=== PATIENT | female | born 1975 | race Caucasian/White ===

== ENCOUNTER 2020-05-09 02:09 | Outpatient (CLI) | payer BC, SELFPAY ==
--- NOTE | 2020-05-09 04:00 | DI.RAD_ITS ---
EXAM: XR HIP PELVIS ADULT BL CLINICAL HISTORY: RT AND LT HIP JOINT PAIN, M25.552,M25.551. TECHNIQUE: 2D digital imaging was performed. COMPARISON: CR RT HIP COMPLETE AP PELVIS from 11/11/2015 FINDINGS: BONES: No acute fracture is present. No bony destructive lesion is seen. JOINTS: No dislocation present. SOFT TISSUE: Normal. IMPRESSION: Unrmarkable radiographs of bilat hips. Unremarkable radiographs of the pelvis DATA REPOSITORY: RADIATION DOSE DELIVERED:
== END 2020-05-09 02:29 ==
PROVIDERS: PCP Family Medicine; Visit Provider Nurse Practitioner Family
DX: M25.552 Pain in left hip (principal); M25.551 Pain in right hip
CPT/HCPCS: 73521

== ENCOUNTER 2020-07-03 00:50 | Outpatient (CLI) | payer BC, SELFPAY ==
--- NOTE | 2020-07-03 15:45 | DI.MRI_ITS ---
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 TECHNIQUE: Multiplanar multisequence MRI was performed. COMPARISON: CR XR KNEE 4 VIEW LEFT from 05/14/2020 FINDINGS: There is artifact in the proximal tibia due to the patient's prior anterior tibial tuberosity transfe r. Postsurgical artifact is also seen in the medial meniscus and the patella. BONES: There is no fracture or contusion pattern. JOINTS: Moderate degenerative changes are seen in all 3 joint compartments with periarticular spurrin g and thinning of the articular cartilage. Findings appear most marked at the patellofemoral joint. There is a small joint effusion. TENDONS: Extensor mechanism: Unremarkable. Medial retinaculum: There is thickening of the medial retinaculum but no tear is identified. Lateral retinaculum: Unremarkable. Popliteus: Unremarkable. MUSCLES: Unremarkable. MENISCI: The medial meniscus is unremarkable. The lateral meniscus is unremarkable. SOFT TISSUES: Unremarkable. LIGAMENTS: Anterior Cruciate: Unremarkable. Posterior Cruciate: Unremarkable. Medial Collateral:Unremarkable. Lateral Collateral: Unremarkable. OTHER: IMPRESSION: 1. Postsurgical changes seen in the anterior tibial tuberosity medial femoral condyle and the patella . 2. No evidence of a meniscal tear. 3. Moderate degenerative changes in the knee. The findings are most marked at the patellofemoral yue nt. DATA REPOSITORY:
== END 2020-07-03 01:10 ==
PROVIDERS: PCP Family Medicine; Visit Provider Physician Assistant
DX: M22.42 Chondromalacia patellae, left knee (principal); M17.12 Unilateral primary osteoarthritis, left knee
CPT/HCPCS: 73721

== ENCOUNTER 2020-08-15 03:08 | Outpatient (CLI) | payer BC, SELFPAY ==
[2020-08-15 07:36] LABS: HCT 40.5 % (36.0-46.0); HGB 13.5 g/dL (11.2-15.7); MCHC 33.3 % (32.0-36.0); MPV 9.8 fL (8.0-11.0); Platelet Count 297 10^3/uL (130-400); RDW 12.7 % (11.7-14.6); RDW-SD 41.6 fL; WBC 12.42 10^3/uL (4.4-10.8)
[2020-08-15 07:38] LABS: Bilirubin Negative (Negative); Blood Trace-intact (Negative); Clarity Clear (Clear); Glucose Negative (Negative); Ketones Negative (Negative); Leukocyte Esterase Negative (Negative); Nitrite Negative (Negative); Specific Gravity 1.025 (1.005-1.025); Urobilinogen 0.2 EU/dL (Up TO 0.2)
[2020-08-15 07:51] LABS: Bacteria Moderate HPF (Negative); C & S Indicated? No/Sq. Contamination; Casts Negative LPF (Negative); Crystals Negative HPF (Negative); Epithelial Cells Moderate HPF (Negative); Mucus Trace (Negative); RBC 0-2 HPF (0-2); WBC 0-2 HPF (0-5)
[2020-08-15 08:47] LABS: ALT 31 U/L (14-59); AST 12 U/L (15-37); Albumin 4.3 g/dL (3.4-5.0); Alkaline Phosphatase 64 U/L (46-116); Anion Gap 10.6 mmol/L (3-11); BUN 13 mg/dL (7-18); Bilirubin, Total 0.6 mg/dL (0.2-1.0); CO2 24.4 mmol/L (21.0-32.0); CREATININE 0.73 mg/dL (0.55-1.02); Calcium 8.9 mg/dL (8.5-10.1); Calculated LDL 81 mg/dL (<100); Chloride 106 mmol/L (98-107); Cholesterol 191 mg/dL (<200); Glucose 96 mg/dL (74-106); HDL Cholesterol 87 mg/dL (40-60); Potassium 4.1 mmol/L (3.5-5.1); Sodium 141 mmol/L (136-145); Total Protein 7.2 g/dL (6.4-8.2); Triglyceride 115 mg/dL (<150)
== END 2020-08-15 03:28 ==
PROVIDERS: PCP Family Medicine; Visit Provider Nurse Practitioner Family
DX: Z00.00 Encounter for general adult medical examination without abnormal findings (principal); R35.0 Frequency of micturition; R39.0 Extravasation of urine; M25.551 Pain in right hip; M25.552 Pain in left hip; M25.562 Pain in left knee
CPT/HCPCS: 36415; 80053; 80061; 85027; 81003; 81015

== ENCOUNTER 2020-08-18 08:56 | Emergency (ER) | payer BC, SELFPAY ==
[2020-08-18 09:06] VITALS: BP 142/95; PULSE 76; RESP 18; TEMP 36.7; O2SAT 97
--- NOTE | 2020-08-18 09:21 | DI.CT_ITS ---
EXAM: CT BRAIN NECK CTA CLINICAL HISTORY: Dizziness, R face/ear fullness. TECHNIQUE: Imaging Protocol: Axial CT angiography was performed with multi-slice acquisition and mu lti-planar and/or 3D reconstructions. CONTRAST MATERIAL: Intravenous: Omnipaque 350 Contrast volume:structured data in ml COMPARISON: No exams were available for comparison FINDINGS: CT angiography of the cervical cranial region was performed according to the usual protocol with intr avenous infusion of 100 cc of Omnipaque 350.. Initial noncontrast scanning of the head is unremarkable except for slight generalized cerebral atrop hy.. Visualized lung apices are clear. Visualized portions of thoracic aorta and pulmonary arterial circul ation are unremarkable. There is no evidence of a cervical mass or adenopathy. The tracheal laryngeal structures appear intact. The common, internal, and external carotid arteries are within normal limits in the cervical region w ith no evidence of aneurysm, stenosis, or dissection. The vertebral arteries are unremarkable in appearance in the cervical region with no evidence of aneu rysm, stenosis, or dissection. Intracranial portions of the internal carotid arteries appear normal with no evidence of aneurysm, st enosis, or dissection. Intracranial vertebral arteries and basilar artery appear normal with no evidence of aneurysm, stenos is or dissection. No aneurysm identified in the region of the [id number]. The anterior, middle, and posterior cer ebral arteries and major branches appear intact with no evidence of aneurysm, stenosis, or dissection . No enhancing brain lesion identified. IMPRESSION: Negative CT angiography of the cervical cranial region. RADIATION DOSE DELIVERED: 1,356.25mGy.cmTotal DLP 1,356.25mGy.cm Total DLP DATA REPOSITORY: All CT scans at this facility are submitted to the National Radiology Data Registry (NRDR) Dose Index Registry (DIR) with the [employer] ([employer]). RADIATION OPTIMIZATION: All CT scans at this facility use at least one of these dose optimization te chniques: automated exposure control; mA and/or kV adjustment per patient size (includes targeted exa ms where dose is matched to clinical indication); or iterative reconstruction.
--- NOTE | 2020-08-18 09:23 | ED.GENADUL_ITS ---
Discharge Plan Disposition Patient Disposition: HOME Condition: Improving Discharge Details Clinical Impression: Episodic peripheral vertigo, Acute effusion of both middle ears Primary Care Provider: Axel Mcdaniel ED Provider: Toro Meek Home Meds and New Rx's Prescriptions: New meclizine 25 mg tablet 25 mg PO TID PRN (Reason: dizziness) Qty: 14 RF: 0 loratadine [Claritin] 10 mg tablet 10 mg PO DAILY Qty: 14 RF: 0 Continued multivitamin Tablet 1 tab PO DAILY RF: 0 sertraline 25 mg tablet 25 mg PO DAILY RF: 0 fluticasone propionate 50 mcg/actuation spray,suspension 1 spray INTRANASAL DAILY RF: 0 iron 18 mg Tablet 65 mg PO DAILY RF: 0 Discharge Instructions Instructions: Ear Infection (ED), Vertigo (ED) Additional Instructions: Home to rest today. Please take Claritin as prescribed once daily for 2 weeks. Antivert as needed for persistent dizziness. Return if you develop facial droop, difficulty with speech, clumsiness or tingli ng of the arm, or any other acute concerns. Medical Decision Making 45-year-old female presents with 1 month of intermittent episodes of vertiginous symptoms. Now with 1 to 2 days of right facial fullness and ear discomfort. She is afebrile, well-appearing, unremarkable vital signs. Cranial nerves II through XII, Romberg are within normal limits. She has middle ear effusions bilaterally. Differential diagnosis would include mass, sinusitis, vertigo. Patient given meclizine, IV access established, screening labs obtained and she is referred for contrast-enhanced CT images. Labs showed a white count of 6, hematocrit 41, platelets 284. Sodium 140, potassium 3.7, chloride 104, BUN 8, creatinine 0.7. Of mass or infarct. She is improved with Antivert. She underwent CT images without evidence of mass or infarct. Will administer dexamethasone for its anti-inflammatory properties, decongestants for 2 weeks, and Antivert to be used as needed. She understands indications to seek reevaluation. She is stable and improved, will discharge to home. HPI General Mode of arrival: ambulatory . Date/Time Provider Initiated Documentation: 08/18/20 08:58 . Limitations to Documentation: no limitations . Information obtained by: patient . History of Present Illness 45 year old F presents to the emergency department with the chief complaint of Intermittent dizziness for 1 month, right ear and facial fullness, described as moderate, Quality is described as dull, and is localized to the face. Patient reports no radiation. Patient started experiencing this day(s) and it has been intermittent. No relieving factors improve symptom(s), No exacerbating factors reported . Patient notes denies fever/chills, headaches, loss of appetite, malaise, nausea/vomiting and syncope. Patient did receive the following treatments prior to arrival, none Related Data Home Medications Medication Instructions Recorded Confirmed fluticasone propionate 1 spray INTRANASAL DAILY 08/18/20 08/18/20 iron 65 mg PO DAILY 08/18/20 08/18/20 loratadine [Claritin] 10 mg PO DAILY #14 tab 08/18/20 meclizine 25 mg PO TID PRN #14 tab 08/18/20 multivitamin 1 tab PO DAILY 08/18/20 08/18/20 sertraline 25 mg PO DAILY 08/18/20 08/18/20 Previous Rx's Medication Instructions Recorded loratadine [Claritin] 10 mg PO DAILY #14 tab 08/18/20 meclizine 25 mg PO TID PRN #14 tab 08/18/20 Allergies Allergy/AdvReac Type Severity Reaction Status Date / Time oxycodone Allergy Intermediate Hives Unverified 08/18/20 09:10 ENVIRONMENTAL Allergy Intermediate RHINITIS, Uncoded 08/18/20 09:10 ITCHY EYES General Stated Complaint: FacialProb DALE: 3 Review of Systems Narrative: No fever, chills. No fall or headache. 8 systems reviewed and otherwise negative [facility] Social History Smoking/Tobacco Use Status: Former Tobacco Use Smoking risk assessment performed?: Yes Drug use: Never Exam Narrative Exam Narrative: GEN: awake, alert, oriented 3. Pleasant, well groomed, interactive. HEAD: Normocephalic, atraumatic ENT: Mucous membranes moist, oropharynx unremarkable, External ear exam unre markable.right greater than left middle ear effusion without erythema or distention. EYES: PERRL, EOMI NECK: Full ROM, no MEME, no menigismus CHEST/RESP: Nontender, clear to auscultation bilateral, no wheeze/rhonchi/rales CARDIOVASCULAR: RRR, no murmur, rub braydon. 2+ Rad pulse bilateral ABDOMEN: Soft, nontender, no mass. +Bowel sounds EXT: Full ROM, no edema, no rash Neuro: Grossly normal neurologic exam, conversant, interactive. Cranial nerves II through XII intact. Negative Romberg. Heel and toe walking normal. Psych: Speech fluent, thoughts congruent, affect normal Course Vital Signs Vital signs: Vital Signs Temperature 36.7 C 08/18/20 09:06 Pulse 76 08/18/20 09:06 Respiratory Rate 18 08/18/20 09:06 Blood Pressure 142/95 H 08/18/20 09:06 Pulse Oximetry 97 08/18/20 09:06 Temperature 36.7 C 08/18/20 09:06 Temperature Source Temporal Artery Scan 08/18/20 09:06 Pulse 76 08/18/20 09:06 Respiratory Rate 18 08/18/20 09:06 Blood Pressure 142/95 H 08/18/20 09:06 Blood Pressure Position Sitting 08/18/20 09:06 Pulse Oximetry 97 08/18/20 09:06 Oxygen Delivery Method Room Air 08/18/20 09:06 Oxygen Flow Rate 0 08/18/20 09:06 Pain Level 5 08/18/20 09:06
[2020-08-18] MEDS: Meclizine 25 MG TAB PO (09:41)
[2020-08-18 09:52] LABS: HCT 41.1 % (36.0-46.0); HGB 13.8 g/dL (11.2-15.7); MCH 30.2 pg (27.0-33.0); MCHC 33.6 % (32.0-36.0); MCV 89.9 fL (80-95); MPV 9.5 fL (8.0-11.0); Platelet Count 284 10^3/uL (130-400); RBC 4.57 10^6/uL (3.93-5.22); RDW 12.6 % (11.7-14.6); RDW-SD 41.2 fL; WBC 6.52 10^3/uL (4.4-10.8)
[2020-08-18] MEDS: Normal Saline 500 ML IV (09:52)
[2020-08-18] MEDS: Omnipaque 350 MG/ML 100 ML BTL IJ (10:08)
[2020-08-18] MEDS: Normal Saline - Diluent 50 ML VIAL IV (10:08)
[2020-08-18] MEDS: Normal Saline Flush 10 ML SYR IVP (10:09)
[2020-08-18 10:10] LABS: Anion Gap 8.8 mmol/L (3-11); BUN 8 mg/dL (7-18); CO2 27.2 mmol/L (21.0-32.0); CREATININE 0.76 mg/dL (0.55-1.02); Calcium 9.2 mg/dL (8.5-10.1); Chloride 104 mmol/L (98-107); Glucose 100 mg/dL (74-106); Potassium 3.7 mmol/L (3.5-5.1); Sodium 140 mmol/L (136-145)
[2020-08-18 10:35] VITALS: BP 115/71; PULSE 59; RESP 20; O2SAT 99
--- NOTE | 2020-08-18 11:14 | DI.VRAD_ITS ---
PROCEDURE INFORMATION: Exam: CT Angiography Head With Contrast Exam date and time: 08/18/2020 9:46 AM Age: 45 years old Clinical indication: Dizziness and giddiness; Patient HX: Dizzy. RT ear fiullness TECHNIQUE: Imaging protocol: Computed tomography angiography of the head with intravenous contrast. 3D rendering (Not supervised by radiologist): MIP and/or 3D reconstructed images were created by the technologist. Radiation optimization: All CT scans at this facility use at least one of these dose optimization techniques: automated exposure control; mA and/or kV adjustment per patient size (includes targeted exams where dose is matched to clinical indication); or iterative reconstruction. Contrast material: SHARON 350; Contrast volume: 85 ml; Contrast route: INTRAVENOUS (IV); COMPARISON: No relevant prior studies available. FINDINGS: Limited study due to poor opacification of the xoowmk-tq-Nksjpr beyond the 2nd order branches. ANTERIOR CIRCULATION: Right internal carotid artery: Unremarkable. No occlusion or stenosis. No aneurysm. Right middle cerebral artery: Unremarkable. No occlusion or significant stenosis. No aneurysm. Right anterior cerebral artery: Unremarkable. No occlusion or significant stenosis. No aneurysm. Left internal carotid artery: Unremarkable. Intracranial segment is patent with no significant stenosis. No aneurysm. Left middle cerebral artery: Unremarkable. No occlusion or significant stenosis. No aneurysm. Left anterior cerebral artery: Unremarkable. No occlusion or significant stenosis. No aneurysm. POSTERIOR CIRCULATION: Right vertebral artery: Unremarkable. No occlusion or significant stenosis. No aneurysm. Left vertebral artery: Unremarkable. No occlusion or significant stenosis. No aneurysm. Basilar artery: Unremarkable. No occlusion or significant stenosis. No aneurysm. Right posterior cerebral artery: Unremarkable. No occlusion or significant stenosis. No aneurysm. Left posterior cerebral artery: Unremarkable. No occlusion or significant stenosis. No aneurysm. Veins: Venous contamination without venous thrombus. Brain: The noncontrast images demonstrate minimal diffuse involutional changes in the brain without evidence of acute hemorrhage or acute territorial infarct. Cerebral ventricles: No ventriculomegaly. Mastoid air cells: The mastoids are well aerated. Paranasal sinuses: The paranasal sinuses are well aerated. Bones/joints: There is no evidence of acute fracture. No skull base mass is seen. Soft tissues: Unremarkable. IMPRESSION: No acute hemorrhage or acute territorial infarct. 2. No large vessel occlusion though evaluation of the vlphgr-vu-Unrrju is limited by somewhat poor contrast opacification. PROCEDURE INFORMATION: Exam: CT Angiography Neck With Contrast Exam date and time: 08/18/2020 9:46 AM Age: 45 years old Clinical indication: Dizziness and giddiness; Patient HX: Dizzy. RT ear fiullness TECHNIQUE: Imaging protocol: Computed tomography angiography of the neck with intravenous contrast. 3D rendering (Not supervised by radiologist): MIP and/or 3D reconstructed images were created by the technologist. Contrast material: SHARON 350; Contrast volume: 85 ml; Contrast route: INTRAVENOUS (IV); COMPARISON: No relevant prior studies available. FINDINGS: Right common carotid artery: No stenosis. No dissection or occlusion. Right internal carotid artery: No stenosis of the extracranial segment. No dissection or occlusion. Right external carotid artery: No occlusion or stenosis of the origin. Right vertebral artery: No stenosis. No dissection or occlusion. Left common carotid artery: No stenosis. No dissection or occlusion. Left internal carotid artery: No stenosis of the extracranial segment. No dissection or occlusion. Left external carotid artery: No occlusion or stenosis of the origin. Left vertebral artery: No stenosis. No dissection or occlusion. Bones/joints: Degenerative changes along the spine are modest. No acute fracture. Soft tissues: No dominant neck mass. Lymph nodes: Small neck nodes without confluent lymphadenopathy. Lungs: There is mildly heterogeneous aeration of the included lungs. IMPRESSION: No significant stenosis by NASCET criteria. REFERENCES: NASCET CRITERIA. The degree of internal carotid artery stenosis is based on NASCET criteria. Normal is no stenosis. Mild is less than 50% stenosis. Moderate is 50-69% stenosis. Severe is 70% to 99% stenosis. Total occlusion is no detectable patent lumen. Dictated and Authenticated by: Randall Beasley MD. Ordering:SALEEM Engel MD
[2020-08-18 11:48] VITALS: BP 114/95; PULSE 60; TEMP 36.7; O2SAT 98
[2020-08-18] MEDS: Dexamethasone 4 MG TAB 8 MG PO (11:49)
--- NOTE | 2020-08-18 12:29 | NUR.NOTE ---
Referral, visit note, lab test results and radiology notes faxed to [facility]-Dr Mcdaniel.Nursing Note:
== END 2020-08-18 11:57 | disposition home or self-care (01) ==
PROVIDERS: Emergency Provider Emergency Medicine; PCP Family Medicine
DX: H65.193 Other acute nonsuppurative otitis media, bilateral (principal); H81.391 Other peripheral vertigo, right ear
CPT/HCPCS: 36415; 70496; 70498; 80048; 85027; 96360; 99285; 99284; J3490; J8540

== ENCOUNTER 2021-01-01 01:25 | Outpatient (CLI) | payer BC, SELFPAY ==
--- NOTE | 2021-01-01 | DI.MRI_ITS ---
Exam(s) MR IAC BRAIN WO/W EXAM: MR IAC BRAIN WO/W CLINICAL HISTORY: PARESTHESIAS,R20.2,R55 TECHNIQUE: Multiplanar multisequence MRI of the brain was performed. Both noninfused and contrast i nfused sequences were performed. IV Contrast injected was 20 cc Dotarem. COMPARISON: CT SCAN 08/18/2020 WAS REVIEWED FINDINGS: CEREBRAL PARENCHYMA: No evidence of intracranial hemorrhage, mass effect nor shift of midline structu re. No extraaxial fluid collections. Ventricles are not enlarged nor shifted. There is no significant focal signal abnormality in the cerebellar hemispheres nor within the natali, m idbrain, and thalami. There is no abnormal signal abnormality in the periventricular white matter. INTERNAL AUDITORY CANALS: There are no masses in the cerebellopontine angles. Also no evidence of in tra canalicular acoustic neuroma-schwannoma. The high-resolution sub millimeters slice T2 weighted s equence reveals no abnormality of the intra canalicular 7th and 8th cranial nerves. There are no ring enhancing lesions in the brain. There is no abnormal meningeal enhancement. PITUITARY GLAND: No mass nor parasellar abnormality. No obvious abnormality in the cavernous sinuses. FLOW VOIDS: The expected flow void are noted. No evidence of obvious aneurysm nor obvious vascular ma lformation. PARANASAL SINUSES: The visualized paranasal sinuses appear unremarkable. ORBITS: No obvious abnormal findings. IMPRESSION: 1. No significant intracranial findings on this MRI scan of the brain. 2. No abnormal enhancing intracranial finding. 3. No evidence of acoustic neuroma/schwannoma. DATA REPOSITORY:
[2021-01-01] MEDS: Gadoterate meglumine 20 ML VIAL IVP (09:38)
[2021-01-01] MEDS: Normal Saline Flush 10 ML SYR IVP (09:38)
== END 2021-01-01 01:45 ==
PROVIDERS: PCP Family Medicine; Visit Provider Otolaryngology Otolaryngology/Facial Plastic Surgery
DX: R55 Syncope and collapse (principal); R20.2 Paresthesia of skin
CPT/HCPCS: 70553

== ENCOUNTER 2022-03-11 13:27 | Emergency (ER) | payer BC, SELFPAY ==
[2022-03-11 13:42] VITALS: BP 142/89; PULSE 80; RESP 18; TEMP 36.5; O2SAT 98
--- NOTE | 2022-03-11 14:30 | DI.RAD_ITS ---
Exam(s) XR KNEE RT 4V+ EXAM: XR KNEE RT 4V+ CLINICAL HISTORY: pain,felt pop. TECHNIQUE: 2D digital imaging was performed of the right knee. Four views obtained. AP, lateral, Me rchant and PA tunnel views were obtained. COMPARISON: No exams were available for comparison FINDINGS: BONES: No acute fracture is present. No bony destructive lesion is seen. There is an enthesophyte at the superior patella. JOINTS: There are mild degenerative changes seen about the knee, particularly the patellofemoral join t. There is a very small suprapatellar joint effusion. SOFT TISSUE: Dystrophic calcifications are seen in the soft tissues. IMPRESSION: No acute fracture or dislocation. DATA REPOSITORY: RADIATION DOSE DELIVERED:
--- NOTE | 2022-03-11 15:16 | DI.VRAD_ITS ---
PROCEDURE INFORMATION: Exam: XR Right Knee Exam date and time: 03/11/2022 2:50 PM Age: 46 years old Clinical indication: Other: Pain, felt pop TECHNIQUE: Imaging protocol: Radiologic exam of the Right knee. Views: 4 or more views. COMPARISON: CR RIGHT ANKLE COMPLETE 11/11/2015 4:17 PM FINDINGS: Bones/joints: There are mild degenerative changes of the knee joint, predominantly involving the medial joint compartment. The joint spaces are preserved. Ar-Stieda lesion noted adjacent to the medial femoral condyle. No acute fracture or malalignment. Soft tissues: Unremarkable. Other findings: There is a suprapatellar knee effusion. IMPRESSION: 1. Small knee effusion. 2. No acute fracture or malalignment. 3. Mild osteoarthrosis. Dictated and Authenticated by: Martha Ford MD. Ordering:STARLA Tinoco MD
--- NOTE | 2022-03-11 15:25 | W.ED.GENAD ---
Discharge Plan Disposition Patient Disposition: HOME Condition: Stable Discharge Details Clinical Impression: Knee effusion, right Primary Care Provider: Axel Mcdaniel ED Provider: Earnest Washington Home Meds and New Rx's Prescriptions: Continued Emgality Pen 120 mg/mL pen injector 240 mg subcut ONCE Qty: 2 0RF Rx Instructions: as a single dose; administer as two 120 mg injections at separate sites sertraline 25 mg tablet 25 mg PO DAILY multivitamin Tablet 1 tab PO DAILY prochlorperazine maleate 10 mg tablet 10 mg PO Q8H PRN (Reason: nausea and vomiting or headache) Qty: 90 3RF amitriptyline 50 mg tablet 50 mg PO QHS Qty: 30 5RF vitamin B complex Tablet 1 tab PO DAILY diphenhydramine HCl [Benadryl] 25 mg capsule 25 mg PO QHS PRN doxylamine succinate 25 mg tablet 25 mg PO QHS PRN epinephrine 0.3 mg/0.3 mL auto-injector 0.3 mg IM ONCE Rx Instructions: as a single dose cholecalciferol (vitamin D3) 25 mcg (1,000 unit) capsule 25 mcg PO DAILY ascorbic acid (vitamin C) 500 mg tablet extended release 1,000 mg PO DAILY mecobalamin (vitamin B12) 1,000 mcg tablet,chewable 1,000 mcg PO Q3D docusate sodium 100 mg capsule 100 mg PO .QOD sumatriptan succinate 100 mg tablet See Rx Instructions PO .COMPLEX Qty: 12 3RF Rx Instructions: take 1 tab at onset of headache; if no relief, may repeat 1 tab after at least 2 hrs; max = 2 tabs/24 hrs PO fluticasone propionate 50 mcg/actuation spray,suspension 1 spray INTRANASAL DAILY Label Comments: SHAKE LIQUID AND USE 1 SPRAY IN EACH NOSTRIL TWICE DAILY iron 18 mg Tablet 65 mg PO DAILY loratadine [Claritin] 10 mg tablet 10 mg PO DAILY Qty: 14 0RF Discharge Instructions Instructions: Swollen Knee Joint (ED) Additional Instructions: X-ray does not reveal acute fracture or dislocation. Please watch for new or worsening symptoms and return to the ER for any concerns. Lastly, please follow-up with the [facility] who you see for your chronic knee issues. Medical Decision Making This is a 46-year-old female who reports bilateral chronic knee pain, is seen at the [facility] and eventually will need bilateral knee replacements.. Today she twisted her left ankle, did not sustain injury to her ankle but in the process twisted her knee and felt a pop and heard a crack. Patient has proper outpatient orthopedic follow-up, splint and crutches at home, requesting x-ray now to be sure she does not have an acute fracture. X-ray reveals a joint effusion, mild osteoarthrosis, no acute fracture or malalignment Discussed x-ray findings with patient. Standard discharge and return precautions were provided. Patient understands, is agreeable to this plan, and has no additional questions or concerns upon discharge. This documentation was generated using [employer] system, please disregard any oddities of phrase or misspellings. Imaging Data Radiologic Study: Attestation: I personally reviewed and interpreted this imaging study as follows: Imaging: X-Ray Radiologist's impression: PROCEDURE INFORMATION: Exam: XR Right Knee Exam date and time: 03/11/2022 2:50 PM Age: 46 years old Clinical indication: Other: Pain, felt pop TECHNIQUE: Imaging protocol: Radiologic exam of the Right knee. Views: 4 or more views. COMPARISON: CR RIGHT ANKLE COMPLETE 11/11/2015 4:17 PM FINDINGS: Bones/joints: There are mild degenerative changes of the knee joint, predominantly involving the medial joint compartment. The joint spaces are preserved. Ar-Stieda lesion noted adjacent to the medial femoral condyle. No acute fracture or malalignment. Soft tissues: Unremarkable. Other findings: There is a suprapatellar knee effusion. IMPRESSION: 1. Small knee effusion. 2. No acute fracture or malalignment. 3. Mild osteoarthrosis. HPI General Mode of arrival: ambulatory. Date/Time Provider Initiated Documentation: 03/11/22 13:50. Limitations to Documentation: no limitations. Information obtained by: patient. History of Present Illness 46 year old F presents to the emergency department with the chief complaint of R knee pain, described as moderate, with intensity rated at 6. Quality is described as aching, and is localized to the right. Patient reports no radiation. Patient started experiencing this hour(s) (3) and it has been constant. Immobilization improves symptom(s), Movement worsens symptoms . Patient notes no other symptoms.. Patient did receive the following treatments prior to arrival, none Related Data Home Medications Medication Instructions Recorded Confirmed fluticasone propionate 50 1 spray intranasal DAILY 08/18/20 03/11/22 mcg/actuation nasal spray,suspension iron 18 mg tablet 65 mg PO DAILY 08/18/20 03/11/22 loratadine 10 mg tablet (Claritin) 10 mg PO DAILY #14 tabs 08/18/20 03/11/22 ascorbic acid (vitamin C) 500 mg 1,000 mg PO DAILY 02/06/21 03/11/22 tablet,extended release cholecalciferol (vitamin D3) 25 25 mcg PO DAILY 02/06/21 03/11/22 mcg (1,000 unit) capsule diphenhydramine HCl 25 mg capsule 25 mg PO QHS PRN 02/06/21 03/11/22 (Benadryl) doxylamine succinate 25 mg tablet 25 mg PO QHS PRN 02/06/21 03/11/22 epinephrine 0.3 mg/0.3 mL 0.3 mg IM ONCE 02/06/21 03/11/22 injection, auto-injector vitamin B complex 1 tab PO DAILY 02/06/21 03/11/22 mecobalamin (vitamin B12) 1,000 1,000 mcg PO Q3D 05/14/21 03/11/22 mcg chewable tablet docusate sodium 100 mg capsule 100 mg PO .QOD 06/30/21 03/11/22 sertraline 25 mg tablet 25 mg PO DAILY 06/30/21 03/11/22 multivitamin 1 tab PO DAILY 08/18/21 03/11/22 sumatriptan succinate 100 mg tablet See Rx Instructions PO .COMPLEX 10/15/21 03/11/22 #12 tabs prochlorperazine maleate 10 mg 10 mg PO Q8H PRN nausea and 11/12/21 03/11/22 tablet vomiting or headache #90 tabs amitriptyline 50 mg tablet 50 mg PO QHS #30 tabs 12/23/21 03/11/22 galcanezumab-gnlm 120 mg/mL 240 mg (2 mL) subcut ONCE #2 mL 02/03/22 03/11/22 subcutaneous pen injector (Emgality Pen) Previous Rx's Medication Instructions Recorded loratadine 10 mg tablet (Claritin) 10 mg PO DAILY #14 tabs 08/18/20 sumatriptan succinate 100 mg tablet See Rx Instructions PO .COMPLEX 10/15/21 #12 tabs prochlorperazine maleate 10 mg 10 mg PO Q8H PRN nausea and 11/12/21 tablet vomiting or headache #90 tabs amitriptyline 50 mg tablet 50 mg PO QHS #30 tabs 12/23/21 galcanezumab-gnlm 120 mg/mL 240 mg (2 mL) subcut ONCE #2 mL 02/03/22 subcutaneous pen injector (Emgality Pen) Allergies Allergy/AdvReac Type Severity Reaction Status Date / Time acetaminophen [From Percocet] Allergy Intermediate Verified 03/11/22 13:49 oxycodone Allergy Intermediate Hives Unverified 03/11/22 13:49 trazodone Allergy Intermediate Verified 03/11/22 13:49 ENVIRONMENTAL Allergy Intermediate RHINITIS, Uncoded 03/11/22 13:49 ITCHY EYES General Stated Complaint: Orthopedic DALE: 4 Review of Systems Constitutional Constitutional: Denies weakness Musculoskeletal Musculoskeletal: Reports arthralgias, Denies numbness, Reports stiffness and Denies tingling Integumentary/Breasts Skin/Breast: Denies erythema Neurologic Neurologic: Denies numbness, Denies tingling and Denies weakness PFSH All Active Problems (Updated 03/11/22 @ 15:34 by CLARK Navarro) Knee effusion, right (Acute) Medication overuse headache (Acute) Migraine aura without headache (Acute) Migraine headache without aura (Acute) Disequilibrium (Acute) Paresthesias (Acute) Medical History Allergic disorder Anxiety Chronic fatigue syndrome Knee pain Obstructive sleep apnea of adult Polycystic ovaries Vitamin D deficiency Surgical History H/O bariatric surgery H/O gastric bypass History of cholecystectomy S/P carpal tunnel release S/P knee surgery Family History Father , liver failure No problems noted. 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 Exam Const General: cooperative, healthy appearing, comfortable and no acute distress Orientation: alert and awake HENMT Head: normal to inspection, normocephalic and atraumatic Eyes Conjunctivae: conjunctivae normal Neck Neck: normal visual inspection, trachea midline and supple Resp Effort & Inspection: normal respiratory effort and able to speak in complete sentences Cardio Rate: regular rate Rhythm: regular rhythm Skin General skin exam: no rashes or lesions noted Neuro General: patient alert, patient awake, moves all extremities and no focal motor deficits Cognition: normal cognition Speech: speech normal Gait: antalgic Motor: muscle tone normal throughout Sensory Exam: no sensory deficits noted Extrem General: full ROM, capillary refill normal, no pedal edema and no calf tenderness Other: Right knee stable, increased discomfort with anterior draw and varus pressure. No erythema, warmth or swelling. Calf is unremarkable. There is diffuse lateral and slight anterior discomfort to palpation. Patient is able to fully bear weight. Neuro, vascular, tendon intact Psych Appearance: grossly normal Mental Status: mental status grossly normal Course Vital Signs Vital signs: Vital Signs Temperature 36.5 C 03/11/22 13:42 Pulse 80 03/11/22 13:42 Respiratory Rate 18 03/11/22 13:42 Blood Pressure 142/89 H 03/11/22 13:42 Pulse Oximetry 98 03/11/22 13:42 Temperature 36.5 C 03/11/22 13:42 Temperature Source Temporal Artery Scan 03/11/22 13:42 Pulse 80 03/11/22 13:42 Respiratory Rate 18 03/11/22 13:42 Respiratory Effort Non-Labored 03/11/22 13:46 Blood Pressure 142/89 H 03/11/22 13:42 Blood Pressure Position Sitting 03/11/22 13:42 Pulse Oximetry 98 03/11/22 13:42 Oxygen Delivery Method Room Air 03/11/22 13:42 Oxygen Flow Rate 0 03/11/22 13:42 Pain Level 10 03/11/22 13:46
== END 2022-03-11 15:41 | disposition home or self-care (01) ==
PROVIDERS: Emergency Provider Physician Assistant; PCP Family Medicine
DX: M25.461 Effusion, right knee (principal); Z87.891 Personal history of nicotine dependence
CPT/HCPCS: 99283; 73564; 99282

== ENCOUNTER 2022-08-21 00:15 | Outpatient (CLI) | payer BC, SELFPAY ==
--- OUTSIDE RECORDS SUMMARY | 2022-08-21 00:16 | XMS_ITS | Continuity of Care Document ---
:1975 Author Organization [facility] Address [address] [place] [address] Encounter [facility] FIN NBR [id number] Date(s): 06/23/22 - 06/23/22 [facility] [address] [place], [place] [address] Encounter Diagnosis Knee effusion, right (Discharge Diagnosis) - 06/23/22 Chondromalacia of right knee (Discharge Diagnosis) - 06/23/22 Internal derangement of right knee (Discharge Diagnosis) - 06/23/22 Discharge Disposition: Home or Self Care Attending Physician: CLARK Chong Allergies, Adverse Reactions, Alerts Substance Reaction Severity Status Percocet Hives Mild Active Environmental Smoke Unknown Active Assessment and Plan Future Scheduled TestsRadiologyMRI Knee w/o Contrast Right 06/23/22 Functional Status 06/23/22 Other exposure to Infectious Disease None Medications amitriptyline 10 mg oral tablet 10 mg = 1 tab, Oral, TID, # 270 tab, 0 Refill(s) Start Date: 06/23/22 Status: OrderedEmgality Prefilled Syringe 120 mg =, Subcutaneous, every month, 0 Refill(s) Start Date: 06/23/22 Status: Orderedloratadine 10 mg oral capsule 10 mg = 1 cap, Oral, Daily, # 10 cap, 0 Refill(s) Start Date: 06/23/22 Status: Orderedsertraline 25 mg oral tablet 25 mg = 1 tab, Oral, Daily, 0 Refill(s) Start Date: 06/23/22 Status: OrderedTylenol 8 HR Arthritis Pain 650 mg =, Oral, PRN as needed for pain, 0 Refill(s) Start Date: 06/23/22 Status: Ordered Problem List Condition Confirmation Course Effective Dates Status Health I nformant Status Chondromalacia of Confirmed Active right knee Internal derangement Confirmed Active of right knee Knee effusion, right Confirmed Active Vital Signs Most recent to oldest [Reference Range]: 1 Peripheral Pulse Rate [60-100 bpm] 82 bpm (06/23/22 8:04 AM) Blood Pressure [90-140/60-90 mmHg] 126/84 mmHg (06/23/22 8:04 AM) Weight 104.33 kg (06/23/22 8:04 AM) Weight Measured (lbs) 230.008 lb (06/23/22 8:04 AM) Height 165.10 cm (06/23/22 8:04 AM) Height/Length Measured (inches) 65 inch (06/23/22 8:04 AM) BSA Measured 2.19 m2 (06/23/22 8:04 AM) Body Mass Index 38.27 kg/m2 (06/23/22 8:04 AM) Social History Social History Type Response Tobacco Never tobacco user Tobacco U se:. Sex Hospital Discharge Instructions Follow Up Care06/03/2022 20:15:05With:MRI [facility] Angie Valles: PERFORM Event Display: Procedure Note Authored Date: [id number] Physician Outpatient Note CLARK Chong: PERFORM Event Display: Office Clinic Note Physician Authored Date: [id number] WINNIE CASTANO :1975 Age:47 years Sex:Female Visit Date:06/23/2022 Chief Complaint RIGHT KNEE PAIN History of Present Illness The patient comes in today with bilateral knee pain right worse than left. ??Both of her knees continue to be swelling. ??She gets anterior medial and lateral knee pain.?? Going up and down stairs hasbeen difficult. ??She has been taking Tylenol at night because her knees feel like they lock up??on her at night after being still for a long period of time. ??She has gone to formal physical therapy and has tried a prescribed home exercise program prior to that.?? She has been icing.?? Conservative management does not seem to be giving her any lasting relief.?? She is unable to do most activities that she enjoys and is having some difficulty with ADLs. Physical Exam Vitals & Measurements HR:??82??(Peripheral)?? BP:??126/84?? SpO2:??98%?? HT:??165.10??cm?? WT:??104.33??kg?? BMI:??38.27?? Pain Score:??6?? BSA:??2.19?? General: Alert and oriented x3, pleasant cooperative, in no acute distress, appears to be their stated age, is generally fit appearing.? Right knee:??Moderate effusion.?? Lateral and medial joint line tenderness.?? Painful Troy'santerolaterally.?? Positive patellofemoral grind testing.?? Stable anteriorly and posteriorly. ??Negative varus and valgus stress testing.?? Terminal ends of flexion are painful medially.?? Motor sensory reflex neurovascular exam distally is intact. Assessment/Plan 1.??Knee effusion, right??M25.461 2.??Chondromalacia of right knee??M94.261 3.??Internal derangement of right knee??M23.91 Patient comes in today with continued bilateral knee pain right worse than left. ??She is getting??sensations of instability.?? She has been on a course of extensive nonoperative management. ??At thispoint I am concerned that there is a meniscus tear continuing to give her issues.?? We did discuss??the possibility of needing surgery and??she would like to??proceed with diagnostic imaging to evaluate her right??knee further as this is the more painful side.?? We will see her back when that is complete with further suggestions at that time. Follow Up Instructions With When Contact Information MRI Additional Instructions: Problem List/Past Medical History Ongoing Chondromalacia of right knee Internal derangement of right knee Knee effusion, right Historical No qualifying data Medications amitriptyline 10 mg oral tablet, 10 mg= 1 tab, Oral, TID Emgality Prefilled Syringe, 120 mg, Subcutaneous, every month loratadine 10 mg oral capsule, 10 mg= 1 cap, Oral, Daily sertraline 25 mg oral tablet, 25 mg= 1 tab, Oral, Daily Tylenol 8 HR Arthritis Pain, 650 mg, Oral, PRN Allergies Percocet??(Hives) Environmental Smoke Social History Alcohol Current, Wine- Comments: OCCASIONALLY Electronic Cigarette/Vaping Electronic Cigarette Use: Never. Employment/School Employed, Work/School description: [employer]. Tobacco Never tobacco user Tobacco Use:. Diagnostic Results Diagnostic Study Interpretation: Imaging: Previous x-rays taken??in February 2022 of her right knee show??patellofemoral degenerative changes.?? Medial lateral joint spaces are well-maintained otherwise. ??No fractures or dislocations. Electronically Signed on 06/23/22 08:27 AM CLARK Chong
--- NOTE | 2022-08-21 07:45 | DI.MRI_ITS ---
Exam(s) MR LOWER JOINT RT WO EXAM: MR LOWER JOINT RT WO CLINICAL HISTORY: RT KNEE EFFUSION,M25.461; CHONDROMALACIA,M94.261; INT DERANGEMENT,M23.91. TECHNIQUE: Multiplanar multisequence MRI was performed. COMPARISON: MR MR LOWER JOINT LT WO from 07/03/2020 CR,XR XR KNEE RT 4V+ from 03/11/2022 FINDINGS: BONES: There is no fracture or contusion pattern. Spurring from the femoral condyles and tibial anne marie teaus as well as patellofemoral joint. Postsurgical defect in the medial femoral metaphysis. Postsurg ical defects in the patella. JOINTS: A moderate joint effusion is present. Articular cartilage: Patellofemoral joint: Marked thinning of the cartilage at the apex and lateral patellar facet, extending down to bone. There is small amount adjacent high signal in the patellar ap ex. Marked thinning of cartilage extending down to bone in the adjacent femur Medial femoral tibial joint: Mild cartilage thinning and irregularity.. Lateral femoral tibial joint: Mild cartilage thinning and irregularity. TENDONS: Extensor mechanism: Enthesophytes at superior pole of patella, otherwise unremarkable. Medial retinaculum: Unremarkable. Lateral retinaculum: Unremarkable. Popliteus: Unremarkable. MUSCLES: Unremarkable. MENISCI: The medial meniscus shows a large tear in the posterior horn near the meniscal root.. The la teral meniscus is unremarkable. SOFT TISSUES: Small calcification adjacent to upper medial femoral condyle. Anterior subcutaneous edema. LIGAMENTS: Anterior Cruciate: Unremarkable. Posterior Cruciate: Unremarkable. Medial Collateral:Unremarkable. Lateral Collateral: Unremarkable. OTHER: IMPRESSION: Large tear of the posterior horn of the medial meniscus near the meniscal root. Severe degenerative changes with severe chondromalacia extending down to bone involving the patellof emoral joint. DATA REPOSITORY:
== END 2022-08-21 00:35 ==
LOC: DI 00:15
PROVIDERS: PCP Family Medicine; Visit Provider Physician Assistant
DX: M25.561 Pain in right knee (principal); M25.461 Effusion, right knee; M94.261 Chondromalacia, right knee; M23.8X1 Other internal derangements of right knee; S83.241A Other tear of medial meniscus, current injury, right knee, initial encounter; M17.11 Unilateral primary osteoarthritis, right knee
CPT/HCPCS: 73721

== ENCOUNTER 2024-08-22 16:03 | Outpatient (CLI) | payer BC, SELFPAY ==
--- NOTE | 2024-08-22 | DI.RAD_ITS ---
Exam(s) XR CHEST 2V PA LATERAL EXAM: XR CHEST 2V PA LATERAL CLINICAL HISTORY: Cough, R05.9 TECHNIQUE: 2D digital imaging was performed of the chest. Two images were obtained. PA and lateral views were obtained. COMPARISON: CT CT BRAIN NECK CTA from 08/18/2020 FINDINGS: MEDIASTINUM: Normal. HEART: Normal. PULMONARY VASCULATURE: Normal. LUNGS: Clear. PLEURAL SPACE: No pleural effusion or pneumothorax. BONE:Within normal limits for the patient's age. OTHER FINDINGS:Normal. IMPRESSION: No acute pulmonary findings. DATA REPOSITORY: RADIATION DOSE DELIVERED:
--- OUTSIDE RECORDS SUMMARY | 2024-08-22 16:04 | XMS_ITS | Encounter Summary ---
Author Organization [facility] Address [address] [place] [address] Care Team Providers Care Paper Mill Supervisor Name Role Phone Sulma Salinas MD Primary Care Provider [phone] Reason for Visit * Reason Comments Obesity Post Op Bypass (06/17) Encounter Details Date Type Department Care Team (Late st Contact Info) Description 10/23/2013 14:45 EDT Office Visit [facility] Bariatric Surgery [facility] [address] [place] [address] Hunter Bynum, PA-C [address] [place] [address], [facility] [address] [place] [address] Morbid obesity (HCC-CMS) (Primary Dx); S/P gastric bypass; Post-resection malabsorption Discharge Disposition: Auto Discharge Social History Tobacco Use Types Packs/Day Years Used Date Smoking Tobacco: Former Smokeless Tobacco: Never Comments:1996 Alcohol Use Standard Drinks/Week Comments Yes 0 (1 standard drink = 0.6 oz pur e alcohol) rare Comments No Sex and Gender Information Value Date Recorded Sex Assigned at Not on file Legal Sex Female 18:25 EST Gender Identity Not on file Sexual Orientation Not on file documented as of this encounter Last Filed Vital Signs Vital Sign Reading Time Taken Comments Blood Pressure - - Pulse - - Temperature - - Respiratory Rate - - Oxygen Saturation - - Inhaled Oxygen Concentration - - Weight 89.2 kg (196 lb 9.6 oz) 10/23/2013 1412 E DT Height 164.2 cm (5' 4.65) 10/23/2013 1412 EDT Body Mass Index 33.08 10/23/2013 1412 EDT documented in this encounter Mental Status * Because of a physical, mental, or emotional condition, do you have serious difficulty concentrating, remembering, or making decisions? (5 years old or older) Answer Entry Date Author Yes 07/08/2010 15:01 Eladio Ku RN documented in this encounter Discharge Diagnoses Diagnosis 278.01 MORBID OBESITY[ICD-9-CM] V45.86 BARIATRIC SURGERY STATUS[ICD-9-CM] 579.3 INTEST POSTOP NONABSORB[ICD-9-CM] documented in this encounter Discharge Disposition Disposition Code Departure Means Destination Auto Discharge documented in this encounter Progress Notes * Hunter Bynum PA - 10/23/2013 1512 EDT 10/23/2013 Kevin Calderon is here in follow-up to her laparoscopic Brandin-En-Y gastric bypass. The weight trend for the patient is: Weight at initial consult: 128.549 kg (283 lb 6.4 oz), to 83.915 kg (185 lb) [07/29/2012] at the last post-op visit to today's Weight : 89.177 kg (196 lb 9.6 oz). PROBLEM LIST Patient Active Problem List Diagnosis ??? Morbid obesity ??? Obstructive sleep apnea syndrome ??? Gastroesophageal reflux disease ??? Osteoarthritis of knee ??? PCOS (polycystic ovarian syndrome) ??? Vitamin D deficiency ??? Dysphagia ??? Short bowel syndrome ??? Status post gastric bypass for obesity SUBJECTIVE: Emesis: occasional complaints of emesis with pork Nausea: No complaints of nausea Increased Volume Tolerance: no Abdominal Pain: No complaints of abdominal pain Lightheadedness: occasional complaints of lightheadedness - reactive hypoglycemia, knows triggers Bowel Function: Normal with colace daily Pannus: No problems related to pannus reported OBJECTIVE: General Appearance: healthy appearing, alert and in no apparent distress Abdomen: Incision well-healed Extremities: Normal Skin: Normal ASSESSMENT: Doing well, Expected course without obvious complications and Weight Loss: Good, going right direction again after 6 weeks of no weight bearing after knee surgery. Labs reviewed, all look good PLAN: 1. Return to clinic in 1 year(s). 2. Orders Placed This Encounter Procedures ??? Vitamin B12 Standing Status: Future Number of Occurrences: Standing Expiration Date: 10/23/2014 ??? Calcium Standing Status: Future Number of Occurrences: Standing Expiration Date: 10/23/2014 ??? Hemagram Standing Status: Future Number of Occurrences: Standing Expiration Date: 10/23/2014 ??? Creatinine Standing Status: Future Number of Occurrences: Standing Expiration Date: 10/23/2014 ??? Ferritin Standing Status: Future Number of Occurrences: Standing Expiration Date: 10/23/2014 ??? Iron Standing Status: Future Number of Occurrences: Standing Expiration Date: 10/23/2014 ??? PTH Intact Standing Status: Future Number of Occurrences: Standing Expiration Date: 10/23/2014 ??? Thiamin (Vit B1), WB Standing Status: Future Number of Occurrences: Standing Expiration Date: 10/23/2014 ??? Vitamin D (25,[place]) Standing Status: Future Number of Occurrences: Standing Expiration Date: 10/23/2014 3. Labs before next visit Seen and discussed with Fiscal Manager at this visit. CLARK Culver 10/23/2013 15:12 * [address] - 10/23/2013 8931 EDT Nutrition Post Op Visit: Gastric Bypass Subjective:Patient returns to clinic for post op nutritional counseling following bariatric surgeryapprox 3.5 years ago. I had a bad Summer with weight gain following major knee surgery. I'm slowly losing the weight again, but when your cooks you meat and potatoes for meals and you can't exercise for 6 weeks, it's difficult to get back on tract. I'm scheduled to have surgery again now on that same knee to clean up the scar tissue that's causing me pain again. Questionnaire Reviewed: Yes Intolerance Episodes: Yes, rarely d/t type of food Food Intolerances: Pork chop, raw carrots Current Exercise: Walking 20 minutes 2x/week and PT weekly. Limited d/t recurrent knee pain Reactive Hypoglycemic Symptoms (bypass only): Yes, d/t sweets. Prevents this by consuming yogurt orcheese stick before having an occasional dessert at a democrat or celebration. Objective: Current Weight: Wt Readings from Last 1 Encounters: 10/23/13 89.177 kg (196 lb 9.6 oz) Current BMI: Body mass index is Body mass index is 33.08 kg/(m^2).. Total Weight Loss: Total Loss in lbs (Weight from Initial Consult - Today's Weight): 86.8 lbs Weight Change since Last Visit: +11.6 lbs. Weight Change since Surgery: -73 lbs. Supplement Usage: Type Amount MVT B12 3-4x/week Calcium w/Vit D Iron B Complex Vit D 1000units Other: biotin, colace 1-2x/day Recent Labs: 09/13/13 wnl, Vitamin D25OH 33.6, Vitamin B12 >1000 Assessment: Adequate Meal Frequency: Yes Adequate Meal Composition: Yes. Struggles to drink enough fluid Exercise Adequacy: no d/t knee pain Nutritional Issues: weight gain of approx 20 lbs following major knee surgery approx 8 months ago. Reports has lost about 10 lbs since then and has maintained it well but would like to lose another 10-15 lbs. Has build-up of scar tissue causing pain in knee that was surgically repaired which has limited her ability to walk long-distances. Is undergoing PT regularly and walking a couple times a week. Has upcoming surgery scheduled to clean up scar tissue in knee and hopes to be able to resume previous walking and running exercises. Plan: Continue current diet, increase calorie-free hydration as able Increase exercise as able with PT, walking Supplement Changes- decrease Vitamin B12 to 2x/week Initiate food logs Education Provided: Verbal review of Reactive Hypoglycemia Prevention and Treatment * Brooklyn Gomez - 10/23/2013 1439 EDT 30-Day Plus Bariatric Surgery Postop Questionnaire Anticoagulation initiated for presumed/confirmed DVT/PE? No Incisional hernia noted on exam? No Sleep Apnea requiring CPAP or BiPap? Yes GERD requiring daily use of PPI or H2 blockers? No Musculoskeletal Disease? Yes If yes, is activity limited by pain? Yes If yes, is daily medication used? No If yes, new surgical intervention performed or planned? No Any visit to an outside hospital including ER visits and admissions (include date of admission and discharge and reason)? Yes, [facility], February 2013 Any surgical operations or procedures performed at an outside hospital (date of admission and discharge and suspected reason for admission) Yes [facility] for knee surgery February 2013 Brooklyn Arias 10/23/2013 14:39 documented in this encounter Plan of Treatment Not on file documented as of this encounter Visit Diagnoses Diagnosis Morbid obesity ([facility])- Primary Morbid obesity S/P gastric bypass Bariatric surgery status Post-resection malabsorption Other and unspecified postsurgical nonabsorption documented in this encounter Care Teams Paper Mill Supervisor Relationship Specialty Start Date End Date Sulma Salinas MD [address] [place] [id number] PCP - General 06/27/13 documented as of this encounter
--- OUTSIDE RECORDS SUMMARY | 2024-08-22 16:04 | XMS_ITS | Clinical Summary ---
Author Organization [facility] Address [address] [place] [address] Care Team Providers Care Auto Leasing Manager Name Role Phone Sulma Salinas MD Primary Care Provider [phone] Allergies Active Allergy Reactions Criticality Noted Date Comments Oxycodone-Acetaminophen Hives 07/17/2009 Medications ERGOCALCIFEROL (VITAMIN D ORAL) Take 1,000 Units by mouth daily. Active cyanocobalamin 500 mcg tablet Take 500 mcg by mouth every 48 hours. Active VITAMIN B COMPLEX (B COMPLEX 1 ORAL) Take 1 Tab by mouth daily. 1 Active BIOTIN ORAL Take 1 Tab by mouth daily. 1 Active FERROUS FUMARATE (IRON ORAL) Take 1 Tab by mouth daily. 1 Active CALCIUM CARBONATE/VITAMIN D3 (CALCIUM WITH VITAMIN D ORAL) Take 1 Tab by mouth 2 times daily. 1 Active DOCUSATE CALCIUM (STOOL SOFTENER ORAL) Take 1 Tab by mouth 2 times daily. 1 Active VITAMIN E ACETATE (VITAMIN E ORAL)Indications:M orbid obesity (HCC-CMS),Vitamin D deficiency,S/P gastric bypass,Postresecti onal malabsorption syndrome Take 1 Tab by mouth daily. Active VIT/IRON FUMARATE/FA (STUARTNATAL PLUS 3 ORAL)Indications:F emale infertility of unspecified origin Take 1 Tab by mouth daily. Active letrozole (FEMARA) 2.5 mg tablet Take 1 Tab by mouth daily. 5 Each 3 3 Active chorionic gonadotropin, human (PREGNYL) 10,000 unit injection Inject 10,000 Units into the skin once for 1 dose. 1 Each 1 3 Active Active Problems Problem Noted Date Diagnosed Date Short bowel syndrome 06/29/2011 Status post gastric bypass for obesity 1 Dysphagia 08/07/2010 Vitamin D deficiency 03/26/2010 Morbid obesity (HCC-CMS) Overview (07/08/2010): Lap gastric bypass 07/08/2010 Obstructive sleep apnea syndrome Overview (11/11/2009): Severe Gastroesophageal reflux disease Osteoarthritis of knee Overview (11/11/2009): Bilateral PCOS (polycystic ovarian syndrome) Surgical History Surgery Date Site/Laterality Comments CHOLECYSTECTOMY, LAPAROSCOPIC KNEE SURGERY right knee x 2 CARPAL TUNNEL RELEASE GASTRIC BYPASS SURGERY Medical History Medical History Date Comments Morbid obesity (HCC-CMS) MIGUEL (obstructive sleep apnea) GERD (gastroesophageal reflux disease) OA (osteoarthritis) PCOS (polycystic ovarian syndrome) Family History Medical History Relation Comments Heart Disease Maternal Grandfather [place] Stroke Maternal Grandfather Diabetes Maternal Grandmother Heart Disease Maternal Grandmother RI Diabetes Maternal Uncle Diabetes Mother Diabetes Sister gestational Relation Status Comments Maternal Grandfather Maternal Grandmother Maternal Uncle Mother Sister Social History Tobacco Use Types Packs/Day Years Used Date Smoking Tobacco: Former Smokeless Tobacco: Never Comments:1997 Alcohol Use Standard Drinks/Week Comments Yes 0 (1 standard drink = 0.6 oz pur e alcohol) rare Comments No Sex and Gender Information Value Date Recorded Sex Assigned at Not on file Legal Sex Female 18:25 EST Gender Identity Not on file Sexual Orientation Not on file Obstetrics History Last Filed Vital Signs Vital Sign Reading Time Taken Comments Blood Pressure 110/70 07/05/2013 1310 EST Pulse 92 07/29/2012 1516 EST Temperature 36.7 ??C (98.1 ??F) 08/25/2010 1501 EST Respiratory Rate 16 08/25/2010 1720 EST Oxygen Saturation 100% 08/25/2010 1720 EST Inhaled Oxygen Concentration - - Weight 89.2 kg (196 lb 9.6 oz) 10/23/2013 1412 E DT Height 164.2 cm (5' 4.65) 10/23/2013 1412 EDT Body Mass Index 33.08 10/23/2013 1412 EDT Plan of Treatment Health Maintenance Due Date Last Done Comments Hepatitis C Screen 1975 Hepatitis B Vaccine (1 of 3 - 19+ 3-dose series) 06/06 COVID-19 Vaccine ( season) 2024 Advance Directives For more information, please contact: [phone] * Full Code (Latest Code Status on File) Date Activated Date Inactivated Comments 07/08/2010 14:47 07/11/2010 15:17 * Full Code Date Activated Date Inactivated Comments 07/08/2010 11:11 07/08/2010 14:47 Care Teams Auto Leasing Manager Relationship Specialty Start Date End Date Sulma Salinas MD [address] [place] [id number] PCP - General 06/27/13
--- OUTSIDE RECORDS SUMMARY | 2024-08-22 16:04 | XMS_ITS | Encounter Summary ---
Author Organization [facility] Address [address] [place] [address] Care Team Providers Care Carton Gluing Machine Operator Name Role Phone Sulma Salinas MD Primary Care Provider [phone] Reason for Visit * Reason Onset Date Comments Appointment Related 10/16/2014 Encounter Details Date Type Department Care Team (Late st Contact Info) Description 10/16/2014 Telephone [facility] Bariatric Surgery [address] [address] Hunter Bynum, WHITNEYC [address] [place] [address], [facility], [facility] [address] [place] [address] Appointment Related Social History Tobacco Use Types Packs/Day Years [...] on file documented as of this encounter Mental Status * Because of a physical, mental, or emotional condition, do you have serious difficulty concentrating, remembering, or making decisions? (5 years old or older) Answer Entry Date Author Yes 07/08/2010 15:01 EST Eladio Russ, RN documented in this encounter Miscellaneous Notes * Telephone Encounter - Brooklyn Gomez - 10/23/2014 0814 EDT 2nd time calling pt lm on vm * Telephone Encounter - Brooklyn Gomez - 10/16/2014 1547 EST Called pt to see if she would like to reschedule the appt she had NOS on 10/15/14 lm on vm documented in this encounter Plan of Treatment Not on file documented as of this encounter Visit Diagnoses Not on filedocumented in this encounter Care Teams Carton Gluing Machine Operator Relationship Specialty Start Date End Date Sulma Salinas MD [address] [place] [id number] PCP - General 06/27/13 documented as of this encounter
--- OUTSIDE RECORDS SUMMARY | 2024-08-22 16:04 | XMS_ITS | Continuity of Care Document ---
Author Organization [facility] Address [address] [place] [address] Encounter [facility] NBR [id number] Date(s): 08/25/22 - 08/25/22 [facility] [address] [place], [place] [address] Encounter Diagnosis Osteoarthritis of right knee(Discharge Diagnosis) - 08/25/22 Right patellofemoral syndrome(Discharge Diagnosis) - 08/25/22 Tear of medial meniscus of right knee(Discharge Diagnosis) - 08/25/22 Discharge Disposition: Home or Self Care Attending Physician: CLARK Chong Allergies, Adverse Reactions, Alerts Substance Reaction Severity Status Percocet Hives Mild Active Environmental Smoke Unknown Active Assessment and Plan Future Scheduled Tests Radiology* MRI Knee w/o Contrast Right 06/23/22 Functional Status 08/25/22 Other exposure to Infectious Disease Non e Medications amitriptyline 10 mg oral tablet 10 mg = 1 tab, Oral, TID, # 270 tab, 0 Refill(s) Start Date: 06/23/22 Status: Ordered Emgality Prefilled Syringe 120 mg =, Subcutaneous, every month, 0 Refill(s) Start Date: 06/23/22 Status: Ordered loratadine 10 mg oral capsule 10 mg = 1 cap, Oral, Daily, # 10 cap, 0 Refill(s) Start Date: 06/23/22 Status: Ordered sertraline 25 mg oral tablet 25 mg = 1 tab, Oral, Daily, 0 Refill(s) Start Date: 06/23/22 Status: Ordered Tylenol 8 HR Arthritis Pain 650 mg =, Oral, PRN as needed for pain, 0 Refill(s) Start Date: 06/23/22 Status: Ordered Problem List Condition Confirmation Course Effective Dates Status H ealth Status Informant Chondromalacia of right knee Confirmed Active Internal derangement of right knee Confirmed Active Knee effusion, right Confirmed Active Osteoarthritis of right knee Confirmed Active Right patellofemoral syndrome Confirmed Active Tear of medial meniscus of right knee Confirmed Active Vital Signs Most recent to oldest [Reference Range]: 1 Peripheral Pulse Rate [60-100 bpm] 89 bp m (08/25/22 2:35 PM) Blood Pressure [90-140/60-90 mmHg] 128/8 6mmHg (08/25/22 2:35 PM) Weight 106.59 kg (08/25/22 2:35 PM) Weight Measured (lbs) 234.99 lb (08/25/22 2:35 PM) Height 165.10 cm (08/25/22 2:35 PM) Height/Length Measured (inches) 65 inch (08/25/22 2:35 PM) BSA Measured 2.21 m2 (08/25/22 2:35 PM) Body Mass Index 39.1 kg/m2 (08/25/22 2:35 PM) Social History Social History Type Response Tobacco Never tobacco user T obacco Use:. Sex Physician Outpatient Note * CLARK Chong: PERFORM Event Display: Office Clinic Note Physician Authored Date: [id number] WINNIE CASTANO :1975 Age:47 years Sex:Female Visit Date:08/25/2022 Chief Complaint RIGHT KNEE PAIN History of Present Illness The patient comes in today with continued bilateral knee pain right worse than left.?? She is having a significant??decrease in her ability to perform ADLs and do activities that she enjoys.?? An MRIwas ordered.?? She gets anterior pain as well as posterior pain with swelling and catching.?? She does get Weeks's cyst frequently and at times they rupture. Physical Exam Vitals & Measurements HR:??89??(Peripheral)?? BP:??128/86?? SpO2:??99%?? HT:??165.10??cm?? WT:??106.59??kg?? BMI:??39.1?? Pain Score:??6?? BSA:??2.21?? General: Alert and oriented x3, pleasant cooperative, in no acute distress, appears to be their stated age, is generally fit appearing.? Right knee:??Moderate effusion.?? Lateral and medial joint line tenderness.?? Painful Troy'santerolaterally.?? Positive patellofemoral grind testing.?? Stable anteriorly and posteriorly. ??Negative varus and valgus stress testing.?? Terminal ends of flexion are painful medially.?? Motor sensory reflex neurovascular exam distally is intact. Assessment/Plan 1.??Osteoarthritis of right knee??M17.11 2.??Right patellofemoral syndrome??M22.2X1 3.??Tear of medial meniscus of right knee??S83.241A Patient comes in today with right knee pain and swelling??due to a medial meniscus tear??appearing to??be near the root horn.?? She has??severe arthritis in the lateral??patellar facet??and??adjacentfemoral??compartment.?? She has mild chondromalacia of the medial and lateral compartments.?? I counseled her??on her options. ??She does have a significant amount of arthritis in her patellofemoral compartment.?? She also has a??root horn tear.?? I would like to review her images further and call her next week with further suggestions at that time. Problem List/Past Medical History Ongoing Chondromalacia of right knee Internal derangement of right knee Knee effusion, right Osteoarthritis of right knee Right patellofemoral syndrome Tear of medial meniscus of right knee Historical No qualifying data Medications amitriptyline 10 [...] Cigarette Use: Never. Employment/School Employed, Work/School description: [employer]. Tobacco Never tobacco user Tobacco Use:. Diagnostic Results Diagnostic Study Interpretation: An MRI obtained at [facility]??dated??08/21/2022??shows??spurring of the femoral condyles and tibial plateaus as well as the patellofemoral joint. ??There are postsurgical??changes in the medial femoral metaphysis??and patella.?? There is a moderate joint effusion.?? There is marked thinning of the cartilage??at the apex and lateral patellar facet extending to bone.?? There is thinning of the cartilage extending to bone??and the adjacent femur.?? There are enthesophytes in the superior pole of the patella.?? There is a large tear in the posterior horn near the meniscal root.?? No tear of the lateral meniscus.?? There is a small calcification adjacent to the upper medial femoral condyle. ??There is a nterior subcutaneous edema. Electronically Signed on 08/25/22 04:13 PM CLARK Chong
--- OUTSIDE RECORDS SUMMARY | 2024-08-22 16:04 | XMS_ITS | Referral Summary ---
Author Organization [facility] Address [address] [place] [address] Care Team Providers Care Electronic Technician Name Role Phone Sulma Salinas MD Primary Care Provider [phone] Allergies Active Allergy Reactions Criticality Noted Date [...] 08/07/2010 Vitamin D deficiency 03/26/2010 Morbid obesity ([facility]) Overview (07/08/2010): Lap gastric bypass 07/08/2010 Obstructive sleep apnea syndrome Overview (11/11/2009): Severe Gastroesophageal reflux disease Osteoarthritis of knee Overview (11/11/2009): Bilateral PCOS (polycystic ovarian syndrome) Social History Tobacco Use Types Packs/Day Years Used Date Smoking Tobacco: Former Smokeless Tobacco: Never Comments:1996 Alcohol Use Standard Drinks/Week Comments Yes 0 (1 standard drink = 0.6 oz pur e alcohol) rare Comments No Sex and Gender Information Value Date Recorded Sex Assigned at Not on file Legal Sex Female 18:25 EST Gender Identity Not on file Sexual Orientation Not on file Last Filed Vital Signs Vital Sign Reading [...] Body Mass Index 33.08 10/23/2013 1412 EDT Mental Status * Because of a physical, mental, or emotional condition, do you have serious difficulty concentrating, remembering, or making decisions? (5 years old or older) Answer Entry Date Author Yes 07/08/2010 15:01 EST Eladio Russ, RN Plan of Treatment Not on file Advance Directives For more information, please contact: [phone] * Full Code (Latest Code Status on File) Date Activated Date Inactivated Comments 07/08/2010 14:47 07/11/2010 15:17 * Full Code Date Activated Date Inactivated Comments 07/08/2010 11:11 07/08/2010 14:47 Care Teams Electronic Technician Relationship Specialty Start Date End Date Sulma Salinas MD [address] [place] [id number] PCP - General 06/27/13
--- OUTSIDE RECORDS SUMMARY | 2024-08-22 16:04 | XMS_ITS | Encounter Summary ---
Author Organization [facility] Address [address] [place] [address] Care Team Providers Care Inspector Metal Fabricating Name Role Phone Sulma Salinas MD Primary Care Provider Reason for Visit * Reason Onset Date Comments Results 10/02/2013 Encounter Details Date Type Department Care Team (Late st Contact Info) Description 10/02/2013 Orders Only [facility] Bariatric Surgery - [place] [address] [place] [address] Allyn Valenzuela RN Other and unspecified postsurgical nonabsorption; Morbid obesity ([facility]-CMS); S/P gastric bypass Social History Tobacco Use Types Packs/Day Years [...] Date Author Yes 07/08/2010 15:01 EST Eladio Russ RN documented in this encounter Plan of Treatment Not on file documented as of this encounter Procedures Procedure Name Priority Date/Time Associated Diagnosis Comments THIAMIN (VITAMIN B1), WB Routine 09/13/2013 Other and unspecified postsurgical nonabsorption Morbid obesity (HCC-CMS) S/P gastric bypass VITAMIN D (25,OH) Routine 09/13/2013 Other and unspecified postsurgical nonabsorption Morbid obesity (HCC-CMS) S/P gastric bypass PTH INTACT Routine 09/13/2013 Other and unspecified postsurgical nonabsorption Morbid obesity (HCC-CMS) S/P gastric bypass COMPLETE BLOOD COUNT Routine 09/13/2013 Other and unspecified postsurgical nonabsorption Morbid obesity (HCC-CMS) S/P gastric bypass IRON Routine 09/13/2013 Other and unspecified postsurgical nonabsorption Morbid obesity (HCC-CMS) S/P gastric bypass FERRITIN Routine 09/13/2013 Other and unspecified postsurgical nonabsorption Morbid obesity (HCC-CMS) S/P gastric bypass VITAMIN B12 Routine 09/13/2013 Other and unspecified postsurgical nonabsorption Morbid obesity (HCC-CMS) S/P gastric bypass CREATININE Routine 09/13/2013 Other and unspecified postsurgical nonabsorption Morbid obesity (HCC-CMS) S/P gastric bypass CALCIUM Routine 09/13/2013 Other and unspecified postsurgical nonabsorption Morbid obesity (HCC-CMS) S/P gastric bypass documented in this encounter Results * HEMAGRAM (09/13/2013) HCT, External 42.4 [facility] MCH, External 30.6 [facility] MCV, External 90.8 [facility] MCHC, External 33.7 [facility] Hemoglobin, External 14.3 [facility] WBC, External 6.27 [facility] RBC, External 4.67 [facility] PLT, External 249 [facility] RDW-CV, External 12.6 [facility] Blood specimen (specimen) 09/13/2013 us Hunter Tena Fletcher PA-C HEMATOLOGY & PF4 ORD ERABLES Final Result [facility] * FERRITIN (09/13/2013) Ferritin, External 383 [facility] Blood specimen (specimen) 09/13/2013 us Hunter Tena Fletcher PA-C CHEMISTRY & BLOOD GA S ORDERABLES Final Result [facility] * THIAMIN (VITAMIN B1), WB (09/13/2013) Thiamine, External 166 [facility] Comment, External [facility] Blood specimen (specimen) 09/13/2013 us Hunter Tena Fletcher PA-C CHEMISTRY & BLOOD GA S ORDERABLES Final Result [facility] * CREATININE (09/13/2013) Creatinine, External 0.9 [facility] GFR, Calculated, External [facility] Blood specimen (specimen) 09/13/2013 us Hunter Tena Fletcher PA-C CHEMISTRY & BLOOD GA S ORDERABLES Final Result [facility] * CALCIUM (09/13/2013) Calcium, External 9.1 [facility] Calculated Calcium, External [facility] Blood specimen (specimen) 09/13/2013 us Hunter Bynum PA-C CHEMISTRY & BLOOD GA S ORDERABLES Final Result [facility] * IRON (09/13/2013) Iron, External 161 [facility] Blood specimen (specimen) 09/13/2013 us Hunter A Abtter-Cressy PA-C CHEMISTRY & BLOOD GA S ORDERABLES Final Result [facility] * VITAMIN D (25,OH) (09/13/2013) 25OH Vitamin D Tot, External 33.6 [facility] Blood specimen (specimen) 09/13/2013 us Hunter Guerreroer-Bharatsy PA-C CHEMISTRY & BLOOD GA S ORDERABLES Final Result [facility] * VITAMIN B12 (09/13/2013) Vitamin B-12, External >1,000 [facility] Blood specimen (specimen) 09/13/2013 us Hunter Guerreroer-Bharatsy PA-C CHEMISTRY & BLOOD GA S ORDERABLES Final Result [facility] * PTH INTACT (09/13/2013) PTH, External 24 [facility] Blood specimen (specimen) 09/13/2013 us Hunter Bergertter-Cressy PA-C CHEMISTRY & BLOOD GA S ORDERABLES Final Result [facility] documented in this encounter Visit Diagnoses Diagnosis Other and unspecified postsurgical nonabsorption Morbid obesity (HCC-CMS) Morbid obesity S/P gastric bypass Bariatric surgery status documented in this encounter Care Teams Inspector Metal Fabricating Relationship Specialty Start Date End Date Ready, Sulma O, MD [address] [place] [id number] PCP - General 06/27/13 documented as of this encounter
--- OUTSIDE RECORDS SUMMARY | 2024-08-22 16:04 | XMS_ITS | Encounter Summary ---
Author Organization [facility] Address [address] [place] [address] Care Team Providers Care Access Service Representative Name Role Phone Sulma Salinas MD Primary Care Provider [phone] Encounter Details Date Type Department Care Team (Late st Contact Info) Description 05/18/2022 Lab Requisition [facility] Pathology & Laboratory Medicine - [facility] [address] [place] [address] Sulma Hathaway, ROASTER SUPERVISOR [address] [place] [address] Encounter for other general examination Social History Tobacco Use Types Packs/Day Years [...] Eladio Russ, RN documented in this encounter Plan of Treatment Not on file documented as of this encounter Procedures Procedure Name Priority Date/Time Associated Diagnosis Comments PAP TEST Today 05/18/2022 10:03 EDT HPV DNA DETECTION WITH GENOTYPING, PCR Today 05/18/2022 10:03 EDT documented in this encounter Results * HUMAN PAPILLOMAVIRUS (HPV) DETECTION-HIGH RISK TYPES (05/18/2022 10:03 EDT) HPV other High Risk types, PCR Negative Negative 05/22/2022 22:58 EDT [facility] Comment:No E6 or E7 mRNA is detected from HPV types 16,18,31,33,35,39,45,51,52,56,58,59,66, and 68 by media law faculty member mediated amplification. Papanicolaou smear specimen (specimen) CERVIX UTERI STRUCTURE / Unknown 05/18/2022 10:03 EDT 05/20/2022 15:27 EDT us Sulma Hathaway ROASTER SUPERVISOR MICROBIOLOGY - GENERAL ORDERABLE S Final Result Performing Organization Address City/State/[facility] Co de Phone Number [facility] [address] [place] [phone] * PAP TEST (05/18/2022 10:03 EDT) Specimens A. Cervix and/or Endocervix , ThinPrep Imaging System with Manual Evaluation 05/22/2022 22:58 EDT [facility] Specimen Adequacy Satisfactory for Evaluation - transformation zone component absent 05/22/2022 22:58 EDT [facility] General Categorization Negative for intraepithelial lesion or malignancy 05/22/2022 22:58 EDT [facility] Attestation . 05/22/2022 22:58 T [facility] at 2258 Clinical History See below 05/22/20 22 22:58 T [facility] HPV The result for the Human Papillomavirus (HPV) Detection-High Risk Types is Negative. No E6 or E7 mRNA is detected from HPV types 16,18,31,33,35,39 ,45,51,52,56,58,5 9,66, and 68 by media law faculty member mediated amplification.Sonya ting was performed on specimen [id number] and was resulted on 05/22/2022 2233 EDT by JERMAIN, LAB INSTRUMENT RESULTS IN 05/22/2022 22:58 EDT [facility] Performing Lab [facility] 05/22/2022 22:58 EDT [facility] Scanned Images 05/22/2022 22:58 EDT [facility] Papanicolaou smear specimen (specimen) CERVIX UTERI STRUCTURE / Unknown 05/18/2022 10:03 EDT 05/19/2022 9:52 EDT us Sulma Hathaway ROASTER SUPERVISOR PATHOLOGY ORDERABLES Final Resul t [facility] [address] [place] [address] documented in this encounter Visit Diagnoses Diagnosis Encounter for other general examination documented in this encounter Care Teams Access Service Representative Relationship Specialty Start Date End Date Sulma Salinas MD [address] [place] [address] PCP - General 06/27/13 documented as of this encounter
--- OUTSIDE RECORDS SUMMARY | 2024-08-22 16:04 | XMS_ITS | Encounter Summary ---
Author Organization [facility] Address [address] [place] [address] Care Team Providers Care Detention Officer Name Role Phone Sulma Salinas MD Primary Care Provider [phone] Encounter Details Date Type Department Care Team ([facility] st Contact Info) Description 10/12/2016 Results Only [facility] [phone] Aleena Iglesias, FINANCE LECTURER [address] [place] [address] Social History Tobacco Use Types Packs/Day Years [...] Name Priority Date/Time Associated Diagnosis Comments PAP TEST- RESULT ONLY Routine 10/12/2016 0:00 EST documented in this encounter Results * PAP TEST- RESULT ONLY (10/12/2016 0:00 EST) Pathologist [facility] Pathology Report: CYTOPATHOLOGY REPORT Reports generated via electronic interface contain original data; however they are lacking the format of the original report. Caution should be taken when reading/interpreti ng unformatted reports. Name: ? KEVIN CASTANO ? Accession #: ? [id number] ? : ? 1975 (Age: 41) ??F ?Collect Date: ? 10/12/2016 ? Location: ? [facility] ? Receive Date: ? 10/13/2016 ? Provider: ABRAHAM IGLESIAS ANP Copy to: ? Final Report SPECIMEN ADEQUACY ? Satisfactory for Evaluation - transformation zone component absent GENERAL CATEGORIZATION ? Negative for Intraepithelial Lesion or Malignancy ?? Specimen/Source: ??Pap Test, Endocervix, ThinPrep Imaging System with manual evaluation Document reviewed and electronically signed by: ? Brianna Landeros, MADELIN(ASCP) ? Report ??Date: 10/16/2016 13:52 HPV with Pap Test ? Date Ordered: ? 10/16/2016 ? Status: ?? Signed Out ?Date Complete: ? 10/19/2016 ? By: ??System Interface ? Date Reported: ? 10/19/2016 ? Interpretation RESULT: Negative for HPV. No E6 or E7 mRNA is detected from HPV types 16,18,31,33,35, 39,45,51,52,56,58, 59,66, and 68 by pump servicer helper mediated amplification. Comments Document reviewed and electronically signed by: ? System Interface ? Report date: 10/19/2016 By the signature above, the attending physician certifies that he/she has personally conducted a gross and/or microscopic examination of the described specimens and rendered or confirmed the above diagnosis. End of Report [facility] 10/12/2016 10/13/2016 us Aleena Iglesias FINANCE LECTURER PATHOLOGY ORDERABLES Fin al Result [facility] [address] [place] [address] documented in this encounter Visit Diagnoses Not on filedocumented in this encounter Care Teams Detention Officer Relationship Specialty Start Date End Date Sulma Salinas MD [address] [place] [address] PCP - General 06/27/13 documented as of this encounter
--- OUTSIDE RECORDS SUMMARY | 2024-08-22 16:05 | XMS_ITS | Encounter Summary ---
Author Organization [facility] Address [address] [place] [address] Care Team Providers Care Olive Grower Name Role Phone Sulma Salinas MD Primary Care Provider [phone] Reason for Visit * Reason Comments Post-OP Follow Up drain removal Encounter Details Date Type Department Care Team (Late st Contact Info) Description 07/22/2010 10:00 EST Office Visit [facility] General Surgery - [facility] [address] [place] [address] Unknown, Provider, MD Liu, General Surgery [facility], [place] [address] [place] [address] Kasandra Wynn MD [address] [place] [phone] Morbid obesity (HCC-CMS) (Primary Dx) Discharge Disposition: Auto Discharge Social History Tobacco Use Types Packs/Day Years Used Date Smoking Tobacco: Former Comments:1996 Comments No Sex and Gender Information Value [...] Eladio Russ RN documented in this encounter Discharge Disposition Disposition Code Departure Means Destination Auto Discharge documented in this encounter Progress Notes * Chrystal Arteaga RN - 07/22/2010 1449 EST Pt in clinic to have drains X 2 evaluated. Drainage is serous/sang and small amounts average 15ml aday. Sites CDI. Dr wynn at bedside JAMIE drains removed X2 dry dressing applied. Pt tolerated well. Pt will call clinic if any further questions or concerns. documented in this encounter Plan of Treatment Not on file documented as of this encounter Visit Diagnoses Diagnosis Morbid obesity (HCC-CMS)- Primary Morbid obesity documented in this encounter Care Teams Olive Grower Relationship Specialty Start Date End Date Sulma Salinas MD [facility] [address] [place] [address] PCP - General 02/13/09 11/23/11 documented as of this encounter
--- OUTSIDE RECORDS SUMMARY | 2024-08-22 16:05 | XMS_ITS | Encounter Summary ---
Author Organization [facility] Address [address] [place] [address] Care Team Providers Care Expense Clerk Name Role Phone Sulma Salinas MD Primary Care Provider [phone] Reason for Visit * Reason Comments Infertility pt and here for TSH Encounter Details Date Type Department Care Team (Late st Contact Info) Description 08/01/2013 8:00 EST Nurse Only [facility] Reproductive Medicine & Infertility Center - [facility] [address] [place], [place] [phone] Unknown, Provider, Luz Mccrary MD [address] [facility], [facility] [address] [place] [address] Guillaume James MD [address] [place] [phone] Nurse, ARTUR Bowles Female infertility of unspecified origin (Primary Dx) Discharge Disposition: Auto Discharge Social [...] Russ RN documented in this encounter Discharge Diagnoses Diagnosis 628.9 FEMALE INFERTILITY NOS[ICD-9-CM] documented in this encounter Ordered Prescriptions Prescription Sig Dispense Quantity Refills Last Filled Start Date End Date chorionic gonadotropin, human (PREGNYL) 10,000 unit injection Inject 10,000 Units into the skin once for 1 dose. 1 Each 1 08/01/2013 documented in this encounter Discharge Disposition Disposition Code Departure Means Destination Auto Discharge documented in this encounter Progress Notes * Daisy Danielson RN - 08/01/2013 1510 EST Pt had FERNANDES today. Preliminary results reviewed by Dr Lynch. Plan will be to get a post ejaculate void to check for sperm in the urine. Couple informed. They are working with [facility] to procure Pregnyl by Wednesday PM. Daisy Danielson RN * Daisy Danielson RN - 08/01/2013 0916 EST [facility] Injection Technique Class Goal: Participants will verbalize understanding and demonstrate correct sterile injection techniques. Nursing Diagnosis: Injection Technique Deficit S: Patient presents with diagnosis of infertility requesting instruction of injection technique. O: Learning objectives: X__ Participants are aware of needed supplies: Supplies: -Vial of HCG (powdered) -Extra needle 12/21?? -Vial of Diluent -Alcohol swabs -3 cc syringe with needle -Band-Aid X__ Participants demonstrate ability to reconstitute HCG as outlined by the following steps: 1) Wash hands and assemble supplies. 2) Remove plastic flip top from both vials and swab the rubber stoppers with alcohol. 3) Draw air into syringe by pulling out the plunger to the 1 or 1?? cc rosario (more diluent will result in a less concentrated dose, which could prevent local skin reaction). Inject the air into the diluent vial. Without withdrawing the needle, turn the diluent vial upside down and withdraw 1 or 1?? cc of diluent into the syringe. 4) Remove filled syringe and needle from diluent vial and inject into the HCG vial. Push the plunger down until all the diluent is in the vial. 5) Leaving the needle in the vial, agitate or shake gently until powder is dissolved. 6) When powder is dissolved, withdraw entire contents of vial into syringe. You will be able to draw the entire amount of HCG into the syringe. 7) Remove air bubbles from the syringe and change needles before injecting HCG to minimize the possibility of irritation. X__ Participants can select and prepare the Injection Site: The lateral aspect of either thigh is the best area to give a subcutaneous (SC) injection. X__ Participants verbalize and understand the steps for administering the injection: S/C INJECTION INSTRUCTIONS: 1) Prepare an area for the injection on the lateral aspect of either thigh. Pinch up the skin between your index finger and thumb, cleanse with alcohol, and allow time for the skin to dry. 2) Hold syringe at a 45-degree angle to the skin and insert the entire needle quickly into the thigh. 3) When ready to inject the solution, push the plunger with a slow, steady motion. 4) Gently withdraw the needle and cover the injection site with sterile cotton and apply a small amount of pressure until the bleeding stops. If necessary, cover the site with a Band-Aid to prevent any blood from getting on underclothes. _X_ Participants verbalize understanding of: X_ CC/HCG/IUI __ CC/HCG/RXD __ Protocol/Plan __ Clinic visits and cost/timing of medication and insemination _X_ Participants will be informed of correct needle disposal. A: X__ Patient adequately verbalizes understanding of injection techniques and complete return demonstration. __ Other: P: X__Patient to proceed with CC/HCG/IUI or CC/HCG/RXD per MD plan __ Other: _X_ Precertification done _X_ Fee Sheet given Nurse Signature: Daisy Danielson RN documented in this encounter Plan of Treatment Not on file documented as of this encounter Visit Diagnoses Diagnosis Female infertility of unspecified origin- Primary documented in this encounter Care Teams Expense Clerk Relationship Specialty Start Date End Date Sulma Salinas MD [address] [place] [id number] PCP - General 06/27/13 documented as of this encounter
--- OUTSIDE RECORDS SUMMARY | 2024-08-22 16:05 | XMS_ITS | Encounter Summary ---
Author Organization [facility] Address [address] [place] [address] Care Team Providers Care Assistant Operator Name Role Phone Unknown, Provider MD Primary Care Provider Unava ilable Reason for Visit * Reason Onset Date Comments Follow-up 03/07/2012 Encounter Details Date Type Department Care Team (Late st Contact Info) Description 03/07/2012 Orders Only [facility] Bariatric Surgery - [place] [address] [place] [address] Lorena Garduno, RN [address] [place] [address] Other and unspecified postsurgical nonabsorption; Morbid obesity ([facility]); Unspecified vitamin D deficiency Social History Tobacco Use Types Packs/Day Years [...] Eladio Russ, RN documented in this encounter Progress Notes * Lorena Garduno - 03/07/2012 1521 EDT Per Hunter RODAS, labs ordered. Patient aware and will have drawn this week. Lorena Garduno RN documented in this encounter Plan of Treatment Not on file documented as of this encounter Visit Diagnoses Diagnosis Other and unspecified postsurgical nonabsorption Morbid obesity (HCC-CMS) Morbid obesity Unspecified vitamin D deficiency documented in this encounter Care Teams Assistant Operator Relationship Specialty Start Date End Date Unknown, Provider, PCP - General 11/24/11 06/26/13 documented as of this encounter
--- OUTSIDE RECORDS SUMMARY | 2024-08-22 16:05 | XMS_ITS | Encounter Summary ---
Author Organization [facility] Address [address] [place] [address] Care Team Providers Care Ripshear Operator Name Role Phone Unknown, Provider MD Primary Care Provider Unava ilable Reason for Visit * Reason Onset Date Comments Other 07/01/2012 Needs labs Encounter Details Date Type Department Care Team (Late st Contact Info) Description 07/01/2012 Orders Only [facility] Bariatric Surgery - [address] [place] [address] Allyn Valenzuela RN Morbid obesity ([facility]); Other and unspecified postsurgical nonabsorption Social History Tobacco Use Types Packs/Day Years [...] Eladio Russ RN documented in this encounter Progress Notes * Allyn Valenzuela RN - 07/01/2012 1012 EST S/P gastric bypass and needs labs prior to next visit. Labs ordered per Hunter Bynum PA-C. Electronically signed by Allyn P. Nicolas, RN documented in this encounter Plan of Treatment Not on file documented as of this encounter Visit Diagnoses Diagnosis Morbid obesity (HCC-CMS) Morbid obesity Other and unspecified postsurgical nonabsorption documented in this encounter Care Teams Ripshear Operator Relationship Specialty Start Date End Date Unknown, Provider, PCP - General 11/24/11 06/26/13 documented as of this encounter
--- OUTSIDE RECORDS SUMMARY | 2024-08-22 16:05 | XMS_ITS | Encounter Summary ---
Author Organization [facility] Address [address] [place] [address] Care Team Providers Care Patient Registration Supervisor Name Role Phone Sulma Salinas MD Primary Care Provider [phone] Reason for Visit * Reason Onset Date Comments Infertility 07/24/2013 pt started mense s 07/24/13 plan is let/hcg/TI Encounter Details Date Type Department Care Team (Late st Contact Info) Description 07/24/2013 Telephone [facility] Reproductive Medicine & Infertility Center - [facility] [address] [place], [place] [phone] Daisy Danielson, EMELI Infertility (pt started menses 07/24/13 plan is let/hcg/TI) Social History Tobacco Use Types Packs/Day Years [...] Eladio Russ, RN documented in this encounter Ordered Prescriptions Prescription Sig Dispense Quantity Refills Last Filled Start Date End Date letrozole (FEMARA) 2.5 mg tablet Take 1 Tab by mouth daily. 5 Each 3 07/24/2013 documented in this encounter Miscellaneous Notes * Telephone Encounter - Daisy Danielson, EMELI - 07/25/2013 0915 EST LMP Pt's plan is let/hch/TI. Pt needs precert, TSH and USF. In order to coordinate allt heappointments pt is rod for TSG 08/01 @ 8 AM. She will bring her 's specimen for FERNANDES at 8:30 AM. She is rod for USF at 8 :55. Precert completed. Due to having USF on CD #9 pt will take let CD #3-7. Dr Singh aware and approves. Daisy Danielson RN documented in this encounter Plan of Treatment Not on file documented as of this encounter Visit Diagnoses Not on filedocumented in this encounter Care Teams Patient Registration Supervisor Relationship Specialty Start Date End Date Sulma Salinas MD [address] [place] [address] PCP - General 06/27/13 documented as of this encounter
--- OUTSIDE RECORDS SUMMARY | 2024-08-22 16:05 | XMS_ITS | Encounter Summary ---
Author Organization [facility] Address [address] [place] [address] Care Team Providers Care Head Athletic Trainer/Strength Coach Name Role Phone Sulma Salinas MD Primary Care Provider [phone] Reason for Visit * Reason Onset Date Comments Emesis 08/06/2010 Encounter Details Date Type Department Care Team (Late st Contact Info) Description 08/06/2010 Telephone [facility] Bariatric Surgery - [address] [place] [address] Lorena Garduno RN [address] [place] [address] Emesis Social History Tobacco Use Types Packs/Day Years [...] Eladio Russ RN documented in this encounter Miscellaneous Notes * Telephone Encounter - Lorena Garduno. - 08/06/2010 1352 EST Patient calls to report she continues to vomit; states, I vomit about 50% of the time. Drinking small amounts of clear liquids. Reports acid reflux is worsening; taking 40 mg omeprazole daily in the afternoon. Denies any pain although reports abdomen is sore from vomiting. Denies any fever, SOB. Patient referred to Dr. Garner for eval. documented in this encounter Plan of Treatment Not on file documented as of this encounter Visit Diagnoses Not on filedocumented in this encounter Care Teams Head Athletic Trainer/Strength Coach Relationship Specialty Start Date End Date Sulma Salinas MD [facility] [address] [place] [address] PCP - General 02/13/09 11/23/11 documented as of this encounter
--- OUTSIDE RECORDS SUMMARY | 2024-08-22 16:05 | XMS_ITS | Encounter Summary ---
Author Organization [facility] Address [address] [place] [address] Care Team Providers Care Insole Beveler Name Role Phone Sulma Salinas MD Primary Care Provider [phone] Reason for Visit * Reason Onset Date Comments Follow-up 03/09/2011 Encounter Details Date Type Department Care Team (Late st Contact Info) Description 03/09/2011 Orders Only [facility] Bariatric Surgery [facility] [address] [place] [address] Lorena Garduno, EMELI [address] [place] [address] Unspecified vitamin D deficiency; Morbid obesity (HCC-CMS); Other and unspecified postsurgical nonabsorption Social History [...] as of this encounter Visit Diagnoses Diagnosis Unspecified vitamin D deficiency Morbid obesity (HCC-CMS) Morbid obesity Other and unspecified postsurgical nonabsorption documented in this encounter Care Teams Insole Beveler Relationship Specialty Start Date End Date Sulma Salinas MD [facility] [address] [place] [address] PCP - General 02/13/09 11/23/11 documented as of this encounter
--- OUTSIDE RECORDS SUMMARY | 2024-08-22 16:05 | XMS_ITS | Encounter Summary ---
Author Organization [facility] Address [address] [place] [address] Care Team Providers Care Floor Covering Installer Name Role Phone Unknown, Provider MD Primary Care Provider Unava ilable Reason for Visit * Reason Onset Date Comments Other 08/17/2012 Encounter Details Date Type Department Care Team (Late st Contact Info) Description 08/17/2012 Telephone [facility] Bariatric Surgery - [address] [address] Allyn Valenzuela, RN Other Social History Tobacco Use Types Packs/Day Years [...] encounter Miscellaneous Notes * Telephone Encounter - Allyn Valenzuela RN - 08/17/2012 0921 EST Patient called regarding a question regarding her vitamins. She wanted to know whether or not it would be ok to take a vitamin that her primary put her on? I advised patient that the vitamin was ok to take as long as she was taking her other supplements listed. Electronically signed by Allyn Valenzuela, RN documented in this encounter Plan of Treatment Not on file documented as of this encounter Visit Diagnoses Not on filedocumented in this encounter Care Teams Floor Covering Installer Relationship Specialty Start Date End Date Unknown, Provider, PCP - General 11/24/11 06/26/13 documented as of this encounter
--- OUTSIDE RECORDS SUMMARY | 2024-08-22 16:05 | XMS_ITS | Encounter Summary ---
Author Organization [facility] Address [address] [place] [address] Care Team Providers Care Molding Fitter Name Role Phone Sulma Salinas MD Primary Care Provider [phone] Encounter Details Date Type Department Care Team (Late st Contact Info) Description 06/27/2013 Phlebotomy Only [facility] [address] [place] [address] Multi Operation Forming Machine Setter, Outpatient Morbid obesity ([facility]); S/P gastric bypass; Post-resection malabsorption; Female infertility of unspecified origin Social History Tobacco Use Types Packs/Day Years [...] Procedure Name Priority Date/Time Associated Diagnosis Comments ANTIMULLERIAN HORMONE ([facility]) REPROSOURCE Routine 06/27/2013 13:17 EST Female infertility of unspecified origin ESTRADIOL, ADULTS Routine 06/27/2013 13: 17 EST Female infertility of unspecified origin FSH Routine 06/27/2013 13:17 EST Female infertility of unspecified origin CHLAMYDIA/N. GONORRHOEAE AMPLIFIED RNA, URINE Routine 06/27/2013 12:58 EST Female infertility of unspecified origin documented in this encounter Results * ANTIMULLERIAN HORMONE ([facility]) [facility] (06/27/2013 13:17 EST) [facility] Result See Pathology Scanned Report in [facility]. [facility] Comment: Assayed at [facility], [place], [place] (Note) Result= 2.95 ng/mL Normal Range= 0.70-3.50 ng/mL Blood specimen (specimen) 06/27/2013 13:17 EST 06/27/2013 13:29 EST Aleena Singh MD CHEMISTRY & BLOOD G ORDERABLES Final Result Performing Organization Address [facility] Co de Phone Number [facility] [address] [place] [address] * ESTRADIOL, ADULTS (06/27/2013 13:17 EST) Pathologist [facility] Estradiol 42 pg/ml [facility] Comment: By day in cycle relative to LH peak: Follicular Phase (-12 to -4 days): ??20-144 Midcycle (-3 to +2 days): ? 64-357 Luteal Phase (+4 to +12 days): ??56-214 Postmenopausal: ??0 - 32 Blood specimen (specimen) 06/27/2013 13:17 EST 06/27/2013 13:29 EST Aleena Singh MD CHEMISTRY & BLOOD G ORDERABLES Final Result Performing Organization Address [facility] Co de Phone Number [facility] [address] [place] [address] * FSH (06/27/2013 13:17 EST) Pathologist [facility] FSH 7.7 mIU/ml [facility] Comment: Follicular: 2-11 Mid-Cycle Peak: 3.4-35 Luteal: 1-9 Postmenopausal: 25-120 Blood specimen (specimen) 06/27/2013 13:17 EST 06/27/2013 13:29 EST Aleena Singh MD CHEMISTRY & BLOOD G ORDERABLES Final Result Performing Organization Address [facility] de Phone Number [facility] [address] [place] [address] * CHLAMYDIA/GC AMPLIFIED, URINE (06/27/2013 12:58 EST) Pathologist [facility] Specimen Description Urine [facility] Chlamydia Result No Chlamydia trachomatis DNA detected by java security engineer mediated amplification. [facility] GC Result No Neisseria gonorrhoeae DNA detected by java security engineer mediated amplification. [facility] Specimen of unknown material (specimen) TOPOGRAPHY UNKNOWN / Unknown 06/27/2013 12:58 EST 06/27/2013 13:51 EST Aleena Singh MD MICROBIOLOGY - GENE RAL ORDERABLES Final Result Performing Organization Address [facility] de Phone Number [facility] [address] [place] [address] documented in this encounter Visit Diagnoses Diagnosis Morbid obesity ([facility]) Morbid obesity S/P gastric bypass Bariatric surgery status Post-resection malabsorption Other and unspecified postsurgical nonabsorption Female infertility of unspecified origin documented in this encounter Care Teams Molding Fitter Relationship Specialty Start Date End Date Sulma Salinas MD [address] [place] [id number] PCP - General 06/27/13 documented as of this encounter
--- OUTSIDE RECORDS SUMMARY | 2024-08-22 16:05 | XMS_ITS | Encounter Summary ---
Author Organization [facility] Address [address] [place] [address] Care Team Providers Care Tracing Lathe Set Up Operator Name Role Phone Unknown, Provider MD Primary Care Provider Unava ilable Reason for Visit * Reason Comments Obesity Post op bypass - Encounter Details Date Type Department Care Team (Late st Contact Info) Description 03/07/2012 14:45 EDT Office Visit [facility] Bariatric Surgery - [place] [address] [place] [address] Kasandra Hobbs MD [address] [place] [address] Morbid obesity ([facility]); S/P gastric bypass Discharge Disposition: Auto Discharge Social History Tobacco [...] Sign Reading Time Taken Comments Blood Pressure 118/80 03/07/2012 1448 EDT Pulse 80 03/07/2012 1448 EDT Temperature - - Respiratory Rate - - Oxygen Saturation - - Inhaled Oxygen Concentration - - Weight 82.6 kg (182 lb 3.2 oz) 03/07/2012 1448 E DT Height 164.2 cm (5' 4.65) 03/07/2012 1448 EDT Body Mass Index 30.65 03/07/2012 1448 EDT documented in this encounter Mental Status * Because of a physical, mental, or emotional condition, do you have serious difficulty concentrating, remembering, or making decisions? (5 years old or older) Answer Entry Date Author Yes 07/08/2010 15:01 Eladio Ku RN documented in this encounter Discharge Disposition Disposition Code Departure Means Destination Auto Discharge documented in this encounter Progress Notes * Kasandra Hobbs MD - 03/07/2012 1522 EDT 03/07/2012 Kevin Calderon is here in follow-up to her her Laparoscopic anterior cruroplasty, laparoscopic antecolic-antegastric Brandin-en-Y gastric bypass with 50 cm biliary limb, 100 cm alimentary limb and intraoperative EGD on 07/08/10 The weight trend for the patient is: Weight at initial consult: 128.549 kg (283 lb 6.4 oz), to 82.192 kg (181 lb 3.2 oz) [06/29/2011] at the last post-op visit to today's Weight : 82.645 kg (182 lb 3.2 oz). Feeling great. Has 2 episodes of hypoglycemia following carbohydrate meal. No other complaints. Her goal weight 150LB by June. PROBLEM LIST Patient Active Problem List Diagnoses ??? Morbid obesity ??? MIGUEL (obstructive sleep apnea) ??? GERD (gastroesophageal reflux disease) ??? OA (osteoarthritis) of knee ??? PCOS (polycystic ovarian syndrome) ??? Vitamin D deficiency ??? Dysphagia ??? Postresectional malabsorption syndrome ??? S/P gastric bypass SUBJECTIVE: Emesis: No complaints of emesis Nausea: No complaints of nausea Increased Volume Tolerance: no Abdominal Pain: No complaints of abdominal pain Lightheadedness: No complaints of lightheadedness Bowel Function: Normal Pannus: No problems related to pannus reported OBJECTIVE: General Appearance: healthy appearing, alert, in no apparent distress, well developed, well nourished, obese and cooperative Abdomen: Incision well-healed and Nontender Extremities: Normal Skin: Normal ASSESSMENT: Doing well and Expected course without obvious complications PLAN: 1. Return to clinic in 3 month(s). 2. No orders of the defined types were placed in this encounter. 3. F/U with PCP Labs in 3 months. Glcometer was given Seen and discussed with Addiction Nurse at this visit. Kasandra Garner MD 03/07/2012 15:22 * [address] - 03/07/2012 6758 EDT Nutrition Post Op Visit: Gastric Bypass Subjective:Patient returns to clinic for post op nutritional counseling following bariatric [id number] months ago. Was on vacation lately and gained a few pounds but started losing weight again. Questionnaire Reviewed: Yes Intolerance Episodes: yes Difficulty with well done meats or dry chicken and pork Food Intolerances: Sweets,sugar, Meat(Tolerates Maple syrup) Current Exercise: Walking 30 min per day X 2-3 times a week, Gym X 2 per week(25 min):resistance training. Reactive Hypoglycemic Symptoms (bypass only): yes When she has too much sugar(head ache,racing heart,shakes lasts for 20 min) Happens once in two weeks Objective: Current Weight: Wt Readings from Last 1 Encounters: 03/07/12 82.645 kg (182 lb 3.2 oz) Current BMI: Body mass index is Body mass index is 30.65 kg/(m^2).. Total Weight Loss: Total Loss in lbs (Weight from Initial Consult - Today's Weight): 101.2 lbs Weight Change since Last Visit: Supplement Usage: Type Amount MVT Pill X1 B12 Pill X 3 per week Calcium w/Vit D Pill X2 Iron Pill X1 B Complex Pill X1 Vit D Pill 1000 units Other: Recent Labs:Forgot labs; Will have labs ordered Assessment: Adequate Meal Frequency: Yes Adequate Meal Composition: Yes;needs to stay with whole grains and limit refined CHO's Exercise Adequacy: Yes Nutritional Issues: Hypoglycemia symptoms Plan: Continue current diet and exercise Change intake:Hypoglycemia management hand-out given and discussed Supplement Changes:Will review labs and inform pt re:changes; Continue current supplements Initiate food logs:for 2 YEAR appointment(1 week's worth of food logs) Education Provided: Reactive Hypoglycemia Prevention and Treatment Weight Control 1-2 lbs per week Other: as above * Lorena Garduno. - 03/07/2012 2771 EDT 30-Day Plus Bariatric Surgery Postop Questionnaire Anticoagulation initiated for presumed/confirmed DVT/PE? No Incisional hernia noted on exam? No Sleep Apnea requiring CPAP or BiPap? Yes not using cpap GERD requiring daily use of PPI or H2 blockers? No Musculoskeletal Disease? No If yes, is activity limited by pain? No If yes, is daily medication used? No If yes, new surgical intervention performed or planned? No Any visit to an outside hospital including ER visits and admissions (include date of admission and discharge and reason)? No Any surgical operations or procedures performed at an outside hospital (date of admission and discharge and suspected reason for admission) No Lorena Garduno RN 03/07/2012 14:51 documented in this encounter Plan of Treatment Not on file documented as of this encounter Visit Diagnoses Diagnosis Morbid obesity ([facility]) Morbid obesity S/P gastric bypass Bariatric surgery status documented in this encounter Care Teams Tracing Lathe Set Up Operator Relationship Specialty Start Date End Date Unknown, Provider, PCP - General 11/24/11 06/26/13 documented as of this encounter
--- OUTSIDE RECORDS SUMMARY | 2024-08-22 16:05 | XMS_ITS | Encounter Summary ---
Author Organization [facility] Address [address] [place] [address] Care Team Providers Care Therapist Respiratory Name Role Phone Sulma Salinas MD Primary Care Provider [phone] Reason for Visit * Reason Onset Date Comments Emesis 07/31/2010 Encounter Details Date Type Department Care Team (Late st Contact Info) Description 07/31/2010 Telephone [facility] Bariatric Surgery - [address] [place] [address] Lorena Garduno RN [address] [place] [address] Emesis Social History Tobacco Use Types Packs/Day [...] * Telephone Encounter - Lorena Garduno. - 07/31/2010 0942 EST Patient calls reporting persistent vomiting since Wednesday evening. Reports that now she's unable totolerate any liquids including water. States vomiting occurs within minutes of swallowing. Denies any fever, SOB, chest pain and reports general abdominal discomfort when vomiting. States she's consumed approx 1/2 cup of fluid since yesterday. Reports urine is concentrated; no bowel movement x 4 days. Patient encouraged to try sips of warm liquids. Notified Dr. Garner who will contact patient directly. documented in this encounter Plan of Treatment Not on file documented as of this encounter Visit Diagnoses Not on filedocumented in this encounter Care Teams Therapist Respiratory Relationship Specialty Start Date End Date Sulma Salinas MD [facility] [address] [place] [address] PCP - General 02/13/09 11/23/11 documented as of this encounter
--- OUTSIDE RECORDS SUMMARY | 2024-08-22 16:05 | XMS_ITS | Encounter Summary ---
Author Organization [facility] Address [address] [place] [address] Care Team Providers Care Systems Manager Name Role Phone Sulma Salinas MD Primary Care Provider [phone] Reason for Visit * Reason Onset Date Comments Follow-up 03/10/2011 Encounter Details Date Type Department Care Team (Late st Contact Info) Description 03/10/2011 Orders Only [facility] Bariatric Surgery - [place] [address] [place] [address] Lorena Garduno, RN [address] [place] [address] Unspecified vitamin D deficiency; Morbid obesity (HCC-CMS); [...] encounter Progress Notes * Lorena Garduno - 06/23/2011 1422 ESTAddended by: LORENA GARDUNO on: 06/23/2011 14:22 Modules accepted: Orders documented in this encounter Plan of Treatment Not on file documented as of this encounter Visit Diagnoses Diagnosis Unspecified vitamin D deficiency Morbid obesity (HCC-CMS) Morbid obesity Other and unspecified postsurgical nonabsorption documented in this encounter Care Teams Systems Manager Relationship Specialty Start Date End Date Sulma Salinas MD [facility] [address] [place] [address] PCP - General 02/13/09 11/23/11 documented as of this encounter
--- OUTSIDE RECORDS SUMMARY | 2024-08-22 16:05 | XMS_ITS | Encounter Summary ---
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 Available) - Closed Specialty Diagnoses / Procedures Referred By Rossana haines Referred To Contact Diagnoses Female infertility of unspecified origin Procedures NUTRITION TECHNICIAN US HYSTEROSONOGRAPHY Robert Skelton MD Phone: tel: fax: Referral ID Status Reason Start Date Expiration Date Visits Re quested Visits Authorized [id number] Closed 06/27/2013 1 1 Reason for Visit * Reason Comments Infertility trying x 5 years, hurd ve not used OPK's Encounter Details Date Type Department Care Team (Late st Contact Info) Description 06/27/2013 11:15 EST Office Visit [facility] - [address] [id number] Aleena Singh MD [address] [place], [place] [phone] Female infertility of unspecified origin (Primary Dx) [...] Reading Time Taken Comments Blood Pressure 110/70 06/27/2013 1128 EST Pulse - - Temperature - - Respiratory Rate - - Oxygen Saturation - - Inhaled Oxygen Concentration - - Weight 88.9 kg (196 lb) 06/27/2013 1128 EST Height 164.5 cm (5' 4.75) 06/27/2013 1128 EST Body Mass Index 32.87 06/27/2013 1128 EST documented in this encounter Mental Status * Because of a physical, mental, or emotional condition, do you have serious difficulty concentrating, remembering, or making decisions? (5 years old or older) Answer Entry Date Author Yes 07/08/2010 15:01 EST Eladio Russ RN documented in this encounter Discharge Diagnoses Diagnosis 628.9 FEMALE INFERTILITY NOS[ICD-9-CM] documented in this encounter Discharge Disposition Disposition Code Departure Means Destination Auto Discharge documented in this encounter Progress Notes * Robert Skelton MD - 06/27/2013 1114 EST Subjective: Consult requested by: self Kevin Calderon is a 38 y.o. G0. female who presents for evaluation of infertility. Patient and partner have been attempting conception for 6 years. Pregnancies with current partner: no. Partners sex is male. Patient had gastric bypass surgery 3 years ago at [facility], lost appx.100 pounds. 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 Patient and partner previously seen at the [facility] for infertility in 2006. The patient reports she was diagnosed with PCOS and counseled to lose weight. The patient reports that she did not use any specific medications for ovulation induction or have any specific imaging studies performed. Menstrual and Endocrine History LMP 06/26/13 Menses regular Shortest Interval 28 Longest Interval 32 days Duration of flow 6 days Heavy Menses Occasionally heavy Dysmenorrhea yes Amenorrhea N/A Hirsutism No abnormal hair growth, has acne Galactorrhea no Obstetrical History OB History Grav Para Term Abortions TAB SAB Ect Mult Living Gynecologic History Last PAP 2011, normal Previous abdominal or pelvic surgery Yes, laparoscopic gastric bypass 3 years ago at [facility], laparoscopic cholecystectomy Pelvic Pain yes Endometriosis no Hot Flashes no EVANGELINA Exposure no Abnormal Pap no Cervix Cryo/cone no STD no PID no Infertility and Endocrine Studies BBT no Ovulation Predictor Kit no HSG no Laparoscopy yes Hormonal Studies Yes, at [facility] in 2006 Semen analysis Yes, at [facility] in 2006 Other Studies no Meds none Other Therapies N/A Antral Follicle Count no Sexual History Dyspareunia No Couple is having intercourse with adequate frequency to maximize chance of conception yes Use of Lubricant Yes, uses [place] jelly every Family History Thyroid Problems no Defects/Inherited diseases no Cysticfibrosis no Age Mother Underwent Menopause yes, age at menopause 54 yo Past Medical History Diagnosis Date ??? Morbid obesity ??? MIGUEL (obstructive sleep apnea) ??? GERD (gastroesophageal reflux disease) ??? OA (osteoarthritis) ??? PCOS (polycystic ovarian syndrome) Family History Problem Relation Age of Onset ??? Diabetes Mother ??? Diabetes Sister gestational ??? Diabetes Maternal Uncle ??? Diabetes Maternal Grandmother ??? Heart Disease Maternal Grandmother [place] ??? Heart Disease Maternal Grandfather [place] ??? Stroke Maternal Grandfather Current Outpatient Prescriptions Medication Status Sig Dispense Refill ??? BIOTIN ORAL Active Take 1 Tab by mouth daily. ??? CALCIUM CARBONATE/VITAMIN D3 (CALCIUM WITH VITAMIN D ORAL) Active Take 1 Tab by mouth 2 times daily. ??? cyanocobalamin 500 mcg tablet Active Take 500 mcg by mouth every 48 hours. ??? DOCUSATE CALCIUM (STOOL SOFTENER ORAL) Active Take 1 Tab by mouth 2 times daily. ??? ERGOCALCIFEROL (VITAMIN D ORAL) Active Take 1,000 Units by mouth daily. ??? FERROUS FUMARATE (IRON ORAL) Active Take 1 Tab by mouth daily. ??? MULTIVITAMINS (MULTIVITAMIN ORAL) Active Take by mouth daily. ??? VITAMIN B COMPLEX (B COMPLEX 1 ORAL) Active Take 1 Tab by mouth daily. ??? VITAMIN E ACETATE (VITAMIN E ORAL) Active Take 1 Tab by mouth daily. No current facility-administered medications for this visit. Allergies Allergen Reactions ??? Percocet (Oxycodone-Acetaminophen) Hives History Social History ??? Marital Status: Spouse Name: N/A Number of Children: N/A ??? Years of Education: N/A Occupational History ??? Not on file. Social History Main Topics ??? Smoking status: Former Smoker ??? Smokeless tobacco: Never Used Comment: 1996 ??? Alcohol Use: Yes rare ??? Drug Use: No ??? Sexually Active: Yes -- Male partner(s) Control/ Protection: OCP Other Topics Concern ??? Not on file Social History Narrative ??? No narrative on file Review of Systems NUTRITION TECHNICIAN ROS Complete: as above Male History and Exam Name: Adrián Hagerniman Age: 46 yo Education: Regulatory Affairs Intern Past Medical History : Diabetes, HTN, ED Medications : humalog, Byetta, lantus, Lipitor, Cialis Exposure to reproductive toxins: no Paternity of Pregnancies: Number with this partner: 0 Number with other partners: 0 Age of youngest child: N/A Urologic History: Infection no STD no Mumps no Varicocele no Semen analysis yes Undescended Testes no Testicular Trauma no Genital Surgery no Ejaculatory Problem no Impotence Yes, treated with Cialis Objective: Female Exam There were no vitals taken for this visit. Wt Readings from Last 1 Encounters: 07/29/12 83.915 kg (185 lb) BMI: There is no weight on file to calculate BMI. Gen: A+Ox3 HEENT: NCAT Assessment: 1. Infertility 2. PCOS Plan: We plan to check a cycle day #3 FSH and estradiol, HyCoSy with AFC, And a semen analysis. The patient is to call of her menses to schedule her ultrasound study. This patient was seen, discussed, and examined with Dr. Singh. Robert Skelton MD Reproductive Endocrinology and Infertility Fellow Attestation statement: I saw and examined the patient with the resident/fellow. I agree with the findings and plan of care documented in the resident's/fellow's note. documented in this encounter Plan of Treatment Not on file documented as of this encounter Procedures Procedure Name Priority Date/Time Associated Diagnosis Comments NUTRITION TECHNICIAN US HYSTEROSONOGRAPHY Routine 013 15:53 EST Female infertility of unspecified origin PATHOLOGY - SCANNED 07/04/2013 8 :06 EST documented in this encounter Results * NUTRITION TECHNICIAN US HYSTEROSONOGRAPHY (07/04/2013 15:53 EST) Anatomical Region Laterality Modality Other 07/04/2013 15:5 3 EST 07/25/2013 13:52 EST Narrative 07/25/2013 13:52 EST Indication: Infertility: tubal patency. Gynecological Ultrasonography: Sonohysterography: Performed by: Dr. Luz Wheeler. Superintendent Refuse Disposal: Kaykay Weaver. Catheter type: IUI. Fluid used: [place] (30 ml). Uterus: normal,anteverted. Size: Longitudinal 79 mm. Anterio- posterior 33 mm. Transverse 34 mm. Volume: 46.4 ml. Endometrium thickness total: 6.9 mm. Impression based on Sonohysterography: Normal cavity with Patent tubes. Right Ovary: normal. Right Ovary size: 28 mm x 20 mm x 20 mm. Volume: 5.9 ml. Left Ovary: normal. Left Ovary size: 27 mm x 27 mm x 20 mm. Volume: 7.6 ml. Method: transvaginal ultrasound with [place]. Report Summary: Overall impression: Ultrasound Performed: Transvaginal sonohysterogram-[id number] normal scan combined AFC 17 normal cavity patent tubes bilaterally. Recommendations / therapy: Patient educated to findings. Follow- up: follow up with Dr Singh tomorrow. Procedure Note 07/25/2013 Indication: Infertility: tubal patency. Gynecological Ultrasonography: Sonohysterography: Performed by: Dr. Luz Wheeler. Superintendent Refuse Disposal: Kaykay Weaver. Catheter type: IUI. Fluid used: [place] (30 ml). Uterus: normal,anteverted. Size: Longitudinal 79 mm. Anterio- posterior 33 mm. Transverse 34 mm. Volume: 46.4 ml. Endometrium thickness total: 6.9 mm. Impression based on Sonohysterography: Normal cavity with Patent tubes. Right Ovary: normal. Right Ovary size: 28 mm x 20 mm x 20 mm. Volume: 5.9 ml. Left Ovary: normal. Left Ovary size: 27 mm x 27 mm x 20 mm. Volume: 7.6 ml. Method: transvaginal ultrasound with [place]. Report Summary: Overall impression: Ultrasound Performed: Transvaginal sonohysterogram-[id number] normal scan combined AFC 17 normal cavity patent tubes bilaterally. Recommendations / therapy: Patient educated to findings. Follow- up: follow up with Dr Singh tomorrow. us Aleena Singh MD IMG US NUTRITION TECHNICIAN ORDERABL ES Final Result * PATHOLOGY - SCANNED (07/04/2013 8:06 EST) 07/04/2013 8:06 EST us Scan 2 [facility] INFO SERVICE AND SUPPOR T & PHONE RESULT Final Result * ANTIMULLERIAN HORMONE ([facility]) [facility] (06/27/2013 13:17 EST) [facility] Result See Pathology Scanned Report in [facility]ISM. [facility] Comment: Assayed at [facility], [place], [place] (Note) Result= 2.95 ng/mL Normal Range= 0.70-3.50 ng/mL Blood specimen (specimen) 06/27/2013 13:17 EST 06/27/2013 13:29 EST Aleena Singh MD CHEMISTRY & BLOOD G ORDERABLES Final Result Performing Organization Address [facility] de Phone Number [facility] [address] [place] [address] * ESTRADIOL, ADULTS (06/27/2013 13:17 EST) Pathologist [facility] Estradiol 42 pg/ml [facility] Comment: By day in cycle relative to LH peak: Follicular Phase (-12 to -4 days): ??20-144 Midcycle (-3 to +2 days): ? 64-357 Luteal Phase (+4 to +12 days): ??56-214 Postmenopausal: ??0 - 32 Blood specimen (specimen) 06/27/2013 13:17 EST 06/27/2013 13:29 EST Aleena Singh MD CHEMISTRY & BLOOD G ORDERABLES Final Result Performing Organization Address [facility] Phone Number [facility] [address] [place] [address] * FSH (06/27/2013 13:17 EST) [facility] FSH 7.7 mIU/ml [facility] Comment: Follicular: 2-11 Mid-Cycle Peak: 3.4-35 Luteal: 1-9 Postmenopausal: 25-120 Blood specimen (specimen) 06/27/2013 13:17 EST 06/27/2013 13:29 EST Aleena Singh MD CHEMISTRY & BLOOD G ORDERABLES Final Result Performing Organization Address [facility] de Phone Number [facility] [address] [place] [address] * CHLAMYDIA/GC AMPLIFIED, URINE (06/27/2013 12:58 EST) [facility] Specimen Description Urine [facility] Chlamydia Result No Chlamydia trachomatis DNA detected by cardiovascular lab director mediated amplification. [facility] GC Result No Neisseria gonorrhoeae DNA detected by cardiovascular lab director mediated amplification. [facility] Specimen of unknown material (specimen) TOPOGRAPHY UNKNOWN / Unknown 06/27/2013 12:58 EST 06/27/2013 13:51 EST Aleena Singh MD MICROBIOLOGY - GENE RAL ORDERABLES Final Result [facility] [address] [place] [address] documented in this encounter Visit Diagnoses Diagnosis Female infertility of unspecified origin- Primary documented in this encounter Discontinued Medications Medication Sig Discontinue Reason Start Date End Da te MULTIVITAMINS (MULTIVITAMIN ORAL) Take by mouth daily. 06/27/2013 documented as of this encounter Historical Medications * This list may reflect changes made after this encounter. VIT/IRON FUMARATE/FA (STUARTNATAL PLUS 3 ORAL)Indications:F emale infertility of unspecified origin Take 1 Tab by mouth daily. added in this encounter Care Teams Mobile Ui Developer Relationship Specialty Start Date End Date Sulma [place] MD [address] [place] [address] PCP - General 06/27/13 documented as of this encounter
--- OUTSIDE RECORDS SUMMARY | 2024-08-22 16:05 | XMS_ITS | Encounter Summary ---
Author Organization [facility] Address [address] [place] [address] Care Team Providers Care Director Of Medical Education Name Role Phone Sulma [place] MD Primary Care Provider [phone] Reason for Visit * Reason Onset Date Comments Other 08/24/2013 Encounter Details Date Type Department Care Team (Late st Contact Info) Description 08/24/2013 Telephone [facility] - [address] [address] Queenie Mtz, RN Other Social History Tobacco Use Types [...] encounter Miscellaneous Notes * Telephone Encounter - Queenie Mtz RN - 08/24/2013 7423 EST Call to pt. Left message that we need to change her appt to Wednesday at 830 am. Left message for ptto call office and confirm. documented in this encounter Plan of Treatment Not on file documented as of this encounter Visit Diagnoses Not on filedocumented in this encounter Care Teams Director Of Medical Education Relationship Specialty Start Date End Date Sulma [place] MD [address] [place] [id number] PCP - General 06/27/13 documented as of this encounter
--- OUTSIDE RECORDS SUMMARY | 2024-08-22 16:05 | XMS_ITS | Encounter Summary ---
Author Organization [facility] Address [address] [place] [address] Care Team Providers Care Building Services Technician Name Role Phone Sulma [place] MD Primary Care Provider [phone] Reason for Visit * Reason Onset Date Comments Follow-up 08/12/2010 Encounter Details Date Type Department Care Team (Late st Contact Info) Description 08/12/2010 Telephone [facility] Bariatric Surgery - [address] [place] [address] Lorena Garduno, RN [address] [place] [address] Follow-up Social History Tobacco Use Types Packs/Day Years [...] * Telephone Encounter - Lorena Garduno. - 08/12/2010 6417 EST Patient calls to report status. States, I'm feeling a lot better. Reports that after EGD on 08/07/10, able to tolerate full liquids including protein shakes. Denies any further vomiting. Denies anyother complaints at this time. Per Dr. Garner, patient to continue with full liquids until consulting with dietitian to advancediet to blenderized as able. Message left with dietitian. Patient aware, verbalized understanding and is agreeable to plan. documented in this encounter Plan of Treatment Not on file documented as of this encounter Visit Diagnoses Not on filedocumented in this encounter Care Teams Building Services Technician Relationship Specialty Start Date End Date Sulma [place] MD [facility] [address] [place] [address] PCP - General 02/13/09 11/23/11 documented as of this encounter
--- OUTSIDE RECORDS SUMMARY | 2024-08-22 16:05 | XMS_ITS | Encounter Summary ---
Author Organization [facility] Address [address] [place] [address] Care Team Providers Care Parking Lot Manager Name Role Phone Sulma [place] MD Primary Care Provider [phone] Reason for Visit * Reason Comments Infertility Encounter Details Date Type Department Care Team (Late st Contact Info) Description 08/04/2013 10:00 EST Nurse Only [facility] - [address] [address] Unknown, Provider, Nurse, Wilbur, ARTUR Female infertility of unspecified origin (Primary Dx) Social History Tobacco Use Types Packs/Day Years [...] documented in this encounter Progress Notes * MACHINE GUN MECHANIC, DAVION 2 - 08/11/2013 1410 EST * Maday Reis - 08/04/2013 1144 EST Patient and spouse, Alexx are here today for insemination # 1. Letrozole 2.5/ HCG/ IUI, LMP 12.9.13, CD 12. Consent signed by patient, IUI sample identified by patient, and Final Verification performed with patient prior to insemination. All patient's questions were discussed and answered. Patient was placed in dorsal lithotomy position and speculum was inserted into vagina. Cervical os was visualized and prepared sample was inserted into uterus. Insemination was performed without difficulty. Patient tolerated procedure well. One attempt(s) was made to pass catheter and no bleeding occurred during insemination. Anticipated date of test is 14. Patient was educated prior to leaving office today on the following points: 1. Patient given copy of I am , what can I take? 2. Patient was advised to call office if she develops fever, chills, pelvic pain, or heavy bleeding. 3. Patient will call office if she does not start her menses in two weeks from today for test. If menses begins, patient was advised to call office to report and to proceed with another cycle if appropriate. Patient verbalized understanding of plan. I was supervised by Angel Lynch MD who was present and immediately available in the office suite. Maday Reis RN 08/04/2013 11:44 documented in this encounter Plan of Treatment Not on file documented as of this encounter Procedures Procedure Name Priority Date/Time Associated Diagnosis Comments POCT SPERM WASHING ARTIFICIAL INSEMINATION Routine 08/04/2013 10:30 EST Female infertility of unspecified origin documented in this encounter Results * POCT SPERM WASHING ARTIFICIAL INSEMINATION (08/04/2013 10:30 EST) Media Lot #, POC [id number], [id number] POINT OF CARE Expiration, POC 04/2014, 01/2014 POINT OF CARE Comment:65 ml of post-ejacul ate urine was collected and centrifuged. Several ggregates of more than 100 non-motile sperm was seen in concentrated urine. Pre-Wash Volume, POC 0.2 >= 2 ml POINT OF CARE Pre-Wash Count, POC 139 >=20 million/ml POINT OF CARE Pre-Wash Motility, POC 60 >= 50% POINT OF CARE Post-Wash, POC 0.5 ml POINT OF CARE Post-Wash Count, POC 100 million/ml POINT OF CARE Post-Wash Motility, POC 68 % POINT OF CARE Total Motile, POC 34 >= 6 million POINT OF CARE Timing Method, POC POINT OF CARE Body fluid specimen (specimen) 08/04/2013 10:30 EST us Angel Lynch MD POINT OF CARE TEST ORDERABLES Final Result POINT OF CARE documented in this encounter Visit Diagnoses Diagnosis Female infertility of unspecified origin- Primary documented in this encounter Care Teams Parking Lot Manager Relationship Specialty Start Date End Date Sulma [place] MD [address] [place] [id number] PCP - General 06/27/13 documented as of this encounter
--- OUTSIDE RECORDS SUMMARY | 2024-08-22 16:05 | XMS_ITS | Encounter Summary ---
Author Organization [facility] Address [address] [place] [address] Care Team Providers Care Jammer Hooker Name Role Phone Unknown, Provider MD Primary Care Provider Unava ilable Reason for Visit * Reason Onset Date Comments Appointment Related 11/16/2011 bumped appoi ntment Encounter Details Date Type Department Care Team (Late st Contact Info) Description 12/04/[address] [facility] Bariatric Surgery - [address] [address] Kasandra Hobbs MD [address] [place] [phone] Appointment Related (bumped appointment) Social History Tobacco Use Types Packs/Day Years [...] encounter Miscellaneous Notes * Telephone Encounter - India Armstrong - 12/04/2011 9392 EDT Kevin Calderon had an appointment schedule with Elsy Gaona NP on 12/22/11. This appointment wasbumped as Elsy is no longer working with the bariatric clinic. He was called on 11/16/11 but there was no voice message capabilities at that time. He was called again 11/24/11 and 11/30/11 on his cell phone and a voice message was left each time requesting that he call back to reschedule. documented in this encounter Plan of Treatment Not on file documented as of this encounter Visit Diagnoses Not on filedocumented in this encounter Care Teams Jammer Hooker Relationship Specialty Start Date End Date Unknown, Provider, PCP - General 11/24/11 06/26/13 documented as of this encounter
--- OUTSIDE RECORDS SUMMARY | 2024-08-22 16:05 | XMS_ITS | Encounter Summary ---
Author Organization [facility] Address [address] [place] [address] Care Team Providers Care Title Vehicle Service Attendant Name Role Phone Robin Troncoso MD Primary Care Provider [phone] Encounter Details Date Type Department Care Team (Late st Contact Info) Description 08/31/2011 Results Only [facility] Laboratory Services - [facility] ([facility]) [address] [place], [place] [address] Robin Troncoso MD [facility] [address] [place], [place] [id number] Social History Tobacco Use Types Packs/Day Years [...] Diagnosis Comments PAP TEST- RESULT ONLY Routine 08/31/2011 0:00 EST documented in this encounter Results * PAP TEST- RESULT ONLY (08/31/2011 0:00 EST) Pathology Report: CYTOPATHOLOGY REPORT Reports generated via electronic interface contain original data; however they are lacking the format of the original report. Caution should be taken when reading/interpreti ng unformatted reports. Name: ? KEVIN CASTANO ? Accession #: ? [id number] ? : ? 1975 (Age: 36) ??F ?Collect Date: ? 08/31/2011 ? Location: ? [facility] ? Receive Date: ? 09/01/2011 ? Provider: ROBIN TRONCOSO MD Copy to: ? Final Report SPECIMEN ADEQUACY ? Satisfactory for Evaluation - transformation zone component absent GENERAL CATEGORIZATION ? Negative for Intraepithelial Lesion or Malignancy ?? Last Menstural Period: 08/10/2011 Specimen/Source: ??Pap Test, Cervix/Endocervix, ThinPrep Imaging System with manual evaluation Document reviewed and electronically signed by: ? Yani Stiles CT(ASCP) ? Report ??Date: 09/03/2011 09:17 HPV with Pap Test ? Date Ordered: ? 09/03/2011 ? Status: ?? Signed Out ?Date Complete: ? 09/08/2011 ? By: ??System Interface ? Date Reported: ? 09/08/2011 ? Interpretation RESULT: Negative for HPV types 16, 18, 31, 33, 35, 39, 45, 51, 52, 56, 58, 59, and 68. Comments Document reviewed and electronically signed by: ? System Interface ? Report date: 09/08/2011 By the signature above, the attending physician certifies that he/she has personally conducted a gross and/or microscopic examination of the described specimens and rendered or confirmed the above diagnosis. End of Report [facility] 08/31/2011 09/01/2011 us Robin Troncoso MD PATHOLOGY ORDERABLES Final Resul t [facility] [address] [place] [address] documented in this encounter Visit Diagnoses Not on filedocumented in this encounter Care Teams Title Vehicle Service Attendant Relationship Specialty Start Date End Date Robin Troncoso MD [facility] [address] [place], [place] [id number] PCP - General 02/13/09 11/23/11 documented as of this encounter
--- OUTSIDE RECORDS SUMMARY | 2024-08-22 16:05 | XMS_ITS | Encounter Summary ---
Author Organization [facility] Address [address] [place] [address] Care Team Providers Care Bradley Linebacker Crewmember Name Role Phone Unknown, Provider Primary Care Provider Unava ilable Reason for Referral * (Routine/Next Available) - Closed Specialty Diagnoses / Procedures Referred By Contac t Referred To Contact Diagnoses Morbid obesity (HCC-CMS) S/P gastric bypass Post-resection malabsorption Procedures VITAMIN D (25,[place]) Hunter Bynum PA-C Phone: tel: fax: Referral ID Status Reason Start Date Expiration Date Visits Re quested Visits Authorized [id number] Closed 07/29/2012 1 1 Reason for Visit * Reason Comments Obesity Post op bypass - 2 y ear follow-up Encounter Details Date Type Department Care Team (Late st Contact Info) Description 07/29/2012 15:30 EST Office Visit [facility] Bariatric Surgery - [place] [address] [place] [address] Hunter Bynum, PA-C [address] [facility], [facility] [address] [place] [phone] Morbid obesity (HCC-CMS); S/P gastric bypass; Post-resection malabsorption Social History Tobacco Use Types Packs/Day Years [...] Sign Reading Time Taken Comments Blood Pressure 98/70 07/29/2012 1516 EST Pulse 92 07/29/2012 1516 EST Temperature - - Respiratory Rate - - Oxygen Saturation - - Inhaled Oxygen Concentration - - Weight 83.9 kg (185 lb) 07/29/2012 1516 EST Height 164.2 cm (5' 4.65) 07/29/2012 1516 EST Body Mass Index 31.12 07/29/2012 1516 EST documented in this encounter Mental Status * Because of a physical, mental, or emotional condition, do you have serious difficulty concentrating, remembering, or making decisions? (5 years old or older) Answer Entry Date Author Yes 07/08/2010 15:01 EST Eladio Russ RN documented in this encounter Progress Notes * Syeda Dixon, RD - 07/29/2012 1538 EST Nutrition Post Op Visit: Gastric Bypass Subjective:Patient returns to clinic for post op nutritional counseling following bariatric surgery2 years ago. Injured her knee, not able to exercise, gained weight from snacking but has since lost. Rare regurg with pork Questionnaire Reviewed: Yes Intolerance Episodes: yes 2 this past year Food Intolerances: Pork, carrots Current Exercise: None currently Reactive Hypoglycemic Symptoms (bypass only): no Objective: Current Weight: Wt Readings from Last 1 Encounters: 07/29/12 83.915 kg (185 lb) Current BMI: Body mass index is Body mass index is 31.12 kg/(m^2).. Total Weight Loss: Total Loss in lbs (Weight from Initial Consult - Today's Weight): 98.4 lbs Weight Change since Last Visit:+2.8 lb, since surgery lost 84.6 lb Supplement Usage: Type Amount MVT B12 Calcium w/Vit D 2 Iron FeFum B Complex Vit D 1000 IU Other: biotin, Vit E, colace Recent Labs: Needs Assessment: Adequate Meal Frequency: Yes Adequate Meal Composition: Yes Exercise Adequacy: No Nutritional Issues: small weight regain, patient changing intake to decrease weight. Has been snacking out of boredom since her knee injury but has stopped that behavior! Will be seeing ortho about her knee. Needs labs Plan: Continue current diet Increase exercise as able Get labs done Education Provided: Weight Control -via diet and exercise * Hunter Bynum PA - 07/29/2012 1537 EST 07/29/2012 Kevin Calderon is here in follow-up to her laparoscopic Brandin-En-Y gastric bypass. The weight trend for the patient is: Weight at initial consult: 128.549 kg (283 lb 6.4 oz), to 82.645 kg (182 lb 3.2 oz) [03/07/2012] at the last post- op visit to today's Weight : 83.915 kg (185 lb). PROBLEM LIST Patient Active Problem List Diagnoses ??? Morbid obesity ??? Obstructive sleep apnea syndrome ??? Gastroesophageal reflux disease ??? Osteoarthritis of knee ??? PCOS (polycystic ovarian syndrome) ??? Vitamin D deficiency ??? Dysphagia ??? Short bowel syndrome ??? Status post gastric bypass for obesity SUBJECTIVE: Emesis: No complaints of emesis Nausea: No complaints of nausea Increased Volume Tolerance: no Abdominal Pain: No complaints of abdominal pain Lightheadedness: + lightheadedness - sugar of 43 at one point Bowel Function: Normal Pannus: No pannus OBJECTIVE: General Appearance: healthy appearing, alert and in no apparent distress Abdomen: Incision well-healed and Nontender Extremities: Normal Skin: Normal ASSESSMENT: Doing well, Expected course without obvious complications and Weight Loss: Good. Some reactive hypoglycemia but only 2 episodes since last visit. PLAN: 1. Return to clinic in 1 year(s). 2. Orders Placed This Encounter Procedures ??? Vitamin B12 Standing Status: Future Number of Occurrences: Standing Expiration Date: 07/29/2013 ??? Calcium Standing Status: Future Number of Occurrences: Standing Expiration Date: 07/29/2013 ??? Hemagram Standing Status: Future Number of Occurrences: Standing Expiration Date: 07/29/2013 ??? Creatinine Standing Status: Future Number of Occurrences: Standing Expiration Date: 07/29/2013 ??? Ferritin Standing Status: Future Number of Occurrences: Standing Expiration Date: 07/29/2013 ??? Iron Standing Status: Future Number of Occurrences: Standing Expiration Date: 07/29/2013 ??? PTH Intact Standing Status: Future Number of Occurrences: Standing Expiration Date: 07/29/2013 ??? Thiamin (Vit B1), WB Standing Status: Future Number of Occurrences: Standing Expiration Date: 07/29/2013 ??? Vitamin D (25,OH) Standing Status: Future Number of Occurrences: Standing Expiration Date: 07/29/2013 3. Labs now and next year before. 4. OK to get . Seen and discussed with Railroad Construction Director at this visit. 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 No Incisional hernia noted on exam? No Sleep Apnea requiring CPAP or BiPap? No GERD requiring daily use of PPI or [...] discharge and suspected reason for admission) No India Armstrong 07/29/2012 15:18 documented in this encounter Plan of Treatment Not on file documented as of this encounter Visit Diagnoses Diagnosis Morbid obesity ([facility]) Morbid obesity S/P gastric bypass Bariatric surgery status Post-resection malabsorption Other and unspecified postsurgical nonabsorption documented in this encounter Orders Lab Orders Without Results Count Last Ordered D ate First Ordered Date VITAMIN D (25,OH) 1 07/29/2012 documented in this encounter Care Teams Bradley Linebacker Crewmember Relationship Specialty Start Date End Date Unknown, Provider, PCP - General 11/24/11 06/26/13 documented as of this encounter
--- OUTSIDE RECORDS SUMMARY | 2024-08-22 16:05 | XMS_ITS | Encounter Summary ---
Author Organization [facility] Address [address] [place] [address] Care Team Providers Care Glycerin Supervisor Name Role Phone Sulma Salinas MD Primary Care Provider [phone] Encounter Details Date Type Department Care Team (Late st Contact Info) Description 07/04/2013 - 07/04/2013 23:59 EST Hospital Encounter [facility] [address] [place] [address] Aleena Singh MD [address] [place], [place] [phone] Discharge Disposition: Home or Self Care Social History Tobacco Use Types Packs/Day Years [...] Eladio Russ, RN documented in this encounter Medications at Time of Discharge BIOTIN ORAL Take 1 Tab by mouth daily. 10/27/2010 CALCIUM CARBONATE/VITAMIN D3 (CALCIUM WITH VITAMIN D ORAL) Take 1 Tab by mouth 2 times daily. 10/27/2010 cyanocobalamin 500 mcg tablet Take 500 mcg by mouth every 48 hours. DOCUSATE CALCIUM (STOOL SOFTENER ORAL) Take 1 Tab by mouth 2 times daily. 03/09/2011 ERGOCALCIFEROL (VITAMIN D ORAL) Take 1,000 Units by mouth daily. FERROUS FUMARATE (IRON ORAL) Take 1 Tab by mouth daily. 10/27/2010 VIT/IRON FUMARATE/FA (STUARTNATAL PLUS 3 ORAL)Indications:Fem clifford infertility of unspecified origin Take 1 Tab by mouth daily. VITAMIN B COMPLEX (B COMPLEX 1 ORAL) Take 1 Tab by mouth daily. 10/27/2010 VITAMIN E ACETATE (VITAMIN E ORAL)Indications:Mor bid obesity (HCC-CMS),Vitamin D deficiency,S/P gastric bypass,Postresection al malabsorption syndrome Take 1 Tab by mouth daily. documented as of this encounter Discharge Disposition Disposition Code Departure Means Destination Home or Self Senior Living documented in this encounter Plan of Treatment Not on file documented as of this encounter Procedures Procedure Name Priority Date/Time Associated Diagnosis Comments BACON STRINGER FOLLICULAR 08/30/2013 8:45 EST BACON STRINGER FOLLICULAR 08/28/2013 8:33 EST BACON STRINGER FOLLICULAR 08/26/2013 8:52 EST BACON STRINGER FOLLICULAR 08/01/2013 8:16 EST documented in this encounter Results * BACON STRINGER FOLLICULAR (08/30/2013 8:45 EST) Anatomical Region Laterality Modality Other 08/30/2013 8:45 EST 08/30/2013 9:50 EST Narrative 08/30/2013 9:50 EST Indication: Infertility: follicular monitoring ??(USF). Cycle #2 CD 12 Letrozole/HCG/IUI. Gynecological Ultrasonography: Uterus: normal,anteverted. Endometrium thickness total: 7.6 mm. Right Ovary: normal w/follicular cyst. Left Ovary: normal. Cul de Sac / Pouch of Steven: no free fluid visible. Follicle Screening: Follicles Right Ovary: Follicle 1: Mean Value: 18.8 mm D1: 21.7 mm D2: 17.5 mm D3: 17.3 mm Follicle 2: Mean Value: 15.0 mm D1: 17.6 mm D2: 12.0 mm D3: 15.5 mm Method: transvaginal ultrasound. Ultrasound machine: [employer] [email or web address], view: good. Report Summary: Overall impression: Ultrasound Performed:Limited transvaginal follicular ultrasound-[id number] Pt spoke to [place] nurse following U/S. Procedure Note 08/30/2013 Indication: Infertility: follicular monitoring (USF). Cycle #2 CD 12 Letrozole/HCG/IUI. Gynecological Ultrasonography: Uterus: normal,anteverted. Endometrium thickness total: 7.6 mm. Right Ovary: normal w/follicular cyst. Left Ovary: normal. Cul de Sac / Pouch of Steven: no free fluid visible. Follicle Screening: Follicles Right Ovary: Follicle 1: Mean Value: 18.8 mm D1: 21.7 mm D2: 17.5 mm D3: 17.3 mm Follicle 2: Mean Value: 15.0 mm D1: 17.6 mm D2: 12.0 mm D3: 15.5 mm Method: transvaginal ultrasound. Ultrasound machine: [email or web address] [email or web address], view: good. Report Summary: Overall impression: Ultrasound Performed:Limited transvaginal follicular ultrasound-[id number] Pt spoke to [place] nurse following U/S. us Aleena Singh MD IMG US BACON STRINGER ORDERABL ES Final Result * BACON STRINGER US FOLLICULAR (08/28/2013 8:33 EST) Anatomical Region Laterality Modality Other 08/28/2013 8:33 EST 08/30/2013 11:08 EST Narrative 08/30/2013 11:08 EST Indication: Infertility: follicular monitoring ??(USF). Cycle #2 CD 10 Letrozole. Gynecological Ultrasonography: Uterus: Endometrium thickness total: 7.2 mm. Right Ovary: normal w/follicular cyst. Left Ovary: normal w/ follicular cyst. Cul de Sac / Pouch of Steven: no free fluid visible. Follicle Screening: Follicles Right Ovary: Follicle 1: Mean Value: 10.7 mm D1: 12.2 mm D2: 10.4 mm D3: 9.5 mm Follicle 2: Mean Value: 14.1 mm D1: 16.8 mm D2: 13.3 mm D3: 12.1 mm Follicle 3: Mean Value: 13.8 mm D1: 16.6 mm D2: 11.0 mm D3: 13.7 mm Follicles Left Ovary: Follicle 1: Mean Value: 10.0 mm D1: 10.4 mm D2: 9.6 mm D3: 10.1 mm Follicle 2: Mean Value: 10.2 mm D1: 9.6 mm D2: 11.1 mm D3: 10.0 mm Method: transvaginal ultrasound. Ultrasound machine: [employer] e8, view: good. Report Summary: Overall impression: Ultrasound Performed:Limited transvaginal follicular ultrasound-[id number] Pt given HCG brown bag. Procedure Note 08/30/2013 Indication: Infertility: follicular monitoring (USF). Cycle #2 CD 10 Letrozole. Gynecological Ultrasonography: Uterus: Endometrium thickness total: 7.2 mm. Right Ovary: normal w/follicular cyst. Left Ovary: normal w/ follicular cyst. Cul de Sac / Pouch of Steven: no free fluid visible. Follicle Screening: Follicles Right Ovary: Follicle 1: Mean Value: 10.7 mm D1: 12.2 mm D2: 10.4 mm D3: 9.5 mm Follicle 2: Mean Value: 14.1 mm D1: 16.8 mm D2: 13.3 mm D3: 12.1 mm Follicle 3: Mean Value: 13.8 mm D1: 16.6 mm D2: 11.0 mm D3: 13.7 mm Follicles Left Ovary: Follicle 1: Mean Value: 10.0 mm D1: 10.4 mm D2: 9.6 mm D3: 10.1 mm Follicle 2: Mean Value: 10.2 mm D1: 9.6 mm D2: 11.1 mm D3: 10.0 mm Method: transvaginal ultrasound. Ultrasound machine: [employer] e8, view: good. Report Summary: Overall impression: Ultrasound Performed:Limited transvaginal follicular ultrasound-[id number] Pt given HCG brown bag. us Aleena Singh MD IMG US BACON STRINGER ORDERABL ES Final Result * BACON STRINGER US FOLLICULAR (08/26/2013 8:52 EST) Anatomical Region Laterality Modality Other 08/26/2013 8:52 EST 08/27/2013 9:19 EST Narrative 08/27/2013 9:19 EST Indication: Infertility: follicular monitoring ??(USF). Gynecological Ultrasonography: Uterus: normal,anteverted. Endometrium: endometrium clearly visualized. Trilaminar. Endometrium thickness total: 4.2 mm. Right Ovary: normal w/ a functional cyst. Left Ovary: normal w/ follicular cyst. Follicle Screening: Follicles Right Ovary: Follicle 1: Mean Value: 11.1 mm D1: 9.2 mm D2: 10.6 mm D3: 13.5 mm Follicle 2: Mean Value: 12.9 mm D1: 11.5 mm D2: 13.5 mm D3: 13.6 mm Follicle 3: Mean Value: 11.4 mm D1: 9.1 mm D2: 13.8 mm D3: 11.3 mm Follicle 4: Mean Value: 11.8 mm D1: 9.5 mm D2: 13.3 mm D3: 12.5 mm Follicle 5: Mean Value: 9.0 mm D1: 8.5 mm D2: 9.9 mm D3: 8.7 mm Method: transvaginal ultrasound. Report Summary: Overall impression: USF for Letrozole/IUI cycle #2, CD#8 Early folliculogenesis. Ultrasound Performed:Limited transvaginal follicular ultrasound-[id number]. Procedure Note 08/27/2013 Indication: Infertility: follicular monitoring (USF). Gynecological Ultrasonography: Uterus: normal,anteverted. Endometrium: endometrium clearly visualized. Trilaminar. Endometrium thickness total: 4.2 mm. Right Ovary: normal w/ a functional cyst. Left Ovary: normal w/ follicular cyst. Follicle Screening: Follicles Right Ovary: Follicle 1: Mean Value: 11.1 mm D1: 9.2 mm D2: 10.6 mm D3: 13.5 mm Follicle 2: Mean Value: 12.9 mm D1: 11.5 mm D2: 13.5 mm D3: 13.6 mm Follicle 3: Mean Value: 11.4 mm D1: 9.1 mm D2: 13.8 mm D3: 11.3 mm Follicle 4: Mean Value: 11.8 mm D1: 9.5 mm D2: 13.3 mm D3: 12.5 mm Follicle 5: Mean Value: 9.0 mm D1: 8.5 mm D2: 9.9 mm D3: 8.7 mm Method: transvaginal ultrasound. Report Summary: Overall impression: USF for Letrozole/IUI cycle #2, CD#8 Early folliculogenesis. Ultrasound Performed:Limited transvaginal follicular ultrasound-[id number]. us Guillaume James MD IMG US BACON STRINGER ORDERABLES Final Res ult * BACON STRINGER US FOLLICULAR (08/01/2013 8:16 EST) Anatomical Region Laterality Modality Other 08/01/2013 8:16 EST 08/01/2013 8:45 EST Narrative 08/01/2013 8:45 EST Indication: Infertility. Gynecological Ultrasonography: Uterus: anteverted. Endometrium: endometrium clearly visualized. Trilaminar. Endometrium thickness total: 6.1 mm. Cul de Sac / Pouch of Steven: no free fluid visible. Follicle Screening: Follicles Left Ovary: Follicle 1: Mean Value: 17.0 mm D1: 17.3 mm D2: 17.5 mm D3: 16.3 mm Report Summary: Overall impression: Ultrasound Performed:Limited transvaginal follicular ultrasound-[id number] Growing follicle in the left ovary measuring 17 mm. Procedure Note 08/01/2013 Indication: Infertility. Gynecological Ultrasonography: Uterus: anteverted. Endometrium: endometrium clearly visualized. Trilaminar. Endometrium thickness total: 6.1 mm. Cul de Sac / Pouch of Steven: no free fluid visible. Follicle Screening: Follicles Left Ovary: Follicle 1: Mean Value: 17.0 mm D1: 17.3 mm D2: 17.5 mm D3: 16.3 mm Report Summary: Overall impression: Ultrasound Performed:Limited transvaginal follicular ultrasound-[id number] Growing follicle in the left ovary measuring 17 mm. us Aleena Singh MD IMG US BACON STRINGER ORDERABL ES Final Result documented in this encounter Visit Diagnoses Not on filedocumented in this encounter Care Teams Glycerin Supervisor Relationship Specialty Start Date End Date Sulma Salinas MD [address] [place] [id number] PCP - General 06/27/13 documented as of this encounter
--- OUTSIDE RECORDS SUMMARY | 2024-08-22 16:05 | XMS_ITS | Encounter Summary ---
Author Organization Health system Address [address] [place] [address] Care Team Providers Care Digital Media Manager Name Role Phone Sulma Salinas MD Primary Care Provider [phone] Reason for Visit * Reason Comments Abdominal Cramping starts after eatinng or drinking Encounter Details Date Type Department Care Team (Late st Contact Info) Description 07/17/2010 11:00 EST Office Visit [facility] General Surgery - [facility] [address] [place] [address] Unknown, Provider, MD Liu, General Surgery [facility], [place] [address] [place] [address] Kasandra Hobbs MD [address] [place] [phone] Morbid obesity (HCC-CMS) (Primary Dx) Social History Tobacco Use Types [...] Progress Notes * Chrystal Arteaga RN - 07/17/2010 1225 EST Pt drains clean dry intact 80cc serousang fluid output this am. Dr Hobbs in room to assess. Drains to remain in with high output. Pt encouraged to drink only small sips throughout the day to prevent the abd pain. Pt will f/u with any further questions or concerns. documented in this encounter Plan of Treatment Not on file documented as of this encounter Visit Diagnoses Diagnosis Morbid obesity (HCC-CMS)- Primary Morbid obesity documented in this encounter Care Teams Digital Media Manager Relationship Specialty Start Date End Date Sulma Salinas MD [facility] [address] [place] [address] PCP - General 02/13/09 11/23/11 documented as of this encounter
--- OUTSIDE RECORDS SUMMARY | 2024-08-22 16:05 | XMS_ITS | Encounter Summary ---
Author Organization [facility] Address [address] [place] [address] Care Team Providers Care Asset Protection Lead Name Role Phone Sulma Salinas MD Primary Care Provider [phone] Reason for Visit * Reason Onset Date Comments Infertility 08/28/2013 Encounter Details Date Type Department Care Team (Late st Contact Info) Description 08/28/2013 Telephone [facility] - [address] [address] Queenie Mtz, EMELI Infertility Social History Tobacco Use Types Packs/Day Years [...] Telephone Encounter - Queenie Mtz RN - 08/28/2013 1213 EST Plan for repeat USF 08/30/[address] Singh. documented in this encounter Plan of Treatment Not on file documented as of this encounter Visit Diagnoses Not on filedocumented in this encounter Care Teams Asset Protection Lead Relationship Specialty Start Date End Date Sulma Salinas MD [address] [place] [id number] PCP - General 06/27/13 documented as of this encounter
--- OUTSIDE RECORDS SUMMARY | 2024-08-22 16:05 | XMS_ITS | Encounter Summary ---
Author Organization [facility] Address [address] [place] [address] Care Team Providers Care Crop Specialist Name Role Phone Sulma Salinas MD Primary Care Provider [phone] Reason for Visit * Reason Comments Emesis Encounter Details Date Type Department Care Team (Late st Contact Info) Description 07/31/2010 11:00 EST Office Visit [facility] General Surgery - [facility] [address] [place], [place] [phone] Kasandra Hobbs MD [address] [place] [phone] Morbid obesity (HCC-CMS) (Primary Dx) Social [...] Progress Notes * Kasandra Hobbs MD - 07/31/2010 122 EST 07/31/2010 Kevin Calderon is here in follow-up to her laparoscopic Brandin-En-Y gastric bypass 07/08/10. PROBLEM LIST Patient Active Problem List Diagnoses Code ??? Morbid obesity 278.01 ??? MIGUEL (obstructive sleep apnea) 327.23H ??? GERD (gastroesophageal reflux disease) 530.81S ??? OA (osteoarthritis) of knee 715.96P ??? PCOS (polycystic ovarian syndrome) 256.4AE ??? Vitamin D deficiency 268.9G SUBJECTIVE: Emesis: Complaints of emesis when drinks full cup of water Nausea: some Increased Volume Tolerance: no Abdominal Pain: Epigastric Lightheadedness: No complaints of lightheadedness Bowel Function: Normal Pannus: No problems related to pannus reported OBJECTIVE: General Appearance: healthy appearing, alert, in no apparent distress, well developed, well nourished, morbidly obese and cooperative, mild dehydration. Abdomen: Incision well-healed Extremities: Normal Skin: Normal ASSESSMENT: Emesis r/o stomal stenosis with dehydration. Upper GI Approximately 15 mL of water soluble contrast followed by thin barium shows delayed passage of contrast across a narrowed gastrojejunal anastomosis. No extraluminal contrast is identified. PLAN: IV fluid started about 2.5 L of RL was given. 1. Return to clinic in 2 week(s). 2. No orders of the defined types were placed in this encounter. 3. Keep on fluid diet as much as she can drink but slowly 4.Possible EGD/ dilatation Kasandra Garner MD 07/31/2010 12:21 documented in this encounter Plan of Treatment Not on file documented as of this encounter Procedures Procedure Name Priority Date/Time Associated Diagnosis Comments FL UPPER GI SERIES W/O AIR CONTRAST Routine 07/31/2010 15:07 EST Morbid obesity ([facility]) documented in this encounter Results * FL UPPER GI SERIES W/O AIR CONTRAST (07/31/2010 15:07 EST) Anatomical Region Laterality Modality Other 07/31/2010 15:0 7 EST 08/01/2010 9:11 EST Narrative 08/01/2010 9:11 EST FL UPPER GISERIES WO/AIR CONTR ??Jul 31, 2010 03:07:00 PM Signs and Symptoms/Comments: ??278.01-MORBID OBESITY-I9 vomiting Comparison: July 09, 2010 upper GI series. Findings: The patient is status post gastric bypass and hiatal hernia repair with multiple surgical clips and suture material seen in the region of the gastroesophageal junction. Cholecystectomy clips are also present. Approximately 15 mL of water soluble contrast followed by thin barium shows delayed passage of contrast across a narrowed gastrojejunal anastomosis. No extraluminal contrast is identified. I have personally reviewed the images and the above interpretation and agree with the findings. Procedure Note Chemo Sainzan M - 08/01/2010 FL UPPER GISERIES WO/AIR CONTR Jul 31, 2010 03:07:00 PM Signs and Symptoms/Comments: 278.01-MORBID OBESITY-I9 vomiting Comparison: July 09, 2010 upper GI series. Findings: The patient is status post gastric bypass and hiatal hernia repair with multiple surgical clips and suture material seen in the region of the gastroesophageal junction. Cholecystectomy clips are also present. Approximately 15 mL of water soluble contrast followed by thin barium shows delayed passage of contrast across a narrowed gastrojejunal anastomosis. No extraluminal contrast is identified. I have personally reviewed the images and the above interpretation and agree with the findings. Kasandra Hobbs MD IMG FLUOROSCOPY ORDERABLES Fin al Result documented in this encounter Visit Diagnoses Diagnosis Morbid obesity ([facility])- Primary Morbid obesity documented in this encounter Orders Medications Ordered That Allen ht Not Have Been Administered Count Last Ordered Date First Ordered Date lactated ringers (LR) infusion 1 07/31/2010 documented in this encounter Care Teams Crop Specialist Relationship Specialty Start Date End Date Sulma Salinas MD [facility] [address] [place] [address] PCP - General 02/13/09 11/23/11 documented as of this encounter
--- OUTSIDE RECORDS SUMMARY | 2024-08-22 16:05 | XMS_ITS | Encounter Summary ---
Author Organization [facility] Address [address] [place] [address] Care Team Providers Care Hospital Admitting Clerk Name Role Phone Sulam Salinas MD Primary Care Provider [phone] Reason for Visit * Reason Comments Obesity Encounter Details Date Type Department Care Team (Latest Contact Info) Description 08/25/2010 9:15 EST Office Visit [facility] Bariatric Surgery - Drain [address] [place] [address] Kasandra Hobbs MD [address] [place] [address] Unspecified vitamin D deficiency; Morbid obesity ([facility]); Other and unspecified postsurgical nonabsorption Social History [...] Sign Reading Time Taken Comments Blood Pressure 120/70 08/25/2010 0914 EST Pulse 72 08/25/2010 09 EST Temperature - - Respiratory Rate - - Oxygen Saturation - - Inhaled Oxygen Concentration - - Weight 105.7 kg (233 lb) 08/25/2010913 EST Height 164.2 cm (5' 4.65) 08/25/2010 0914 EST Body Mass Index 39.2 08/25/2010 0914 EST documented in this encounter Mental Status * Because of a physical, mental, or emotional condition, do you have serious difficulty concentrating, remembering, or making decisions? (5 years old or older) Answer Entry Date Author Yes 07/08/2010 15:01 EST Eladio Russ RN documented in this encounter Progress Notes * Kasandra Hobbs MD - 08/25/2010 1207 EST 08/25/2010 Kevin Calderon is here in follow-up to her Laparoscopic anterior cruroplasty, laparoscopic antecolic-antegastric Brandin-en-Y gastric bypass with 50 cm biliary limb, 100 cm alimentary limb and intraoperative EGD on 07/08/10 . The weight trend for the patient is 283 pounds at the initial consultation, to 269 pounds at the last post-op visit to today's Weight : 105.688 kg (233 lb). PROBLEM LIST Patient Active Problem List Diagnoses Code ??? Morbid obesity 278.01 ??? MIGUEL (obstructive sleep apnea) 327.23H ??? GERD (gastroesophageal reflux disease) 530.81S ??? OA (osteoarthritis) of knee 715.96P ??? PCOS (polycystic ovarian syndrome) 256.4AE ??? Vitamin D deficiency 268.9G ??? Dysphagia 787.20S SUBJECTIVE: Emesis: Type of food: solid, Days/Weeks: intermittent and Speed of eating Nausea: No complaints of nausea Increased Volume Tolerance: no Abdominal Pain: No complaints of abdominal pain Lightheadedness: No complaints of lightheadedness Bowel Function: Normal Pannus: No problems related to pannus reported OBJECTIVE: General Appearance: healthy appearing, alert, in no apparent distress, well developed, well nourished, morbidly obese and cooperative Abdomen: Incision well-healed and Nontender Extremities: Normal Skin: Normal ASSESSMENT: Emesis r/o stomal stenosis S/ p EGD with minimal dilation 6 mm Hg on August 07. PLAN: 1. Return to clinic in 4 week(s). 2. For EGD today. 2. Orders Placed This Encounter Procedure ??? Vitamin b1, thiamine Standing Status: Future Number of Occurrences: Standing Expiration Date: 08/25/2011 ??? Creatinine Standing Status: Future Number of Occurrences: Standing Expiration Date: 08/25/2011 ??? Hemagram Standing Status: Future Number of Occurrences: Standing Expiration Date: 08/25/2011 ??? Ferritin Standing Status: Future Number of Occurrences: Standing Expiration Date: 08/25/2011 ??? Calcium Standing Status: Future Number of Occurrences: Standing Expiration Date: 08/25/2011 ??? Vitamin b12 Standing Status: Future Number of Occurrences: Standing Expiration Date: 08/25/2011 ??? Pth intact Standing Status: Future Number of Occurrences: Standing Expiration Date: 08/25/2011 ??? Vitamin d (25,oh) Standing Status: Future Number of Occurrences: Standing Expiration Date: 08/25/2011 ??? Iron Standing Status: Future Number of Occurrences: Standing Expiration Date: 08/25/2011 3. Seen and discussed with Vegetable Specker at this visit. Kasandra Garner MD 08/25/2010 12:00 * Syeda Dixon, RD - 08/25/2010 0945 EST Nutrition Post Op Visit Subjective: did ok after last dilation, now feels she needs another. Having intolerance daily, somedays intake 50 gr protein, other days <20 gr per day depending on ability to tolerate protein shake. Has not really progressed off blended soft foods yet Questionnaire Reviewed: yes Intolerance Episodes: yes multiple as above Food Intolerances: various Current Exercise: Power walking 30 min 5 times per week Reactive Hypoglycemic Symptoms (bypass only): no Objective: Current Weight: Wt Readings from Last 1 Encounters: 08/25/2010 105.688 kg (233 lb) Current BMI: Body mass index is Body mass index is 39.20 kg/(m^2).. Weight Loss since Surgery: -36.6 lb Weight Change since Last Visit: --11.6 lb since 2 week visit Supplement Usage: Type Amount MVT chew Assessment: Adequate Meal Frequency: Yes Adequate Meal Composition: No: low protein and bad days, very low calorie intake Exercise Adequacy: Yes Nutritional Issues: possible restenosis of ostomy site. May have dilation today. Encouraged increased intake to 70 gr protein as able, progress to soft foods as tolerated. Reviewed supplements to start Plan: Change intake-increase protein to 70 gr per day Supplement Changes-start B12, Ca/ D, Vit D per CREDIT HISTORIAN, Fe and B complex Education Provided: Other-as above * Suzan Segura - 08/25/2010 0921 EST 30-Day Plus Bariatric Surgery Postop Questionnaire Anticoagulation initiated for presumed/confirmed DVT/PE? No Incisional hernia noted on exam? Comment:NO Sleep Apnea requiring CPAP or BiPap? Yes, CPAP GERD requiring daily use of PPI or H2 blockers? Yes and Omeprazole Musculoskeletal Disease? No If yes, is activity [...] discharge and suspected reason for admission) No Suzan Segura 08/25/2010 9:20 documented in this encounter Plan of Treatment Not on file documented as of this encounter Visit Diagnoses Diagnosis Unspecified vitamin D deficiency Morbid obesity ([facility]) Morbid obesity Other and unspecified postsurgical nonabsorption documented in this encounter Discontinued Medications Medication Sig Discontinue Reason Start Date End Da te Hydromorphone (DILAUDID) 1 mg/mL Liqd Take 2-4 mL by mouth every 4 hours as needed for Pain. Patient Stopped Taking 07/11/2010 08/25/2010 ibuprofen (MOTRIN) 200 mg tablet Take 200 mg by mouth every 6 hours as needed. Patient Stopped Taking 08/25/2010 ondansetron (ZOFRAN-ODT) 4 mg disintegrating tablet Take 1 Tab by mouth every 8 hours as needed for Nausea. Patient Stopped Taking 07/11/2010 08/25/2010 documented as of this encounter Care Teams Hospital Admitting Clerk Relationship Specialty Start Date End Date Sulma Salinas MD [facility] [address] [place] [address] PCP - General 02/13/09 11/23/11 documented as of this encounter
--- OUTSIDE RECORDS SUMMARY | 2024-08-22 16:05 | XMS_ITS | Encounter Summary ---
Author Organization [facility] Address [address] [place] [address] Care Team Providers Care Bakery Products Checker Name Role Phone Sulma Salinas MD Primary Care Provider [phone] Encounter Details Date Type Department Care Team (Late st Contact Info) Description 08/25/2010 14:05 EST - 08/25/2010 23:59 EST Hospital Encounter [facility] Endoscopy Outpatient [address] [place] [address] Toro Scott MD [address] [facility] [address] [place] [address] Dysphagia Discharge Disposition: Auto Discharge Social History Tobacco [...] Sign Reading Time Taken Comments Blood Pressure 137/89 08/25/2010 1720 EST Pulse 64 08/25/2010 1720 EST Temperature 36.7 ??C (98.1 ??F) 08/25/2010 1501 EST Respiratory Rate 16 08/25/2010 1720 EST Oxygen Saturation 100% 08/25/2010 1720 EST Inhaled Oxygen Concentration - - Weight - - Height - - Body Mass Index - - documented in this encounter Mental Status * Because of a physical, mental, or emotional condition, do you have serious difficulty concentrating, remembering, or making decisions? (5 years old or older) Answer Entry Date Author Yes 07/08/2010 15:01 EST Eladio Russ RN documented in this encounter Discharge Instructions * Discharge Instructions* Zofia Irby RN - 08/25/2010 17:15 EST here Ajay provided instructions no questions documented in this encounter Medications at Time of Discharge cyanocobalamin 500 mcg tablet Take 500 mcg by mouth every 48 hours. ERGOCALCIFEROL (VITAMIN D ORAL) Take 1,000 Units by mouth daily. MULTIVITAMINS (MULTIVITAMIN ORAL) Take by mouth daily. 06/27/2013 omeprazole (PRILOSEC) 20 mg capsule Take 20 mg by mouth daily. 10/27/2010 UNABLE TO FIND 1 Tab daily. BCP 03/09/2011 documented as of this encounter Discharge Disposition Disposition Code Departure Means Destination Auto Discharge Home documented in this encounter H&P Notes * Toro Scott MD - 08/25/2010 1627 EST Sedation for Procedure History & Physical Date: 08/25/2010 Time: 16:27 Location: [address] Planned Procedure: Gastroscopy Chief Complaint/Indications for Procedure: vomiting post gastric bypass surgery History Previous Complication with Sedation and/or Anesthesia? No Allergies: Allergies Allergen Reactions ??? Percocet (Oxycodone-acetaminophen) Hives Current Medications: (Not in a hospital admission) Past Medical History: Past Medical History Diagnosis Date ??? Morbid obesity ??? MIGUEL (obstructive sleep apnea) ??? GERD (gastroesophageal reflux disease) ??? OA (osteoarthritis) ??? PCOS (polycystic ovarian syndrome) Social History: Past Surgical History Procedure Date ??? Cholecystectomy, laparoscopic ??? Knee surgery right knee x 2 ??? Carpal tunnel release ??? Gastric bypass surgery History Substance Use Topics ??? Tobacco Use: Quit 1996 ??? Alcohol Use: Yes rare Family History: Family History Problem Relation Age of Onset ??? Diabetes Mother ??? Diabetes Sister gestational ??? Diabetes Maternal Uncle ??? Diabetes Maternal Grandmother ??? Heart Disease Maternal Grandmother OR ??? Heart Disease Maternal Grandfather OR ??? Stroke Maternal Grandfather Review of Systems as pertinent: Physical Exam Vital Signs: BP 126/93 Pulse 59 Temp 36.7 ??C (98.1 ??F) Resp 18 SpO2 98% Heart Examination: Cardiac Regularity: Regular Respiratory Examination: Respiratory Pattern: Regular Breath Sounds Right: Clear Breath Sounds Left: Clear Additional physical exam related to the proposed procedure, patient activity, disease state and treatment as pertinent: Assessment Previous complications with sedation or anesthesia?: No Airway Concerns: None Anesthesia Classification: ASA 3 Fasting Time: Time of last liquid intake: 729 Date of Last Liquid Intake: 08/25/10 Date of last solid intake: 06/30/10 Patient Appropriate Candidate for Planned Sedation?: Yes documented in this encounter Procedure Notes * Inpatient, Physician - 08/25/2010 0000 ESTAssociated Order(s): PROCEDURE REPORTS - SCANNED * Inpatient, Physician - 08/25/2010 0000 ESTAssociated Order(s): PROCEDURE REPORTS - SCANNED * Inpatient, Physician - 08/25/2010 0000 ESTAssociated Order(s): ORDERS - SCANNED * Inpatient, Physician - 08/25/2010 0000 ESTAssociated Order(s): PROCEDURE REPORTS - SCANNED documented in this encounter Miscellaneous Notes * Scanned Note-Null - Supervisor Claims, Scan - 07/29/2011 0831 EST * Scanned Note-Null - Inpatient, Physician - 08/25/2010 0000 EST * Scanned Note-Null - Inpatient, Physician - 08/25/2010 0000 EST * Scanned Note-Null - Inpatient, Physician - 08/25/2010 0000 EST documented in this encounter Plan of Treatment Not on file documented as of this encounter Procedures Procedure Name Priority Date/Time Associated Diagnosis Comments PROCEDURE REPORTS - SCANNED 08/27/2010 9:41 EST ORDERS - SCANNED 08/27/2010 9:41 EST documented in this encounter Results * ORDERS - SCANNED (08/27/2010 9:41 EST) 08/27/2010 9:41 EST Narrative Procedure Note Inpatient, Physician - 08/25/2010 0:00 EST Physician Inpatient MD ADMISSION ORDERABLES [facility] Result POINT OF CARE * PROCEDURE REPORTS - SCANNED (08/27/2010 9:41 EST) 08/27/2010 9:41 EST Narrative Procedure Note Inpatient, Physician - 08/25/2010 0:00 EST Transcriptions Inpatient, Physician - 08/25/2010 0:00 EST Inpatient, Physician - 08/25/2010 0:00 EST us Physician Inpatient MD PROCEDURE/MINOR SURGICAL ORDERABLES Final Result POINT OF CARE documented in this encounter Visit Diagnoses Diagnosis Dysphagia Dysphagia, unspecified documented in this encounter Administered Medications Inactive Administered Medications - up to 3 most recent administrations Medication Order MAR Action Action Date Dose Rate Site lactated ringers (LR) infusion 30 mL/hr, intravenous, CONTINUOUS, Starting on Wed08/25/10 at 1500, Until Wed08/27/10 at 0447, Routine, Preprocedure New Bag 08/25/2010 15:00 EST 30 mL/hr 30 mL/hr meperidine (PF) (DEMEROL) 100 mg/mL injection 25-200 mg 25-200 mg, intravenous, ONCE PRN, 1 dose, Starting on Wed08/25/10 at 1434, Until Wed08/25/10 at 1645, Other, sedation, Routine, Intraprocedure Given 08/25/2010 16:45 EST 75 mg midazolam (VERSED) injection 1-10 mg 1-10 mg, intravenous, ONCE PRN, 1 dose, Starting on Wed08/25/10 at 1434, Until Wed08/25/10 at 1644, Sedation, Routine, Intraprocedure Given 08/25/2010 16:44 EST 4 mg sodium chloride 0.9 % (NS) infusion 30 mL/hr, intravenous, CONTINUOUS, Starting on Wed08/25/10 at 1500, Until Wed08/27/10 at 0447, Routine, Preprocedure New Bag 08/25/2010 15:00 EST 30 mL/hr 30 mL/hr documented in this encounter Orders Discharge Count Last Ordered Date First Orde red Date DISCHARGE PATIENT 1 08/25/2010 documented in this encounter Care Teams Bakery Products Checker Relationship Specialty Start Date End Date Sulma Salinas MD [facility] [address] [place] [address] PCP - General 02/13/09 11/23/11 documented as of this encounter
--- OUTSIDE RECORDS SUMMARY | 2024-08-22 16:05 | XMS_ITS | Encounter Summary ---
Author Organization [facility] Address [address] [place] [address] Care Team Providers Care Director Of Software Engineering Name Role Phone Sulma Salinas MD Primary Care Provider [phone] Encounter Details Date Type Department Care Team (Latest Contact Info) Description 07/31/2010 13:36 EST - 07/31/2010 17:30 EST Hospital Encounter [facility] Perioperative Services- [facility] [address] [place] [address] Kasandra Hobbs MD [address] [place] [phone] Discharge Disposition: Home or Self Care Social [...] Sign Reading Time Taken Comments Blood Pressure 100/67 07/31/2010 1724 EST Pulse 65 07/31/2010 1724 EST Temperature 37.1 ??C (98.8 ??F) 07/31/2010 1358 EST Respiratory Rate 20 07/31/2010 1724 EST Oxygen Saturation 99% 07/31/2010 1724 EST Inhaled Oxygen Concentration - - Weight - - Height - - Body Mass Index - - documented in this encounter Mental Status * Because of a physical, mental, or emotional condition, do you have serious difficulty concentrating, remembering, or making decisions? (5 years old or older) Answer Entry Date Author Yes 07/08/2010 15:01 EST Eladio Russ RN documented in this encounter Medications at Time of Discharge cyanocobalamin 500 mcg tablet Take 500 mcg by mouth every 48 hours. ERGOCALCIFEROL (VITAMIN D ORAL) Take 1,000 Units by mouth daily. Hydromorphone (DILAUDID) 1 mg/mL Liqd Take 2-4 mL by mouth every 4 hours as needed for Pain. 200 mL 0 07/11/2010 1 ibuprofen (MOTRIN) 200 mg tablet Take 200 mg by mouth every 6 hours as needed. 1 MULTIVITAMINS (MULTIVITAMIN ORAL) Take by mouth daily. 3 omeprazole (PRILOSEC) 20 mg capsule Take 20 mg by mouth daily. 1 ondansetron (ZOFRAN-ODT) 4 mg disintegrating tablet Take 1 Tab by mouth every 8 hours as needed for Nausea. 20 Tab 0 07/11/2010 1 UNABLE TO FIND 1 Tab daily. BCP 1 documented as of this encounter Discharge Disposition Disposition Code Departure Means Destination Home or Self Care documented in this encounter Progress Notes * Luli Garcia - 07/31/2010 1816 EST 1715- bolus completed Iv dc'd Pt waiting for MD to go to his office Pt discharged home * Luli Garcia - 07/31/2010 1723 EST 1630-care assumed emanuel mack-MD in room requesting that pt receive an extra 500 cc bolus of fluid * Gracy Sanders RN - 07/31/2010 1624 EST Report given to Luli for end of shift relief. Pt IV running well. No complaints. Warm blanket and hot tea provided to help warm pt up.-djp * Gracy Sanders RN - 07/31/2010 1612 EST 1555 Stopped infusion, PIV infiltrated,.-djp 1600 New PIV placed, infusion restarted.-djp 1607 Second bag up. Pt c/o slight nausea, zofran offered.-djp * Gracy Sanders RN - 07/31/2010 1523 EST 1520 Pt returned from [facility], no complaints, states she is feeling better. Flushed IV line, flushed well. at bedside. Pt denies nausea.-djp * Penny Flores - 07/31/2010 1402 EST Kevin Hagerniabbey here for Hydration secondary to 276.51. Identification verified verbally and on patient wristband. Allergies reviewed with pt - allergy band placed on. 1346 Periph IV placed RUE. Hydration started. 1420 To Fluoro for UGI. accompanying pt. documented in this encounter Plan of Treatment Not on file documented as of this encounter Visit Diagnoses Not on filedocumented in this encounter Administered Medications Inactive Administered Medications - up to 3 most recent administrations Medication Order MAR Action Action Date Dose Rate Site lactated ringers (LR) 2,000 mL BOLUS 2,000 mL, intravenous, NOW X1, 1 dose, On Yadira 07/31/10 at 1400, Routine Given 07/31/2010 13:50 EST 2,000 mL lactated ringers (LR) 500 mL BOLUS 500 mL, intravenous, at 999 mL/hr, NOW X1, 1 dose, On Yadira 07/31/10 at 1730, Routine Given 07/31/2010 17:00 EST 500 mL 999 mL/ hr ondansetron (PF) (ZOFRAN) 4 mg/2 mL injection 1 dose, Starting on Yadira 07/31/10 at 1556, Until Yadira 12 at 1602 ondansetron (PF) (ZOFRAN) injection 2 mg 2 mg, intravenous, ONCE PRN, 1 dose, Starting on Yadira 07/31/10 at 1330, Until Yadira 07/31/10 at 1602, Nausea, Routine Given 07/31/2010 16:02 EST 2 mg documented in this encounter Historical Medications * This list may reflect changes made after this encounter. omeprazole (PRILOSEC) 20 mg capsule Take 20 mg by mouth daily. 10/27/2010 added in this encounter Active and Recently Administered Medications Times are shown in EST. Scheduled Medication Order 07/29/2010 07/30/2010 07/31/2010 lactated ringers (LR) 2,000 mL BOLUS (COMPLETED) 2,000 mL, intravenous, NOW X1, 1 dose, On Yadira 07/31/10 at 1400, Routine 1350 (Given - Provid er: Penny Flores) lactated ringers (LR) 500 mL BOLUS (COMPLETED) 500 mL, intravenous, at 999 mL/hr, NOW X1, 1 dose, On Yadira 07/31/10 at 1730, Routine 1700 (Given - Provid er: Luli Garcia) PRN Medication Order 07/29/2010 07/30/2010 07/31/2010 ondansetron (PF) (ZOFRAN) injection 2 mg (COMPLETED) 2 mg, intravenous, ONCE PRN, 1 dose, Starting on Yadira 07/31/10 at 1330, Until Yadira 07/31/10 at 1602, Nausea, Routine 1602 (Given - Provid er: Gracy Sanders RN) documented in this encounter Orders Admission Count Last Ordered Date First Orde red Date NOTIFY PPS OF DISCHARGE COMPLETE 1 07/31/20 10 documented in this encounter Care Teams Director Of Software Engineering Relationship Specialty Start Date End Date Sulma Salinas MD [facility] [address] [place] [address] PCP - General 02/13/09 11/23/11 documented as of this encounter
--- OUTSIDE RECORDS SUMMARY | 2024-08-22 16:05 | XMS_ITS | Encounter Summary ---
Author Organization [facility] Address [address] [place] [address] Care Team Providers Care Recovery Agent Name Role Phone Sulma Salinas MD Primary Care Provider Reason for Visit * Reason Comments Infertility here to discuss resu lts of TVUS and bloodwork Encounter Details Date Type Department Care Team (Late st Contact Info) Description 07/05/2013 13:45 EST Office Visit [facility] [address] [place] [address] Aleena Singh MD [address] [place], [place] [phone] Female infertility of unspecified origin (Primary Dx) [...] Blood Pressure 110/70 07/05/2013 1310 EST Pulse - - Temperature - - Respiratory Rate - - Oxygen Saturation - - Inhaled Oxygen Concentration - - Weight 88.5 kg (195 lb) 07/05/2013 1310 EST Height 164.5 cm (5' 4.75) 07/05/2013 1310 EST Body Mass Index 32.7 07/05/2013 1310 EST documented in this encounter Mental Status [...] documented in this encounter Progress Notes * Aleena Singh MD - 07/05/2013 1331 EST 38 yo G0 female here to review results thus far: HyCoSy is normal with bilateral tubal spill and an AFC of 17 Ovarian reserve testing is reassuring: AMH 2.9, FSH 7.7 We are awaiting FERNANDES. Kevin thinks that ~ 5 years ago, he had an FERNANDES which indicated decreased motility (at [facility]) If normal, options include: 1. Expectant management 2. Letrozol +/- TI or IUI I reviewed these options with her and she and her will discuss and get back to us after theSAN. Kevin is going to contact her 's insurance company again to check on getting the FERNANDES done. Alternatively, I have told her that she can go ahead with letrozol 2.5 mg CD 5-9 next month (she is currently on CD 9) if she hasn't heard from the insurance company. We can proceed as though we are going to do US,hCG,IUI but if the sperm prep is very bad, we won't proceed with the actual insemination and thus they wouldn't have to pay the entire IUI fee (just the prep portion.). She will call us on CD 1. documented in this encounter Plan of Treatment Not on file documented as of this encounter Visit Diagnoses Diagnosis Female infertility of unspecified origin- Primary documented in this encounter Care Teams Recovery Agent Relationship Specialty Start Date End Date Sulma Salinas MD [address] [place] [id number] PCP - General 06/27/13 documented as of this encounter
--- OUTSIDE RECORDS SUMMARY | 2024-08-22 16:05 | XMS_ITS | Encounter Summary ---
Author Organization [facility] Address [address] [place] [address] Care Team Providers Care Assurance Manager Insurance Name Role Phone Sulma Salinas MD Primary Care Provider [phone] Reason for Visit * Reason Comments Infertility pt's had tro uble collecting Encounter Details Date Type Department Care Team (Late st Contact Info) Description 09/01/2013 8:30 EST Nurse Only [facility] Reproductive Medicine [facility] - [facility] [address] [place] [address] Unknown, Provider, Angel Ruvalcaba MD [address] [facility] [place], [place] [id number] Nurse, ARTUR Bowles Female infertility of unspecified [...] in this encounter Progress Notes * Daisy Danielson, EMELI - 09/20/2013 1524 EST Patient and here today for insemination # 2. Consent signed by patient, IUI sample identified by patient, and Final Verification performed with patient prior to insemination. All patient's questions were discussed and answered. Patient was placed in dorsal lithotomy position and speculum was inserted into vagina. Cervical os was visualized and prepared sample was inserted into uterus. Insemination was performed without difficulty. Patient tolerated procedure well. 1 attempt(s) was made to pass catheter and small bleeding occurred during insemination. Anticipated date of test is 09/15/2013. Patient was educated prior to leaving office [...] understanding of plan. I was supervised by Dr Lynch who was present and immediately available in the office suite. Daisy Danielson RN 09/20/2013 15:26 * FLORAL DESIGNER, DAVION 2 - 09/07/2013 1033 EST documented in this encounter Plan of Treatment Not on file documented as of this encounter Procedures Procedure Name Priority Date/Time Associated Diagnosis Comments POCT SPERM WASHING ARTIFICIAL INSEMINATION Routine 09/01/2013 8:00 EST Female infertility of unspecified origin documented in this encounter Results * POCT SPERM WASHING ARTIFICIAL INSEMINATION (09/01/2013 8:00 EST) Pathologist [facility] Media Lot #, POC [id number] POINT OF CARE Expiration, POC 02/2014 POINT OF CARE Pre-Wash Volume, POC <0.1 >= 2 ml POINT OF CARE Pre-Wash Count, POC 162 >=20 million/ml POINT OF CARE Pre-Wash Motility, POC 44 >= 50% POINT OF CARE Post-Wash, POC 0.5 ml POINT OF CARE Post-Wash Count, POC 41 million/ml POINT OF CARE Post-Wash Motility, POC 41 % POINT OF CARE Total Motile, POC 8.5 >= 6 million POINT OF CARE Timing Method, POC POINT OF CARE Body fluid specimen (specimen) 09/01/2013 8:00 EST us Angel Lynch MD POINT OF CARE TEST ORDERABLES Final Result POINT OF CARE documented in this encounter Visit Diagnoses Diagnosis Female infertility of unspecified origin- Primary documented in this encounter Care Teams Assurance Manager Insurance Relationship Specialty Start Date End Date Sulma Salinas MD [address] [place] [address] PCP - General 06/27/13 documented as of this encounter
--- OUTSIDE RECORDS SUMMARY | 2024-08-22 16:05 | XMS_ITS | Encounter Summary ---
Author Organization [facility] Address [address] [place] [address] Care Team Providers Care Customer Service Leader Name Role Phone Sulma Salinas MD Primary Care Provider [phone] Reason for Visit * Reason Comments Obesity post op Encounter Details Date Type Department Care Team (Late st Contact Info) Description 03/09/2011 14:00 EDT Office Visit [facility] Bariatric Surgery [address] [address] Kasandra Hobbs MD [address] [place] [phone] Obesity (Primary Dx) Social History Tobacco Use Types [...] Sign Reading Time Taken Comments Blood Pressure 106/68 03/09/2011 1349 EDT Pulse 76 03/09/2011 1349 EDT Temperature - - Respiratory Rate - - Oxygen Saturation - - Inhaled Oxygen Concentration - - Weight 84.6 kg (186 lb 6.4 oz) 03/09/2011 1349 E DT Height 164.2 cm (5' 4.65) 03/09/2011 1349 EDT Body Mass Index 31.36 03/09/2011 1349 EDT documented in this encounter Mental Status * Because of a physical, mental, or emotional condition, do you have serious difficulty concentrating, remembering, or making decisions? (5 years old or older) Answer Entry Date Author Yes 07/08/2010 15:01 Eladio Ku RN documented in this encounter Progress Notes * Goldie Mistry - 03/09/2011 1502 EDT Nutrition Post Op Visit: Gastric Bypass Subjective: Feeling great, exercising and having lots of energy. Unable to tolerate any dry meats but knows when to avoid them. Still having to take 3 stool softeners a day. Questionnaire Reviewed: Yes Intolerance Episodes: 1-2x/week with certain types of foods and speed of eating Food Intolerances: Pork, all dry meats, fruit with skin Current Exercise: horseback riding ~1x/week, walk/jogs 40-60 minutes 2-3x/week Reactive Hypoglycemic Symptoms (bypass only): Yes, with sweets (cookies, candies, all ice cream, low-sugar/low-fat, frozen yogurt). Avoids all ice cream and sweets. Objective: Current Weight: Wt Readings from Last 1 Encounters: 03/09/11 84.55 kg (186 lb 6.4 oz) Current BMI: Body mass index is Body mass index is 31.36 kg/(m^2).. Weight Loss since Surgery: -83.2 lbs Weight Change since Last Visit: -27.2 lbs Supplement Usage: Type Amount MVT chew B12 pill Calcium w/Vit D Chew 2 Iron FeFum B Complex pill Vit D 1000 IU Other: biotin and colace Recent Labs: None Assessment: excellent weight loss, doing well with diet and lifestyle changes. Adequate Meal Frequency: Yes Adequate Meal Composition: Yes, 3 mixed meals with good protein intake Exercise Adequacy: Yes Nutritional Issues: able to identify what foods causing reactive hypoglycemic events and is avoiding them all together. Has been using more moist cooking methods and avoiding all dry meats. Continuesto work on speed of eating. Plan: Continue current diet and exercise To have Rx for labs to be done this week and will send Rx for labs in 3 months. Education Provided: As above and Reactive Hypoglycemia Prevention and Treatment * Kasandra Hobbs MD - 03/09/2011 1436 EDT 03/09/2011 Kevin Calderon is here in follow-up to her her Laparoscopic anterior cruroplasty, laparoscopic antecolic-antegastric Brandin-en-Y gastric bypass with 50 cm biliary limb, 100 cm alimentary limb and intraoperative EGD on 07/08/10 The weight trend for the patient is 283 pounds at the initial consultation, to 96.888 kg (213 lb 9.6 oz).Last post-op visit to today's Weight : 84.55 kg (186 lb 6.4 oz). PROBLEM LIST Patient Active Problem List Diagnoses Code ??? Morbid obesity 278.01 ??? MIGUEL (obstructive sleep apnea) 327.23H ??? GERD (gastroesophageal reflux disease) 530.81S ??? OA (osteoarthritis) of knee 715.96P ??? PCOS (polycystic ovarian syndrome) 256.4AE ??? Vitamin D deficiency 268.9G ??? Dysphagia 787.20S SUBJECTIVE: Emesis: No complaints of emesis Nausea: [...] in this encounter. 3. F/U with PCP & INVENTORY TAKER for contraception method. 4. Again, was advised against for the first 2 year post surgery. Her was present during this conversation. Seen and discussed with Production Line Solderer at this visit. Kasandra Garner MD 03/09/2011 14:05 documented in this encounter Plan of Treatment Not on file documented as of this encounter Visit Diagnoses Diagnosis Obesity- Primary Obesity, unspecified documented in this encounter Discontinued Medications Medication Sig Discontinue Reason Start Date End Da te UNABLE TO FIND 1 Tab daily. BCP Therapy completed 03/09/2011 documented as of this encounter Historical Medications * This list may reflect changes made after this encounter. DOCUSATE CALCIUM (STOOL SOFTENER ORAL) Take 1 Tab by mouth 2 times daily. 03/09/2011 added in this encounter Care Teams Customer Service Leader Relationship Specialty Start Date End Date Sulma Salinas MD [facility] [address] [place] [address] PCP - General 02/13/09 11/23/11 documented as of this encounter
--- OUTSIDE RECORDS SUMMARY | 2024-08-22 16:05 | XMS_ITS | Encounter Summary ---
Author Organization [facility] Address [address] [place] [address] Care Team Providers Care Clinical Research Director Name Role Phone Sulma Salians MD Primary Care Provider [phone] Reason for Referral * (Routine/Next Available) - Closed Specialty Diagnoses / Procedures Referred By Contac t Referred To Contact Diagnoses Other and unspecified postsurgical nonabsorption Morbid obesity (HCC-CMS) S/P gastric bypass Procedures VITAMIN D (25,OH) Allyn Valenzuela RN Referral ID Status Reason Start Date Expiration Date Visits Re quested Visits Authorized [id number] Closed 07/19/2013 1 1 * (Routine/Next Available) - Closed Specialty Diagnoses / Procedures Referred By Contac t Referred To Contact Diagnoses Other and unspecified postsurgical nonabsorption Morbid obesity (HCC-CMS) S/P gastric bypass Procedures IRON Allyn Valenzuela RN Referral ID Status Reason Start Date Expiration Date Visits Re quested Visits Authorized [id number] Closed 07/19/2013 1 1 * (Routine/Next Available) - Closed Specialty Diagnoses / Procedures Referred By Contac t Referred To Contact Diagnoses Other and unspecified postsurgical nonabsorption Morbid obesity (HCC-CMS) S/P gastric bypass Procedures PTH INTACT Allyn Valenzuela RN Referral ID Status Reason Start Date Expiration Date Visits Re quested Visits Authorized [id number] Closed 07/19/2013 1 1 * (Routine/Next Available) - Closed Specialty Diagnoses / Procedures Referred By Contac t Referred To Contact Diagnoses Other and unspecified postsurgical nonabsorption Morbid obesity ([facility]) S/P gastric bypass Procedures VITAMIN B12 Allyn Valenzuela RN Referral ID Status Reason Start Date Expiration Date Visits Re quested Visits Authorized [id number] Closed 07/19/2013 1 1 * (Routine/Next Available) - Closed Specialty Diagnoses / Procedures Referred By Contac t Referred To Contact Diagnoses Other and unspecified postsurgical nonabsorption Morbid obesity ([facility]) S/P gastric bypass Procedures CALCIUM Allyn Valenzuela RN Referral ID Status Reason Start Date Expiration Date Visits Re quested Visits Authorized [id number] Closed 07/19/2013 1 1 * (Routine/Next Available) - Closed Specialty Diagnoses / Procedures Referred By Contac t Referred To Contact Diagnoses Other and unspecified postsurgical nonabsorption Morbid obesity ([facility]) S/P gastric bypass Procedures FERRITIN Allyn Valenzuela RN Referral ID Status Reason Start Date Expiration Date Visits Re quested Visits Authorized [id number] Closed 07/19/2013 1 1 * (Routine/Next Available) - Closed Specialty Diagnoses / Procedures Referred By Contac t Referred To Contact Diagnoses Other and unspecified postsurgical nonabsorption Morbid obesity ([facility]) S/P gastric bypass Procedures HEMAGRAM Allyn Valenzuela RN Referral ID Status Reason Start Date Expiration Date Visits Re quested Visits Authorized [id number] Closed 07/19/2013 1 1 * (Routine/Next Available) - Closed Specialty Diagnoses / Procedures Referred By Contac t Referred To Contact Diagnoses Other and unspecified postsurgical nonabsorption Morbid obesity ([facility]) S/P gastric bypass Procedures CREATININE Allyn Valenzuela RN Referral ID Status Reason Start Date Expiration Date Visits Re quested Visits Authorized [id number] Closed 07/19/2013 1 1 * (Routine/Next Available) - Closed Specialty Diagnoses / Procedures Referred By Rossana t Referred To Contact Diagnoses Other and unspecified postsurgical nonabsorption Morbid obesity ([facility]) S/P gastric bypass Procedures THIAMIN (VITAMIN B1), WB Allyn Valenzuela RN Referral ID Status Reason Start Date Expiration Date Visits Re quested Visits Authorized [id number] Closed 07/19/2013 1 1 Reason for Visit * Reason Onset Date Comments Pre-visit Orders 07/18/2013 Needs labs Encounter Details Date Type Department Care Team (Late st Contact Info) Description 07/18/2013 Orders Only [facility] Bariatric Surgery [place] [address] [place] [address] Allyn Valenzuela RN Other and unspecified postsurgical nonabsorption (Primary Dx); Morbid obesity ([facility]); S/P gastric bypass Social History Tobacco Use [...] Progress Notes * Allyn Valenzuela RN - 07/18/2013 1351 EST Patient is s/p gastric bypass and needs post-op labs drawn prior to apt. Labs ordered per Hunter Bynum PA-C. Lab slip mailed to patient. Electronically signed by Allyn Valenzuela RN documented in this encounter Plan of Treatment Not on file documented as of this encounter Results * VITAMIN D (25,OH) (09/13/2013) 25OH Vitamin D Tot, External 33.6 [facility] Blood specimen (specimen) 09/13/2013 us Hunter Bergertter-Cressy PA-C CHEMISTRY & BLOOD GA S ORDERABLES Final Result [facility] * IRON (09/13/2013) Iron, External 161 [facility] Blood specimen (specimen) 09/13/2013 us Hunter Bergertter-Bharatsy PA-C CHEMISTRY & BLOOD GA S ORDERABLES Final Result [facility] * PTH INTACT (09/13/2013) PTH, External 24 [facility] Blood specimen (specimen) 09/13/2013 us Hunter A Abtter-Bharatsy PA-C CHEMISTRY & BLOOD GA S ORDERABLES Final Result [facility] * VITAMIN B12 (09/13/2013) Vitamin B-12, External >1,000 [facility] Blood specimen (specimen) 09/13/2013 us Hunter Bergertter-Bharatsy PA-C CHEMISTRY & BLOOD GA S ORDERABLES [...] LAB Blood specimen (specimen) 09/13/2013 us Hunter Jarrettsy PA-C CHEMISTRY & BLOOD GA S ORDERABLES Final Result [facility] * HEMAGRAM (09/13/2013) HCT, External 42.4 [facility] MCH, External 30.6 [facility] MCV, External 90.8 [facility] MCHC, External 33.7 [facility] Hemoglobin, External 14.3 [facility] WBC, External 6.27 [facility] RBC, External 4.67 [facility] PLT, External 249 [facility] RDW-CV, External 12.6 [facility] Blood specimen (specimen) 09/13/2013 us Hunter Bynum PA-C HEMATOLOGY & PF4 ORD ERABLES Final [...] [facility] Blood specimen (specimen) 09/13/2013 Hunter Bynum PA-C CHEMISTRY & BLOOD GA S ORDERABLES Final Result [facility] documented in this encounter Visit Diagnoses Diagnosis Other and unspecified postsurgical nonabsorption- Primary Morbid obesity (HCC-CMS) Morbid obesity S/P gastric bypass Bariatric surgery status documented in this encounter Care Teams Clinical Research Director Relationship Specialty Start Date End Date Sulma Salinas MD [address] [place] [address] PCP - General 06/27/13 documented as of this encounter
--- OUTSIDE RECORDS SUMMARY | 2024-08-22 16:05 | XMS_ITS | Encounter Summary ---
Author Organization [facility] Address [address] [place] [address] Care Team Providers Care Rehabilitation Services Counselor Name Role Phone Sulma Salinas MD Primary Care Provider [phone] Encounter Details Date Type Department Care Team (Late st Contact Info) Description 06/27/2013 Orders Only [facility] Bariatric Surgery [facility] [address] [place] [address] Hunter Bynum, NILTON [address] [facility] [place] [address] Morbid obesity (HCC-CMS) (Primary Dx); Bariatric surgery status; Other and unspecified postsurgical nonabsorption Social History [...] Diagnosis Morbid obesity (HCC-CMS)- Primary Morbid obesity Bariatric surgery status Other and unspecified postsurgical nonabsorption documented in this encounter Care Teams Rehabilitation Services Counselor Relationship Specialty Start Date End Date Sulma Salinas MD [address] [place] [id number] PCP - General 06/27/13 documented as of this encounter
--- OUTSIDE RECORDS SUMMARY | 2024-08-22 16:05 | XMS_ITS | Encounter Summary ---
Author Organization [facility] Address [address] [place] [address] Care Team Providers Care Practice Office Associate Name Role Phone Sulma Salinas MD Primary Care Provider [phone] Reason for Visit * Reason Onset Date Comments Other 08/26/2013 Encounter Details Date Type Department Care Team (Late st Contact Info) Description 08/26/2013 Telephone [facility] Reproductive Medicine & Infertility Center - [address] [address] Queenie Mtz RN Other Social History Tobacco Use Types [...] Telephone Encounter - Queenie Mtz RN - 08/26/2013 0910 EST Pt here for USF. Best contact number today is mobile at [phone]. documented in this encounter Plan of Treatment Not on file documented as of this encounter Visit Diagnoses Not on filedocumented in this encounter Care Teams Practice Office Associate Relationship Specialty Start Date End Date Sulma Salinas MD [address] [place] [id number] PCP - General 06/27/13 documented as of this encounter
--- OUTSIDE RECORDS SUMMARY | 2024-08-22 16:05 | XMS_ITS | Encounter Summary ---
Author Organization [facility] Address [address] [place] [address] Care Team Providers Care Director Case Management Name Role Phone Sulma Salinas MD Primary Care Provider [phone] Reason for Visit * Reason Onset Date Comments Infertility 09/19/2013 pt calling to in form us that she started her menses today. Due to the stress at work she and her would like to take the next few months off Encounter Details Date Type Department Care Team (Late st Contact Info) Description 09/19/2013 Telephone [facility] OBGYN Services - [facility] [address] [place] [address] Daisy Danielson, EMELI Infertility (pt calling to inform us that she started her menses today. Due to the stress at work she and her would like to take the next few months off) Social History Tobacco Use Types Packs/Day Years [...] Miscellaneous Notes * Telephone Encounter - Daisy Danielson RN - 09/19/2013 0941 EST Pt will use OPK and due TI for the next few cycles. She will restart in December/January when the school year is over. Explanation given to pt regarding the LTeffects of medication for follicular recruitment. documented in this encounter Plan of Treatment Not on file documented as of this encounter Visit Diagnoses Not on filedocumented in this encounter Care Teams Director Case Management Relationship Specialty Start Date End Date Sulma Salinas MD [address] [place] [id number] PCP - General 06/27/13 documented as of this encounter
--- OUTSIDE RECORDS SUMMARY | 2024-08-22 16:05 | XMS_ITS | Encounter Summary ---
Author Organization [facility] Address [address] [place] [address] Care Team Providers Care Admissions Director Name Role Phone Sulma Salinas MD Primary Care Provider [phone] Reason for Visit * Reason Comments Obesity Encounter Details Date Type Department Care Team (Late st Contact Info) Description 07/28/2010 15:00 EST Office Visit [facility] [place] [address] [place] [address] Kasandra Hobbs MD [address] [place] [address] Morbid obesity ([facility]) (Primary Dx) Social History Tobacco Use Types Packs/Day Years Used Date Smoking Tobacco: Former Comments:1997 Comments No Sex and Gender Information Value Date Recorded Sex Assigned at Not on file Legal Sex Female 18:25 EST Gender Identity Not on file Sexual Orientation Not on file documented as of this encounter Last Filed Vital Signs Vital Sign Reading Time Taken Comments Blood Pressure 112/80 07/28/2010 1447 EST Pulse 64 07/28/2010 1447 EST Temperature - - Respiratory Rate - - Oxygen Saturation - - Inhaled Oxygen Concentration - - Weight 110.9 kg (244 lb 9.6 oz) 07/28/2010 1447 EST Height 164.2 cm (5' 4.65) 07/28/2010 1447 EST Body Mass Index 41.15 07/28/2010 1447 EST documented in this encounter Mental Status * Because of a physical, mental, or emotional condition, do you have serious difficulty concentrating, remembering, or making decisions? (5 years old or older) Answer Entry Date Author Yes 07/08/2010 15:01 EST Eladio Russ RN documented in this encounter Progress Notes * Inpatient, Physician - 07/31/2010 1124 EST * Syeda Dixon RD - 07/28/2010 8835 EST Nutrition Post Op Visit Subjective: Increasing intolerance since last week. Prior to that was tolerating some blended foodsand getting exercise, now she is not Questionnaire Reviewed: yes Intolerance Episodes: yes multiple to any non liquid food Food Intolerances: multiple now Current Exercise: Was walking, now feels too weak Reactive Hypoglycemic Symptoms (bypass only): no Objective: Current Weight: Wt Readings from Last 1 Encounters: 07/28/2010 110.95 kg (244 lb 9.6 oz) Current BMI: Body mass index is Body mass index is 41.15 kg/(m^2).. Weight Loss since Surgery: -25 lb Weight Change since Last Visit: Supplement Usage: Type Amount none Assessment: Adequate Meal Frequency: No Adequate Meal Composition: No: inadequate calories and protein. Needs to go back to liquid protein supplements for now until intolerance issue resolved, then she can resume blended diet. To start herchew multivitamin when vomiting resolved Exercise Adequacy: No Nutritional Issues: increasing intolerance possible stomal stenosis. encouraged return to liquids, especially protein containing for now Plan: Change intake-liquid protein diet for now Increase exercise Supplement Changes-chew multivitamin when vomiting resolved Education Provided: Other -as above * Kasandra Hobbs MD - 07/28/2010 0889 EST 07/28/2010 Kevin Calderon is here in follow-up to her Laparoscopic anterior cruroplasty, laparoscopic antecolic-antegastric Brandin-en-Y gastric bypass with 50 cm biliary limb, 100 cm alimentary limb and intraoperative EGD on 07/08/10 The weight trend for the patient is 283 pounds at the initial consultation, to 269 pounds at the last post-op visit to today's Weight : 110.95 kg (244 lb 9.6 oz). PROBLEM LIST Patient Active Problem List Diagnoses Code ??? Morbid obesity 278.01 ??? MIGUEL (obstructive sleep apnea) 327.23H ??? GERD (gastroesophageal reflux disease) 530.81S ??? OA (osteoarthritis) of knee 715.96P ??? PCOS (polycystic ovarian syndrome) 256.4AE ??? Vitamin D deficiency 268.9G SUBJECTIVE: Emesis: On & off Nausea: No complaints of nausea Increased Volume Tolerance: no Abdominal Pain: No complaints of abdominal pain Lightheadedness: No complaints of lightheadedness Bowel Function: Normal Pannus: No problems related to pannus reported OBJECTIVE: General Appearance: healthy appearing, alert, in no apparent distress, well developed, well nourished, morbidly obese and cooperative Abdomen: Incision well-healed and Nontender Extremities: Normal Skin: Normal and No changes ASSESSMENT: Doing well and Expected course without obvious complications, on/ off emesis? PLAN: 1. Return to clinic in 4 week(s). 2. No orders of the defined types were placed in this encounter. 3. Back to clear diet. Seen and discussed with Diamond Sorter at this visit. Kasandra Garner MD 07/28/2010 15:41 * Lorena Garduno. - 07/28/2010 1510 EST 30-Day Bariatric Surgery Postop Questionnaire Wound Occurrences Y/N Date Comments Superficial Incisional SSI n Deep Incisional SSI n Organ/Space SSI n Wound Disruption n Respiratory Occurrences Pneumonia n Urinary Tract Occurrences Urinary Tract Infection SUPERVISOR DAIRY SANITATION Occurrences Peripheral Nerve Injury n Other Occurrences DVT requiring therapy n Other Was an operative drain still present at 30 days? No Any visit to an outside hospital including ER visits and admissions (include date of admission and discharge and reason)? No Lorena Garduno RN 07/28/2010 15:09 30-Day Plus Bariatric Surgery Postop Questionnaire Anticoagulation initiated for presumed/confirmed DVT/PE? No Incisional hernia noted on exam? No Sleep Apnea requiring CPAP or BiPap? Yes cpap GERD requiring daily use of PPI or H2 blockers? Yes Taking PPI Musculoskeletal Disease? No If yes, is activity limited by pain? no If yes, is daily medication used? No If yes, new surgical intervention performed or planned? No Any visit to an outside hospital including ER visits and admissions (include date of admission and discharge and reason)? No Any surgical operations or procedures performed at an outside hospital (date of admission and discharge and suspected reason for admission) No Lorena Garduno RN 07/28/2010 15:10 documented in this encounter Miscellaneous Notes * Scanned Note-Null - Cork Mixer, Scan - 07/01/2011 0842 EST documented in this encounter Plan of Treatment Not on file documented as of this encounter Visit Diagnoses Diagnosis Morbid obesity (HCC-CMS)- Primary Morbid obesity documented in this encounter Discontinued Medications Medication Sig Discontinue Reason Start Date End Da te lansoprazole (PREVACID SOLUTAB) 30 mg disintegrating tabletIndications:Morbid obesity (HCC-CMS),MIGUEL (obstructive sleep apnea),GERD (gastroesophageal reflux disease),OA (osteoarthritis) of knee,PCOS (polycystic ovarian syndrome),Vitamin D deficiency Take 1 Tab by mouth daily. Patient Stopped Taking 06/09/2010 07/28/2010 documented as of this encounter Care Teams Admissions Director Relationship Specialty Start Date End Date Sulma Salinas MD [facility] [address] [place] [id number] PCP - General 02/13/09 11/23/11 documented as of this encounter
--- OUTSIDE RECORDS SUMMARY | 2024-08-22 16:05 | XMS_ITS | Encounter Summary ---
Author Organization [facility] Address [address] [place] [address] Care Team Providers Care Manager Imaging Name Role Phone Sulma Salinas MD Primary Care Provider [phone] Reason for Visit * Reason Comments Obesity post op Encounter Details Date Type Department Care Team (Late st Contact Info) Description 10/27/2010 13:30 EDT Office Visit [facility] Bariatric Surgery [facility] [address] [place] [address] Kasandra Hobbs MD [address] [place] [address] Morbid obesity (HCC-CMS) (Primary Dx) Discharge [...] Sign Reading Time Taken Comments Blood Pressure 116/80 10/27/2010 1333 EDT Pulse 68 10/27/2010 1333 EDT Temperature - - Respiratory Rate - - Oxygen Saturation - - Inhaled Oxygen Concentration - - Weight 96.9 kg (213 lb 9.6 oz) 10/27/2010 1333 E DT Height 164.2 cm (5' 4.65) 10/27/2010 1333 EDT Body Mass Index 35.94 10/27/2010 1333 EDT documented in this encounter Mental Status [...] Progress Notes * Kasandra Hobbs MD - 10/27/2010 1429 EDT 10/27/2010 Kevin Calderon is here in follow-up to her Laparoscopic anterior cruroplasty, laparoscopic antecolic-antegastric Brandin-en-Y gastric bypass with 50 cm biliary limb, 100 cm alimentary limb and intraoperative EGD on 07/08/10 . The weight trend for the patient is 283 pounds at the initial consultation, to 233 pounds at the last post-op visit to today's Weight : 96.888 kg (213 lb 9.6 oz). PROBLEM LIST Patient Active [...] complications PLAN: 1. Return to clinic in 2 month(s). 2. No orders of the defined types were placed in this encounter. 3. F/U with PCP & Division Chief . Seen and discussed with Office Auditor at this visit. Kasandra Garner MD 10/27/2010 14:04 * Syeda Dixon RD - 10/27/2010 1410 EDT Nutrition Post Op Visit Subjective:much improved tolerance since last dilation. Some regurg due to speed of eating. Using stool softener for constipation Questionnaire Reviewed: Yes Intolerance Episodes: yes still several times per week due to speed of eating or food texture (too dry) Food Intolerances: Pork, pasta, bread Current Exercise: Walking up hill, 4-5 times per week Objective: Current Weight: Wt Readings from Last 1 Encounters: 10/27/2010 96.888 kg (213 lb 9.6 oz) Current BMI: Body mass index is Body mass index is 35.94 kg/(m^2).. Weight Loss since Surgery: -56 lb Weight Change since Last Visit:-19.4 lb Supplement Usage: Type Amount MVT chew B12 pill Calcium w/Vit D Chew 2 Iron FeFum B Complex pill Vit D 1000 IU Other: biotin and colace Recent Labs: WNL Assessment: Adequate Meal Frequency: Yes Adequate Meal Composition: Yes Exercise Adequacy: Yes Nutritional Issues: doing great, intake much improved with excellent exercise and labs! Can also use fiber if needed for constipation Plan: Continue current diet and exercise Fiber and colace prn for constipation Education Provided: Other-as above * Suzan Segura - 10/27/2010 1341 EDT 30-Day Plus Bariatric Surgery Postop Questionnaire Anticoagulation initiated for presumed/confirmed DVT/PE? No Incisional hernia noted on exam? No Sleep Apnea requiring CPAP or BiPap? Yes and CPAP GERD requiring daily use of PPI [...] suspected reason for admission) No Suzan Segura 10/27/2010 13:41 documented in this encounter Miscellaneous Notes * Scanned Note-Null - [employer] Observer Helper, Scan - 07/24/2011 0716 EST documented in this encounter Plan of Treatment Not on file documented as of this encounter Visit Diagnoses Diagnosis Morbid obesity ([facility])- Primary Morbid obesity documented in this encounter Discontinued Medications Medication Sig Discontinue Reason Start Date End Da te omeprazole (PRILOSEC) 20 mg capsule Take 20 mg by mouth daily. Therapy completed 10/27/2010 documented as of this encounter Historical Medications * This list may reflect changes made after this encounter. CALCIUM CARBONATE/VITAMIN D3 (CALCIUM WITH VITAMIN D ORAL) Take 1 Tab by mouth 2 times daily. 10/27/2010 FERROUS FUMARATE (IRON ORAL) Take 1 Tab by mouth daily. 10/27/2010 BIOTIN ORAL Take 1 Tab by mouth daily. 10/27/2010 VITAMIN B COMPLEX (B COMPLEX 1 ORAL) Take 1 Tab by mouth daily. 10/27/2010 added in this encounter Care Teams Manager Imaging Relationship Specialty Start Date End Date Sulma Salinas MD [facility] [address] [place] [address] PCP - General 02/13/09 11/23/11 documented as of this encounter
--- OUTSIDE RECORDS SUMMARY | 2024-08-22 16:05 | XMS_ITS | Encounter Summary ---
Author Organization [facility] Address [address] [place] [address] Care Team Providers Care Collating Machine Operator Name Role Phone Sulma Salinas MD Primary Care Provider [phone] Reason for Visit * Reason Onset Date Comments Infertility 08/21/2013 Encounter Details Date Type Department Care Team (Late st Contact Info) Description 08/21/2013 Telephone [facility] - [facility] [address] [place] [address] Maday Reis, EMELI [address] [place] [address] Infertility Social History Tobacco Use Types Packs/Day [...] encounter Miscellaneous Notes * Telephone Encounter - Maday Reis - 08/21/2013 0837 EST Call from patient, reports IUI was not successful and would like to discuss next steps. Discussed alternative options with patient, IVF is not a financial options. Patient would like to repeat IUI cycle. Intrauterine Insemination Cycle number: 2 Plan: Letrozole 2.5 on CD 3-7/ HCG/ IUI 1.) Call from patient- Date: 08.19.12 Time: 1:38 p.m. Previous IUI: yes A.) Attended injection site technique class: yes B.) Pre-certfied: yes C.) Consent signed by patient & partner to use specimen: yes D.) Aware of current costs: yes E.) GC/ Chlamydia lab done: yes RXD: no Labs up to date: yes Consent up to date:yes *All labs and consents must be current to proceed* 2.) Last Menstrual Period: 08.19.12 WNL?: yes- Confirmed negative home upt on 08.19.12 3.) OK to proceed? yes A.) Ovulation Induction Medication: Letrozole Dose: 2.5 Cycle days: 3-7 Pharmacy: [facility] Refills: yes B.) Human Chorionic Gonadotropin (HCG) 10,000 unit subcutaneous injection Pharmacy: [facility] Refills: yes D.) USF scheduled- Cycle Day: 9 Date: 08.27.13 Time: 8:30 Maday Reis RN 08/21/2013 8:47 documented in this encounter Plan of Treatment Not on file documented as of this encounter Visit Diagnoses Not on filedocumented in this encounter Care Teams Collating Machine Operator Relationship Specialty Start Date End Date Sulma Salinas MD [address] [place] [id number] PCP - General 06/27/13 documented as of this encounter
--- OUTSIDE RECORDS SUMMARY | 2024-08-22 16:05 | XMS_ITS | Encounter Summary ---
Author Organization [facility] Address [address] [place] [address] Care Team Providers Care Anesthesiologist Attending Name Role Phone Sulma Salinas MD Primary Care Provider [phone] Encounter Details Date Type Department Care Team (Late st Contact Info) Description 08/18/2010 Orders Only [facility] Gastroenterology - [facility] [address] [place] [address] Jonel Polk MD [address] [place] [address] Dysphagia, unspecified (Primary Dx) Social History Tobacco Use Types [...] as of this encounter Visit Diagnoses Diagnosis Dysphagia, unspecified(787.20)- Primary Dysphagia, unspecified documented in this encounter Care Teams Anesthesiologist Attending Relationship Specialty Start Date End Date Sulma Salinas MD [address] [place] [address] PCP - General 02/13/09 11/23/11 documented as of this encounter
--- OUTSIDE RECORDS SUMMARY | 2024-08-22 16:05 | XMS_ITS | Encounter Summary ---
Author Organization [facility] Address [address] [place] [address] Care Team Providers Care Housekeeping Attendant Name Role Phone Sulma Salinas MD Primary Care Provider [phone] Encounter Details Date Type Department Care Team (Late st Contact Info) Description 08/07/2010 10:43 EST - 08/07/2010 23:[address] [facility] Endoscopy Outpatient [address] [place] [address] Kasandra Hobbs MD [address] [place] [phone] Toro Scott MD [address] [facility] [address] [place] [address] Dysphagia Discharge Disposition: Home or Self Care Social [...] Sign Reading Time Taken Comments Blood Pressure 107/62 08/07/2010 1330 EST Pulse 49 08/07/2010 1330 EST Temperature 36.5 ??C (97.7 ??F) 08/07/2010 1113 EST Respiratory Rate 16 08/07/2010 1330 EST Oxygen Saturation 96% 08/07/2010 1223 EST Inhaled Oxygen Concentration - - Weight 106.6 kg (235 lb) 08/07/2010 1103 EST Height 165.1 cm (5' 5) 08/07/2010 1103 EST Body Mass Index 39.11 08/07/2010 1103 EST documented in this encounter Mental Status [...] Code Departure Means Destination Home or Self Skilled Nursing documented in this encounter H&P Notes * Toro Scott MD - 08/07/2010 1136 EST Sedation for Procedure History & Physical Date: 08/07/2010 Time: 11:36 Location: [address] Planned Procedure: Gastroscopy Chief Complaint/Indications for Procedure: unable to keep food down off and on History Previous Complication with Sedation and/or Anesthesia? [...] Carpal tunnel release ??? Gastric bypass surgery ??? Joint replacement History Substance Use Topics ??? Tobacco Use: Quit 1996 ??? Alcohol Use: Yes rare Family History: Family History Problem Relation Age of Onset ??? Diabetes Mother ??? Diabetes Sister gestational ??? Diabetes Maternal Uncle ??? Diabetes Maternal Grandmother ??? Heart Disease Maternal Grandmother [place] ??? Heart Disease Maternal Grandfather [place] ??? Stroke Maternal Grandfather Review of Systems as pertinent: Physical Exam Vital Signs: BP 127/84 Pulse 65 Temp 36.5 ??C (97.7 ??F) Resp 16 Ht 165.1 cm (65) Wt 106.595 kg (235 lb) SpO2 100% Heart Examination: Cardiac Regularity: Regular Respiratory Examination: Respiratory Pattern: Regular Breath Sounds Right: Clear Breath Sounds Left: Clear Additional physical exam related to the proposed procedure, patient activity, disease state and treatment as pertinent: Assessment Previous complications with sedation or anesthesia?: No Airway Concerns: None Anesthesia Classification: ASA 3 Fasting Time: Time of last liquid intake: 0600 Date of Last Liquid Intake: 08/07/10 Date of last solid intake: 06/25/10 Patient Appropriate Candidate for Planned Sedation?: Yes documented in this encounter Procedure Notes * Inpatient, Physician - 08/07/2010 0000 ESTAssociated Order(s): PROCEDURE REPORTS - SCANNED * Inpatient, Physician - 08/07/2010 0000 ESTAssociated Order(s): PROCEDURE REPORTS - SCANNED * Inpatient, Physician - 08/07/2010 0000 ESTAssociated Order(s): PROCEDURE REPORTS - SCANNED documented in this encounter Miscellaneous Notes * Scanned Note-Null - Inpatient, Physician - 08/07/2010 0000 EST * Scanned Note-Null - Inpatient, Physician - 08/07/2010 0000 EST documented in this encounter Plan of Treatment Not on file documented as of this encounter Procedures Procedure Name Priority Date/Time Associated Diagnosis Comments PROCEDURE REPORTS - SCANNED 08/21/2010 8:31 EST documented in this encounter Results * PROCEDURE REPORTS - SCANNED (08/21/2010 8:31 EST) 08/21/2010 8:31 EST Narrative Procedure Note Inpatient, Physician - 08/07/2010 0:00 EST Transcriptions Inpatient, Physician - 08/07/2010 0:00 EST Inpatient, Physician - 08/07/2010 0:00 EST us Physician Inpatient MD PROCEDURE/MINOR SURGICAL ORDERABLES Final Result POINT OF CARE documented in this encounter Visit Diagnoses Diagnosis Dysphagia Dysphagia, unspecified documented in this encounter Administered Medications Inactive Administered Medications - up to 3 most recent administrations Medication Order MAR Action Action Date Dose Rate Site meperidine (PF) (DEMEROL) 100 mg/mL injection 25-200 mg 25-200 mg, intravenous, ONCE PRN, 1 dose, Starting on Yadira 08/07/10 at 1134, Until Yadira 08/07/10 at 1100, Other, sedation, Routine, Intraprocedure Given 08/07/2010 11:00 EST 75 mg midazolam (VERSED) injection 1-10 mg 1-10 mg, intravenous, ONCE PRN, 1 dose, Starting on Yadira 08/07/10 at 1134, Until Yadira 08/07/10 at 1203, Sedation, Routine, Intraprocedure Given 08/07/2010 12:03 EST 4 mg sodium chloride 0.9 % (NS) infusion 30 mL/hr, intravenous, CONTINUOUS, Starting on Yadira 08/07/10 at 1200, Until 08/09/10 at 0435, Routine, Preprocedure New Bag 08/07/2010 13:00 EST 30 mL/hr 30 mL/hr documented in this encounter Orders Medications Ordered That Allen ht Not Have Been Administered Count Last Ordered Date First Ordered Date lactated ringers (LR) infusion 1 08/07/2010 Discharge Count Last Ordered Date First Orde red Date DISCHARGE PATIENT 1 08/07/2010 documented in this encounter Care Teams Housekeeping Attendant Relationship Specialty Start Date End Date Sulma Salinas MD [facility] [address] [place] [address] PCP - General 02/13/09 11/23/11 documented as of this encounter
--- OUTSIDE RECORDS SUMMARY | 2024-08-22 16:05 | XMS_ITS | Encounter Summary ---
Author Organization [facility] Address [address] [place] [address] Care Team Providers Care Cyber Defense Incident Responder Name Role Phone Sulma Salinas MD Primary Care Provider [phone] Reason for Visit * Reason Comments Titration Polysomnogram Encounter Details Date Type Department Care Team ([facility] st Contact Info) Description 07/29/2011 21:30 EST Office Visit [facility] [address] [address] Elsy Gaona, KILN REPAIRER [address] [id number] Obstructive sleep apnea (adult) (pediatric) (Primary Dx) Social History Tobacco Use Types [...] - Inhaled Oxygen Concentration - - Weight 82.1 kg (181 lb) 07/29/2011 2117 EST Height - - Body Mass Index 30.45 06/29/2011 0846 EST documented in this encounter Mental Status * Because of a physical, mental, or emotional condition, do you have serious difficulty concentrating, remembering, or making decisions? (5 years old or older) Answer Entry Date Author Yes 07/08/2010 15:01 EST Eladio Russ RN documented in this encounter Patient Instructions * Patient Instructions* Ana M Bedolla MD - 07/30/2011 16:32 EST documented in this encounter Progress Notes * Ana M Bedolla MD - 07/30/2011 1602 EST SLEEP STUDY REPORT Patient Name: Kevin Calderon : 1975 Date of Study: 07/29/2011 Referring Provider: Mamie Gaona Primary Care Provider: Sulma Salinas Study Type: Positive Airway Pressure Titration The patient is a 36 year old woman with a history of obesity, PCOS, and acid reflux who is referredfor PAP titration after diagnosis of obstructive sleep apnea. Weight is 181 pounds, BMI 30.45. Current Outpatient Prescriptions Medication Sig Dispense Refill ??? VITAMIN E ACETATE (VITAMIN E ORAL) Take 1 Tab by mouth daily. ??? DOCUSATE CALCIUM (STOOL SOFTENER ORAL) Take 1 Tab by mouth 3 times daily. ??? VITAMIN B COMPLEX (B COMPLEX 1 ORAL) Take 1 Tab by mouth daily. ??? BIOTIN ORAL Take 1 Tab by mouth daily. ??? FERROUS FUMARATE (IRON ORAL) Take 1 Tab by mouth daily. ??? CALCIUM CARBONATE/VITAMIN D3 (CALCIUM WITH VITAMIN D ORAL) Take 1 Tab by mouth 2 times daily. ??? cyanocobalamin 500 mcg tablet Take 500 mcg by mouth three times a week. ??? ERGOCALCIFEROL (VITAMIN D ORAL) Take 1,000 Units by mouth daily. ??? MULTIVITAMINS (MULTIVITAMIN ORAL) Take by mouth daily. No current facility-administered medications for this visit. Facility-Administered Medications Ordered in Other Visits Medication Route Frequency ??? ketorolac (TORADOL) 30 mg/mL (1 mL) injection Medications taken the night of the study: none Bedtime patient questionnaire: The patient endorses frequent awakenings, but not snoring, abnormal breathing or leg kicking. Her usual bedtime is at 8:30 PM and she typically wakes at 4:15 AM. On the night before the study, the patient estimates that she got 4-4.5 hours of sleep which is not typical, (usually she gets 8 hours). She did not feel rested in the morning and did not nap during the day. She had 2 cups of coffee, andno alcohol. Technical Description: An overnight polysomnogram is performed and attended by a trained radiologic technologist. Monitoring channels include EEG channels F3M2, F4M1, C3M2, C4M1, O1M2, O2M1; left and right EOG; submental EMG; bilateral anterior tibialis EMG; thoracic and abdominal respiratory effort by RIP belts; snoring microphone; airflow by nasal pressure transducer and oral thermister; pulse oximetry; single lead EKG; body position monitor. Selective review of events are also available from video recording. Scoring of the polysomnographic data is performed according to the 2007 [place] [employer] Manual for the Scoring of Sleep and Associated Events. The Apnea-Hypopnea Index (AHI) is calculated as the total number of apneas plus hypopneas per hour as defined by the AASM recommended rule VIII.4.A which requires a > 4% reduction in oxygen desaturation. The Respiratory Disturbance Index (RDI) is determined using all apneas, hypopneas plus respiratory effort related arousals (RERAs). FINDINGS Sleep Lights out is 10:33 PM, lights on is 6:11 AM. Sleep onset latency is 6 minutes. Total time in bed is 458 minutes with a total sleep time of 420 minutes for a sleep efficiency of 91.8%. Sleep stage percentages are as follows: 7.1% Stage N1, 64.1% Stage N2, 0.6% Stage N3, and 28.2% REM sleep. The arousal index is 12.4/hour. Titration Description Average awake O2 saturaion was 98%, during sleep-- REM 98% and NREM 97%. The minimal O2 saturation seen during the night was 92%. CPAP was initiated at 5 cm H2O and titrated to a pressure of 6 cm H2O, which reduced the AHI to 0.3 events per hour at this setting, with oxygen saturations maintained at or above 92%. REM sleep in the supine positon was seen at this pressure. Body Position The patient spends 143 minutes of sleep supine, 1.1 minutes prone, 44.8 minutes on the left side and 231.6 minutes on the right side. Leg Movements The periodic limb movements of sleep (PLMS) index is 1.9 per hour with a limb arousal index of 6/hour. Cardiac Average heart rate during REM sleep of 72.8 bpm, and NREM sleep of 64.8 bpm. Normal sinus rhythm isseen. Risetime patient questionnaire: The following morning the patient estimated that she had gotten 7 hours of sleep and felt that her quality of sleep was worse than at home. She felt like usual in the morning, but thought that CPAPhad improved her quality of sleep. She currently has a machine at home. IMPRESSION 1) A PAP pressure of 6 is recommended. The patient did well the night of the study with a ResMed Switf LT (M Pillows) PAP mask. 2) Sleep efficiency is normal during the sleep study. 3) Mild Periodic Limb Movements of Sleep are seen. These are not frequently associated with arousal. RECOMMENDATIONS The patient currently has a PAP machine, and is not requesting a new one. A prescription for her CPAP setting of 6 [facility] Patient will follow up with the referring provider to discuss results. A referral to the sleep center to discuss sleep study results is available upon provider request. Proper ???Sleep Hygiene?? including a set bedtime and rise time is encouraged, as well as avoidingcaffeine and alcohol before bedtime, which can have a detrimental affect on sleep quality. In patients with obstructive sleep apnea we encourage attention to weight loss if clinically appropriate. * Shon Fuentes - 07/30/2011 0901 EST Images from the original note were not included. Technologist Preliminary Report (Not a Physician Interpretation) Kevin Calderon ([id number]) Polysomnographic Report Recording identification Patient name: Kevin Calderon Referring Physician Candelaria Test Date: 07/29/2011 Interpreting physician Sex: F Scoring Tech AG date: 1975 Study # [id number] Patient age: 36 years STUDY TYPE: Titration Sleep Medications: None Test Description: The Multi-channel overnight study consists of a combination of EOG, Chin EMG, EEG, Limb EMG, Thoracic and Abdominal wall movements, Nasal/oral airflow, nasal pressure, ECG, body position and tracheal sound. Scoring Tech Observations: Respiratory Events: OA and OH PLMS: No. Respiratory related events: No Pressure Recommendations: 5cm H2O Titration Summary; Type of masks used during study: nasal pillows Tech recommended mask (Professional Bondsman, Model, and Size): Resmed Ordonez LT (M pillows) Chin Strap needed? No Supplemental O2: O?? was not added Titration Summary: Pt ended on a pressure of 6 cm. Pt was only titrated for comparison. Sleep Data Light off (LO) : 10:33:20 PM Sleep onset (SO) : 10:39:20 PM Light on (SURESH) : 6:11:20 AM Durations Time in Bed : 458.0 min Light off -> Light on Total Sleep Time : 420.5 min REM + NREM (during SPT) Sleep Efficiency : 91.8% 100 x TST/TIB REM time : 118.5 min REM (during TIB) NREM time : 302.5 min N1 + N2 + N3 (during TIB) : Latencies From Light off (min) From Sleep onset (min) Sleep onset 6.0 - N1 6.0 0.0 N2 0.0 1.5 N3 36.0 30.0 REM 84.0 78.0 Sleep stages distribution duration TIB TST (min) (%) (%) WK (TIB) 37.0 8.1 - REM 118.5 25.9 28.2 N1 30.0 6.6 7.1 N2 270.0 59.0 64.1 N3 2.5 0.5 0.6 Arousal Summary Total number With resp. event With resp. event & desat Leg Mvt arousal Spontaneous arousal m arousal REM 13 0 0 9 4 m arousal NREM 64 0 1 29 34 m arousal TOT 87 0 1 42 44 arousal >15sec 0 0 0 0 0 Total number of WK or MVT episodes : 18 Arousal index : 12.4/h(sleep) Respiratory Data REM Events CA OA MA Sum Ap Hyp RERA Resp. Events Number 0 0 0 0 0 0 0 Max (sec.) 0.0 0.0 0.0 0.0 0.0 0.0 0.0 Mean (sec.) 0.0 0.0 0.0 0.0 0.0 0.0 0.0 Index (#/h REM) 0.0 0.0 0.0 0.0 0.0 0.0 0.0 Non-REM events CA OA MA Sum Ap Hyp RERA Resp. Events Number 0 1 0 1 3 0 4 Max (sec.) 0.0 17.5 0.0 17.5 21.0 0.0 21.0 Mean (sec.) 0.0 17.5 0.0 17.5 18.2 0.0 18.0 Index (#/h NREM) 0.0 0.2 0.0 0.2 0.6 0.0 0.8 Respiratory events summary (Total sleep time) CA OA MA Sum Ap Hyp RERA Resp. Events Number 0 1 0 1 3 0 4 Max (sec.) 0.0 17.5 0.0 17.5 21.0 0.0 21.0 Mean (sec.) 0.0 17.5 0.0 17.5 18.2 0.0 18.0 Index (#/h NREM) 0.0 0.1 0.0 0.1 0.4 0.0 0.6 Respiratory Event Index Summary (Total sleep time) REM #/h (REM) NREM #/h(NREM) TST #/h (sleep) AHI 0.0 0.8 0.6 RDI 0.0 0.8 0.6 Body Position Summary Total Dur .(min) Total Sleep Dur (min) sleep (%) Total REM Dur (min) Arousal Index CA (#) OA (#) MA (#) HYP (#) REM AHI Non REM AHI SARABJIT index (#/h) AHI 46.7 44.8 95.9 8.9 1.3 0 0 0 0 0.0 0.0 0.0 0.0 1.3 1.1 84.6 0.0 109.1 0 0 0 0 0.0 0.0 109.1 0.0 159.6 143.0 89.6 46.1 12.2 0 0 0 1 0.0 0.6 1.7 0.4 244.4 231.6 94.8 63.5 11.7 0 1 0 2 0.0 1.1 1.3 0.8 pos Total Dur.(min) Total Sleep Dur (min) Total Sleep (%) Total REM Dur (min) Arousal Index CA (#) OA (#) MA (#) HYP (#) TotalRERA (#) Non REM RDI REM RDI index (#/h) RDI L 46.7 44.8 95.9 8.9 1.3 0 0 0 0 0 0.0 0.0 0.0 P 1.3 1.1 84.6 0.0 109.1 0 0 0 0 0 0.0 0.0 0.0 S 159.6 143.0 89.6 46.1 12.2 0 0 0 1 0 0.6 0.0 0.4 R 244.4 231.6 94.8 63.5 11.7 0 1 0 2 0 1.1 0.0 0.8 Oximetry Summary Oximetry distribution WK REM NREM TOTAL <70 (min) 0.0 0.0 0.0 0.0 <80 (min) 0.0 0.0 0.0 0.0 <89 (min) 0.0 0.0 0.0 0.0 <90 (min) 0.0 0.0 0.0 0.0 Average (%) 98 98 97 98 Minimum 02 92 Desat Index (#/hour) 0.0 2.2 1.6 Desat max (%) 7 0 9 9 Heart Rate Summary Statistics WK REM NREM Mean HR (BPM) 76.6 72.8 64.8 Median (BPM) 71.000 74.000 65.000 Leg Movements Summary Count Index (#/h) Leg movements 93 13.3 Leg movements meeting PLM criteria 13 1.9 Leg movements with respiratory events with arousal 1 0.1 Leg movements with arousal (without respiratory event) 42 6.0 Leg mvts without arousal and without respiratory event 50 7.1 Minutes Total time with PLM : 7.4 min ( 1.8 % of sleep) POSITIVE PRESSURE DISTRIBUTION IPAP Level (cmH2O) EPAP Level (cmH2O) Total Dur (min) Total Sleep (min) Sleep (%) REM Dur % Arousal index Pos 1 Pos1 (% Dur) Pos 2 Pos2 (% Dur) CA (#) OA (#) MA (#) Hypo (#) RERA (#) Min SpO2 <88% SARABJIT RDI AHI 5 5 211.3 181.8 86.0 15.9 14.5 R 76.4 S 22.6 0 1 0 2 0 91 0.0 2.0 1.0 1.0 6 6 240.3 238.3 99.2 35.4 8.3 S 46.5 R 34.3 0 0 0 1 0 92 0.0 1.3 0.3 0.3 * Didi Osborne - 07/29/20112119 EST [facility] PSG OCCUPATIONAL THERAPIST PER DIEM DOCUMENTATION FORM Acquiring Tech: Didi [place] Patient Name: Kevin Calderon Date of : 1975 Gender: female Date of Service: 07/29/2011 Place of Study: [facility] (Satellite lab) Bed/PC #: 6 Study #: [id number] Provider ordering study: Candelaria Type of study ordered (See Chief Complaint) Chief Complaint Patient presents with ??? Titration Polysomnography Reason for Visit: Titration study MEDICAL HISTORY: Sleep Symptoms: Snoring: No. Witnessed Apnea/Abnormal Breathing: No. Using oxygen at night at home: No. Restless Sleep: No. Frequent Awakenings: Yes. Insomnia: No. Leg Kicking/RLS symptoms: No. Unusual behaviors in sleep: No. Daytime Sleepiness or Napping: No. Usual Bedtime: 8:30 pm Usual Risetime: 4:15 am Medications (list name; dosage required only for nighttime meds & stimulants) Outpatient Prescriptions Marked as Taking for the 07/29/11 encounter (Office Visit) with Polysomnography Medication Sig Dispense Refill ??? VITAMIN E ACETATE (VITAMIN E ORAL) Take 1 Tab by mouth daily. ??? DOCUSATE CALCIUM (STOOL SOFTENER ORAL) Take 1 Tab by mouth 3 times daily. ??? VITAMIN B COMPLEX (B COMPLEX 1 ORAL) Take 1 Tab by mouth daily. ??? BIOTIN ORAL Take 1 Tab by mouth daily. ??? FERROUS FUMARATE (IRON ORAL) Take 1 Tab by mouth daily. ??? CALCIUM CARBONATE/VITAMIN D3 (CALCIUM WITH VITAMIN D ORAL) Take 1 Tab by mouth 2 times daily. ??? cyanocobalamin 500 mcg tablet Take 500 mcg by mouth three times a week. ??? ERGOCALCIFEROL (VITAMIN D ORAL) Take 1,000 Units by mouth daily. ??? MULTIVITAMINS (MULTIVITAMIN ORAL) Take by mouth daily. Weight: 82.101 kg (181 lb) BEDTIME PATIENT QUESTIONNAIRE Did you use a sleeping medicine last night? No. How many hours of sleep do you feel you got last night ? 4-4.5 hours. Was this a typical night? No: 8 hrs. Did you feel rested this morning? No. Did you nap today? No. Caffeine (amount/time) today: Yes. Was it coffee And how much? 2 cups. Alcohol (amount/time) today: None. Other Info: N/A RISETIME PATIENT QUESTIONNAIRE Did you use a sleeping medicine last night? No. How many hours of sleep do you feel you got last night ? 7 hours. How would you describe your sleep last night in our lab compared to a typical night at home? worse. How do you feel this morning? Like usual. Was CPAP/BiPAP therapy used last night? Yes. Did it improve the quality of your sleep? Yes. Do you have a machine at home? Yes. CPAP. Do you need a new machine and want us to send in a script? No. Hasn't had her machine for very long. [employer] choice? [employer] PSG TECHNOLOGIST LOG SHEET (NOT INTERPRETED BY A PHYSICIAN) Patient's Name: Kevin Calderon DOS: 07/29/2011 Before Study Baseline HR: 66 Respiratory Rate: 12 Resting SPO2: 100 room air. Head of Bed elevated? No. Number of pillows? 1 pillows Time 00:00- 24:00 IPAP/ EPAP cm Supp O2 LPM Mask- *Brand *Model *Size Chin strap Oral appliance Leak Tech observations and Troubleshooting Sleep Stage Body Position/ Video CO2 2233 5 Resmed Ordonez LT (M pillows) 22 Lights out w s 2300 5 22 Reg resps 1,2,w r 2330 5 22 Reg resps 2,3 r 0000 5 22 Reg resps 2,r r 0030 5 23 Reg resps r r 0100 5 21 Reg resps 2,w r/s 0130 5 19 Reg resps 2,w s/r 0200 5 21 Reg resps/2-oh's/1-oa 1,2,w r 0210 6 22 Inc cpap for comparison 2 r 0240 6 27 Reg resps 2,r r 0310 6 26 Reg resps 2,r r 0340 6 18 Reg resps 2,1 r/s 0410 6 18 Reg resps 2,r s 0440 6 26 Reg resps 1,2 s 0510 6 22 Reg resps/few desats 1,2,w s/l 0540 6 22 Reg resps 2,r l 0611 6 19 Lights on 2 l [facility] TITRATION STUDY OBSERVATION REPORT Technologist: Didi Osborne Sleep Architecture All stages seen: Yes Sleep Onset REM: No Respiratory Events Type: Position of respiratory events: No correlation Snoring: N/A Breathing: nasal Sp0?? REM: Mean Amrik 90 NREM: Mean Amrik 94 If no supine time, why? If no lateral time, why? Arrhythmias:N/A Titration Details: Supine: n/a Non - Supine: n/a All stages were seen. SW rebound: No. REM rebound: Yes. Titration Summary; Type of masks used during study: nasal pillows Tech recommended mask (Professional Bondsman, Model, and Size): Resmed Ordonez LT (M pillows) Chin Strap needed? No Supplemental O2: O?? was not added Titration Summary: Pt ended on a pressure of 6 cm. Pt was only titrated for comparison. [facility] [employer] Preliminary Report Technologist: Didi Osborne STUDY TYPE: Titration Study Respiratory Events:OA and OH PLMS: No. Respiratory related events: Pressure Recommendations: 5 IPAP 5EPAP O?? LPM TECHNOLOGIST PRELIMINARY REPORT SUMMARY: Pt ended on a pressure of 6 cm. Pt was only titrated for comparison. documented in this encounter Plan of Treatment Not on file documented as of this encounter Visit Diagnoses Diagnosis Obstructive sleep apnea (adult) (pediatric)- Primary documented in this encounter Orders Equipment Count Last Ordered Date First Orde red Date CPAP/BIPAP GENERAL ORDER 1 07/30/2011 documented in this encounter Care Teams Cyber Defense Incident Responder Relationship Specialty Start Date End Date Sulma Salinas MD [facility] [address] [place] [address] PCP - General 02/13/09 11/23/11 documented as of this encounter
--- OUTSIDE RECORDS SUMMARY | 2024-08-22 16:05 | XMS_ITS | Encounter Summary ---
Author Organization [facility] Address [address] [place] [address] Care Team Providers Care Ballpoint Pens Assembler Name Role Phone Sulma Salinas MD Primary Care Provider [phone] Reason for Visit * Reason Comments Obesity post op Encounter Details Date Type Department Care Team (Late st Contact Info) Description 06/29/2011 9:00 EST Office Visit [facility] Bariatric Surgery - [place] [address] [place] [address] Elsy Gaona S, CONE CHOCOLATE DIPPER 61 [facility] [address] [id number] Morbid obesity ([facility] Vitamin D deficiency; S/P gastric bypass; Postresectional malabsorption syndrome Social History Tobacco Use Types Packs/Day Years [...] Sign Reading Time Taken Comments Blood Pressure 100/68 06/29/2011 0846 EST Pulse 68 06/29/2011 0846 EST Temperature - - Respiratory Rate - - Oxygen Saturation - - Inhaled Oxygen Concentration - - Weight 82.2 kg (181 lb 3.2 oz) 06/29/[address] Height 164.2 cm (5' 4.65) 06/29/2011 0846 EST Body Mass Index 30.48 06/29/2011 0846 EST documented in this encounter Mental Status * Because of a physical, mental, or emotional condition, do you have serious difficulty concentrating, remembering, or making decisions? (5 years old or older) Answer Entry Date Author Yes 07/08/2010 15:01 EST Wanda Russ RN documented in this encounter Progress Notes * Syeda Dixon RD - 06/29/2011 0910 EST Nutrition Post Op Visit: Gastric Bypass Subjective:feeling great-has been jogging, lifting weights. Scale more stable now. Intolerant to some foods listed below but eating about [id number] wanda and >70 gr protein. Having tingling sensation with fluid milk, not cheese or yogurt Questionnaire Reviewed: Yes Intolerance Episodes: yes to dry meat, bread and spaghetti Food Intolerances: Sweets, dry Meat, Bread,pasta, fluid milk Current Exercise: Walking/running, weights Reactive Hypoglycemic Symptoms (bypass only): No but dumping like symptoms on occasion, cheese seems to settle stomach Objective: Current Weight: Wt Readings from Last 1 Encounters: 06/29/11 82.192 kg (181 lb 3.2 oz) Current BMI: Body mass index is Body mass index is 30.48 kg/(m^2).. Weight Loss since Surgery: -88.4 lb Weight Change since Last Visit:-5.2 lb Supplement Usage: Type Amount MVT pill B12 pill Calcium w/Vit D Pill 2 Iron FeFum B Complex pill Vit D 1000 IU Other: biotin, Vit E, colace Recent Labs: WNL H/H, fe status, B12-Vit D, PTH and B1 pending Assessment: Adequate Meal Frequency: Yes Adequate Meal Composition: Yes Exercise Adequacy: Yes Nutritional Issues: excellent intake and exercise. Weight loss slowing perhaps to building of muscle. Advised patient to try low lactose milk, but if she feels tingling or itching, to avoid all fluid milk-she agrees. Plan: Continue current diet and exercise Change intake-try low lactose milk but avoid if still gets itching in throat Will review pending labs and office will notify patient of results Education Provided: Other -as above * Suzan Segura - 06/29/2011 0855 EST 30-Day Plus Bariatric Surgery Postop Questionnaire [...] suspected reason for admission) No Suzan Segura 06/29/2011 8:55 * Elsy Gaona NP - 06/29/2011 0849 EST 06/29/2011 Kevin Calderon is here in follow-up to her Laparoscopic anterior cruroplasty, laparoscopic antecolic-antegastric Brandin-en-Y gastric bypass with 50 cm biliary limb, 100 cm alimentary limb and intraoperative EGD on 07/08/10. The weight trend for the patient is 283.4 pounds at the initial consultation,to 186.4 pounds at the last post-op visit to today's Weight : 82.192 kg (181 lb 3.2 oz). PROBLEM LIST Patient Active Problem List Diagnoses ??? Morbid obesity ??? MIGUEL (obstructive sleep apnea) ??? GERD (gastroesophageal reflux disease) ??? OA (osteoarthritis) of knee ??? PCOS (polycystic ovarian syndrome) ??? Vitamin D deficiency ??? Dysphagia ??? Postresectional malabsorption syndrome ??? S/P gastric bypass SUBJECTIVE: denies any problems or complaints. Reviewed labs and note all normal except vitamin D is a little low at 36 with a very normal PTH. Still uses her cpap but has slept without and not sure if she still needs it with over 100 pound weight loss. Emesis: No complaints of emesis Nausea: No complaints of nausea Increased Volume Tolerance: no Abdominal Pain: No complaints of abdominal pain Lightheadedness: No complaints of lightheadedness Bowel Function: Takes stool softener 3 x daily for constipation Pannus: Excess and redundant pannus which so far is not causing infections or pain. Has excess thigh skin. OBJECTIVE: General Appearance: healthy appearing and in no apparent distress Abdomen: Incision well-healed and Nontender Extremities: Normal Skin: No changes ASSESSMENT: Doing well, Expected course without obvious complications and Weight Loss: good PLAN: Increase vit D to 2000 units daily Order PSG 1. Return to clinic in 6 month(s). 2. Orders Placed This Encounter Procedures ??? Vitamin B1, Thiamine Standing Status: Future Number of Occurrences: Standing Expiration Date: 06/29/2012 ??? Creatinine Standing Status: Future Number of Occurrences: Standing Expiration Date: 06/29/2012 ??? Hemagram Standing Status: Future Number of Occurrences: Standing Expiration Date: 06/29/2012 ??? Ferritin Standing Status: Future Number of Occurrences: Standing Expiration Date: 06/29/2012 ??? Calcium Standing Status: Future Number of Occurrences: Standing Expiration Date: 06/29/2012 ??? Vitamin B12 Standing Status: Future Number of Occurrences: Standing Expiration Date: 06/29/2012 ??? PTH Intact Standing Status: Future Number of Occurrences: Standing Expiration Date: 06/29/2012 ??? Iron Standing Status: Future Number of Occurrences: Standing Expiration Date: 06/29/2012 ??? Vitamin D (25,[place]) Standing Status: Future Number of Occurrences: Standing Expiration Date: 06/29/2012 ??? CPAP/BIPAP Titration (Overnight Polysomnogram with CPAP/BiPAP Titration) Scheduling Instructions: IMPORTANT regarding Polysomnograms- Ordering Provider: Please discuss CPAP/BiPAP with the patient prior to the study if you are ordering a SPLIT or Titration study. The results of the study will be sent to the Ordering Provider who is responsible for conveying theresults to the patient. Order Specific Question: Date of Polysomnogram Diagnosis of MIGUEL: Answer: unknown Order Specific Question: Place of Polysomnogram Diagnosis of MIGUEL: Answer: [facility] Order Specific Question: Problem List - Click any that Apply: Answer: Other - See Comment Comments: n/a Order Specific Question: Instructions for Titration: Answer: over 100 pound weight loss since dx Order Specific Question: Do you want the Sleep Center to send a prescription for the patient to obtain CPAP/BiPAP at home? Answer: Yes Order Specific Question: Do you want the patient to be scheduled for an ambulatory sleep consult (1-3 months after sleep study)? Answer: Yes Seen and discussed with Procurement Inspector at this visit. Elsy Gaona NP 06/29/2011 9:28 documented in this encounter Plan of Treatment Scheduled Orders Name Type Priority Associated Diagnoses Orde r Schedule CPAP/BIPAP TITRATION Sleep Center Routine Morbid obesity ([facility]) Vitamin D deficiency S/P gastric bypass Postresectional malabsorption syndrome Ordered: 06/29/2011 documented as of this encounter Visit Diagnoses Diagnosis Morbid obesity ([facility]) Morbid obesity Vitamin D deficiency Unspecified vitamin D deficiency S/P gastric bypass Bariatric surgery status Postresectional malabsorption syndrome Other and unspecified postsurgical nonabsorption documented in this encounter Historical Medications * This list may reflect changes made after this encounter. VITAMIN E ACETATE (VITAMIN E ORAL)Indications:Mor bid obesity ([facility]),Vitamin D deficiency,S/P gastric bypass,Postresection al malabsorption syndrome Take 1 Tab by mouth daily. added in this encounter Care Teams Ballpoint Pens Assembler Relationship Specialty Start Date End Date Sulma Salinas MD [facility] [address] [place] [address] PCP - General 02/13/09 11/23/11 documented as of this encounter
--- OUTSIDE RECORDS SUMMARY | 2024-08-22 16:06 | XMS_ITS | Encounter Summary ---
Author Organization [facility] Address [address] [place] [address] Care Team Providers Care Military Pay Technician Name Role Phone Sulma Salinas MD Primary Care Provider Encounter Details Date Type Department Care Team (Late st Contact Info) Description 11/22/2009 Pre-Procedure Orders Encounter [facility] Bariatric Surgery - [place] [address] [place] [address] Elsy Gaona, IT APPLICATION ADMINISTRATOR 61 [facility] 4 [facility] [address] [place], [place] [id number] Social History Tobacco Use Types Packs/Day Years Used Date Smoking Tobacco: Former Comments:1996 Comments No Sex and Gender Information Value Date Recorded Sex Assigned at Not on file Legal Sex Female 18:25 EST Gender Identity Not on file Sexual Orientation Not on file documented as of this encounter Plan of Treatment Not on file documented as of this encounter Visit Diagnoses Not on filedocumented in this encounter Care Teams Military Pay Technician Relationship Specialty Start Date End Date Sulma Salinas MD [facility] [address] [place], [place] [address] PCP - General 02/13/09 11/23/11 documented as of this encounter
--- OUTSIDE RECORDS SUMMARY | 2024-08-22 16:06 | XMS_ITS | Encounter Summary ---
Author Organization [facility] Address [address] [place] [address] Care Team Providers Care Waste Collection Driver Name Role Phone Sulma Salinas MD Primary Care Provider Encounter Details Date Type Department Care Team (Late st Contact Info) Description 05/29/2005 Results Only [facility] [place] [address] [place] [address] Tawny Yo NP [address] [facility],[address] [address] Social History Tobacco Use Types Packs/Day Years Used Date Smoking Tobacco: Never Assessed Comments Unknown Sex and Gender Information Value Date Recorded Sex Assigned at Not on file Legal Sex Female 18:25 EST Gender Identity Not on file Sexual Orientation Not on file documented as of this encounter Plan of Treatment Not on file documented as of this encounter Procedures Procedure Name Priority Date/Time Associated Diagnosis Comments CYTOPATHOLOGY Routine 05/29/2005 0:00 EDT documented in this encounter Results * CYTOPATHOLOGY (05/29/2005 0:00 EDT) Pathology Report: CYTOPATHOLOGY REPORT Reports generated via electronic interface contain original data; however they are lacking the format of the original report. Caution should be taken when reading/interpreti ng unformatted reports. Name: ? KEVIN CASTANO ? Accession #: ? [id number] : ? 1975 (Age: 29) ??F ?Collect Date: ? 05/29/2005 Location: ? [facility] ? Receive Date: ? 06/03/2005 Provider: ?TAWNY YO SCIENTIFIC MANAGER Copy to: ? Specimen/Source: ?ThinPrep Pap Test, Cervix/Endocervix, processed on [employer] ThinPrep Imaging System, with manual evaluation Last Menstrual Period: ? 04/20 Hormonal/Contracep tive Status: ? Orthotricyclen Other: ? HPVA - HPV testing requested if ASC-US on the current ThinPrep Pap test. ? SPECIMEN ADEQUACY ? Satisfactory for Evaluation - transformation zone component present GENERAL CATEGORIZATION ? Negative for Intraepithelial Lesion or Malignancy ? Document reviewed and electronically signed by: ? MADELIN Hicks(ASCP) ? Report Date: ??06/10/2005 07:26 End of Report DINORAH DEL REAL 05/29/2005 06/03/2005 us Tawny Yo NP PATHOLOGY ORDERABLES Final R esult DINORAH DEL REAL [address] [place] [address] documented in this encounter Visit Diagnoses Not on filedocumented in this encounter Care Teams Waste Collection Driver Relationship Specialty Start Date End Date Sulma Salinas MD [facility] [address] [place] [address] PCP - General 02/13/09 11/23/11 documented as of this encounter
--- OUTSIDE RECORDS SUMMARY | 2024-08-22 16:06 | XMS_ITS | Encounter Summary ---
Author Organization [facility] Address [address] [place] [address] Care Team Providers Care Info Print Press Operator Name Role Phone Sulma Salinas MD Primary Care Provider [phone] Unknown, Jean Paul CABA Primary Care Provider Sulma Campos MD Primary Care Provider [phone] Encounter Details Date Type Department Care Team (Late st Contact Info) Description 11/20/2009 Documentation Visit [facility] Bariatric Surgery - [place] [address] [place] [address] Social History Tobacco Use Types Packs/Day Years [...] - Inhaled Oxygen Concentration - - Weight - - Height 164.2 cm (5' 4.65) 11/20/2009 1300 EDT Body Mass Index - - documented in this encounter Plan of Treatment Not on file documented as of this encounter Visit Diagnoses Not on filedocumented in this encounter Care Teams Info Print Press Operator Relationship Specialty Start Date End Date Sulma Salinas MD [facility] [address] [place] [address] PCP - General 02/13/09 11/23/11 Unknown, Provider, PCP - General 11/24/11 06/26/13 Sulma Salinas MD [address] [place] [address] PCP - General 06/27/13 documented as of this encounter
--- OUTSIDE RECORDS SUMMARY | 2024-08-22 16:06 | XMS_ITS | Encounter Summary ---
Author Organization [facility] Address [address] [place] [address] Care Team Providers Care Direct Mail Coordinator Name Role Phone Sulma Salinas MD Primary Care Provider Reason for Visit * Reason Comments Obesity pre op Encounter Details Date Type Department Care Team (Late st Contact Info) Description 02/10/2010 10:00 EDT Office Visit [facility] Bariatric Surgery - [place] [address] [place] [address] Kasandra Hobbs MD [address] [place] [address] Morbid obesity ([facility]) (Primary Dx) Social History Tobacco Use Types Packs/Day Years Used Date Smoking Tobacco: Former Comments:1996 Comments No Sex and Gender Information Value Date Recorded Sex Assigned at Not on file Legal Sex Female 18:25 EST Gender Identity Not on file Sexual Orientation Not on file documented as of this encounter Last Filed Vital Signs Vital Sign Reading Time Taken Comments Blood Pressure 128/74 02/10/2010 0954 EDT Pulse 64 02/10/2010 0954 EDT Temperature - - Respiratory Rate - - Oxygen Saturation - - Inhaled Oxygen Concentration - - Weight 122 kg (269 lb) 02/10/2010 0954 EDT Height 164.2 cm (5' 4.65) 02/10/2010 0954 EDT Body Mass Index 45.26 02/10/2010 0954 EDT documented in this encounter Progress Notes * Kasandra Hobbs MD - 02/10/2010 1054 EDT SUBJECTIVE: Kevin returns to our office today for continued medically supervised weight loss in preparation for laparoscopic sleeve gastrectomy surgery. She is a 34 y.o. 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 She comorbidities include :.orderline line diabetes mellitus on diet, obstructive sleep apnea on CPAP, polycystic ovarian syndrome,infertility and osteoarthritis. PAST SURGICAL HISTORY: Consistent for right knee surgery times two, carpal tunnel syndrome and laparoscopic cholecystectomy. Otherwise, she denies any changes to her medical history or medications since his previous visit. Kevin met with our program dietitian for 30 minutes to review preoperative dietary recommendations. Iconsulted with the dietitian following her visit with the patient and agree with her findings and recommendations. OBJECTIVE: On physical examination today, her BP 128/74 Pulse 64 Ht 1.642 m (5' 4.65) Wt 122.018 kg (269 lb) and Body mass index is 45.26 kg/(m^2).. ASSESSMENT AND PLAN: Kevin will return to our office in a few weeks for continued medically-supervised weight loss in preparation for surgery. She understands that:she is a good candidate for sleeve gastrectomy. l discussed with her insurance 10 days ago about the sleeve,they will call me today.The patient was notified. Lost 2 Lb. EGD- 4cm HH. Kasandra Garner MD * Syeda Dixon, RD - 02/10/2010 1041 EDT PRE OP NUTRITION FOLLOW UP NOTE Bariatric Clinic Nutrition Pre-op Visit Visit Number: 10 Desired surgery: Gastric Sleeve Subjective: Doing well with intake, eating earlier dinner, more hungry for breakfast and able to control intakebetter. Food logs: maintained on own program Meal pattern: 3 Average caloric intake: 1600 calories Meal composition: improving but still high fat items Snacking: appropriate Exercise: walking and working with horses Objective: Weight: 269 lb Weight loss from last visit: -3 lb Total weight loss: Weight loss goal: -11 lb 12 lb Surgery Date: Significant Medications and Supplements: multivit with Ca Assessment: Patient has made progress towards lifestyle changes Comments: good weight loss, needs to focus more on fat intake, discussed other options Plan: Diet Goals: Decrease intake of high-fat items, Keep food records, Eat more slowly and Increase fruit and vegetables Exercise Goals: Maintain current exercise Weight Loss Goal: 12 lb Weight Loss Remaining to Goal: 1 lb Reviewed: Food/Activity Record Next Visit: Pre-op follow-up visit documented in this encounter Miscellaneous Notes * Scanned Note-Null - Nam, Water Gas Operator - 01/22/2011 1048 EDT documented in this encounter Plan of Treatment Not on file documented as of this encounter Visit Diagnoses Diagnosis Morbid obesity ([facility])- Primary Morbid obesity documented in this encounter Historical Medications * This list may reflect changes made after this encounter. ERGOCALCIFEROL (VITAMIN D ORAL) Take 1,000 Units by mouth daily. added in this encounter Care Teams Direct Mail Coordinator Relationship Specialty Start Date End Date Sulma Salnias MD [facility] [address] [place] [address] PCP - General 02/13/09 11/23/11 documented as of this encounter
--- OUTSIDE RECORDS SUMMARY | 2024-08-22 16:06 | XMS_ITS | Encounter Summary ---
Author Organization [facility] Address [address] [place] [address] Care Team Providers Care Outbound Supervisor Name Role Phone Sulma Salinas MD Primary Care Provider [phone] Encounter Details Date Type Department Care Team (Late st Contact Info) Description 11/11/2009 Abstract [facility] Bariatric Surgery - [place] [address] [place] [address] Sulma Salinas MD [facility] [address] [place], [place] [address] Morbid obesity (HCC-CMS); MIGUEL (obstructive sleep apnea); GERD (gastroesophageal reflux disease); OA (osteoarthritis) of knee; PCOS (polycystic ovarian syndrome) Social History Tobacco [...] Diagnoses Diagnosis Morbid obesity (HCC-CMS) Morbid obesity MIGUEL (obstructive sleep apnea) Obstructive sleep apnea (adult) (pediatric) GERD (gastroesophageal reflux disease) Esophageal reflux OA (osteoarthritis) of knee Osteoarthrosis, unspecified whether generalized or localized, lower leg PCOS (polycystic ovarian syndrome) Polycystic ovaries documented in this encounter Care Teams Outbound Supervisor Relationship Specialty Start Date End Date Sulma Salinas MD [facility] [address] [place], [place] [id number] PCP - General 02/13/09 11/23/11 documented as of this encounter
--- OUTSIDE RECORDS SUMMARY | 2024-08-22 16:06 | XMS_ITS | Encounter Summary ---
Author Organization [facility] Address [address] [place] [address] Care Team Providers Care Lapel Padder Blindstitch Name Role Phone Sulma Salinas MD Primary Care Provider [phone] Encounter Details Date Type Department Care Team (Latest Contact Info) Description 11/21/2009 9:37 EDT - 11/21/2009 23:59 EDT Hospital Encounter [facility] [address] [place] [address] Elsy Gaona, MEDIA CONSULTANT [address] [id number] MIGUEL (obstructive sleep apnea); Morbid obesity (HCC-CMS); OA (osteoarthritis) of knee; PCOS (polycystic ovarian syndrome); Preoperative testing Discharge Disposition: Home or Self Care Social History Tobacco Use Types Packs/Day Years Used Date Smoking Tobacco: Former Comments:1996 Comments No Sex and Gender Information Value Date Recorded Sex Assigned at Not on file Legal Sex Female 18:25 EST Gender Identity Not on file Sexual Orientation Not on file documented as of this encounter Medications at Time of Discharge MULTIVITAMINS (MULTIVITAMIN ORAL) Take by mouth daily. 06/27/2013 UNABLE TO FIND 1 Tab daily. BCP 03/09/2011 documented as of this encounter Discharge Disposition Disposition Code Departure Means Destination Home or Self Shelter documented in this encounter Plan of Treatment Not on file documented as of this encounter Procedures Procedure Name Priority Date/Time Associated Diagnosis Comments VITAMIN D (25,OH) Routine 11/21/2009 9:4 5 EDT MIGUEL (obstructive sleep apnea) Morbid obesity (HCC-CMS) OA (osteoarthritis) of knee PCOS (polycystic ovarian syndrome) Preoperative testing COMPLETE BLOOD COUNT Routine 11/21/2009 9:45 EDT MIGUEL (obstructive sleep apnea) Morbid obesity (HCC-CMS) OA (osteoarthritis) of knee PCOS (polycystic ovarian syndrome) Preoperative testing TSH Routine 11/21/2009 9:45 EDT MIGUEL (obstructive sleep apnea) Morbid obesity (HCC-CMS) OA (osteoarthritis) of knee PCOS (polycystic ovarian syndrome) Preoperative testing HEMOGLOBIN A1C Routine 11/21/2009 9:45 EDT MIGUEL (obstructive sleep apnea) Morbid obesity (HCC-CMS) OA (osteoarthritis) of knee PCOS (polycystic ovarian syndrome) Preoperative testing CREATININE Routine 11/21/2009 9:45 EDT MIGUEL (obstructive sleep apnea) Morbid obesity (HCC-CMS) OA (osteoarthritis) of knee PCOS (polycystic ovarian syndrome) Preoperative testing HEPATIC FUNCTION PANEL (ALB,ALK PHOS,ALT,AST,DBIL,TO T AZEB,TOT PROT) Routine 11/21/2009 9:45 EDT MIGUEL (obstructive sleep apnea) Morbid obesity (HCC-CMS) OA (osteoarthritis) of knee PCOS (polycystic ovarian syndrome) Preoperative testing LIPID PROFILE (INCLUDES CHOLESTEROL, TRIGLYCERIDES, HDL, LDL) Routine 11/21/2009 9:45 EDT MIGUEL (obstructive sleep apnea) Morbid obesity (HCC-CMS) OA (osteoarthritis) of knee PCOS (polycystic ovarian syndrome) Preoperative testing documented in this encounter Results * TSH (11/21/2009 9:45 EDT) TSH Marked hemolysis Specimen unsuitable for analysis. Repeat Requested 0.35 - 5.00 uIU/ml [facility] Comment:Performed at [facility], [place], [place] Blood specimen (specimen) 11/21/2009 9:45 EDT 11/21/2009 9:47 EDT Elsy Jimel MEDIA CONSULTANT CHEMISTRY & BLOOD GAS ORD ERABLES Final Result Performing Organization Address [facility] Co de Phone Number [facility] [address] [place] [address] * LIPID PROFILE (INCLUDES CHOLESTEROL, TRIGLYCERIDES, HDL, LDL) (11/21/2009 9:45 EDT) Cholesterol Marked hemolysis Specimen unsuitable for analysis. Repeat Requested mg/dl [facility] Triglycerides Marked hemolysis Specimen unsuitable for analysis. Repeat Requested 35 - 160 mg/dl [facility] HDL Marked hemolysis Specimen unsuitable for analysis. Repeat Requested mg/dl [facility] LDL, Calculated Marked hemolysis Specimen unsuitable for analysis. Repeat Requested mg/dl [facility] Chol/HDL Ratio Marked hemolysis Specimen unsuitable for analysis. Repeat Requested Performed at [facility], [place], [place] [facility] Fasting? Yes [facility] Blood specimen (specimen) 11/21/2009 9:45 EDT 11/21/2009 9:47 EDT Elsy Gaona MEDIA CONSULTANT CHEMISTRY & BLOOD GAS ORD ERABLES Final Result Performing Organization Address [facility] Co de Phone Number [facility] [address] [place] [address] * HEMOGLOBIN A1C (11/21/2009 9:45 EDT) Hemoglobin A1C 5.9 % [facility] Comment: Reference Range: <5.7% Normal 5.7-6.4% Increased risk for diabetes =>6.5% Diagnostic for diabetes (if confirmed) The A1c goal for non adults in general is <7%. The A1c goal for selected patients may be significantly lower than 7% if this can be achieved without significant hypoglycemia or other adverse effects of treatment. Est Avg Glucose 123 mg/dl [facility] Comment: eAG represents the A1c result expressed as average glucose in mg/dl. Blood specimen (specimen) 11/21/2009 9:45 EDT 11/21/2009 9:47 EDT Elsy S Candelaria MEDIA CONSULTANT CHEMISTRY & BLOOD GAS ORD ERABLES Final Result Performing Organization Address City/[facility]/ZIP Co de Phone Number [facility] [address] [place] [address] * VITAMIN D (25,OH) (11/21/2009 9:45 EDT) 25OH Vitamin D Tot Marked hemolysis Specimen unsuitable for analysis. Repeat Requested ng/ml [facility] Comment:Performed at [place], [place] Blood specimen (specimen) 11/21/2009 9:45 EDT 11/21/2009 9:47 EDT Elsy S Candelaria MEDIA CONSULTANT CHEMISTRY & BLOOD GAS ORD ERABLES Final Result Performing Organization Address [facility] Co de Phone Number [facility] [address] [place] [address] * LIVER FUNCTION TESTS (11/21/2009 9:45 EDT) Albumin Marked hemolysis Specimen unsuitable for analysis. Repeat Requested 3.4 - 4.9 g/dl [facility] Total Protein Marked hemolysis Specimen unsuitable for analysis. Repeat Requested 6.5 - 8.3 g/dl [facility] Total Alkaline Phosphatase Marked hemolysis Specimen unsuitable for analysis. Repeat Requested 38 - 126 U/L [facility] ALT Marked hemolysis Specimen unsuitable for analysis. Repeat Requested 9 - 52 U/L [facility] AST Marked hemolysis Specimen unsuitable for analysis. Repeat Requested 15 - 46 U/L [facility] Unconjugated Bilirubin Marked hemolysis Specimen unsuitable for analysis. Repeat Requested 0.1 - 1.1 mg/dl [facility] Conjugated Bilirubin Marked hemolysis Specimen unsuitable for analysis. Repeat Requested 0.0 - 0.3 mg/dl [facility] Bilirubin, Total Marked hemolysis Specimen unsuitable for analysis. Repeat Requested 0.2 - 1.3 mg/dl [facility] Delta Bilirubin Marked hemolysis Specimen unsuitable for analysis. Repeat Requested mg/dl [facility] Comment:Performed at [place], [place] Blood specimen (specimen) 11/21/2009 9:45 EDT 11/21/2009 9:47 EDT Elsy Gaona APRN CHEMISTRY & BLOOD GAS ORD ERABLES Final Result Performing Organization Address [facility] Co de Phone Number [facility] [address] [place] [address] * (ABNORMAL) HEMAGRAM (11/21/2009 9:45 EDT) WBC 7.76 4.0 - 12.4 K/cmm [facility] RBC 4.52 3.86 - 5.04 M/cmm [facility] Hemoglobin 13.5 11.6 - 15.2 gm/dl [facility] HCT 37.5 34.9 - 44.4 % [facility] MCV 83 81 - 98 fl [facility] MCH 29.9 26.7 - 33.3 pg [facility] MCHC 36.0(H) 32.1 - 35.9 gm/dl [facility] PLT 277 141 - 320 K/cmm [facility] RDW-CV 11.3(L) 11.7 - 14.6 % [facility] Blood specimen (specimen) 11/21/2009 9:45 EDT 11/21/2009 9:47 EDT Elsy Gaona APRN HEMATOLOGY & PF4 ORDERABL ES Final Result Performing Organization Address [facility] [[email or web address]] de Phone Number [facility] [address] [place] [address] * CREATININE (11/21/2009 9:45 EDT) Creatinine Marked hemolysis Specimen unsuitable for analysis. Repeat Requested 0.7 - 1.5 mg/dl [facility] GFR, Calculated Marked hemolysis Specimen unsuitable for analysis. Repeat Requested ml/min/1. 73m2 [facility] Comment:Performed at [facility], [place], [place] Blood specimen (specimen) 11/21/2009 9:45 EDT 11/21/2009 9:47 EDT us Elsy Gaona MEDIA CONSULTANT CHEMISTRY & BLOOD GAS ORD ERABLES Final Result [facility] [address] [place] [address] documented in this encounter Visit Diagnoses Diagnosis MIGUEL (obstructive sleep apnea) Obstructive sleep apnea (adult) (pediatric) Morbid obesity ([facility]-CMS) Morbid obesity OA (osteoarthritis) of knee Osteoarthrosis, unspecified whether generalized or localized, lower leg PCOS (polycystic ovarian syndrome) Polycystic ovaries Preoperative testing Preoperative examination, unspecified documented in this encounter Care Teams Lapel Padder Blindstitch Relationship Specialty Start Date End Date Sulma Salinas MD [facility] [address] [place], [place] [id number] PCP - General 02/13/09 11/23/11 documented as of this encounter
--- OUTSIDE RECORDS SUMMARY | 2024-08-22 16:06 | XMS_ITS | Encounter Summary ---
Author Organization [facility] Address [address] [place] [address] Care Team Providers Care Sow Farm Technician Name Role Phone Sulma Salinas MD Primary Care Provider Encounter Details Date Type Department Care Team (Late st Contact Info) Description 03/06/2004 Results Only [facility] - Maple conversion [address] [place] [address] Tawny Yo NP [address] [facility],[address] [address] Social History Tobacco Use Types [...] Priority Date/Time Associated Diagnosis Comments CYTOPATHOLOGY Routine 03/06/2004 0:00 EDT documented in this encounter Results * CYTOPATHOLOGY (03/06/2004 0:00 EDT) Pathology Report: CYTOPATHOLOGY REPORT Reports generated via electronic interface contain original data; however they are lacking the format of the original report. Caution should be taken when reading/interpreti ng unformatted reports. Name: ? KEVIN CASTANO ? Accession #: ? [id number] : ? 1975 (Age: 28) ??F ?Collect Date: ? 03/06/2004 Location: ? [facility] ? Receive Date: ? 03/10/2004 Provider: ?TAWNY YO NP Copy to: ? Specimen/Source: ?ThinPrep Pap Test, Cervix/Endocervix Last Menstrual Period: ? 01/17 Hormonal/Contracep tive Status: ? Orthotricyclen Other: ? HPVA - HPV testing requested if ASC-US on the current ThinPrep Pap test. ? SPECIMEN ADEQUACY ? Satisfactory for Evaluation - transformation zone component present GENERAL CATEGORIZATION ? Negative for Intraepithelial Lesion or Malignancy ? Document reviewed and electronically signed by: ? MADELIN Baldwin(ASCP) ? Report Date: ??03/14/2004 13:13 End of Report [facility] 03/06/2004 03/10/2004 us Tawny Yo NP PATHOLOGY ORDERABLES Final R esult [facility] [address] [place] [address] documented in this encounter Visit Diagnoses Not on filedocumented in this encounter Care Teams Sow Farm Technician Relationship Specialty Start Date End Date Sulma Salinas MD [facility] [address] [place], [place] [id number] PCP - General 02/13/09 11/23/11 documented as of this encounter
--- OUTSIDE RECORDS SUMMARY | 2024-08-22 16:06 | XMS_ITS | Encounter Summary ---
Author Organization [facility] Address [address] [place] [address] Care Team Providers Care Millinery Blocker Name Role Phone Sulma Salinas MD Primary Care Provider Encounter Details Date Type Department Care Team (Late st Contact Info) Description 07/17/2009 Abstract [facility] OBGYN Services - [facility] [address] [place] [address] Sulma Salinas MD [facility] [address] [place] [id number] Social History Tobacco Use Types Packs/Day Years [...] Diagnoses Not on filedocumented in this encounter Historical Medications * This list may reflect changes made after this encounter. MULTIVITAMINS (MULTIVITAMIN ORAL) Take by mouth daily. 06/27/2013 added in this encounter Care Teams Millinery Blocker Relationship Specialty Start Date End Date Sulma Salinas MD [facility] [address] [place], [place] [address] PCP - General 02/13/09 11/23/11 documented as of this encounter
--- OUTSIDE RECORDS SUMMARY | 2024-08-22 16:06 | XMS_ITS | Encounter Summary ---
Author Organization [facility] Address [address] [place] [address] Care Team Providers Care Grain Sacker Name Role Phone Sulma Salinas MD Primary Care Provider Encounter Details Date Type Department Care Team (Late st Contact Info) Description 11/25/2000 Results Only [facility] - Maple conversion [address] [place] [address] Kev Cloud MD [address] [place] [address] Social History Tobacco Use Types Packs/Day [...] Priority Date/Time Associated Diagnosis Comments CYTOPATHOLOGY Routine 11/25/2000 0:00 EDT documented in this encounter Results * CYTOPATHOLOGY (11/25/2000 0:00 EDT) Pathology Report: CYTOPATHOLOGY REPORT Reports generated via electronic interface contain original data; however they are lacking the format of the original report. Caution should be taken when reading/interpreti ng unformatted reports. Name: ? KEVIN CASTANO ? Accession #: ? [id number] : ? 1975 (Age: 25) ??F ?Collect Date: ? 11/25/2000 Location: ? [facility] ? Receive Date: ? 11/29/2000 Provider: ?KEV CLOUD MD Copy to: ? Specimen/Source: ?Conventional Pap Test, Cervix/Endocervix Last Menstrual Period: ? 11/12/00 Hormonal/Contracep tive Status: ? Yes ? SPECIMEN ADEQUACY ? Satisfactory for evaluation but limited by an absence of a transformation zone component. GENERAL CATEGORIZATION ? Within Normal Limits ? Document reviewed and electronically signed by: ? MADELIN Don(ASCP) ? Report Date: ??11/30/2000 08:01 End of Report [facility] 11/25/2000 11/29/2000 us Kev Cloud MD PATHOLOGY ORDERABLES Final Resul t [facility] [address] [place] [address] documented in this encounter Visit Diagnoses Not on filedocumented in this encounter Care Teams Grain Sacker Relationship Specialty Start Date End Date Sulma Salinas MD [facility] [address] [place] [address] PCP - General 02/13/09 11/23/11 documented as of this encounter
--- OUTSIDE RECORDS SUMMARY | 2024-08-22 16:06 | XMS_ITS | Encounter Summary ---
Author Organization [facility] Address [address] [place] [address] Care Team Providers Care Interface Developer Name Role Phone Sulma Salinas MD Primary Care Provider [phone] Reason for Visit * Reason Onset Date Comments Abdominal Cramping 07/16/2010 Encounter Details Date Type Department Care Team (Late st Contact Info) Description 07/16/2010 Telephone [facility] Bariatric Surgery - [place] [address] [place] [address] Lorena Garduno RN [address] [place] [address] Abdominal Cramping Social History Tobacco Use Types Packs/Day Years [...] * Telephone Encounter - Lorena Garduno. - 07/16/2010 1618 EST Patient s/p RYGBP 07/08/10. Calls reporting lower abdominal cramping and gas pain. States that pain started yesterday after eating cream soup. Reports intermittent lower abdominal pain, crampy in nature and does not travel. States, It feels like bubbles moving around. Reports last bowel movement was yesterday, formed. Reports slight feeling of nausea today but took zofran with good results. Denies any vomiting. Tolerating full liquids. Denies fever, chills, SOB or any s/sx of infection. Encouraged patient to try chewable gas-x and increase movement. Also suggested avoiding cream soupsfor the meantime. Continue with full liquids as able. Patient to call if pain continues, changes, worsens or if she develops any further nausea. Also to call with any vomiting, inability to take po, s/sx infection, fever. Patient verbalized understanding. No barriers to learning noted. Dr. Garner notified. documented in this encounter Plan of Treatment Not on file documented as of this encounter Visit Diagnoses Not on filedocumented in this encounter Care Teams Interface Developer Relationship Specialty Start Date End Date Sulma Salinas MD [facility] [address] [place] [address] PCP - General 02/13/09 11/23/11 documented as of this encounter
--- OUTSIDE RECORDS SUMMARY | 2024-08-22 16:06 | XMS_ITS | Encounter Summary ---
Author Organization [facility] Address [address] [place] [address] Care Team Providers Care Educational Administration Teacher Name Role Phone Unavailable Primary Care Provider Unavailabl e Encounter Details Date Type Department Care Team (Late st Contact Info) Description 10/23/2008 14:20 EDT Hospital Encounter [facility] [place] [address] [place] [address] Srinivasan Grimes MD PhD Social History Tobacco Use Types Packs/Day Years [...]
--- OUTSIDE RECORDS SUMMARY | 2024-08-22 16:06 | XMS_ITS | Encounter Summary ---
Author Organization [facility] Address [address] [place] [address] Care Team Providers Care Security And Compliance Analyst Name Role Phone Sulma Salinas MD Primary Care Provider [phone] Encounter Details Date Type Department Care Team (Late st Contact Info) Description 07/16/2000 Results Only [facility] - Maple conversion [address] [place] [address] Donald Clancy MD [address] [place] [address] Social History Tobacco Use Types Packs/Day Years [...] Procedure Name Priority Date/Time Associated Diagnosis Comments SURGICAL PATHOLOGY Routine 07/16/2000 0:00 EST documented in this encounter Results * SURGICAL PATHOLOGY (07/16/2000 0:00 EST) Pathology Report: SURGICAL PATHOLOGY REPORT Reports generated via electronic interface contain original data; however they are lacking the format of the original report. Caution should be taken when reading/interpreti ng unformatted reports. Name: ? LALITTASHKEVIN ? Accession #: ? [id number] ? : ? 1975 (Age: 25) ??F ? Collect Date: ? 07/16/2000 ? Location: ? [facility] ? Receive Date: ? 07/17/2000 ? Provider: DONALD CLANCY MD Copy to: JESUS CLOUD MD ? Final Pathologic Diagnosis: ? Gallbladder, cholecystectomy: 1. ?Chronic and subacute cholecystitis. 2. ?Cholelithiasis. Document reviewed and electronically signed by: Bravo Clark MD Report ??Date: 07/20/2000 18:03 By the signature above, the attending physician certifies that he/she has personally conducted a gross and/or microscopic examination of the described specimens and rendered or confirmed the above diagnosis. Specimen(s) Received: ? Gallbladder and contents Clinical History: ? Biliary colic Gross Description: ? Received in formalin labelled [place] and gallbladder with contents is an unopened gallbladder measuring 6.0 cm in length and 2.0 cm in diameter. ??The serosal surface is chau-pink to chau-white and generally smooth. ??There are six mixed circular, chau-orange to chau-brown calculi in the gallbladder lumen ranging in size from 0.4 x 0.4 x 0.4 cm to 1.5 x 0.8 x 1.1 cm. ??The gallbladder wall ranges in thickness from 0.1 cm to 0.2 cm. ??The mucosa is chau-brown, velvety, and focally hemorrhagic with one area of chau-white fibrosis measuring 0.1 x 0.1 x 0.1 cm. ??The portion of cystic duct contains a large 0.5 x 0.5 x 0.5 cm, circular, mixed calculus. ??The cystic duct measures 1.5 cm in length and ranges in circumference from 0.2 cm to 0.5 cm. ??There is one potential lymph node present measuring 0.5 x 0.5 x 0.2 cm. ??Three sales representative wire rope sections of gallbladder wall are submitted as (A1). ??The potential cystic lymph nodes are submitted as (A2). ??(Dr. Marie)/[facility] End of Report [facility] 07/16/2000 07/17/2000 9:2 3 EST us Donald Clancy MD PATHOLOGY ORDERABLES Final Result [facility] [address] [place] [address] documented in this encounter Visit Diagnoses Not on filedocumented in this encounter Care Teams Security And Compliance Analyst Relationship Specialty Start Date End Date Sulma Salinas MD [facility] [address] [place], [place] [phone] PCP - General 02/13/09 11/23/11 documented as of this encounter
--- OUTSIDE RECORDS SUMMARY | 2024-08-22 16:06 | XMS_ITS | Encounter Summary ---
Author Organization [facility] Address [address] [place] [address] Care Team Providers Care Control And Recovery Special Tactics Name Role Phone Sulma Salinas MD Primary Care Provider Unknown, Provider Primary Care Provider Sulma Campos MD Primary Care Provider [phone] Encounter Details Date Type Department Care Team (Late st Contact Info) Description 02/06/2010 Documentation Visit [facility] Bariatric Surgery - [place] [address] [place] [address] Elsy Gaona, EXPRESSIVE MUSIC THERAPIST [address] [id number] Social History Tobacco Use Types Packs/Day Years [...] on filedocumented in this encounter Care Teams Control And Recovery Special Tactics Relationship Specialty Start Date End Date Sulma Salinas MD [facility] [address] [place], [place] [address] PCP - General 02/13/09 11/23/11 Unknown, MD Jean Paul PCP - General 11/24/11 06/26/13 Sulma Salinas MD [address] [place] [address] PCP - General 06/27/13 documented as of this encounter
--- OUTSIDE RECORDS SUMMARY | 2024-08-22 16:06 | XMS_ITS | Encounter Summary ---
Author Organization [facility] Address [address] [place] [address] Care Team Providers Care Horticulturalist Name Role Phone Sulma Salinas MD Primary Care Provider Encounter Details Date Type Department Care Team (Late st Contact Info) Description 12/27/2001 Results Only [facility] - Maple conversion [address] [place] [address] Tawny Yo NP [address] [facility],[address] [address] Social History Tobacco Use Types [...] Priority Date/Time Associated Diagnosis Comments CYTOPATHOLOGY Routine 12/27/2001 0:00 EDT documented in this encounter Results * CYTOPATHOLOGY (12/27/2001 0:00 EDT) Pathology Report: CYTOPATHOLOGY REPORT Reports generated via electronic interface contain original data; however they are lacking the format of the original report. Caution should be taken when reading/interpreti ng unformatted reports. Name: ? KEVIN CASTANO ? Accession #: ? [id number] : ? 1975 (Age: 26) ??F ?Collect Date: ? 12/27/2001 Location: ? [facility] ? Receive Date: ? 12/30/2001 Provider: ?TAWNY YO NP Copy to: ? Specimen/Source: ?ThinPrep Pap Test, Cervix/Endocervix Last Menstrual Period: ? 12/14/01 Hormonal/Contracep tive Status: ? Yes Other: ? DHPV - HPV testing requested if ASCUS/ELIZABETH on the current ThinPrep Pap test. ? SPECIMEN ADEQUACY ? Satisfactory for Evaluation - transformation zone component present GENERAL CATEGORIZATION ? Negative for Intraepithelial Lesion or Malignancy ? Document reviewed and electronically signed by: ? MADELIN Alford(ASCP) ? Report Date: ??01/03/2002 12:33 End of Report [facility] 12/27/2001 12/30/2001 us Tawny Yo NP PATHOLOGY ORDERABLES Final R esult [facility] [address] [place] [address] documented in this encounter Visit Diagnoses Not on filedocumented in this encounter Care Teams Horticulturalist Relationship Specialty Start Date End Date Sulma Salinas MD [facility] [address] [place], [place] [id number] PCP - General 02/13/09 11/23/11 documented as of this encounter
--- OUTSIDE RECORDS SUMMARY | 2024-08-22 16:06 | XMS_ITS | Encounter Summary ---
Author Organization [facility] Address [address] [place] [address] Care Team Providers Care Order Control Clerk Blood Bank Name Role Phone Sulma Salinas MD Primary Care Provider [phone] Reason for Visit * Reason Onset Date Comments Other 06/10/2010 Encounter Details Date Type Department Care Team (Late st Contact Info) Description 06/10/2010 Telephone [facility] Bariatric Surgery - [address] [address] Lorena Garduno, RN [address] [place] [address] Other Social History Tobacco Use Types Packs/Day Years Used Date Smoking Tobacco: Former Comments:1996 Comments No Sex and Gender Information Value Date Recorded Sex Assigned at Not on file Legal Sex Female 18:25 EST Gender Identity Not on file Sexual Orientation Not on file documented as of this encounter Miscellaneous Notes * Telephone Encounter - Lorena Garduno - 06/10/2010 1016 EDT Per Manda Gaona, New script called to [facility] (pt's insurance will not cover prevacid solutab) Omeprazole 40 mg; take one capsule daily x 90 days; no refills. Patient educated regarding directions after surgery (open capsule and take contents). Pt verbalizedunderstanding. No barriers to learning noted. documented in this encounter Plan of Treatment Not on file documented as of this encounter Visit Diagnoses Not on filedocumented in this encounter Care Teams Order Control Clerk Blood Bank Relationship Specialty Start Date End Date Sulma Salinas MD [facility] [address] [place] [address] PCP - General 02/13/09 11/23/11 documented as of this encounter
--- OUTSIDE RECORDS SUMMARY | 2024-08-22 16:06 | XMS_ITS | Encounter Summary ---
Author Organization [facility] Address [address] [place] [address] Care Team Providers Care Slag Wheeler Name Role Phone Sulma Troncoso MD Primary Care Provider [phone] Encounter Details Date Type Department Care Team (Latest Contact Info) Description 07/08/2010 5:56 EST - 07/11/2010 13:14 EST Hospital Encounter [facility] [address] [place] [address] Kasandra Hobbs MD [address] [place] [phone] Discharge Disposition: Home or Self Care [...] Sign Reading Time Taken Comments Blood Pressure 133/73 07/11/2010 1119 EST Pulse 72 07/11/2010 1119 EST Temperature 37.6 ??C (99.7 ??F) 07/11/2010 1119 EST Respiratory Rate 16 07/11/2010 1119 EST Oxygen Saturation 94% 07/11/2010 1119 EST Inhaled Oxygen Concentration - - Weight - - Height - - Body Mass Index - - documented in this encounter Mental Status * Because of a physical, mental, or emotional condition, do you have serious difficulty concentrating, remembering, or making decisions? (5 years old or older) Answer Entry Date Author Yes 07/08/2010 15:01 EST Eladio Russ RN documented in this encounter Discharge Summaries * Kasandra Hobbs MD - 07/08/2010 0959 EST Discharge Summary Chief Complaint/Reason for Admission: Morbid Obesity Principal/Final Diagnosis: same Principal Procedure: Laparoscopic gastric bypass Date: 07/08/2010 Secondary Procedures: none Prognosis: good Condition at Discharge: Good Relevant Studies at Discharge: none Assessment at Discharge: Vital signs: Patient Vitals in the past 12 hrs: BP Temp Pulse Resp SpO2 07/11/10 1119 133/73 mmHg 37.6 ??C (99.7 ??F) 72 16 94 % 07/11/10 0736 130/69 mmHg 37.3 ??C (99.1 ??F) 72 16 96 % 07/11/10 0444 122/76 mmHg 36.8 ??C (98.2 ??F) 66 16 96 % 07/11/10 0026 122/85 mmHg 37.4 ??C (99.3 ??F) 63 16 93 % Hospital Course: This patient was seen and evaluated in our clinic. She was admitted on 07/08 and was taken to the operating room where a laparoscopic gastric bypass was performed without complication. She was recovered and brought to the floor. She did well. She had an UGI on POD1 that showed no leak. Her diet was advanced per protocol and she tolerated it well. She is discharged to home with drains in place and she will follow up in our clinic. Last Lab Results at Discharge: n/a Discharge Summary Completed: 07/11/10 Attestation statement: I saw and examined the patient with the medical student and the president & ceo blue team. I agree with the findings, assessment, and plan as outlined above. Doing well ,no complaints.Drain Small amount of serous discharge ,DCI trocar sites. D/C home on pain meds & prevacid solu tab 30 for 3 months. To resume all home Po meds Crushed . Clear Diet for 2 weeks. Instruction: No driving while on pain meds.No lifting or abdominal exercise for at least 6 weeks.She can walk. No bathing but she can shower. To be seen in the Bariatric clinic next week. To take appointment with her PCP for F/U. To call the office if any changes in her general health including but not limited to ,nausea, vomiting,fever, Pain ( abd & shoulder or wound swelling or discharge. The patient and her family demonstrated full understanding of these instructions. documented in this encounter Discharge Instructions * Discharge Instructions* Mary Anne Coronado MD - 07/11/2010 11:55 EST Diet: Clear liquids for 4 days (through Wednesday), then full liquids for 10 days starting on Wednesday Medications: Any medication should be crushed or the capsule opened. Activity: No heavy lifting or strenuous activity for 6 weeks Driving: No driving while taking narcotic pain medication Skin/Wound Care: Okay to get wound wet, but pat dry. Do NOT rub the wound area. Let Steri-Strips fall off on their own. Call your provider for problems with stiches, redness, pain, drainage or if stiches pull apart. Empty and record drain output every day Bathing: Okay to get wound wet, but pat dry. Do NOT rub the wound area. Shower only Pending Results: Not applicable Symptoms to Call Your Doctor About: Chest pain (angina) Fever greater than 101 or chills Inability to swallow or increasing difficulty swallowing Increased or new pain Nausea or vomiting Shortness of breath or rapid breathing Signs of infection such as pain, redness, swelling or drainage at procedure or wound site Appointments: Keep your previously scheduled appointment at [facility] on 07/18/10. See Dr. Kasandra Garner MD in 2 weeks. Please call for an appointment. See Dr. SULMA TRONCOSO MD as needed. Please call for an appointment. Follow-up Services Contacted at Discharge: Attending physician Health Risk and Disease Information: Not applicable documented in this encounter Medications at Time [...] mouth every 6 hours as needed. 1 lansoprazole (PREVACID SOLUTAB) 30 mg disintegrating tabletIndications:Mo rbid obesity (HCC-CMS),MIGUEL (obstructive sleep apnea),GERD (gastroesophageal reflux disease),OA (osteoarthritis) of knee,PCOS (polycystic ovarian syndrome),Vitamin D deficiency Take 1 Tab by mouth daily. 90 Tab 1 06/09/2010 0 MULTIVITAMINS (MULTIVITAMIN ORAL) Take by mouth daily. 3 ondansetron (ZOFRAN-ODT) 4 mg disintegrating tablet Take 1 Tab by mouth every 8 hours as needed for Nausea. 20 Tab 0 07/11/2010 1 UNABLE TO FIND 1 Tab daily. BCP 1 documented as of this encounter Ordered Prescriptions Prescription Sig Dispense Quantity Refills Last Filled Start Date End Date ondansetron (ZOFRAN-ODT) 4 mg disintegrating tablet Take 1 Tab by mouth every 8 hours as needed for Nausea. 20 Tab 0 07/11/2010 1 Hydromorphone (DILAUDID) 1 mg/mL Liqd Take 2-4 mL by mouth every 4 hours as needed for Pain. 200 mL 0 07/11/2010 1 documented in this encounter Discharge Disposition Disposition Code Departure Means Destination Home or Self Care documented in this encounter Progress Notes * Alissa Salas - 07/11/2010 1317 EST Discharge Note Pt discharged home with no needs She declined home care services and is comfortable with drain care All needs addressed Alissa Salas OCCUPATIONAL HEALTH MANAGER [facility] 5[address] * Kasandra Hobbs MD - 07/11/2010 0743 EST Surgery Progress Note Admit Date: 07/08/2010 Hospital Day: LOS: 3 days Date of Service: 07/11/2010 POD: 3 Procedure: Lap gastric bypass Subjective/Chief Complaint: Pain controlled. Drinking well. No nausea, no flatus. Current facility-administered medications Medication Route Frequency ??? Hydromorphone (DILAUDID) liquid 2-4 mg Oral Q4H PRN ??? pantoprazole (PROTONIX) tablet 40 mg Oral DAILY ??? ketorolac (TORADOL) 30 mg/mL (1 mL) injection ??? promethazine (PHENERGAN) injection 12.5 mg Intravenous Q6H PRN ??? ondansetron (PF) (ZOFRAN) injection 4 mg Intravenous Q4H PRN ??? heparin injection 5,000 Units Subcutaneous Q8H Review of Systems: Pertinent items are noted in Subjective/HPI Objective/Physical Exam: Vital Signs: Temp: [36.4 ??C (97.5 ??F)-37.7 ??C (99.9 ??F)] , Pulse: [63-86] , Resp: [16-18] , BP:(122-150)/(62-98) , SpO2: [93 %-98 %] SpO2: 96 % O2 Device: None (Room air) Pain: Patient Numeric Pain Scale in the past 8 hrs: Numeric Pain Level (Scale 1-10) 07/11/10 0045 1 I+O: Intake/Output Summary (Last 24 hours) at 07/11/10 0743 Last data filed at 07/11/10 0600 Gross per 24 hour Intake 1930 ml Output 1875 ml Net 55 ml Exam: General Appearance: alert, no distress Lung: clear to auscultation bilaterally Heart: regular rate and rhythm Abdomen: Soft, appropriately tender, Normal bowel sounds, drains with serosang. Steri's in place, minimal erythema and no purulence. Extremities: all extremities warm and well perfused, minimal edema Skin: Skin color, tempature, turgor normal. No rashes or lesions Incision(s)/Wound(s): clean, dry, intact dressings Assessment: POD 3 lap gastric bypass. Doing well. On pathway. Problems/Plan: (update problem list daily as appropriate) Active Hospital Problems Diagnoses ??? *Morbid obesity Class: Permanent Lap gastric bypass 07/08/2010 ??? MIGUEL (obstructive sleep apnea) Class: Permanent Severe - PO dilaudid pain control - Anti-emesis meds. - OK to shower - Clears - Ambulate/IS use - Cont PPI & DVT ppx. - DC home today DVT Prophylaxis: Pharmacologic Prophylaxis: Heparin 5000 units SQ Tid, Seqential Compression Deviceand Ambulate Discharge Plan: Home or self care Sydnie Porter MD 07/11/2010 7:43 Attestation statement: I saw and examined the patient with the medical student and the president & ceo blue team. I agree with the findings, assessment, and plan as outlined above. Doing well ,no complaints.Drain Small amount of serous discharge ,DCI trocar sites. D/C home on pain meds & prevacid solu tab 30 for 3 months. To resume all home Po meds Crushed. Clear Diet for 2 weeks. Instruction: No driving while on pain meds.No lifting or abdominal exercise for at least 6 weeks.She can walk. No bathing but she can shower. To be seen in the Bariatric clinic next week. To take appointment with her PCP for F/U. To call the office if any changes in her general health including but not limited to ,nausea, vomiting,fever, Pain ( abd & shoulder or wound swelling or discharge. The patient and her family demonstrated full understanding of these instructions. * Kasandra Hobbs MD - 07/10/2010 0738 EST Surgery Progress Note Admit Date: 07/08/2010 Hospital Day: LOS: 2 days Date of Service: 07/10/2010 POD: 2 Procedure: Lap gastric bypass Subjective/Chief Complaint: Pain controlled. No nausea, no flatus. Current facility-administered medications Medication Route Frequency ??? dextrose 5 % and 0.45 % NaCl with KCl 20 mEq/L infusion Intravenous CONTINUOUS ??? morphine 2 mg/ml (DURAMORPH) DRILL SETUP OPERATOR, 30 ml syringe Intravenous DRILL SETUP OPERATOR ??? ketorolac (TORADOL) 30 mg/mL (1 mL) injection ??? morphine 2 mg/ml (DURAMORPH) 2 mg/mL DRILL SETUP OPERATOR, 30 ml syringe ??? promethazine (PHENERGAN) injection 12.5 mg Intravenous Q6H PRN ??? ondansetron (PF) (ZOFRAN) injection 4 mg Intravenous Q4H PRN ??? heparin injection 5,000 Units Subcutaneous Q8H Review of Systems: Pertinent items are noted in Subjective/HPI Objective/Physical Exam: Vital Signs: Temp: [36.3 ??C (97.3 ??F)-37.2 ??C (99 ??F)] , Pulse: [59-75] , Resp: [16-20] , BP: (105-184)/(70-112) , SpO2: [92 %-99 %] SpO2: 92 % O2 Device: None (Room air) Pain: Patient Numeric Pain Scale in the past 8 hrs: Numeric Pain Level (Scale 1-10) 07/10/10 0737 4 07/10/10 0635 4 Glucose Readings: (last 2 readings) No results found for this basename: GLUCOSEFINGE:2 in the last 72 hours I+O: Intake/Output Summary (Last 24 hours) at 07/10/10 0738 Last data filed at 07/10/10 0736 Gross per 24 hour Intake 4111.09 ml Output 4365 ml Net -253.91 ml Exam: General Appearance: alert, no distress Lung: clear to auscultation bilaterally Heart: regular rate and rhythm Abdomen: Soft, appropriately tender, Hypoactive bowel sounds, drains with serosang. Output- 2 drains and 5 dressings all c/d/i. Removed and steri's in place, minimal erythema and no purulence. Extremities: all extremities warm and well perfused Skin: Skin color, tempature, turgor normal. No rashes or lesions Incision(s)/Wound(s): clean, dry, intact dressings I Assessment: POD 2 lap gastric bypass. Doing well. On pathway. Problems/Plan: (update problem list daily as appropriate) Active Hospital Problems Diagnoses ??? *Morbid obesity Class: Permanent Lap gastric bypass 07/08/2010 ??? MIGUEL (obstructive sleep apnea) Class: Permanent Severe -Transition DRILL SETUP OPERATOR to orals dilaudid. IV for breakthrough -Anti-emesis meds. -OK to shower -Clears -Ambulate/IS use -Cont PPI & DVT ppx. DVT Prophylaxis: Pharmacologic Prophylaxis: Heparin 5000 units SQ Tid, Seqential Compression Deviceand Ambulate Discharge Plan: Home or self care Thierno Drake MD 07/10/2010 7:38 Attestation statement: I saw and examined the patient. Discussed with the president & ceo / blue team. I agree with the findings, assessment, and plan as outlined above. Doing well this Am, , no complaints.No N/V. Pain under control. . AVSS. (-) GI Fx. Drains serous discharge. DCI= trocar sites. Upper GI reviewed with radiology ,no leak or obstruction. Water and grape juice today. OOB Drain teaching. Cont PPI & DVT ppx. D/C planning in AM * Alissa Salas - 07/09/2010 4796 EST Brief Case Management Assessment Reason for Hospitalization: CM met with pt and today postop day one lap gastric bypass.Pt notes pain is under better control and she has ambulated Current Living Arrangements: They reside in [facility].Both are employed and active with daily life Current Social, Health Care and Community Supports: plans to take time off from work to assist.They have good supports Identified Case Management/Social Work Needs and Issues (housing, care, financial, transportation, cultural, spiritual, emotional, legal, etc.): Insurance is [place].Pt has enough sick time and then some to cover her time off from work Case Management Actions (completed and planned): CM explained role during her stay.Pt is well supported.We discussed JAMIE drain care at discharge. willing to learn.CM will determine if HH services needed at discharge with [place] 07/11 No other needs presently assessed.CM will follow for discharge planninng Alissa Salas OCCUPATIONAL HEALTH MANAGER [facility] [address] * Toro Brink CRNA - 07/09/2010 1214 EST Post Anesthesia Evaluation Date of Service: 07/09/2010 The patient has been evaluated, assessed and discharged from anesthesia care with stable cardiorespiratory function and acceptable mental status, pain management, body temperature, fluid balance, andnausea/vomiting control. Additional monitoring and assessment needs have been addressed. If present, postoperative events are documented below. TORO BRINK CRNA 07/09/2010 12:14 * Kasandra Hobbs MD - 07/09/2010 0706 EST Surgery Progress Note Admit Date: 07/08/2010 Hospital Day: LOS: 1 day Date of Service: 07/09/2010 POD: 1 Procedure: Lap gastric bypass Subjective/Chief Complaint: Pain controlled, toradol works well. No nausea, no flatus. Current facility-administered medications Medication Route Frequency ??? dextrose 5 % and 0.45 % NaCl with KCl 20 mEq/L infusion Intravenous CONTINUOUS ??? ketorolac (TORADOL) injection 15 mg Intravenous Q6H PRN ??? morphine 2 mg/ml (DURAMORPH) DRILL SETUP OPERATOR, 30 ml syringe Intravenous DRILL SETUP OPERATOR ??? ketorolac (TORADOL) 30 mg/mL (1 mL) injection ??? morphine 2 mg/ml (DURAMORPH) 2 mg/mL DRILL SETUP OPERATOR, 30 ml syringe ??? metoCLOPramide (REGLAN) injection 10 mg Intravenous Q6H ??? promethazine (PHENERGAN) injection 12.5 mg Intravenous Q6H PRN ??? ondansetron (PF) (ZOFRAN) injection 4 mg Intravenous Q4H PRN ??? ceFAZolin (ANCEF) 1,000 mg in sodium chloride 0.9 % 50 mL IVPB Intravenous Q8H ??? heparin injection 5,000 Units Subcutaneous Q8H Review of Systems: Pertinent items are noted in Subjective/HPI Objective/Physical Exam: Vital Signs: Temp: [36.8 ??C (98.2 ??F)-37.6 ??C (99.7 ??F)] , Pulse: [65-97] , Resp: [14-24] , BP:(134-159)/(80-99) , SpO2: [94 %-100 %] SpO2: 94 % O2 Device: None (Room air) Pain: Patient Numeric Pain Scale in the past 8 hrs: Numeric Pain Level (Scale 1-10) 07/09/10 0705 6 07/09/10 0105 6 07/09/10 0000 6 Glucose Readings: (last 2 readings) No results found for this basename: GLUCOSEFINGE:2 in the last 72 hours I+O: Intake/Output Summary (Last 24 hours) at 07/09/10 0707 Last data filed at 07/09/10 0548 Gross per 24 hour Intake 4267 ml Output 3200 ml Net 1067 ml Exam: General Appearance: alert, no distress Lung: clear to auscultation bilaterally Heart: regular rate and rhythm Abdomen: Soft, appropriately tender, +bowel sounds Extremities: all extremities warm and well perfused Skin: Skin color, tempature, turgor normal. No rashes or lesions Incision(s)/Wound(s): clean, dry, intact dressings Is PICC or Central line present? No, PICC/Central line not present. Data Review: NA Labs: N/A Telemetry: no Other Studies: Assessment: POD1 lap gastric bypass. Doing well. On pathway. Problems/Plan: (update problem list daily as appropriate) Active Hospital Problems Diagnoses ??? *Morbid obesity Class: Permanent Lap gastric bypass 07/08/2010 ??? MIGUEL (obstructive sleep apnea) Class: Permanent Severe UGI this am, if OK will d/c blanco and start 30cc cups Ambulate/IS use Continue DRILL SETUP OPERATOR toradol DVT Prophylaxis: Pharmacologic Prophylaxis: Heparin 5000 units SQ Tid, Seqential Compression Deviceand Ambulate Discharge Plan: Home or self care CLARK Terry 07/09/2010 7:07 Attestation statement: I saw and examined the patient. Discussed with the president & ceo / blue team. I agree with the findings, assessment, and plan as outlined above. Doing well, no complaints.No N/V. Pain under control. AVSS. (-) GI Fx. Drains serous discharge. DCI= trocar sites. Upper GI today if OK d/c Blanco and start 30cc cups water. OOB Cont PPI & DVT ppx. * Axel Lawler - 07/08/2010 1632 EST Post Operative Check Procedure: lap antecolic antegastric RYGBP, anterior cruroplasty & IO EGD y S: Pt felt a bit nauseated, relieved with Phenergan. O: BP 158/88 Pulse 86 Temp 37.2 ??C (99 ??F) Resp 16 SpO2 96% Physical Exam: General: NAD, awake and alert and oriented to person, place, and date Abdomen: soft, appropriately tender, non-distended, - BS Dressings: some serosanguinous drainage Heart: RRR, no MRG Lungs: CTAB Extremities: DP and RA pulses 2+, no edema or swelling Drains: JAMIE x 2 with serosanguinous drainage A/P: 35 y.o. female s/p RYGBP, doing well - NPO until tomorrow --> swallow study and if it shows patency --> sips of clears - Phenergan prn nausea - OOB tomorrow - Encourage IS - Pain with DRILL SETUP OPERATOR Axel Lawler MD 07/08/2010 16:46 Pager #[phone] * Cyn Drake MD - 07/08/2010 8106 EST Post Anesthesia Evaluation Date of Service: 07/08/2010 The patient has been evaluated, assessed and discharged from anesthesia care with stable cardiorespiratory function and acceptable mental status, pain management, body temperature, fluid balance, andnausea/vomiting control. Additional monitoring and assessment needs have been addressed. If present, postoperative events are documented below. CYN DRAKE MD 07/08/2010 13:38 * Gracy Sanders RN - 07/08/2010 1322 EST Care of pt returned to Kathy Navarro.-djp * Gracy Sanders RN - 07/08/2010 1308 EST Pt sleeping, no s/s of increased pain, remains at bedside.-djp * Gracy Sanders RN - 07/08/2010 1303 EST Pt awake, states 8/10 pain, reminded pt to use DRILL SETUP OPERATOR and push button for medication administration. * Gracy Sanders RN - 07/08/2010 1247 EST Received report from Kathy Navarro for lunch relief. Pt sleepy, at bedside, VSS.-djp * Camilla Marino RN - 07/08/2010 1155 EST Admitted to pacu, vss, rates pain at a 7, follows commands, NT present, simple mask on, pt with 5 lap sites cdi and 2 jmaie's. 1330- Nasal trumpet removed, washed pt's face to get blue dye off, rates pain at a 4, bed requested, Anesthesia d/c done 1354- report called to [facility]-Jodi * Cailin Araiza RN - 06/26/2010 1447 EST Kevin Calderon has been instructed as follows regarding medication administration for the day of the scheduled procedure. Date of Surgery: 07/08/10 Instructions for Taking Medications Day of Surgery Medication Last Dose Hold DOS Take DOS lansoprazole (PREVACID SOLUTAB) 30 mg disintegrating tablet Take ERGOCALCIFEROL (VITAMIN D ORAL) Hold Ibuprofen 07/01/10 MULTIVITAMINS (MULTIVITAMIN ORAL) 07/01/10 documented in this encounter H&P Notes * Hunter Bynum PA - 07/28/2010 1026 EST No changes since H&P dated 06/10 No questions. Consent done previously CLARK Terry Cosigned by Brtet Schultz MD at 07/30/2010 7:01 EST * Hunter Bynum PA - 07/08/2010 0702 EST No changes since H&P dated 06/10 No questions. Consent done previously CLARK Terry Source Note - Elsy Gaona NP - 06/10/2010 19:39 EDT Chief Complaint: Morbid obesity Planned Procedure:LRYGBP Surgeon:Jennifer Planned Procedure Date: 07/08/10 Patient Active Problem List Diagnoses Code ??? Morbid obesity 278.01 ??? MIGUEL (obstructive sleep apnea) 327.23H ??? GERD (gastroesophageal reflux disease) 530.81S ??? OA (osteoarthritis) of knee 715.96P ??? PCOS (polycystic ovarian syndrome) 256.4AE ??? Vitamin D deficiency 268.9G HISTORY OF PRESENT ILLNESS: Chief Complaint Patient presents with ??? Obesity Kevin Calderon is a 35 y.o., female, presents with child onset obesity. No past medical history on file. Past Surgical History Procedure Date ??? Cholecystectomy, laparoscopic ??? Knee surgery right knee x 2 ??? Carpal tunnel release Family History Problem Relation Age of Onset ??? Diabetes Mother ??? Diabetes Sister gestational ??? Diabetes Maternal Uncle ??? Diabetes Maternal Grandmother ??? Heart Disease Maternal Grandmother AR ??? Heart Disease Maternal Grandfather AR ??? Stroke Maternal Grandfather History Social History ??? Marital Status: Spouse Name: N/A Number of Children: N/A ??? Years of Education: N/A Social History Main Topics ??? Tobacco Use: Quit 1996 ??? Alcohol Use: rare ??? Drug Use: No ??? Sexually Active: Yes -- Male partner(s) Control/ Protection: OCP Other Topics Concern ??? Not on file Social History Narrative ??? No narrative on file Current outpatient prescriptions ordered prior to encounter Medication Sig Dispense Refill ??? ERGOCALCIFEROL (VITAMIN D ORAL) Take 1,000 Units by mouth daily. ??? UNABLE TO FIND 1 Tab daily. BCP ??? MULTIVITAMINS (MULTIVITAMIN ORAL) Take by mouth daily. Allergies Allergen Reactions ??? Percocet (Oxycodone-acetaminophen) Hives Review of Systems - Psychological ROS: negative Allergy and Immunology ROS: denies allergy to metal, latex, or iodine Hematological and Lymphatic ROS: negative for - bleeding problems, blood clots or blood transfusions Endocrine ROS: PCOS Breast ROS: negative for breast lumps Respiratory ROS: no cough, shortness of breath, or wheezing MIGUEL with CPAP set at Cardiovascular ROS: no chest pain or dyspnea on exertion Gastrointestinal ROS: EGD 08/25 demonstrates 4 cm HH, esophagitis and gastritis, GERD Genito-Urinary ROS: PCOS, last pap test - 1 yr ago and neg. Musculoskeletal ROS: LBP with menses Neurological ROS: negative Labs from 04/25 were wnl except for low vit D OBJECTIVE: BP 110/80 Pulse 76 Ht 164.2 cm (64.65) Wt 122.29 kg (269 lb 9.6 oz) Body mass index is 45.36kg/(m^2). Neck: supple, symmetrical, trachea midline, thyroid: not enlarged, symmetric, no tenderness/mass/nodules, no carotid bruit and no JVD Lungs: clear to auscultation bilaterally Heart: regular rate and rhythm, S1, S2 normal, no murmur, click, rub or gallop Abdomen: soft, non-tender; bowel sounds normal; no masses, no organomegaly, no bruit, skin rashes, or lesions Neurologic: Grossly normal Extremities: extremities warm, atraumatic, no cyanosis or edema positive pulses bilat Pulses: 2+ and symmetric ASSESSMENT and PLAN: Kevin was seen today for preop H&P for LRYGBP No contraindication to surgery pending: CPAP setting Diagnoses and associated orders for this visit: Morbid obesity - ibuprofen (MOTRIN) 200 mg tablet; Take 200 mg by mouth every 6 hours as needed. - EKG 12 lead Miguel (obstructive sleep apnea) - ibuprofen (MOTRIN) 200 mg tablet; Take 200 mg by mouth every 6 hours as needed. - EKG 12 lead Gerd (gastroesophageal reflux disease) - ibuprofen (MOTRIN) 200 mg tablet; Take 200 mg by mouth every 6 hours as needed. - EKG 12 lead Oa (osteoarthritis) of knee - ibuprofen (MOTRIN) 200 mg tablet; Take 200 mg by mouth every 6 hours as needed. - EKG 12 lead Pcos (polycystic ovarian syndrome) - ibuprofen (MOTRIN) 200 mg tablet; Take 200 mg by mouth every 6 hours as needed. - EKG 12 lead Vitamin d deficiency - ibuprofen (MOTRIN) 200 mg tablet; Take 200 mg by mouth every 6 hours as needed. - EKG 12 lead Elsy Gaona NP, 06/09/2010, 9:16 documented in this encounter Procedure Notes * Kasandra Hobbs MD - 07/08/2010 1235 EST Brief Post-Op Note Date of Surgery: 07/08/2010 Surgeon: MD Patsy Assistants: MD Antoine; Fletcher CALLAWAY Pre-Op Diagnosis: morbid obesity Post-Op Diagnosis: same Procedure(s): lap antecolic antegastric RYGBP ,anterior cruroplasty & IO EGD y. Findings:Enlarged liver and HH. Anesthesia Type:General Estimated Blood Loss: Unless otherwise noted, there was no blood loss, specimens removed, cultures obtained, or drains retained. The estimated blood loss was less than 50 mL Fluids: Kevin Calderon received 2500cc of fluid replacement. Urine Output: 100cc Specimens/Cultures: None Drains/Packs: 19 fr. Quentin Drain(s) x 2 placed in the Complications: None Disposition and Condition: Kevin Calderon was sent to PACU in Good condition. CLARK Terry 07/08/2010 12:36 * Inpatient, Physician - 07/08/2010 0000 ESTAssociated Order(s): ECG REPORT - SCANNED documented in this encounter OR Notes * OR Surgeon - Kasandra Hobbs MD - 07/08/2010 1321 EST OPERATIVE REPORT SERVICE DATE: 07/08/2010 SURGEON: Kasandra Garner MD CERTIFIED TRAVEL COUNSELOR: Brett Schultz MD (No qualified resident to assist in this case.), Hunter Bynum PA-C PREOPERATIVE DIAGNOSIS: Morbid obesity. POSTOPERATIVE DIAGNOSIS: Morbid obesity and hiatal hernia, 4 cm. PROCEDURE: Laparoscopic anterior cruroplasty, laparoscopic antecolic-antegastric Brandin-en-Y gastric bypass with 50 cm biliary limb, 100 cm alimentary limb and intraoperative EGD. ANESTHESIA: General with endotracheal intubation. INDICATIONS: This lady is 35 years old with childhood obesity who is morbidly obese with a BMI of 47.7 and weight 283 when she first enrolled in our program. On the last visit, her BMI was 45.3 and her weight 269 pounds. She failed multiple dietary attempts in the past and she would like to proceedwith the gastric bypass. Her insurance company denied the sleeve gastrectomy. On her workup, EGD showed a hiatal hernia of 4 cm and antral gastritis. The risks, benefits and alternatives of the procedure were explained to the patient and her husbandin detail. The risks include but are not limited to medical and surgical intraoperative, postoperative, early and late complications. Medical complications include but not limited to , anesthesia and medical adverse effect, deep venous thrombosis, pulmonary embolism, myocardial infarction, stroke, respiratory, and renal failure. Surgical complications include but not limited to early and late complications, intraabdominal bleeding, injury to nearby structures ( liver, spleen, esophagus, small and large bowel), infection with abscess formation, anastomotic leak with peritonitis, acute gastric dilatation, Brandin limb obstruction. Other potential risks include wound infection or bleeding from the trocar site, incisional hernia. Late complications include stoma stenosis or stricture, marginal ulceration, dumping syndrome, gastrogastric fistula, small bowel obstruction, internal & incisional hernia and failure to lose weight or gain weight. Metabolic complications include but not limited to calcium, thiamine, vitamin B12, folate, iron deficiency anemia. Consent form for the procedure was obtained after all her questions were answered. PAST MEDICAL HISTORY: Obstructive sleep apnea on CPAP machine, gastroesophageal reflux, borderline diabetes mellitus on diet, polycystic ovarian syndrome with infertility, osteoarthritis. PAST SURGICAL HISTORY: Laparoscopic cholecystectomy, knee surgery x2 and carpal tunnel syndrome release. ALLERGIES: PERCOCET. FINDINGS: Enlarged liver with medium-size hiatal hernia. NARRATIVE: The patient was brought to the operating room on a stretcher, then moved to the operating table in supine position. She was strapped to the table. Footboard was placed and secured. Both arms were protected and kept abducted at the right angle of her body at 90 degrees. After the induction of anesthesia, one dose of antibiotic prophylaxis was given. For DVT prophylaxis, sequential compressing devices were applied to both lower extremities as well as 5000 units of subcu heparin. For hypothermia prophylaxis, upper body Brandon Hugger was applied. Blanco catheter was inserted by the surgical team. An orogastric tube was passed by anesthesia into the stomach and placed to suction. The patient's abdomen was prepped and draped in sterile surgical fashion. Everybody in the room introduced him/herself. Time-out was completed. The patient was identified bythe name, medical record number and date of . Plan for procedure was confirmed. Consent form was checked. Instruments and equipment were checked and everything we needed was available in the room. Access to the peritoneal cavity was gained through a small transverse incision off midline periumbilical area on the left side with an Optiview trocar of 12 mm diameter. CO2 was insufflated to achieve an intraabdominal pressure of 15 mmHg. The patient was then placed in slight reverse Trendelenburg& left side up position to facilitate for further trocar placement and exposure. The trocars were placed in subxiphoid 5 mm to facilitate the placement of laparoscopic liver retractor, right upper quadrant 12, midepigastric 12, left upper quadrant 12, left flank 5 and right lowerquadrant 12. All these trocars were bladeless and they were inserted under direct vision. The major steps of the procedure include liver retraction; taking down the angle of His; delineation of the gastroesophageal junction; dissection of the right & left jett of diaphragm; anterior cruroplasty; dissection of the lesser curvature; creating the pouch; identification of the ligament of Treitz; transaction of small bowel with biliary limb 50 cm; creating the gastrojejunostomy; testing the anastomosis, air, methylene blue and intraoperative EGD; measuring the Brandin limb 100 cm; completion of the jejunojejunal anastomosis and placing two 19-Guatemalan Quentin drains via the right side trocar sites. The left lateral segment of the liver was elevated out of the way to expose the GE junction and thegastric fundus. The retractor was then placed and fastened to the table. Anesthesia was asked to remove the OG tube and esophageal probe after complete decompression and suctioning of the stomach. With the trocars and liver retractor in proper position, the fundus of the stomach was grasped and then retracted caudally exposing the gastrophrenic ligament. A medium-sized hiatal hernia was identified. The hernia sac was dissected off the left & right jett of the diaphragm .The angle of His wastaking down to delineate the gastroesophageal junction and to exclude inadvertent inclusion of the gastric fundus in the pouch. After visualization of both crura, cruroplasty was performed using 1 sti tch of Ethibond 2-0 on an SH needle. By using the Harmonic scalpel, a small window was dissected and created in the lesser curvature of stomach to access the lesser sac that went approximately 7 cm below the GE junction at the level of the 3rd vascular pedicle. About 20 to 30 mm of long, narrow gastric pouch was created. The first initial horizontal firing of 45 mm cutter, blue 3.5 triple-load stapler, Endo LUIZA was utilized . The subsequent application of the stapler was about 3 to 4 vertical firings of 45, 3.5 mm stapler. All of these apple were reinforced with the buttress material, Duet. An Kyler tube, 32-Guatemalan, was passedby anesthesia to calibrate the pouch and to stent the gastrojejunostomy. To facilitate exposure of ligament of Treitz, the patient was placed in flat position. After the identification of the ligament of Treitz, a small window was created through the mesentery and the proximal jejunum was transected, leaving 50 cm of biliary pancreatic limb that marked with 10 mm clip and run twice in both directions. The alimentary limb of the Brandin was brought in the antecolic-antigastric fashion after an enterotomy was made midway between the mesenteric and antimesenteric border. An anterior gastrostomy was opened with the Harmonic scalpel against Kyler tube. To create the gastrojejunostomy between the pouch and the jejunum, multifire stapler was utilized and single firing of 3 0 mm linear cutting loaded with a blue 3.5 mm cartridge was utilized after anesthesia was asked to pull back the Kyler tube. The Kyler tube was then passed and advanced to the Brandin limb. The anastomosis was created and anterior wall of the anastomosis was hand sewn with double-row of running 2-0 Vicryl suture on an SH needle. No anastomotic tension was encountered. At this point, theanastomosis was tested intraoperatively for leak by insufflating air, methylene blue after the small bowel distal to the anastomosis was clamped. The anastomosis continued to be patent with no leak. The anesthesia removed the tube and intraoperative EGD was performed. The endoscope was advanced proximal to our anastomosis, and no bleeding points were identified and the anastomosis was confirmed to be patent. The scope was pulled back into the pouch and then removed in entirety. To create the jejunojejunostomy, 100 cm of alimentary limb was measured. An enterotomy on the antimesenteric border was created in both limbs, and a [id number] functional end-to-end jejunojejunostomy was carried out with two sequential firings of 30 mm and 60 mm linear cutter loaded with 2.5 mm white cartridge to give full drainage of both the biliopancreatic and alimentary limb. The Endo LUIZA linear stapler loaded with white cartridge was utilized to close the jejunojejunostomy and I used a tangential application of 10 mm clips to rosario the anastomosis and to control the potential bleeding. The upper abdomen was irrigated with plenty of normal saline and suctioned. No bleeding points or int estinal contents were identified. The liver retractor was removed under direct vision. At the conclusion of the procedure, two 19-Guatemalan Quentin drains were placed, 1 proximal to the gastrojejunostomy under the liver in the left subphrenic area and 1 in mid abdomen near the jejunojejunal anastomosis to identify the postoperative bleeding, leak or port, exteriorizing through the right upper and lower quadrant trocar sites and secured with nylon 3-0 x2. All trocars were removed under direct vision without any obvious bleeding. The trocar sites were closed with Monocryl 4-0 in subcuticular fashion. Steri- Strips, Telfa and Tegaderm were utilized. At the end of the procedure, the final count was correct. All instrument, sponge and needle counts were correct. The patient tolerated the procedure well. She remained stable all of the procedure and she was extubated in the operating room and transferred to recovery room in stable condition. ESTIMATED BLOOD LOSS: Less than 50 mL. URINE OUTPUT: 100 mL. FLUIDS: 2500. SPECIMENS: None. COMPLICATIONS: None. CULTURE: None. DRAINS: 19-Guatemalan Quentin drains x2. At the end of the procedure, I spoke to the patient's and I explained the findings. I saw the patient in the recovery room. She was doing well, her pain under control and her vitals were stable. She will be on pathway and she will be transferred to regular floor. Unless otherwise noted, there were no complications, no blood loss, no cultures obtained, no specimens removed, and no drains retained. Dictated by: Kasandra Garner MD Kasandra Garner MD 04 21 PM / ss Confirmation: [id number] Dictation ID: [id number] CC : SULMA TRONCOSO MD, MD * Anesthesia Procedure Notes - Inpatient, Physician - 07/08/2010 0000 EST * Anesthesia Preprocedure Evaluation - Inpatient, Physician - 07/08/2010 0000 EST * Anesthesia Preprocedure Evaluation - Inpatient, Physician - 07/08/2010 0000 EST * OR PreOp - Inpatient, Physician - 07/08/2010 0000 EST * OR PreOp - Inpatient, Physician - 07/08/2010 0000 EST * OR PreOp - Inpatient, Physician - 07/08/2010 0000 EST documented in this encounter Miscellaneous Notes * Plan of Care - Kathy Coffman RN - 07/10/2010 2678 EST Problem: PAIN Goal: Patient's Pain/Discomfort Is Manageable Outcome: Ongoing Active Multi-Disciplinary problems: PAIN [[id number]] (07/08/10) ELIMINATION [[id number]] (07/09/10) Data: Patient with complaints of 6 /10 pain located in abdomen at incision site. ACTION: Encouraged ambulation, medicated patient for pain with prn pain medication as ordered see mar. Non-pharmacologic interventions include splinting, rest, and repositioning. Reevaluated pain within 2 hours after intervention. RESPONSE: Patient noted relief from interventions, rating pain at 4-5/10, able to comfortably rest in bed at this time. Will continue to monitor to monitor and assess. Kathy Coffman RN 07/10/2010 22:15 * Plan of Care - Tomasa Lott RN - 07/10/2010 0153 EST Problem: PAIN Goal: Patient's Pain/Discomfort Is Manageable Intervention: Assess pain level Active Multi-Disciplinary problems: PAIN [[id number]] (07/08/10) ELIMINATION [[id number]] (07/09/10) Data: Pt alert and oriented x3. Lap sites on abd C/D/I with derma catalan. No drainage. Using DRILL SETUP OPERATOR without any issues. Action: monitored DRILL SETUP OPERATOR, VS and po intake. Pt also wears bi-pap from home. Response: Pain well controlled at present. No N/V. CTM Tomasa Lott RN 07/10/2010 1:51 * Plan of Care - Kathy Coffman RN - 07/09/2010 1945 EST Problem: PAIN Goal: Patient's Pain/Discomfort Is Manageable Outcome: Ongoing PAIN DATA: Patient with complaints of 6 /10 pain, pain located in abdomen at incision site. States it feels like gas pains. ACTION: Explained to patient that gas like pains may not be relieved by DRILL SETUP OPERATOR but position changes and ambulation will help expel gas which will in turn relieve the pains. See eMAR, patient using DRILL SETUP OPERATOR appropriately. N on-pharmacologic interventions include splinting, rest, and repositioning. R eevaluate d pain within 2 hours after intervention . RESPONSE: P atient continues to rate pain 6 out of 10, will continue to monitor to monitor and assess. Will call team for further instructions if pain is unable to be controlled/tolerated better by patient. Kathy Coffman RN 07/08/10 19:45 * Plan of Care - Karlee Dolan RN - 07/09/2010 1243 EST Problem: ELIMINATION Goal: Urinary Output Is Maintained Within Normal Parameters Outcome: Ongoing Data: POD 1Lap gastric bypass. Blanco patent with good urine output. Action: Blanco discontinued per MD order. Explained the process and expectations to pt. Response: Pt gave verbal understanding of expectations. Will continue to monitor. Karlee Dolan RN 07/09/2010 12:40 * Plan of Care - Karlee Dolan RN - 07/09/2010 1240 EST Problem: PAIN Goal: Patient's Pain/Discomfort Is Manageable Outcome: Ongoing Data: POD 1 using DRILL SETUP OPERATOR appropriately. Reports pain 8-9/10 on a 0/10 pain scale. States that toradol has worked best for her. Action: Helped pt change positions worked on breathing techniques. Toradol not due at this time. Will administer when due, refer to MAR. Notified PA. Response: DRILL SETUP OPERATOR settings changed per orders see MAR. Pain down to 6/10 after DRILL SETUP OPERATOR change. Will continue to monitor. Karlee Dolan RN 07/09/2010 12:36 * Plan of Care - Kathy Coffman RN - 07/08/2010 0335 EST Problem: PAIN Goal: Patient's Pain/Discomfort Is Manageable Outcome: Ongoing PAIN DATA: Patient with complaints of 6 /10 pain, pain located in abdomen at lap sites and at JAMIE site. ACTION: Patient using DRILL SETUP OPERATOR appropriately, See eMAR, non-pharmacologic interventions include rest andrepositioning, along with splinting techniques involving pillow at bedside. R eevaluate pain within2 hours after intervention . RESPONSE: Patient notes relief from DRILL SETUP OPERATOR and non-pharmacologic interventions, rating pain 5 out of 10, will continue to monitor and assess. Kathy Coffman RN 07/08/2010 22:35 * Scanned Note-Null - Inpatient, Physician - 07/08/2010 0000 EST * Scanned Note-Null - Inpatient, Physician - 07/08/2010 0000 EST * Scanned Note-Null - Inpatient, Physician - 07/08/2010 0000 EST * Scanned Note-Null - Inpatient, Physician - 07/08/2010 0000 EST documented in this encounter Plan of Treatment Not on file documented as of this encounter Procedures Procedure Name Priority Date/Time Associated Diagnosis Comments ECG REPORT - SCANNED 07/15/2010 14:39 EST COMPLETE BLOOD COUNT Routine 07/11/2010 6:06 EST SMEAR REVIEW Routine 07/09/2010 11:18 EST COMPLETE BLOOD COUNT Routine 07/09/2010 11:18 EST FL UPPER GI SERIES W/O AIR CONTRAST Routine 07/09/2010 10:38 EST documented in this encounter Results * ECG REPORT - SCANNED (07/15/2010 14:39 EST) 07/15/2010 14:3 9 EST Narrative Procedure Note Inpatient, Physician - 07/08/2010 0:00 EST Physician Inpatient MD PROCEDURE/MINOR SURGICAL ORDERABLES Final Result POINT OF CARE * HEMAGRAM (07/11/2010 6:06 EST) WBC 7.38 4.0 - 12.4 K/cmm [facility] RBC 4.33 3.86 - 5.04 M/cmm [facility] Hemoglobin 13.1 11.6 - 15.2 gm/dl [facility] HCT 37.5 34.9 - 44.4 % [facility] MCV 86 81 - 98 fl [facility] MCH 30.3 26.7 - 33.3 pg [facility] MCHC 35.0 32.1 - 35.9 gm/dl [facility] PLT 226 141 - 320 K/cmm [facility] RDW-CV 13.6 11.7 - 14.6 % [facility] Blood specimen (specimen) 07/11/2010 6:06 EST 07/11/2010 6:42 EST us Kasandra Hobbs MD HEMATOLOGY & PF4 ORDERABLES Fi nal Result Performing Organization Address City/[facility] Co de Phone Number [facility] [address] [place] [address] * SMEAR REVIEW (07/09/2010 11:18 EST) Smear scan only: Slide was examined by a technologist to verify the WBC and/or platelet count. [facility] 07/09/2010 11:1 8 EST 07/09/2010 11:40 EST us Kasandra Hobbs MD HEMATOLOGY & PF4 ORDERABLES Fi nal Result Performing Organization Address [facility] Co de Phone Number [facility] [address] [place] [address] * (ABNORMAL) HEMAGRAM (07/09/2010 11:18 EST) WBC 10.30 4.0 - 12.4 K/cmm [facility] RBC 4.41 3.86 - 5.04 M/cmm [facility] Hemoglobin 13.3 11.6 - 15.2 gm/dl [facility] HCT 38.2 34.9 - 44.4 % [facility] MCV 87 81 - 98 fl [facility] MCH 30.2 26.7 - 33.3 pg [facility] MCHC 34.8 32.1 - 35.9 gm/dl [facility] PLT 114(L) 141 - 320 K/cmm [facility] RDW-CV 13.9 11.7 - 14.6 % [facility] Blood specimen (specimen) 07/09/2010 11:18 EST 07/09/2010 11:40 EST us Kasandra Hobbs MD HEMATOLOGY & PF4 ORDERABLES Fi nal Result Performing Organization Address City/[facility] Co de Phone Number [facility] [address] [place] [address] * FL UPPER GI SERIES W/O AIR CONTRAST (07/09/2010 10:38 EST) Anatomical Region Laterality Modality Other 07/09/2010 10:3 8 EST 07/09/2010 15:54 EST Narrative 07/09/2010 15:54 EST [facility] CEDRICK WO/AIR CONTR ??Jul 09, 2010 10:38:00 AM Signs and Symptoms/Comments: ??POD#1 s/p lap gastric bypass; please eval swallow and passage contrast through g-j anastamosis. Comparisons: None. Findings: Dumpman KUB demonstrates the patient is status post gastric bypass with multiple clips noted within the abdomen. The patient is status post cholecystectomy. 2 large bore drains are noted within the left upper quadrant. Initially, water-soluble contrast was administered to the patient. There was notable stasis of contrast at the GE junction with the patient in the supine position. Upon placing patient in upright position there was eventual passage of contrast into the region of the gastric remnant and into the gastrojejunal and jejunojejunal anastomosis. There is no evidence of extraluminal contrast or contrast within the excluded gastric remnant. Thereafter, thin barium was administered the patient. Again, no abnormalities were noted within the gastric bypass. Impression: Expected post operative appearance of gastric bypass procedure. I have personally reviewed the images and the above interpretation and agree with the findings. Procedure Note Chico Lowry MD - 07/09/2010 [facility] Jul 09, 2010 10:38:00 AM Signs and Symptoms/Comments: POD#1 s/p lap gastric bypass; please eval swallow and passage contrast through g-j anastamosis. Comparisons: None. Findings: Dumpman KUB demonstrates the patient is status post gastric bypass with multiple clips noted within the abdomen. The patient is status post cholecystectomy. 2 large bore drains are noted within the left upper quadrant. Initially, water-soluble contrast was administered to the patient. There was notable stasis of contrast at the GE junction with the patient in the supine position. Upon placing patient in upright position there was eventual passage of contrast into the region of the gastric remnant and into the gastrojejunal and jejunojejunal anastomosis. There is no evidence of extraluminal contrast or contrast within the excluded gastric remnant. Thereafter, thin barium was administered the patient. Again, no abnormalities were noted within the gastric bypass. Impression: Expected post operative appearance of gastric bypass procedure. I have personally reviewed the images and the above interpretation and agree with the findings. us Mary Anne Coronado MD IMG FLUOROSCOPY ORDERABLES [place] [employer] Result documented in this encounter Visit Diagnoses Diagnosis Morbid obesity ([facility])- Primary Morbid obesity MIGUEL (obstructive sleep apnea) Obstructive sleep apnea (adult) (pediatric) documented in this encounter Administered Medications Inactive Administered Medications - up to 3 most recent administrations Medication Order MAR Action Action Date Dose Rate Site ceFAZolin (ANCEF) 1,000 mg in sodium chloride 0.9 % 50 mL IVPB 1,000 mg, intravenous, Administer over 30 Minutes, EVERY 8 HOURS, 3 doses, First dose on Wed07/08/10 at 1615, Last dose on Wed07/09/10 at 0800, Routine Given 07/09/2010 7:35 EST 1,000 mg Given 07/09/2010 1:04 EST 1,000 mg Given 07/08/2010 16:19 EST 1,000 mg CEFAZolin (ANCEF) syringe 2 g 2 g, intravenous, Administer over 10 Minutes, PRE-OP ONCE, 1 dose, On Wed07/08/10 at 0700, Routine, Pre-Op DOS Rx Approved Given by Other 07/08/2010 7:56 EST 2 g dextrose 5 % and 0.45 % NaCl with KCl 20 mEq/L infusion 125 mL/hr, intravenous, CONTINUOUS, Starting on Wed07/08/10 at 1230, Until Wed07/10/10 at 1341, Routine, On Unit Rate Documented 07/10/2010 7:51 EST 125 mL/hr 125 mL/hr New Bag 07/10/2010 4:09 EST 125 mL/hr 125 mL/hr New Bag 07/09/2010 20:57 EST 125 mL/hr 125 mL/hr heparin injection 5,000 Units 5,000 Units, subcutaneous, PRE-OP ONCE, 1 dose, On Wed07/08/10 at 0700, Routine, Pre-Op DOS Rx Approved Given 07/08/2010 7:15 EST 5,000 Units heparin injection 5,000 Units 5,000 Units, subcutaneous, EVERY 8 HOURS, First dose on Wed07/08/10 at 1800, Until Discontinued, Routine Given 07/11/2010 9:40 EST 5,000 Units Given 07/11/2010 0:39 EST 5,000 Units Given 07/10/2010 16:14 EST 5,000 Units Hydromorphone (DILAUDID) liquid 2-4 mg 2-4 mg, oral, EVERY 4 HOURS PRN, Starting on Wed07/11/10 at 0133, Until Wed07/11/10 at 1517, Pain, Routine Given 07/11/2010 12:56 EST 2 mg Given 07/11/2010 3:46 EST 2 mg HYDROmorphone (DILAUDID) tablet 2-6 mg 2-6 mg, oral, EVERY 3 HOURS PRN, Starting on Yadira 07/10/10 at 0742, Until Wed07/11/10 at 0133, Pain, Routine Given 07/10/2010 20:54 EST 6 mg Given 07/10/2010 16:15 EST 6 mg Given 07/10/2010 10:56 EST 6 mg ketorolac (TORADOL) injection 15 mg 15 mg, intravenous, EVERY 6 HOURS PRN, Starting on Wed07/08/10 at 1800, Until Wed07/09/10 at 1759, Pain, Routine, On Unit Given 07/09/2010 13:02 EST 15 mg Given 07/09/2010 7:05 EST 15 mg Given 07/09/2010 1:05 EST 15 mg ketorolac (TORADOL) injection 30 mg 30 mg, intravenous, NOW X1, 1 dose, On Wed07/08/10 at 1230, Routine, On Unit Given 07/08/2010 12:26 EST 30 mg lactated ringers (LR) infusion at 25 mL/hr, intravenous, CONTINUOUS, Starting on Wed07/08/10 at 0700, Until Wed07/08/10 at 1447, Routine, Pre-Op DOS Rx Approved Rate Change 07/08/2010 11:58 EST 25 mL/hr New Bag 07/08/2010 6:45 EST 25 mL/hr lactated ringers (LR) infusion at 150 mL/hr, intravenous, CONTINUOUS, Starting on Wed07/08/10 at 1130, Until Wed07/08/10 at 1425, Routine, Recovery (only) Rate Documented 07/08/2010 11:58 EST 150 mL/hr metoCLOPramide (REGLAN) injection 10 mg 10 mg, intravenous, EVERY 6 HOURS, 4 doses, First dose on Wed07/08/10 at 1800, Last dose on Wed07/09/10 at 1200, Routine Given 07/09/2010 6:28 EST 10 mg Given 07/09/2010 1:05 EST 10 mg Given 07/08/2010 18:41 EST 10 mg metronidazole (FLAGYL) IVPB 500 mg 500 mg, intravenous, Administer over 30 Minutes, PRE-OP ONCE, 1 dose, On Wed07/08/10 at 0700, Routine, Pre-Op DOS Rx Approved Given 07/08/2010 7:10 EST 500 mg morphine 2 mg/ml (DURAMORPH) DRILL SETUP OPERATOR, 30 ml syringe intravenous, DRILL SETUP OPERATOR, Starting on Wed07/08/10 at 1230, Until Wed07/10/10 at 0742, DRILL SETUP OPERATOR Dose: 2 mg LOCKOUT Interval: 10 minutes ONE HOUR Dose Limit: 12 mg, Routine New Bag 07/10/2010 6:35 EST mL/hr Rate Documented 07/10/2010 0:24 EST mL/hr New Syringe/Cartridge 07/09/2010 16:31 EST mL/h r morphine 2 mg/ml (DURAMORPH) syringe, 30 ml - loading dose 2 mg, intravenous, Q5-10MPRN, Starting on Wed07/08/10 at 1212, Until Wed07/08/10 at 1411, Pain, Routine Given 07/08/2010 12:33 EST 2 mg morphine injection 1-4 mg 1-4 mg, intravenous, EVERY 5 MIN PRN, Starting on Wed07/08/10 at 1111, Until Wed07/08/10 at 1425, Pain, Routine, Recovery (only) Given 07/08/2010 11:00 EST 4 mg pantoprazole (PROTONIX) tablet 40 mg 40 mg, oral, DAILY, First dose on Wed07/11/10 at 0900, Until Discontinued, Routine Given 07/11/2010 9:40 EST 40 mg promethazine (PHENERGAN) injection 6.25-12.5 mg 6.25-12.5 mg, intravenous, PRN, 1 dose, Starting on Wed07/08/10 at 1111, Until Wed07/08/10 at 1207, Nausea, Routine, Recovery (only) Given 07/08/2010 12:26 EST 6.25 mg Given 07/08/2010 12:07 EST 6.25 mg documented in this encounter Discontinued Medications Medication Sig Discontinue Reason Start Date End Da te ibuprofen (MOTRIN) 200 mg tabletIndications:Morbid obesity (HCC-CMS),MIGUEL (obstructive sleep apnea),GERD (gastroesophageal reflux disease),OA (osteoarthritis) of knee,PCOS (polycystic ovarian syndrome),Vitamin D deficiency Take 200 mg by mouth every 6 hours as needed. Error 06/26/2010 documented as of this encounter Historical Medications * This list may reflect changes made after this encounter. cyanocobalamin 500 mcg tablet Take 500 mcg by mouth every 48 hours. ibuprofen (MOTRIN) 200 mg tablet Take 200 mg by mouth every 6 hours as needed. 08/25/2010 added in this encounter Active and Recently Administered Medications Times are shown in EST. Scheduled Medication Order 07/09/2010 07/10/2010 07/11/2010 ceFAZolin (ANCEF) 1,000 mg in sodium chloride 0.9 % 50 mL IVPB (COMPLETED) 1,000 mg, intravenous, Administer over 30 Minutes, EVERY 8 HOURS, 3 doses, First dose on Wed07/08/10 at 1615, Last dose on Wed07/09/10 at 0800, Routine 0104 (Given - Provider: Jackie Liu)0735 (Given - Provider: Karlee Dolan, RN) heparin injection 5,000 Units (CANCELED) 5,000 Units, subcutaneous, EVERY 8 HOURS, First dose on Wed07/08/10 at 1800, Until Discontinued, Routine 0105 (Given - Provider: Jackie Liu)0801 (Given - Provider: Karlee Dolan, RN)1610 (Given - Provider: Kathy Coffman, EMELI) 0000 (Given - Provider: Tomasa Lott RN)0732 (Given - Provider: Karlee Dolan, RN)1614 (Given - Provider: Kathy Coffman, EMELI) 0039 (Given - Provider: Patsy Lopez RN)0940 (Given - Provider: Sophy Granda, EMELI) metoCLOPramide (REGLAN) injection 10 mg () 10 mg, intravenous, EVERY 6 HOURS, 4 doses, First dose on Wed07/08/10 at 1800, Last dose on Wed07/09/10 at 1200, Routine 0105 (Given - Provider: Jackie Liu)0628 (Given - Provider: Jackie Liu)1200 (Not Given - Provider: Karlee Dolan RN - Reason: Medication not available) pantoprazole (PROTONIX) tablet 40 mg (CANCELED) 40 mg, oral, DAILY, First dose on Wed07/11/10 at 0900, Until Discontinued, Routine 0940 (Given - Provider: Sophy Granda, EMELI) Continuous Medication Order 07/09/2010 07/10/2010 07/11/2010 dextrose 5 % and 0.45 % NaCl with KCl 20 mEq/L infusion 125 mL/hr, intravenous, CONTINUOUS, Starting on Wed07/08/10 at 1230, Until Yadira 07/10/10 at 1341, Routine, On Unit 0000 (Rate Documented - Provider: Jackie Liu)0628 (New Bag - Provider: Jackie Liu)0730 (Rate Documented - Provider: Karlee Dolan RN)1358 (New Bag - Provider: Karlee Dolan, RN)1614 (Rate Documented - Provider: Kathy Coffman RN)2057 (New Bag - Provider: Kathy Coffman, EMELI) 0409 (New Bag - Provider: Tomasa Lott RN)0751 (Rate Documented - Provider: Karlee Dolan, RN) morphine 2 mg/ml (DURAMORPH) DRILL SETUP OPERATOR, 30 ml syringe (CANCELED) intravenous, DRILL SETUP OPERATOR, Starting on Wed07/08/10 at 1230, Until Yadira 07/10/10 at 0742, DRILL SETUP OPERATOR Dose: 2 mg LOCKOUT Interval: 10 minutes ONE HOUR Dose Limit: 12 mg, Routine 0000 (Rate Documented - Provider: Jackie Liu)0731 (Rate Documented - Provider: Karlee Dolan, RN)1134 (Rate Change - Provider: Karlee Dolan, RN)1631 (New Syringe/Cartridge - Provider: Kathy Coffman RN) 0024 (Rate Documented - Provider: Tomasa Lott RN)0635 (New Bag - Provider: Tomasa Lott RN) PRN Medication Order 07/09/2010 07/10/2010 07/11/2010 Hydromorphone (DILAUDID) liquid 2-4 mg 2-4 mg, oral, EVERY 4 HOURS PRN, Starting on Wed07/11/10 at 0133, Until Wed07/11/10 at 1517, Pain, Routine 0346 (Given - Provider: Kamryn Sampson, RN)1256 (Given - Provider: Sophy Granda RN - Comment: given to control pain on ride home) HYDROmorphone (DILAUDID) tablet 2-6 mg (CANCELED) 2-6 mg, oral, EVERY 3 HOURS PRN, Starting on Yadira 07/10/10 at 0742, Until Wed07/11/10 at 0133, Pain, Routine 0809 (Given - Provider: Karlee Dolan RN)1056 (Given - Provider: Karlee Dolan, EMELI)1615 (Given - Provider: Kathy Coffman, EMELI)2054 (Given - Provider: Kathy Coffman RN) ketorolac (TORADOL) injection 15 mg () 15 mg, intravenous, EVERY 6 HOURS PRN, Starting on Wed07/08/10 at 1800, Until Wed07/09/10 at 1759, Pain, Routine, On Unit 0105 (Given - Provider: Jackie Liu)0705 (Given - Provider: Jackie Liu)1302 (Given - Provider: Karlee Dolan RN) documented in this encounter Orders Medications Ordered That Allen ht Not Have Been Administered Count Last Ordered Date First Ordered Date HYDROmorphone (PF) (DILAUDID ) 1 mg/mL injection 0.2 mg 1 07/10/2010 atropine 0.1 mg/mL 10 mL syringe 0.5 mg 1 1 09/07/2009 fentanyl citrate (PF) 50 mcg /mL injection 25-100 mcg 1 07/08/2010 meperidine (PF) (DEMEROL) 50 mg/mL injection 50 mg 1 07/08/2010 metoCLOPramide (REGLAN) injection 10 mg 1 1 09/07/2009 naloxone (NARCAN) injection 0.2 mg 1 2009 ondansetron (PF) (ZOFRAN) injection 2 mg 1 07/08/2010 ondansetron (PF) (ZOFRAN) injection 4 mg 1 07/08/2010 promethazine (PHENERGAN) injection 12.5 mg 1 07/08/2010 Nursing Count Last Ordered Date First Orde red Date BLANCO CATHETER - DISCONTINUE 1 07/08/2010 INSERT BLANCO CATHETER 1 07/08/2010 INSERT PERIPHERAL IV 1 07/08/[address] SEQUENTIAL COMPRESSION DEVICE 1 07/08 Admission Count Last Ordered Date First Orde red Date NOTIFY PPS OF DISCHARGE COMPLETE 1 07/11/20 10 ADMIT TO INPATIENT 1 07/08/2010 NOTIFY PPS PATIENT ARRIVAL IN PACU 1 2009 NOTIFY PPS PATIENT TRANSFERRED OUT OF PACU 1 07/08/2010 Discharge Count Last Ordered Date First Orde red Date DISCHARGE PATIENT 1 07/11/2010 documented in this encounter Care Teams Slag Wheeler Relationship Specialty Start Date End Date Sulma Troncoso MD [facility] [address] [place] [address] PCP - General 02/13/09 11/23/11 documented as of this encounter
--- OUTSIDE RECORDS SUMMARY | 2024-08-22 16:06 | XMS_ITS | Encounter Summary ---
Author Organization [facility] Address [address] [place] [address] Care Team Providers Care Steel Rule Inspector Name Role Phone Sulma Salinas MD Primary Care Provider [phone] Reason for Visit * Reason Comments Obesity Encounter Details Date Type Department Care Team (Late st Contact Info) Description 03/26/2010 13:15 EDT Office Visit [facility] Bariatric Surgery - [place] [address] [place] [address] Elsy Gaona S, WAFER LINE WORKER [address] [address] Morbid obesity ([facility]); GERD (gastroesophageal reflux disease); MIGUEL (obstructive sleep apnea); OA (osteoarthritis) of knee; PCOS (polycystic ovarian [...] Sign Reading Time Taken Comments Blood Pressure 120/86 03/26/2010 1311 EDT Pulse 64 03/26/2010 1311 EDT Temperature - - Respiratory Rate - - Oxygen Saturation - - Inhaled Oxygen Concentration - - Weight 122.4 kg (269 lb 12.8 oz) 03/26/2010 1311 EDT Height 164.2 cm (5' 4.65) 03/26/2010 1311 EDT Body Mass Index 45.39 03/26/2010 1311 EDT documented in this encounter Progress Notes * Syeda Dixon RD - 03/26/2010 1328 EDT PRE OP NUTRITION FOLLOW UP NOTE Bariatric Clinic Nutrition Pre-op Visit Visit Number: 11 Desired surgery: Gastric Sleeve Subjective: Premenstrual with about 5-7 lb weight gain. Has decreased sodium with good success. Food logs: maintained on spreadsheet Meal pattern: 3 Average caloric intake: 3380-0161 wanda Meal composition: good protein, mostly good fruits andvegetables Snacking:ok Exercise: walking 20 min 2 times daily Objective: Weight: 269.8 lb Weight loss from last visit: +0.8 lb Total weight loss: Weight loss goal: -10.2 lb Approximately 12 lb Surgery Date: Significant Medications and Supplements: multivitamin and Ca w/ Vit D Assessment: Patient has made progress towards lifestyle changes Comments: doing well overall, claims weight lower after period-will check next month. Plan: Diet Goals: Keep food records and Eat more slowly Exercise Goals: Maintain current exercise Weight Loss Goal: approx 12 lb Weight Loss Remaining to Goal: 1.8 lb Reviewed: Food/Activity Record Next Visit: Pre-op follow-up visit * Elsy Gaona NP - 03/26/2010 1313 EDT SUBJECTIVE: Kevin returns to our office today for continued medically supervised weight loss in preparation for laparoscopic sleeve gastrectomy surgery. She is a 34 y.o. 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 She comorbidities include gastroesophagitis, obstructive sleep apnea, PCOS and osteoarthritis, vitamin D deficiency. Still waiting to hear from insurance regarding PA for GS. Otherwise, she denies any changes to her medical history or medications since his previous visit. Kevin met with our program dietitian for 30 minutes to review preoperative dietary recommendations. Iconsulted with the dietitian following her visit with the patient and agree with her findings and recommendations. OBJECTIVE: On physical examination today, her BP 120/86 Pulse 64 Ht 1.642 m (5' 4.65) Wt 122.38 kg (269 lb 12.8 oz) and Body mass index is 45.39 kg/(m^2).. ASSESSMENT AND PLAN: Kevin will return to our office in a few weeks for continued medically-supervised weight loss in preparation for surgery. Will repeat pre-op labs in anticipation of scheduling either GS or GBP. To include - hemogram, zaid Gaona NP documented in this encounter Miscellaneous Notes * Scanned Note-Null - Nam, Multimedia Services Coordinator - 01/27/2011 1059 EDT documented in this encounter Plan of Treatment Not on file documented as of this encounter Visit Diagnoses Diagnosis Morbid obesity ([facility]) Morbid obesity GERD (gastroesophageal reflux disease) Esophageal reflux MIGUEL (obstructive sleep apnea) Obstructive sleep apnea (adult) (pediatric) OA (osteoarthritis) of knee Osteoarthrosis, unspecified whether generalized or localized, lower leg PCOS (polycystic ovarian syndrome) Polycystic ovaries documented in this encounter Care Teams Steel Rule Inspector Relationship Specialty Start Date End Date Sulma Salinas MD [facility] [address] [place] [address] PCP - General 02/13/09 11/23/11 documented as of this encounter
--- OUTSIDE RECORDS SUMMARY | 2024-08-22 16:06 | XMS_ITS | Encounter Summary ---
Author Organization [facility] Address [address] [place] [address] Care Team Providers Care Dining Room Captain Name Role Phone Sulma Salinas MD Primary Care Provider [phone] Encounter Details Date Type Department Care Team (Late st Contact Info) Description 02/06/2010 Abstract [facility] Bariatric Surgery - [place] [address] [place] [address] Elsy Gaona, SHEET METAL WELDER 61 [facility] 4 [facility] [address] [place], [place] [id number] Social History Tobacco Use Types Packs/Day Years [...] on filedocumented in this encounter Care Teams Dining Room Captain Relationship Specialty Start Date End Date Sulma Salinas MD [facility] [address] [place], [place] [address] PCP - General 02/13/09 11/23/11 documented as of this encounter
--- OUTSIDE RECORDS SUMMARY | 2024-08-22 16:06 | XMS_ITS | Encounter Summary ---
Author Organization [facility] Address [address] [place] [address] Care Team Providers Care Heat Treat Inspector Name Role Phone Sulma Salinas MD Primary Care Provider Encounter Details Date Type Department Care Team (Late st Contact Info) Description 06/09/2010 Pre-Procedure Orders Encounter [facility] Bariatric Surgery - [place] [address] [place] [address] Elsy Gaona, FRAMING AND HANGING 61 [facility] 4 [facility] [address] [place], [place] [address] Social History Tobacco Use Types Packs/Day Years [...] on filedocumented in this encounter Care Teams Heat Treat Inspector Relationship Specialty Start Date End Date Sulma Salinas MD [facility] [address] [place], [place] [address] PCP - General 02/13/09 11/23/11 documented as of this encounter
--- OUTSIDE RECORDS SUMMARY | 2024-08-22 16:06 | XMS_ITS | Encounter Summary ---
Author Organization [facility] Address [address] [place] [address] Care Team Providers Care Van Driver Name Role Phone Sulma Salinas MD Primary Care Provider [phone] Reason for Visit * Reason Comments Obesity Encounter Details Date Type Department Care Team (Late st Contact Info) Description 06/09/2010 8:00 EDT Office Visit [facility] Bariatric Surgery - [place] [address] [place] [address] Elsy Gaona S, PEDIATRIC DERMATOLOGIST 61 [facility] [address] [address] Morbid obesity ([facility]); AFISAL (obstructive sleep apnea); GERD (gastroesophageal reflux disease); OA (osteoarthritis) of knee; PCOS (polycystic ovarian syndrome); Vitamin D deficiency Social History Tobacco Use Types Packs/Day Years Used Date Smoking Tobacco: Former Comments:1996 Comments No Sex and Gender Information Value Date Recorded Sex Assigned at Not on file Legal Sex Female 18:25 EST Gender Identity Not on file Sexual Orientation Not on file documented as of this encounter Last Filed Vital Signs Vital Sign Reading Time Taken Comments Blood Pressure 110/80 06/09/2010818 EDT Pulse 76 06/09/2010818 EDT Temperature - - Respiratory Rate - - Oxygen Saturation - - Inhaled Oxygen Concentration - - Weight 122.3 kg (269 lb 9.6 oz) 06/09/2010818 EDT Height 164.2 cm (5' 4.65) 06/09/2010818 EDT Body Mass Index 45.36 06/09/2010818 EDT documented in this encounter Patient Instructions * Patient Instructions* Elsy Gaona NP - 06/09/2010 8:28 EDT Things To Remember For Bariatric Surgery * You will start a full liquid diet 10 days before your surgery and nothing to eat or drink after midnight the night before. * You may take your medication on the morning of surgery with sips of water. See below for the medications you will stop and the ones you will take. * You will arrive 2 hours before surgery. Check in at Admissions then go to Preop Center where you will receive IV antibiotics. * Please bring comfortable bed clothes that you will feel OK walking around the hallways as soon aspossible after your surgery (to prevent blood clots). * If you are on CPAP then you will need to bring the CPAP equipment to the hospital on the morning of surgery. * For Laparoscopic surgery you can expect at least 5-7 small incisions. * Remember not to lie down for at least 30 minutes after eating, drinking, or taking medications. * You should not drive a car for the first 2 weeks after surgery. * You should not lift anything over 15 pounds for the first 6 weeks after surgery. * You will call to schedule your first post-op appointment after you are discharged from the hospital if you have not scheduled that appointment today. Medication Changes for Surgery: You will stop aspirin and all NSAIDs (advil, motrin, ibuprofen, naproxyn, aleve, celebrex, mobic, etc) 6 days before surgery. Tylenol is OK To take the morning of surgery: Vitamin D Prevacid solutab For any questions please call the Bariatric Surgery Program at . documented in this encounter Ordered Prescriptions Prescription Sig Dispense Quantity Refills Last Filled Start Date End Date lansoprazole (PREVACID SOLUTAB) 30 mg disintegrating tabletIndications:Mo rbid obesity (HCC-CMS),FAISAL (obstructive sleep apnea),GERD (gastroesophageal reflux disease),OA (osteoarthritis) of knee,PCOS (polycystic ovarian syndrome),Vitamin D deficiency Take 1 Tab by mouth daily. 90 Tab 1 06/09/2010 0 documented in this encounter Progress Notes * Elsy Gaona NP - 06/07/2010 2236 EDT Chief Complaint: Morbid obesity Planned Procedure:LRYGBP Surgeon:Jennifer Planned Procedure Date: 07/08/10 Patient Active Problem List Diagnoses Code ??? Morbid obesity 278.01 ??? FAISAL (obstructive sleep apnea) 327.23H ??? GERD (gastroesophageal [...] Maternal Grandmother ??? Heart Disease Maternal Grandmother [place] ??? Heart Disease Maternal Grandfather [place] ??? Stroke Maternal Grandfather History Social History [...] no cough, shortness of breath, or wheezing FAISAL with CPAP set at Cardiovascular ROS: no [...] hours as needed. - EKG 12 lead Faisal (obstructive sleep apnea) - ibuprofen (MOTRIN) 200 [...] NP, 06/09/2010, 9:16 documented in this encounter Miscellaneous Notes * Scanned Note-Null - Academic Affairs Vice President, Scan - 06/11/2011 1114 EDT documented in this encounter Plan of Treatment Not on file documented as of this encounter Visit Diagnoses Diagnosis Morbid obesity (HCC-CMS) Morbid obesity FAISAL (obstructive sleep apnea) Obstructive sleep apnea (adult) (pediatric) GERD (gastroesophageal reflux disease) Esophageal reflux OA (osteoarthritis) of knee Osteoarthrosis, unspecified whether generalized or localized, lower leg PCOS (polycystic ovarian syndrome) Polycystic ovaries Vitamin D deficiency Unspecified vitamin D deficiency documented in this encounter Historical Medications * This list may reflect changes made after this encounter. ibuprofen (MOTRIN) 200 mg tabletIndications :Morbid obesity (HCC-CMS),FAISAL (obstructive sleep apnea),GERD (gastroesophageal reflux disease),OA (osteoarthritis) of knee,PCOS (polycystic ovarian syndrome),Vitamin D deficiency Take 200 mg by mouth every 6 hours as needed. 06/26/2010 added in this encounter Care Teams Van Driver Relationship Specialty Start Date End Date Sulma Salinas MD [facility] [address] [place] [address] PCP - General 02/13/09 11/23/11 documented as of this encounter
--- OUTSIDE RECORDS SUMMARY | 2024-08-22 16:06 | XMS_ITS | Encounter Summary ---
Author Organization [facility] Address [address] [place] [address] Care Team Providers Care Microbiology Professor Name Role Phone Sulma Salinas MD Primary Care Provider [phone] Reason for Visit * Reason Comments Obesity Encounter Details Date Type Department Care Team (Late st Contact Info) Description 06/09/2010 9:00 EDT Office Visit [facility] Bariatric Surgery - [address] [id number] Kasandra Hobbs MD [address] [place] [phone] Morbid obesity ([facility]) (Primary Dx) Social History Tobacco Use Types Packs/Day Years Used Date Smoking Tobacco: Former Comments:1996 Comments No Sex and Gender Information Value Date Recorded Sex Assigned at Not on file Legal Sex Female 18:25 EST Gender Identity Not on file Sexual Orientation Not on file documented as of this encounter Progress Notes * Inpatient, Physician - 08/25/2010 1530 EST * Kasandra Hobbs MD - 06/11/2010 1230 EDT SUBJECTIVE: Kevin returns to our office today for continued medically supervised weight loss in preparation for laparoscopic Brandin-En-Y gastric bypass surgery. She is a 35 y.o. 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 Her comorbidities include borderline line diabetes mellitus on diet, obstructive sleep apneaon CPAP, polycystic ovarian syndrome,infertility and osteoarthritis. ?? PAST SURGICAL HISTORY: Consistent for right knee surgery times two, carpal tunnel syndrome and laparoscopic cholecystectomy.. . Otherwise, she denies any changes to her medical history or medications since his previous visit. Kevin met with our program dietitian for 30 minutes to review preoperative dietary recommendations. Iconsulted with the dietitian following her visit with the patient and agree with her findings and recommendations. OBJECTIVE: On physical examination today, her There were no vitals taken for this visit. and There is no height or weight on file to calculate BMI.. EGD- 4cm HH. ?? ASSESSMENT AND PLAN: Kevin will return to our office in a few weeks for continued medically-supervised weight loss in preparation for surgery. She understands that: she is a good candidate for sleeve gastrectomy and?? LRYGBP.The patient insurance denied to cover the sleeve. The risks, benefits and alternatives of the procedure were explained to the patient in detail.?? The potential risks include medical, surgical early and late complications. ??The risks include but not limited to , anesthesia and medication adverse effect, deep vein thrombosis, pulmonary embolism and myocardial infarction.?? The early complications of gastric bypassinclude but not limited to injury to nearby structures, intraabdominal bleeding, anastomotic leak with peritonitis, infection with abscess formation, acute distal gastric dilatation, Brandin limb obstruction.?? As late complications, stomal stenosis/stricture, marginal ulceration, dumping syndrome, gastrogastric fistula, small-bowel obstruction, internal/incisional hernia and wound infection.?? Metabolic complications like calcium, thiamine, vitamin B12, folate, iron and anemia could occur.?? Other risks include failure to lose weight or gain weight.?? Consent form for the procedure was obtainedafter all her questions were answered Kasandra Garner MD * Syeda Dixon, RD - 06/09/2010 8255 EDT PRE OP NUTRITION FOLLOW UP NOTE Bariatric Clinic Nutrition Pre-op Visit Visit Number: 13 Desired surgery: Gastric Bypass Subjective: Started period-weight gain from fluid. Has been [place] hunting on weekends-lots of hiking! Food logs: maintained on spreadsheet Meal pattern: 3 Average caloric intake: 2983-2749 wanda, avg >1500 wanda Meal composition: generally ell balanced, some simple sugars via sauces Snacking:ok Exercise: walking daily, hiking on weekends Objective: Weight: 269.6 lb Weight loss from last visit: +2.2 lb Total weight loss: Weight loss goal: -10.4 lb Approximately 12 lb Surgery Date: 07/08/2010 Significant Medications and Supplements: multivitamin, Vit D Assessment: Patient has made progress towards lifestyle changes Comments: weight regain, fluids?-encouraged patient to decrease daily intake to <1500 wanda via less added sugars, fats. Reviewed full liquid diet and post op diet-pt verbalizes understanding Plan: Diet Goals: Eat smaller meals, Keep food records, Eat more slowly, Calorie goal 5523-4463 wanda and Pre-op liquid diet start date 06/28/2010 Exercise Goals: Maintain current exercise Weight Loss Goal: 12 lb Weight Loss Remaining to Goal: 1.6 lb Reviewed: Food/Activity Record, Full Liquid Diet Trial and Post Operative Diet Next Visit: Post-up follow up visit documented in this encounter H&P Notes * Inpatient, Physician - 11/14/2010 1126 EDT documented in this encounter Miscellaneous Notes * Scanned Note-Null - Laundry Equipment Operator, Scan - 06/11/2011 1044 EDT * Scanned Note-Null - Inpatient, Physician - 08/20/2010 1253 EST documented in this encounter Plan of Treatment Not on file documented as of this encounter Visit Diagnoses Diagnosis Morbid obesity (HCC-CMS)- Primary Morbid obesity documented in this encounter Care Teams Microbiology Professor Relationship Specialty Start Date End Date Sulma Salinas MD [facility] [address] [place] [address] PCP - General 02/13/09 11/23/11 documented as of this encounter
--- OUTSIDE RECORDS SUMMARY | 2024-08-22 16:06 | XMS_ITS | Encounter Summary ---
Author Organization [facility] Address [address] [place] [address] Care Team Providers Care Crew Manager Name Role Phone Robin Troncoso MD Primary Care Provider Encounter Details Date Type Department Care Team (Late st Contact Info) Description 10/11/2007 Results Only [facility] - Maple conversion [address] [place] [address] Robin Troncoso MD [facility] [address] [place], [place] [address] Social History Tobacco Use Types Packs/Day Years [...] Priority Date/Time Associated Diagnosis Comments CYTOPATHOLOGY Routine 10/11/2007 0:00 EST documented in this encounter Results * CYTOPATHOLOGY (10/11/2007 0:00 EST) Pathology Report: CYTOPATHOLOGY REPORT Reports generated via electronic interface contain original data; however they are lacking the format of the original report. Caution should be taken when reading/interpreti ng unformatted reports. Name: ? LALITTASHKEVIN Tena ? Accession #: ? [id number] : ? 1975 (Age: 32) ??F ?Collect Date: ? 10/11/2007 Location: ? [facility] ? Receive Date: ? 10/12/2007 Provider: ?ROBIN TRONCOSO MD Copy to: ? Specimen/Source: ?ThinPrep Pap Test, Cervix/Endocervix, processed on [employer] ThinPrep Imaging System, with manual evaluation Last Menstrual Period: ? 09-14-07 Other: ? HPVA - HPV testing requested if ASC-US on the current ThinPrep Pap test. ? SPECIMEN ADEQUACY ? Satisfactory for Evaluation - transformation zone component absent GENERAL CATEGORIZATION ? Negative for Intraepithelial Lesion or Malignancy ? Document reviewed and electronically signed by: ? MADELIN Eisenberg(ASCP) ? Report Date: ??10/14/2007 12:36 End of Report [facility] 10/11/2007 10/12/2007 us Robin Troncoso MD PATHOLOGY ORDERABLES Final Resul t [facility] [address] [place] [address] documented in this encounter Visit Diagnoses Not on filedocumented in this encounter Care Teams Crew Manager Relationship Specialty Start Date End Date Robin Troncoso MD [facility] [address] [place], [place] [address] PCP - General 02/13/09 11/23/11 documented as of this encounter
--- OUTSIDE RECORDS SUMMARY | 2024-08-22 16:06 | XMS_ITS | Encounter Summary ---
Author Organization [facility] Address [address] [place] [address] Care Team Providers Care Retail Store Assistant Name Role Phone Sulma Salinas MD Primary Care Provider [phone] Reason for Visit * Reason Comments Obesity pre op Encounter Details Date Type Department Care Team (Late st Contact Info) Description 11/21/2009 8:00 EDT Office Visit [facility] Bariatric Surgery [facility] [address] [place] [address] Elsy Gaona S, TAILER OUT 61 [facility] [address] [address] MIGUEL (obstructive sleep apnea); Morbid obesity (HCC-CMS); OA (osteoarthritis) of knee; PCOS (polycystic ovarian syndrome); Preoperative testing Social History Tobacco Use Types Packs/Day Years Used Date Smoking Tobacco: Former Comments:1996 Comments No Sex and Gender Information Value Date Recorded Sex Assigned at Not on file Legal Sex Female 18:25 EST Gender Identity Not on file Sexual Orientation Not on file documented as of this encounter Last Filed Vital Signs Vital Sign Reading Time Taken Comments Blood Pressure 122/78 11/21/2009 08 EDT Pulse 76 11/21/2009 08 EDT Temperature - - Respiratory Rate - - Oxygen Saturation - - Inhaled Oxygen Concentration - - Weight 121.8 kg (268 lb 9.6 oz) 11/21/2009 08 EDT Height 164.2 cm (5' 4.65) 11/21/2009 08 EDT Body Mass Index 45.19 11/21/2009 0808 EDT documented in this encounter Progress Notes * Elsy Gaona NP - 11/21/2009 0845 EDT SUBJECTIVE: Kevin was seen in clinic today for continued medically supervised weight loss in preparation for Brandin-En-Y gastric bypass surgery. She is a 34 y.o. 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 Her comorbidities include gastroesophagitis, obstructive sleep apnea, PCOS and osteoarthritis. She denies any changes in her medical history or medications since her previous visit. We had submitted her medical information to her insurance company for approval for gastric sleeve surgery and was denied. She would like to move forward with gastric bypass as this is a covered benefit under her plan. Kevin met with our program dietitian for 30 minutes to review preoperative dietary recommendations. Iconsulted with the dietitian following her visit with the pt and agree with her findings and recommendations. Reviewed gastric bypass post-op diet. Kevin has now completed all of our preoperative requirements including the postop nutrition class, the 1.5 hour psychoeducational group behavior skills class and has met all of our preop medical requirements as well. OBJECTIVE: On physical exam today, BP 122/78 Pulse 76 Ht 1.642 m (5' 4.65) Wt 121.836 kg (268 lb 9.6 oz). Body mass index is 45.19 kg/(m^2). ASSESSMENT: Kevin continues to be an appropriate and motivated candidate for Brandin-En-Y gastric bypasssurgery with a Body mass index is 45.19 kg/(m^2). and multiple life-threatening comorbidities. Due to the life-threatening nature of her morbid obesity and accompanying comorbidities, we believe thatbariatric surgery is medically necessary for this patient and will be submitting her information tothe insurance company for prior authorization now that she has completed all of our program requirements. Pre-op labs have been ordered. PLAN: She will return to our office in a few weeks for continued medically supervised weight loss in preparation for surgery. Elsy Gaona NP 11/21/2009 8:38 AM * Syeda Dixon RD - 11/21/2009 0822 EDT PRE OP NUTRITION FOLLOW UP NOTE Bariatric Clinic Nutrition Pre-op Visit Visit Number: 7 Desired surgery: Gastric Sleeve Subjective: Doing well. Food logging but unable to print today Food logs: maintained but not brought in Meal pattern: unk Average caloric intake:states 9627-1778 Meal composition: unk Snacking: appropriate Exercise: walking at lunch and occas afternoon Objective: Weight: 268.8 lb Weight loss from last visit: -1.6 lb Total weight loss: Weight loss goal: -14.6 lb 14 Surgery Date: Significant Medications and Supplements: MVT Assessment: Patient has met weight loss requirement for surgery Comments: to keep log and bring next visit Plan: Diet Goals: Keep food records Exercise Goals: Maintain current exercise Weight Loss Goal: 14 lb Weight Loss Remaining to Goal: 0 Reviewed: Food/Activity Record not reviewed, not brought in Next Visit: Pre-op follow-up visit documented in this encounter Plan of Treatment Not on file documented as of this encounter Results * TSH (11/21/2009 9:45 EDT) TSH Marked hemolysis Specimen unsuitable for analysis. Repeat Requested 0.35 - 5.00 uIU/ml [facility] Comment[facility] [place], [place] Blood specimen (specimen) 11/21/2009 9:45 EDT 11/21/2009 9:47 EDT Elsy Gaona APRN CHEMISTRY & BLOOD GAS ORD ERABLES Final Result [facility] [address] [place] [address] * LIPID PROFILE (INCLUDES CHOLESTEROL, TRIGLYCERIDES, HDL, LDL) (11/21/2009 9:45 EDT) Cholesterol Marked hemolysis Specimen unsuitable for analysis. Repeat Requested mg/dl [facility] Triglycerides Marked hemolysis Specimen unsuitable for analysis. Repeat Requested 35 - 160 mg/dl [facility] HDL Marked hemolysis Specimen unsuitable for analysis. Repeat Requested mg/dl [facility] LDL, Calculated Marked hemolysis Specimen unsuitable for analysis. Repeat Requested mg/dl [facility] Chol/HDL Ratio Marked hemolysis Specimen unsuitable for analysis. Repeat Requested Performed at [facility], [place], [place] [facility] Fasting? Yes [facility] Blood specimen (specimen) 11/21/2009 9:45 EDT 11/21/2009 9:47 EDT Elsy Gaona APRN CHEMISTRY & BLOOD GAS ORD ERABLES Final Result Performing Organization Address [facility] de Phone Number [facility] [address] [place] [address] * HEMOGLOBIN A1C (11/21/2009 9:45 EDT) Hemoglobin A1C 5.9 % [facility] Comment: Reference Range: <5.7% Normal 5.7-6.4% Increased [...] ORD ERABLES Final Result Performing Organization Address [facility] de Phone Number [facility] [address] [place] [address] * VITAMIN D (25,OH) (11/21/2009 9:45 EDT) 25OH Vitamin D Tot Marked hemolysis Specimen unsuitable for analysis. Repeat Requested ng/ml [facility] Comment:Performed at [facility], [place], [place] Blood specimen (specimen) 11/21/2009 9:45 EDT 11/21/2009 9:47 EDT Elsy S Candelaria TAILER OUT CHEMISTRY & BLOOD GAS ORD ERABLES Final Result Performing Organization Address [facility] Co de Phone Number [facility] [address] [place] [address] * LIVER FUNCTION TESTS (11/21/2009 9:45 EDT) Albumin Marked hemolysis Specimen unsuitable for analysis. Repeat Requested 3.4 - 4.9 g/dl [facility] Total Protein Marked hemolysis Specimen unsuitable for analysis. Repeat Requested 6.5 - 8.3 g/dl [facility] Total Alkaline Phosphatase Marked hemolysis [...] unsuitable for analysis. Repeat Requested mg/dl [facility] Comment:Performed at [facility], [place], [place] Blood specimen (specimen) 11/21/2009 9:45 EDT 11/21/2009 9:47 EDT Elsy Gaona TAILER OUT CHEMISTRY & BLOOD GAS ORD ERABLES Final Result Performing Organization Address City/[facility]/ZIP Co de Phone Number [facility] [address] [place] [address] * (ABNORMAL) HEMAGRAM (11/21/2009 9:45 EDT) WBC 7.76 4.0 - 12.4 K/cmm [facility] RBC 4.52 3.86 - 5.04 M/cmm [facility] Hemoglobin 13.5 11.6 - 15.2 gm/dl [facility] HCT 37.5 34.9 - 44.4 % [facility] MCV 83 81 - 98 [...] ORDERABL ES Final Result Performing Organization Address [facility] de Phone Number [facility] [address] [place] [address] * CREATININE (11/21/2009 9:45 EDT) Creatinine Marked hemolysis Specimen unsuitable for analysis. Repeat Requested 0.7 - 1.5 mg/dl [facility] GFR, Calculated Marked hemolysis Specimen unsuitable for analysis. Repeat Requested ml/min/1. 73m2 [facility] Comment:Performed at [facility], [place], [place] Blood specimen (specimen) 11/21/2009 9:45 EDT 11/21/2009 9:47 EDT Elsy Gaona APRN CHEMISTRY & BLOOD GAS ORD ERABLES Final Result Performing Organization Address [facility] Co de Phone Number [facility] [address] [place] [address] documented in this encounter Visit Diagnoses Diagnosis MIGUEL (obstructive sleep apnea) Obstructive sleep apnea (adult) (pediatric) Morbid obesity ([facility]) Morbid obesity OA (osteoarthritis) of knee Osteoarthrosis, unspecified whether generalized or localized, lower leg PCOS (polycystic ovarian syndrome) Polycystic ovaries Preoperative testing Preoperative examination, unspecified documented in this encounter Care Teams Retail Store Assistant Relationship Specialty Start Date End Date Sulma Salinas MD [facility] [address] [place], [place] [address] PCP - General 02/13/09 11/23/11 documented as of this encounter
--- OUTSIDE RECORDS SUMMARY | 2024-08-22 16:06 | XMS_ITS | Encounter Summary ---
Author Organization [facility] Address [address] [place] [address] Care Team Providers Care Automatic Head Sawyer Name Role Phone Sulma Salinas MD Primary Care Provider [phone] Reason for Visit * Reason Onset Date Comments Advice Only 07/14/2010 Encounter Details Date Type Department Care Team (Late st Contact Info) Description 07/14/2010 Telephone [facility] Bariatric Surgery - [address] Advice Only Social History Tobacco Use Types Packs/Day Years [...] encounter Miscellaneous Notes * Telephone Encounter - Syeda Dixon RD - 07/14/2010 7880 EST BARIATRIC SURGERY POST-OP CALL NOTE Date of Surgery:07/08/2010 Date of Discharge: 07/11/2010 Surgeon: Patsy Type of Surgery: Gastric Bypass Patient Complains of: No complaints or problems except diarrhea first few days at home, now no stool Patient Tolerating: Adequate Fluids Plan: Doing well on full liquids. Encouraged patient to call if she has any further bowel issues. Return to Clinic:07/18/[address] 07/14/2010 13:38 documented in this encounter Plan of Treatment Not on file documented as of this encounter Visit Diagnoses Not on filedocumented in this encounter Care Teams Automatic Head Sawyer Relationship Specialty Start Date End Date Sulma Salinas MD [facility] [address] [place] [address] PCP - General 02/13/09 11/23/11 documented as of this encounter
--- OUTSIDE RECORDS SUMMARY | 2024-08-22 16:06 | XMS_ITS | Encounter Summary ---
Author Organization [facility] Address [address] [place] [address] Care Team Providers Care Manufacturing Process Engineer Name Role Phone Sulma Salinas MD Primary Care Provider Encounter Details Date Type Department Care Team (Late st Contact Info) Description 02/08/2003 Results Only [facility] - Maple conversion [address] [place] [address] Tawny Yo NP [address] [facility],[address] [address] Social History Tobacco Use Types [...] Priority Date/Time Associated Diagnosis Comments CYTOPATHOLOGY Routine 02/08/2003 0:00 EDT documented in this encounter Results * CYTOPATHOLOGY (02/08/2003 0:00 EDT) Pathology Report: CYTOPATHOLOGY REPORT Reports generated via electronic interface contain original data; however they are lacking the format of the original report. Caution should be taken when reading/interpreti ng unformatted reports. Name: ? KEVIN CASTANO ? Accession #: ? [id number] : ? 1975 (Age: 27) ??F ?Collect Date: ? 02/08/2003 Location: ? [facility] ? Receive Date: ? 02/12/2003 Provider: ?TAWNY YO FIRE CONTROL TECHNICIAN B Copy to: ? Specimen/Source: ?ThinPrep Pap Test, Cervix/Endocervix Last Menstrual Period: ? 01/16 Hormonal/Contracep tive Status: ? Control Pills Other: ? HPVA - HPV testing requested if ASC-US on the current ThinPrep Pap test. ? SPECIMEN ADEQUACY ? Satisfactory for Evaluation - transformation zone component present GENERAL CATEGORIZATION ? Negative for Intraepithelial Lesion or Malignancy INTERPRETATION ? Fungal organisms present morphologically consistent with Veronika species. ? Document reviewed and electronically signed by: ? MADELIN Mcgowan(ASCP) ? Report Date: ??02/15/2003 09:53 End of Report [facility] 02/08/2003 02/12/2003 us Tawny Yo NP PATHOLOGY ORDERABLES Final R esult [facility] [address] [place] [address] documented in this encounter Visit Diagnoses Not on filedocumented in this encounter Care Teams Manufacturing Process Engineer Relationship Specialty Start Date End Date Sulma Salinas MD [facility] [address] [place] [address] PCP - General 02/13/09 11/23/11 documented as of this encounter
--- OUTSIDE RECORDS SUMMARY | 2024-08-22 16:06 | XMS_ITS | Encounter Summary ---
Author Organization [facility] Address [address] [place] [address] Care Team Providers Care Slitting And Shipping Supervisor Name Role Phone Sulma Salinas MD Primary Care Provider Encounter Details Date Type Department Care Team (Late st Contact Info) Description 06/09/2001 Results Only [facility] - Maple conversion [address] [place] [address] Kev Cloud MD [address] [place] [address] Social History Tobacco Use Types [...] Priority Date/Time Associated Diagnosis Comments CYTOPATHOLOGY Routine 06/09/2001 0:00 EDT documented in this encounter Results * CYTOPATHOLOGY (06/09/2001 0:00 EDT) Pathology Report: CYTOPATHOLOGY REPORT Reports generated via electronic interface contain original data; however they are lacking the format of the original report. Caution should be taken when reading/interpreti ng unformatted reports. Name: ? KEVIN CASTANO ? Accession #: ? [id number] : ? 1975 (Age: 26) ??F ?Collect Date: ? 06/09/2001 Location: ? [facility] ? Receive Date: ? 06/13/2001 Provider: ?KEV CLOUD MD Copy to: ? Specimen/Source: ?ThinPrep Pap Test, Cervix/Endocervix Last Menstrual Period: ? 05/26/01 Hormonal/Contracep tive Status: ? Yes ? SPECIMEN ADEQUACY ? Satisfactory for evaluation. GENERAL CATEGORIZATION ? Within Normal Limits ? Document reviewed and electronically signed by: ? MADELIN Don(ASCP) ? Report Date: ??06/16/2001 08:28 End of Report [facility] 06/09/2001 06/13/2001 us Kev Cloud MD PATHOLOGY ORDERABLES Final Resul t [facility] [address] [place] [address] documented in this encounter Visit Diagnoses Not on filedocumented in this encounter Care Teams Slitting And Shipping Supervisor Relationship Specialty Start Date End Date Sulma Salinas MD [facility] [address] [place] [address] PCP - General 02/13/09 11/23/11 documented as of this encounter
--- OUTSIDE RECORDS SUMMARY | 2024-08-22 16:06 | XMS_ITS | Encounter Summary ---
Author Organization [facility] Address [address] [place] [address] Care Team Providers Care Pillowcase Turner Name Role Phone Sulma Salinas MD Primary Care Provider [phone] Encounter Details Date Type Department Care Team (Latest Contact Info) Description 04/24/2010 13:05 EDT - 04/24/2010 23:59 EDT Hospital Encounter [facility] [address] [place] [address] Elsy Gaona, CHRONOGRAPH OPERATOR [address] [facility] [address] [id number] Morbid obesity ([facility]); Vitamin D deficiency; Preop testing; MIGUEL (obstructive sleep apnea); GERD (gastroesophageal reflux disease); OA (osteoarthritis) of knee; PCOS (polycystic ovarian syndrome) Discharge Disposition: Auto Discharge Social History Tobacco [...] Auto Discharge Home documented in this encounter Plan of Treatment Not on file documented as of this encounter Procedures Procedure Name Priority Date/Time Associated Diagnosis Comments VITAMIN D (25,OH) Routine 04/24/2010 13: 11 EDT Morbid obesity ([facility]) Vitamin D deficiency Preop testing COMPLETE BLOOD COUNT Routine 04/24/2010 13:11 EDT Morbid obesity ([facility]) Vitamin D deficiency Preop testing HEMOGLOBIN A1C Routine 04/24/2010 13:11 EDT Morbid obesity ([facility]) MIGUEL (obstructive sleep apnea) GERD (gastroesophageal reflux disease) OA (osteoarthritis) of knee PCOS (polycystic ovarian syndrome) Vitamin D deficiency Preop testing VITAMIN B12 Routine 04/24/2010 13:11 EDT Morbid obesity ([facility]) MIGUEL (obstructive sleep apnea) GERD (gastroesophageal reflux disease) OA (osteoarthritis) of knee PCOS (polycystic ovarian syndrome) Vitamin D deficiency Preop testing documented in this encounter Results * VITAMIN B12 (04/24/2010 13:11 EDT) Vitamin B-12 226 211 - 911 pg/ml [facility] Blood specimen (specimen) 04/24/2010 13:11 EDT 04/24/2010 13:14 EDT us Elsy Gaona APRN CHEMISTRY & BLOOD GAS ORD ERABLES Final Result [facility] [address] [place] [address] * HEMOGLOBIN A1C (04/24/2010 13:11 EDT) Pathologist [facility] Hemoglobin A1C 5.9 % [facility] Comment: Reference Range: <5.7% Normal 5.7-6.4% Increased risk for diabetes =>6.5% Diagnostic for diabetes (if confirmed) ?? The A1c goal for non adults in general is <7%. ?? The A1c goal for selected patients may be significantly lower than 7% if this can be achieved without significant hypoglycemia or other adverse effects of treatment. Est Avg Glucose 123 mg/dl [facility] Comment:eAG represents the A 1c result expressed as average glucose in mg/dl. Blood specimen (specimen) 04/24/2010 13:11 EDT 04/24/2010 13:14 EDT Elsy Pepe Gaona CHRONOGRAPH OPERATOR CHEMISTRY & BLOOD GAS ORD ERABLES Final Result Performing Organization Address City/[facility]/ZIP Co de Phone Number [facility] [address] [place] [address] * VITAMIN D (25,OH) (04/24/2010 13:11 EDT) Pathologist [facility] 25OH Vitamin D Tot 31.6 ng/ml [facility] Comment: Reference Range: <10 ng/ml: Deficient 10-30 ng/ml: Insufficient 30-100 ng/ml: Sufficient >100 ng/ml: Toxic Blood specimen (specimen) 04/24/2010 13:11 EDT 04/24/2010 13:14 EDT Elsy Pepe Gaona CHRONOGRAPH OPERATOR CHEMISTRY & BLOOD GAS ORD ERABLES Final Result Performing Organization Address City/[facility] Co de Phone Number [facility] [address] [place] [address] * (ABNORMAL) HEMAGRAM (04/24/2010 13:11 EDT) Pathologist [facility] WBC 7.90 4.0 - 12.4 K/cmm [facility] RBC 4.74 3.86 - 5.04 M/cmm [facility] Hemoglobin 13.6 11.6 - 15.2 gm/dl [facility] HCT 40.0 34.9 - 44.4 % [facility] MCV 84 81 - 98 fl [facility] MCH 28.7 26.7 - 33.3 pg [facility] MCHC 34.1 32.1 - 35.9 gm/dl [facility] PLT 285 141 - 320 K/cmm [facility] RDW-CV 11.6(L) 11.7 - 14.6 % [facility] Comment:[facility] [place], [place] Blood specimen (specimen) 04/24/2010 13:11 EDT 04/24/2010 13:14 EDT us Elsy Gaona CHRONOGRAPH OPERATOR HEMATOLOGY & PF4 ORDERABL ES Final Result Performing Organization Address City/State/[facility] Co de Phone Number [facility] [address] [place] [address] documented in this encounter Visit Diagnoses Diagnosis Morbid obesity ([facility]) Morbid obesity Vitamin D deficiency Unspecified vitamin D deficiency Preop testing Preoperative examination, unspecified MIGUEL (obstructive sleep apnea) Obstructive sleep apnea (adult) (pediatric) GERD (gastroesophageal reflux disease) Esophageal reflux OA (osteoarthritis) of knee Osteoarthrosis, unspecified whether generalized or localized, lower leg PCOS (polycystic ovarian syndrome) Polycystic ovaries documented in this encounter Orders Medications Ordered That Allen ht Not Have Been Administered Count Last Ordered Date First Ordered Date ketorolac (TORADOL) 30 mg/mL (1 mL) injection 1 07/08/2010 morphine 2 mg/ml (DURAMORPH) 2 mg/mL GRAPHIC USER INTERFACE DESIGNER, 30 ml syringe 1 07/08/2010 documented in this encounter Care Teams Pillowcase Turner Relationship Specialty Start Date End Date Sulma Salinas MD [facility] [address] [place], [place] [address] PCP - General 02/13/09 11/23/11 documented as of this encounter
--- OUTSIDE RECORDS SUMMARY | 2024-08-22 16:06 | XMS_ITS | Encounter Summary ---
Author Organization [facility] Address [address] [place] [address] Care Team Providers Care Access Services Representative Name Role Phone Sulma Salinas MD Primary Care Provider [phone] Encounter Details Date Type Department Care Team (Late st Contact Info) Description 03/26/2010 Orders Only [facility] Bariatric Surgery - [place] [address] [place] [address] Elsy Gaona, ARCHITECTURAL INTERN 61 [facility] 4 [facility] [address] [place], [place] [address] Morbid obesity ([facility]); Vitamin D deficiency; Preop testing Social History Tobacco Use Types Packs/Day [...] this encounter Results * VITAMIN D (25,OH) (04/24/2010 13:11 EDT) 25OH Vitamin D Tot 31.6 ng/ml [facility] Comment: Reference Range: <10 ng/ml: Deficient 10-30 ng/ml: Insufficient 30-100 ng/ml: Sufficient >100 ng/ml: Toxic Blood specimen (specimen) 04/24/2010 13:11 EDT 04/24/2010 13:14 EDT Elsy Gaona ARCHITECTURAL INTERN CHEMISTRY & BLOOD GAS ORD ERABLES Final Result Performing Organization Address City/[facility]/ZIP Co de Phone Number [facility] [address] [place] [address] * (ABNORMAL) HEMAGRAM (04/24/2010 13:11 EDT) WBC 7.90 4.0 - 12.4 K/cmm [facility] RBC 4.74 3.86 - 5.04 M/cmm [...] % [facility] Comment:Performed at [facility], [place], [place] Blood specimen (specimen) 04/24/2010 13:11 EDT 04/24/2010 13:14 EDT Elsy Gaona ARCHITECTURAL INTERN HEMATOLOGY & PF4 ORDERABL ES Final Result Performing Organization Address City/[facility] Co de Phone Number [facility] [address] [place] [address] documented in this encounter Visit Diagnoses Diagnosis Morbid obesity ([facility]) Morbid obesity Vitamin D deficiency Unspecified vitamin D deficiency Preop testing Preoperative examination, unspecified documented in this encounter Care Teams Access Services Representative Relationship Specialty Start Date End Date Sulma Salinas MD [facility] [address] [place] [address] PCP - General 02/13/09 11/23/11 documented as of this encounter
--- OUTSIDE RECORDS SUMMARY | 2024-08-22 16:06 | XMS_ITS | Encounter Summary ---
Author Organization [facility] Address [address] [place] [address] Care Team Providers Care Credit Card Control Clerk Name Role Phone Sulma Salinas MD Primary Care Provider [phone] Reason for Visit * Reason Comments Obesity pre op Encounter Details Date Type Department Care Team (Late st Contact Info) Description 03/07/2010 14:15 EDT Office Visit [facility] Bariatric Surgery - [place] [address] [place] [address] Kasandra Hobbs MD [address] [place] [phone] Morbid obesity ([facility]) (Primary Dx) Social History Tobacco Use Types Packs/Day Years Used Date Smoking Tobacco: Former Comments:1996 Comments No Sex and Gender Information Value Date Recorded Sex Assigned at Not on file Legal Sex Female 18:25 EST Gender Identity Not on file Sexual Orientation Not on file documented as of this encounter Last Filed Vital Signs Vital Sign Reading Time Taken Comments Blood Pressure 126/76 03/07/2010 1421 EDT Pulse 72 03/07/2010 1421 EDT Temperature - - Respiratory Rate - - Oxygen Saturation - - Inhaled Oxygen Concentration - - Weight 122.7 kg (270 lb 6.4 oz) 03/07/2010 1421 EDT Height 164.2 cm (5' 4.65) 03/07/2010 1421 EDT Body Mass Index 45.49 03/07/2010 1421 EDT documented in this encounter Progress Notes * Kasandra Hobbs MD - 03/07/2010 6535 EDT SUBJECTIVE: Kevin returns to our office today for continued medically supervised weight loss in preparation for laparoscopic sleeve gastrectomy surgery. She is a 34 y.o. 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 Her comorbidities include :.borderline line diabetes mellitus on diet, obstructive sleep apnea on CPAP, polycystic ovarian syndrome,infertility and osteoarthritis. PAST SURGICAL HISTORY: Consistent for right knee surgery times two, carpal tunnel syndrome and laparoscopic cholecystectomy.. Otherwise, she denies any changes to her medical history or medications since his previous visit. Kevin met with our program dietitian for 30 minutes to review preoperative dietary recommendations. Iconsulted with the dietitian following her visit with the patient and agree with her findings and recommendations. OBJECTIVE: On physical examination today, her BP 126/76 Pulse 72 Ht 1.642 m (5' 4.65) Wt 122.653 kg (270 lb 6.4 oz) and Body mass index is 45.49 kg/(m^2).. ASSESSMENT AND PLAN: Kevin will return to our office in a few weeks for continued medically-supervised weight loss in preparation for surgery. She understands that: She is a good candidate for sleeve pending insurance coverage.. I'll discuss with her insurance about the sleeve next week, We will resubmit her paper again.The patient was notified. Lost 2 Lb. EGD- 4cm HH. Kasandra Garner MD documented in this encounter Miscellaneous Notes * Scanned Note-Null - Nam, Carpenter Prototype - 03/27/2011 1035 EDT documented in this encounter Plan of Treatment Not on file documented as of this encounter Visit Diagnoses Diagnosis Morbid obesity (HCC-CMS)- Primary Morbid obesity documented in this encounter Care Teams Credit Card Control Clerk Relationship Specialty Start Date End Date Sulma Salinas MD [facility] [address] [place] [address] PCP - General 02/13/09 11/23/11 documented as of this encounter
--- OUTSIDE RECORDS SUMMARY | 2024-08-22 16:06 | XMS_ITS | Encounter Summary ---
Author Organization [facility] Address [address] [place] [address] Care Team Providers Care Internal Control Specialist Name Role Phone Sulma Salinas MD Primary Care Provider [phone] Encounter Details Date Type Department Care Team (Late st Contact Info) Description 11/22/2009 Orders Only [facility] Bariatric Surgery [facility] [address] [place] [address] Lorena Garduno, RN [address] [place] [address] Obesity, unspecified (Primary Dx); Polycystic ovaries; Other esophagitis Social History Tobacco Use Types Packs/Day Years Used Date Smoking Tobacco: Former Comments:1996 Comments No Sex and Gender Information Value Date Recorded Sex Assigned at Not on file Legal Sex Female 18:25 EST Gender Identity Not on file Sexual Orientation Not on file documented as of this encounter Plan of Treatment Not on file documented as of this encounter Visit Diagnoses Diagnosis Obesity, unspecified- Primary Polycystic ovaries Other specified oesophagitis Other esophagitis documented in this encounter Care Teams Internal Control Specialist Relationship Specialty Start Date End Date Sulma Salinas MD [facility] [address] [place], [place] [address] PCP - General 02/13/09 11/23/11 documented as of this encounter
--- OUTSIDE RECORDS SUMMARY | 2024-08-22 16:06 | XMS_ITS | Encounter Summary ---
Author Organization [facility] Address [address] [place] [address] Care Team Providers Care Gis Application Developer Name Role Phone Sulma Salinas MD Primary Care Provider [phone] Reason for Visit * Reason Comments Obesity pre op Encounter Details Date Type Department Care Team (Late st Contact Info) Description 04/24/2010 11:45 EDT Office Visit [facility] Bariatric Surgery - [place] [address] [place] [address] Elsy Gaona, DIVINITY PROFESSOR [address] [address] Morbid obesity ([facility]); MIGUEL (obstructive sleep apnea); GERD (gastroesophageal reflux disease); OA (osteoarthritis) of knee; PCOS (polycystic ovarian syndrome); Vitamin D deficiency; Preop testing Social History [...] Sign Reading Time Taken Comments Blood Pressure 110/74 04/24/2010 1137 EDT Pulse 60 04/24/2010 1137 EDT Temperature - - Respiratory Rate - - Oxygen Saturation - - Inhaled Oxygen Concentration - - Weight 121.3 kg (267 lb 6.4 oz) 04/24/2010 1137 EDT Height 164.2 cm (5' 4.65) 04/24/2010 1137 EDT Body Mass Index 44.99 04/24/2010 1137 EDT documented in this encounter Progress Notes * Syeda Dixon RD - 04/24/2010 1210 EDT PRE OP NUTRITION FOLLOW UP NOTE Bariatric Clinic Nutrition Pre-op Visit Visit Number: 12 Desired surgery: Gastric Sleeve,or bypass if sleeve not approved Subjective: Getting excited about surgery, still hoping for sleeve but on the schedule for bypass. Food logs: maintained by hand Meal pattern: 3 Average caloric intake: 3171-0968 but mostly 5370-2483 wanda Meal composition: much improved with more fruits and veggies and protein Snacking:ok Exercise: walking at home, mucking barn with horses Objective: Weight: 267.4 lb Weight loss from last visit: -2.4 lb Total weight loss: Weight loss goal: -12.6 lb Approximately 12 lb Surgery Date: Significant Medications and Supplements: multivitamin, Vit D Assessment: Patient has met weight loss requirement for surgery Comments: relost gained weight, watching sodium for fluid shifts. Intake improved with more fruits and veggies and protein Plan: Diet Goals: Keep food records and Eat more slowly Exercise Goals: Maintain current exercise Weight Loss Goal: approx 12lb Weight Loss Remaining to Goal: 0 Reviewed: Food/Activity Record Next Visit: Pre-op follow-up visit * Elsy Gaona NP - 04/24/2010 1119 EDT SUBJECTIVE: Kevni returns to our office today for continued medically supervised weight loss in preparation for laparoscopic sleeve gastrectomy surgery. She is a 34 y.o. 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 Her comorbidities include gastroesophagitis, obstructive sleep apnea, PCOS, Vitamin D insufficiency and osteoarthritis. Is being re-submitted to insurance for sleeve but if denied again will go forward with gastric bypass. Had labs done 3 wks ago [facility] but they can not find them. [facility] has no record of these labs being done. Otherwise, she denies any changes to her medical history or medications since his previous visit. Kevin met with our program dietitian for 30 minutes to review preoperative dietary recommendations. Iconsulted with the dietitian following her visit with the patient and agree with her findings and recommendations. OBJECTIVE: On physical examination today, her BP 110/74 Pulse 60 Ht 1.642 m (5' 4.65) Wt 121.292 kg (267 lb 6.4 oz) and Body mass index is 44.99 kg/(m^2).. ASSESSMENT AND PLAN: Kevin will return to our office in a few weeks for continued medically-supervised weight loss in preparation for surgery. Elsy Gaona NP documented in this encounter Miscellaneous Notes * Scanned Note-Null - Nam, Broadband Technician - 02/02/2011 1659 EDT documented in this encounter Plan of Treatment Not on file documented as of this encounter Results * VITAMIN B12 (04/24/2010 13:11 EDT) Pathologist Edu Vitamin B-12 226 211 - 911 pg/ml [facility] Blood specimen (specimen) 04/24/2010 13:11 EDT 04/24/2010 13:14 EDT Elsy Gaona DIVINITY PROFESSOR CHEMISTRY & BLOOD GAS ORD ERABLES Final Result [facility] [address] [place] [address] * HEMOGLOBIN A1C (04/24/2010 13:11 EDT) Hemoglobin A1C 5.9 % [facility] [...] ERABLES Final Result [facility] [address] [place] [address] documented in this encounter Visit Diagnoses Diagnosis Morbid obesity ([facility]) Morbid obesity MIGUEL (obstructive sleep apnea) Obstructive sleep apnea (adult) (pediatric) GERD (gastroesophageal reflux disease) Esophageal reflux OA (osteoarthritis) of knee Osteoarthrosis, unspecified whether generalized or localized, lower leg PCOS (polycystic ovarian syndrome) Polycystic ovaries Vitamin D deficiency Unspecified vitamin D deficiency Preop testing Preoperative examination, unspecified documented in this encounter Orders Lab Orders Without Results Count Last Ordered D ate First Ordered Date HEMAGRAM 1 04/24/2010 VITAMIN D (25,OH) 1 04/24/2010 documented in this encounter Care Teams Gis Application Developer Relationship Specialty Start Date End Date Sulma Salinas MD [facility] [address] [place], [place] [address] PCP - General 02/13/09 11/23/11 documented as of this encounter
--- OUTSIDE RECORDS SUMMARY | 2024-08-22 16:06 | XMS_ITS | Encounter Summary ---
Author Organization [facility] Address [address] [place] [address] Care Team Providers Care Software Design Engineer Name Role Phone Robin Salinas MD Primary Care Provider [phone] Encounter Details Date Type Department Care Team (Latest Contact Info) Description 08/27/2009 8:39 EST - 08/27/2009 23:59 EST Hospital Encounter [facility] [address] [place] [address] Klaudia Schultz MD [address] [place] [phone] Discharge Disposition: Home or Self Care [...] daily. 06/27/2013 documented as of this encounter Discharge Disposition Disposition Code Departure Means Destination Home or Self [facility] documented in this encounter Procedure Notes * Inpatient, Physician - 08/28/2009 0956 ESTAssociated Order(s): PATHOLOGY - SCANNED * Inpatient, Physician - 08/28/2009 0956 EST * Inpatient, Physician - 08/28/2009 0956 ESTAssociated Order(s): ORDERS - SCANNED documented in this encounter Miscellaneous Notes * Scanned Note-Null - Inpatient, Physician - 08/28/2009 0956 EST * Brief Op Note - Inpatient, Physician - 08/28/2009 0956 EST * Scanned Note-Null - Inpatient, Physician - 08/28/2009 0915 EST documented in this encounter Plan of Treatment Not on file documented as of this encounter Procedures Procedure Name Priority Date/Time Associated Diagnosis Comments ORDERS - SCANNED 08/28/2009 9:56 EST PATHOLOGY - SCANNED 08/28/2009 9:56 EST SURGICAL PATHOLOGY Routine 08/27/2009 0:00 EST documented in this encounter Results * ORDERS - SCANNED (08/28/2009 9:56 EST) 08/28/2009 9:56 EST Narrative Procedure Note Inpatient, Physician - 08/28/2009 9:56 EST Physician Inpatient MD ADMISSION ORDERABLES [place] l Result * PATHOLOGY - SCANNED (08/28/2009 9:56 EST) 08/28/2009 9:56 EST Narrative 08/28/2009 9:59 EST Ordered by an unspecified provider. Transcriptions Inpatient, Physician - 08/28/2009 9:56 EST us Physician Inpatient MD LAB INFO SERVICE AND SUPP ORT & PHONE RESULT Final Result * SURGICAL PATHOLOGY (08/27/2009 0:00 EST) Pathology Report: SURGICAL PATHOLOGY REPORT ? Reports generated via electronic interface contain original data; ? however they are lacking the format of the original report. ? Caution should be taken when reading/interpreti ng unformatted reports. ? Name: ? KEVIN CASTANO ? Accession #: ? [id number] ? : ? 1975 (Age: 34) ??F ? Collect Date: ? 08/27/2009 ? Location: ? [facility] ? Receive Date: ? 08/27/2009 ? Provider: KLAUDIA M FORGIONE MD ? Copy to: ROBIN READY MD ? Final Pathologic Diagnosis: ? A. ?Stomach, antrum, biopsy: ? 1. ?Antral mucosa without significant abnormality. ? 2. ? Negative for Helicobacter pylori-like organisms on H+E-stained sections. B. ?Gastroesophageal junction, biopsy: ? 1. ?Squamocolumnar junctional mucosa with mild chronic inflammation and reactive epithelial changes. ? 2. ? Negative for intestinal metaplasia/dysplas ia. ? Document reviewed and electronically signed by: ? Gloria Wesley MD ? Report ??Date: 08/28/2009 14:49 ? By the signature above, the attending physician certifies that he/she has ? personally conducted a gross and/or microscopic examination of the described ? specimens and rendered or confirmed the above diagnosis. ? Specimen(s) Received: ? A. ?Antrum bx ? B. ? GE junction bx ? Clinical History: ? Not listed ? Gross Description: ? Received in Hollande's fixative labelled Kevin Castano and cony is a 0.3 x 0.2 x 0.2 cm firm piece of tissue which is submitted intact as (A). ? Received in Hollande's fixative labelled Yumiko, Kevin and JENIFFER junction is a 0.5 x 0.2 x 0.2 cm piece of tissue which is submitted intact as (B). ??(J. ? Tessitore)/kmm ? End of Report ? [facility] 08/27/2009 08/27/2009 13: 44 EST us Klaudia Schultz MD PATHOLOGY ORDERABLES Final Result [facility] [address] [place] [address] documented in this encounter Visit Diagnoses Not on filedocumented in this encounter Care Teams Software Design Engineer Relationship Specialty Start Date End Date Robin Salinas MD [facility] [address] [place] [address] PCP - General 02/13/09 11/23/11 documented as of this encounter
--- OUTSIDE RECORDS SUMMARY | 2024-08-22 16:06 | XMS_ITS | Encounter Summary ---
Author Organization [facility] Address [address] [place] [address] Care Team Providers Care Business Relations Manager Name Role Phone Sulma Salinas MD Primary Care Provider [phone] Reason for Visit * Reason Comments Obesity pre op Encounter Details Date Type Department Care Team (Late st Contact Info) Description 01/06/2010 9:30 EDT Office Visit [facility] Bariatric Surgery - [place] [address] [place] [address] Kasandra Hobbs MD [address] [place] [phone] Morbid obesity ([facility]) (Primary Dx) Social History Tobacco Use Types Packs/Day Years Used Date Smoking Tobacco: Former Comments:1996 Comments No Sex and Gender Information Value Date Recorded Sex Assigned at Not on file Legal Sex Female 18:25 EST Gender Identity Not on file Sexual Orientation Not on file documented as of this encounter Last Filed Vital Signs Vital Sign Reading Time Taken Comments Blood Pressure 118/78 01/06/2010 0926 EDT Pulse 72 01/06/2010 0926 EDT Temperature - - Respiratory Rate - - Oxygen Saturation - - Inhaled Oxygen Concentration - - Weight 123.7 kg (272 lb 9.6 oz) 01/06/2010 09 EDT Height 164.2 cm (5' 4.65) 01/06/2010 0926 EDT Body Mass Index 45.86 01/06/2010 0926 EDT documented in this encounter Progress Notes * Kasandra Hobbs MD - 01/06/2010 1059 EDT SUBJECTIVE: Kevin returns to our office today for continued medically supervised weight loss in preparation for laparoscopic sleeve gastrectomy surgery. She is a 34 y.o. 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 She comorbidities include : borderline line diabetes mellitus on diet, obstructive [...] OBJECTIVE: On physical examination today, her BP 118/78 Pulse 72 Ht 1.642 m (5' 4.65) Wt 123.651 kg (272 lb 9.6 oz) and Body mass index is 45.86 kg/(m^2).. ASSESSMENT AND PLAN: Kevin will return to our office in a few weeks for continued medically-supervised weight loss in preparation for surgery. She understands that: she is a good candidate for sleeve gastrectomy. EGD- 4cm HH. Kasandra Garner MD * Kellen Garrison Shanon - 01/06/2010 0907 EDT PRE OP NUTRITION FOLLOW UP NOTE Bariatric Clinic Nutrition Pre-op Visit Visit Number: 8 Desired surgery: Gastric Bypass Subjective: Pt up 4 lbs since last visit 2' water retention during menses. 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 Pt willing to come back to be weighed pre op. Surgery Date not set yet. Food logs: Maintained Meal pattern: 2-3 meals/d (sometimes misses bfast) Average caloric intake: 9815-2113 Meal composition: 70+ grams protein/day Snacking: Appropriate Exercise: Walking at lunch 20 mins 5days a week, weekends: walking ~20mins (max 2' knee surgery 1 year ago) Objective: Weight: 272 Weight loss from last visit: +4 Total weight loss: Weight loss goal: -8 12 Surgery Date: Significant Medications and Supplements: mvm w/ ca+ Assessment: Patient has made progress towards lifestyle changes, had met weight loss goal but is now retaining water. Has increased fruits and veggies, now getting 2-4 servings/d. Eating a salad a day most of the time. Has increased intensity of walking by including hill, swinging arms when flat waking. Pt also does horse chores and rides horses. Plan: Diet Goals: Keep food records, Calorie goal 1200-1500cals/d and Increase fruit and vegetables Exercise Goals: Maintain current exercise Weight Loss Goal:12lbs Weight Loss Remaining to Goal: 4 (likely water weight) Reviewed: Food/Activity Record Next Visit: Pre-op follow-up visit, H&P Kellen Sánchez RD documented in this encounter Procedure Notes * Inpatient, Physician - 01/20/2010 1249 EDTAssociated Order(s): PATHOLOGY - SCANNED documented in this encounter Plan of Treatment Not on file documented as of this encounter Procedures Procedure Name Priority Date/Time Associated Diagnosis Comments PATHOLOGY - SCANNED 01/20/2010 1 2:49 EDT documented in this encounter Results * PATHOLOGY - SCANNED (01/20/2010 12:49 EDT) 01/20/2010 12:4 9 EDT Narrative Procedure Note Inpatient, Physician - 01/20/2010 12:49 EDT Physician Inpatient MD LAB INFO SERVICE AND SUPP ORT & PHONE RESULT Final Result documented in this encounter Visit Diagnoses Diagnosis Morbid obesity ([facility])- Primary Morbid obesity documented in this encounter Care Teams Business Relations Manager Relationship Specialty Start Date End Date Sulma Salinas MD [facility] [address] [place] [address] PCP - General 02/13/09 11/23/11 documented as of this encounter
--- OUTSIDE RECORDS SUMMARY | 2024-08-22 16:06 | XMS_ITS | Encounter Summary ---
Author Organization [facility] Address [address] [place] [address] Care Team Providers Care Hr Representative Name Role Phone Sulma Salinas MD Primary Care Provider [phone] Reason for Visit * Reason Onset Date Comments Medication Questions 07/04/2010 Encounter Details Date Type Department Care Team (Late st Contact Info) Description 07/04/2010 Telephone [facility] Bariatric Surgery - [address] [address] Lorena Garduno, RN [address] [place] [address] Medication Questions Social History Tobacco Use Types Packs/Day Years Used Date Smoking Tobacco: Former Comments:1996 Comments No Sex and Gender Information Value Date Recorded Sex Assigned at Not on file Legal Sex Female 18:25 EST Gender Identity Not on file Sexual Orientation Not on file documented as of this encounter Miscellaneous Notes * Telephone Encounter - Lorena Garduno - 07/04/2010 1426 EST Patient left voicemail message questioning which medications she should take the day of surgery. Left message on voicemail: To take Vitamin D and PPI only. Requested return call from patient. Also left message with patient's requesting return call. Awaiting call back Manda Gaona notified. 07/07/10: Patient returned phone call. She verbalized understanding regarding medications to take the morning of surgery. Also noted she will be bringing her CPAP to the hospital; set currently at 11. documented in this encounter Plan of Treatment Not on file documented as of this encounter Visit Diagnoses Not on filedocumented in this encounter Care Teams Hr Representative Relationship Specialty Start Date End Date Sulma Salinas MD [facility] [address] [place] [address] PCP - General 02/13/09 11/23/11 documented as of this encounter
--- OUTSIDE RECORDS SUMMARY | 2024-08-22 16:06 | XMS_ITS | Encounter Summary ---
Author Organization [facility] Address [address] [place] [address] Care Team Providers Care Pre Sales Technical Consultant Name Role Phone Sulma Salinas MD Primary Care Provider [phone] Encounter Details Date Type Department Care Team (Late st Contact Info) Description 10/08/2009 Abstract [facility] Bariatric Surgery - [place] [address] [place] [address] Sulma Salinas MD [facility] [address] [place], [place] [address] Social History Tobacco Use Types Packs/Day Years [...] may reflect changes made after this encounter. UNABLE TO FIND 1 Tab daily. BCP 03/09/2011 added in this encounter Care Teams Pre Sales Technical Consultant Relationship Specialty Start Date End Date Sulma Salinas MD [facility] [address] [place], [place] [address] PCP - General 02/13/09 11/23/11 documented as of this encounter
== END 2024-08-22 16:23 ==
PROVIDERS: PCP Family Medicine; Visit Provider Nurse Practitioner Family
DX: R05.9 Cough, unspecified (principal)
CPT/HCPCS: 71046

== ENCOUNTER 2024-08-27 06:21 | Emergency (ER) | payer BC, SELFPAY ==
[2024-08-27 06:23] VITALS: BP 155/116; PULSE 84; RESP 16; TEMP 36.6; O2SAT 98
[2024-08-27 06:27] VITALS: PULSE 107; RESP 19; O2SAT 98
[2024-08-27 06:28] VITALS: BP 155/116; PULSE 84; RESP 16; TEMP 36.6; O2SAT 98
--- OUTSIDE RECORDS SUMMARY | 2024-08-27 06:30 | XMS_ITS | Encounter Summary ---
Author Organization [facility] Address [address] [place] [address] Care Team Providers Care Saw Straightener Name Role Phone Sulma Salinas MD Primary Care Provider [phone] Reason for Visit * Reason Onset Date Comments Infertility 08/21/2013 Encounter Details Date Type Department Care Team (Late st Contact Info) Description 08/21/2013 Telephone [facility] Reproductive Medicine & Infertility Center - [facility] [address] [place] [address] Maday Reis, EMELI [address] [place] [address] Infertility Social History Tobacco Use Types Packs/Day [...] 2.5 Cycle days: 3-7 Pharmacy: [facility] Refills: yes B.) Human Chorionic Gonadotropin (HCG) 10,000 unit subcutaneous injection Pharmacy: [facility] Refills: yes D.) USF scheduled- Cycle Day: 9 Date: 08.27.13 Time: 8:30 Maday Reis RN 08/21/2013 8:47 documented in this encounter Plan of Treatment Not on file documented as of this encounter Visit Diagnoses Not on filedocumented in this encounter Care Teams Saw Straightener Relationship Specialty Start Date End Date Sulma Salinas MD [address] [place] [address] PCP - General 06/27/13 documented as of this encounter
--- OUTSIDE RECORDS SUMMARY | 2024-08-27 06:30 | XMS_ITS | Encounter Summary ---
Author Organization [facility] Address [address] [place] [address] Care Team Providers Care Doggy Daycare Activities Director Name Role Phone Sulma Salinas MD Primary Care Provider [phone] Reason for Visit * Reason Onset Date Comments Follow-up 03/09/2011 Encounter Details Date Type Department Care Team (Late st Contact Info) Description 03/09/2011 Orders Only [facility] Bariatric Surgery [facility] [address] [place] [address] Lorena Garduno, EMELI [address] [place] [address] Unspecified vitamin D deficiency; Morbid obesity (HCC-CMS); [...] nonabsorption documented in this encounter Care Teams Doggy Daycare Activities Director Relationship Specialty Start Date End Date Sulma Salinas MD [facility] [address] [place] [address] PCP - General 02/13/09 11/23/11 documented as of this encounter
--- OUTSIDE RECORDS SUMMARY | 2024-08-27 06:30 | XMS_ITS | Clinical Summary ---
Author Organization [facility] Address [address] [place] [address] Care Team Providers Care Dye Boarding Machine Operator Name Role Phone Sulma Salinas MD Primary Care Provider [phone] Allergies Active Allergy Reactions Criticality Noted Date [...] History Relation Comments Heart Disease Maternal Grandfather [place] Stroke Maternal Grandfather Diabetes Maternal Grandmother Heart Disease Maternal Grandmother [place] Diabetes Maternal Uncle Diabetes Mother Diabetes Sister [...] Advance Directives For more information, please contact: [phone] * Full Code (Latest Code Status on File) Date Activated Date Inactivated Comments 07/08/2010 14:47 07/11/2010 15:17 * Full Code Date Activated Date Inactivated Comments 07/08/2010 11:11 07/08/2010 14:47 Care Teams Dye Boarding Machine Operator Relationship Specialty Start Date End Date Sulma Salinas MD [address] [place] [address] PCP - General 06/27/13
--- OUTSIDE RECORDS SUMMARY | 2024-08-27 06:30 | XMS_ITS | Encounter Summary ---
Author Organization [facility] Address [address] [place] [address] Care Team Providers Care Amr Physician Name Role Phone Sulma Salinas MD Primary Care Provider [phone] Reason for Visit * Reason Onset Date Comments Infertility 09/19/2013 pt calling to in form us that she started her menses today. Due to the stress at work she and her would like to take the next few months off Encounter Details Date Type Department Care Team (Late st Contact Info) Description 09/19/2013 Telephone [facility] OBGYN Services - [facility] [address] [place] [address] Daisy Danielson, EMELI Infertility (pt calling to [...] on filedocumented in this encounter Care Teams Amr Physician Relationship Specialty Start Date End Date Sulma Salinas MD [address] [place] [address] PCP - General 06/27/13 documented as of this encounter
--- OUTSIDE RECORDS SUMMARY | 2024-08-27 06:30 | XMS_ITS | Encounter Summary ---
Author Organization [facility] Address [address] [place] [address] Care Team Providers Care Nutrition Specialist Name Role Phone Sulma Salinas MD Primary Care Provider [phone] Encounter Details Date Type Department Care Team (Late st Contact Info) Description 08/07/2010 10:43 EST - 08/07/2010 23:59 EST Hospital Encounter [facility] Endoscopy Outpatient [address] [place] [address] Kasandra Hobbs MD [address] [place] [phone] Toro Scott MD 111 [facility], [facility] [address] [place] [address] Dysphagia Discharge Disposition: Home or [...] Code Departure Means Destination Home or Self Intermediate documented in this encounter H&P Notes * Toro Scott MD - 08/07/2010 1136 EST Sedation for Procedure History & Physical Date: 08/07/2010 Time: 11:36 Location: [address] Planned Procedure: Gastroscopy Chief Complaint/Indications for [...] Maternal Grandmother ??? Heart Disease Maternal Grandmother [place] ??? Heart Disease Maternal Grandfather [place] ??? Stroke Maternal Grandfather Review of Systems [...] 08/07/2010 documented in this encounter Care Teams Nutrition Specialist Relationship Specialty Start Date End Date Sulma Salinas MD [facility] [address] [place] [address] PCP - General 02/13/09 11/23/11 documented as of this encounter
--- OUTSIDE RECORDS SUMMARY | 2024-08-27 06:30 | XMS_ITS | Encounter Summary ---
Author Organization [facility] Address [address] [place] [address] Care Team Providers Care Toll Patrolman Name Role Phone Sulma Salinas MD Primary Care Provider [phone] Reason for Visit * Reason Onset Date Comments Infertility 07/24/2013 pt started mense s 07/24/13 plan is let/hcg/TI Encounter Details Date Type Department Care Team (Late st Contact Info) Description 07/24/2013 Telephone [facility] Reproductive Medicine & Infertility Center - [facility] [address] [place], [place] [phone] Daisy Danielson, EMELI Infertility (pt started menses [...] on filedocumented in this encounter Care Teams Toll Patrolman Relationship Specialty Start Date End Date Sulma Salinas MD [address] [place] [address] PCP - General 06/27/13 documented as of this encounter
--- OUTSIDE RECORDS SUMMARY | 2024-08-27 06:30 | XMS_ITS | Encounter Summary ---
Author Organization [facility] Address [address] [place] [address] Care Team Providers Care Loading Rack Supervisor Name Role Phone Sulma Salinas MD Primary Care Provider [phone] Reason for Visit * Reason Comments Obesity post op Encounter Details Date Type Department Care Team (Late st Contact Info) Description 06/29/2011 9:00 EST Office Visit [facility] Bariatric Surgery - [place] [address] [place] [address] Elsy Ganoa S, TIN CAN FEEDER [address] [facility] [address] [phone] Morbid obesity ([facility]); Vitamin D deficiency; S/P gastric bypass; Postresectional [...] some foods listed below but eating about 0894-8763 wanda and >70 gr protein. Having tingling [...] Place of Polysomnogram Diagnosis of MIGUEL: Answer: [facility] Order Specific Question: Problem List - Click [...] study)? Answer: Yes Seen and discussed with Ed Transporter at this visit. Elsy Gaona NP 06/29/2011 9:28 documented in this encounter Plan of Treatment Scheduled Orders Name Type Priority Associated Diagnoses Orde r Schedule CPAP/BIPAP TITRATION Sleep Center Routine Morbid obesity ([facility]) Vitamin D deficiency S/P gastric bypass Postresectional malabsorption syndrome Ordered: 06/29/2011 documented as of this encounter Visit Diagnoses Diagnosis Morbid obesity ([facility]) Morbid obesity Vitamin D deficiency Unspecified vitamin D deficiency S/P gastric bypass Bariatric surgery status Postresectional malabsorption syndrome Other and unspecified postsurgical nonabsorption documented in this encounter Historical Medications * This list may reflect changes made after this encounter. VITAMIN E ACETATE (VITAMIN E ORAL)Indications:Mor bid obesity ([facility]),Vitamin D deficiency,S/P gastric bypass,Postresection al malabsorption syndrome Take 1 Tab by mouth daily. added in this encounter Care Teams Loading Rack Supervisor Relationship Specialty Start Date End Date Sulma Salinas MD [facility] [address] [place] [address] PCP - General 02/13/09 11/23/11 documented as of this encounter
--- OUTSIDE RECORDS SUMMARY | 2024-08-27 06:30 | XMS_ITS | Encounter Summary ---
Author Organization [facility] Address [address] [place] [address] Care Team Providers Care Tombstone Setter Name Role Phone Sulma Salinas MD Primary Care Provider [phone] Encounter Details Date Type Department Care Team (Late st Contact Info) Description 08/25/2010 14:05 EST - 08/25/2010 23:59 EST Hospital Encounter [facility] Endoscopy Outpatient [address] [place] [address] Toro Scott MD 111 [facility], [facility] 5 [place] [address] Dysphagia Discharge Disposition: Auto Discharge [...] & Physical Date: 08/25/2010 Time: 16:27 Location: [address] Planned Procedure: Gastroscopy Chief Complaint/Indications for [...] Maternal Grandfather [place] ??? Stroke Maternal Grandfather Review of Systems [...] encounter Miscellaneous Notes * Scanned Note-Null - Vp Software, Scan - 07/29/2011 0831 EST * Scanned [...] 08/25/2010 documented in this encounter Care Teams Tombstone Setter Relationship Specialty Start Date End Date Sulma Salinas MD [facility] [address] [place] [address] PCP - General 02/13/09 11/23/11 documented as of this encounter
--- OUTSIDE RECORDS SUMMARY | 2024-08-27 06:30 | XMS_ITS | Encounter Summary ---
Author Organization [facility] Address [address] [place] [address] Care Team Providers Care Environmental Technician Name Role Phone Unknown, Provider MD Primary Care Provider Unava ilable Reason for Visit * Reason Onset Date Comments Other 08/17/2012 Encounter Details Date Type Department Care Team (Late st Contact Info) Description 08/17/2012 Telephone [facility] Bariatric Surgery - [address] [address] Allyn Valenzuela, RN Other Social History Tobacco [...] on filedocumented in this encounter Care Teams Environmental Technician Relationship Specialty Start Date End Date Unknown, Provider, PCP - General 11/24/11 06/26/13 documented as of this encounter
--- OUTSIDE RECORDS SUMMARY | 2024-08-27 06:30 | XMS_ITS | Encounter Summary ---
Author Organization [facility] Address [address] [place] [address] Care Team Providers Care Edge Bander Hand Name Role Phone Sulma Salinas MD Primary Care Provider Reason for Visit * Reason Onset Date Comments Infertility 08/28/2013 Encounter Details Date Type Department Care Team (Late st Contact Info) Description 08/28/2013 Telephone [facility] Reproductive Medicine & Infertility Center - [address] [address] Queenie Mtz, EMELI Infertility Social History Tobacco [...] on filedocumented in this encounter Care Teams Edge Bander Hand Relationship Specialty Start Date End Date Sulma Salinas MD [address] [place] [address] PCP - General 06/27/13 documented as of this encounter
--- OUTSIDE RECORDS SUMMARY | 2024-08-27 06:30 | XMS_ITS | Encounter Summary ---
Author Organization [facility] Address [address] [place] [address] Care Team Providers Care Plastic Surgery Technician Name Role Phone Sulma Salinas MD Primary Care Provider [phone] Reason for Visit * Reason Onset Date Comments Other 08/24/2013 Encounter Details Date Type Department Care Team (Late st Contact Info) Description 08/24/2013 Telephone [facility] Reproductive Medicine & Infertility Center - [address] [address] Queenie Mtz, RN Other Social History Tobacco [...] Encounter - Queenie Mtz RN - 08/24/2013 6223 EST Call to pt. Left message that we need to change her appt to Wednesday at 830 am. Left message for ptto call office and confirm. documented in this encounter Plan of Treatment Not on file documented as of this encounter Visit Diagnoses Not on filedocumented in this encounter Care Teams Plastic Surgery Technician Relationship Specialty Start Date End Date Sulma Salinas MD [address] [place] [address] PCP - General 06/27/13 documented as of this encounter
--- OUTSIDE RECORDS SUMMARY | 2024-08-27 06:30 | XMS_ITS | Encounter Summary ---
Author Organization [facility] Address [address] [place] [address] Care Team Providers Care Bed Laster Name Role Phone Sulma Salinas MD Primary Care Provider [phone] Reason for Visit * Reason Onset Date Comments Appointment Related 10/16/2014 Encounter Details Date Type Department Care Team (Late st Contact Info) Description 10/16/2014 Telephone [facility] Bariatric Surgery [address] [address] Hunter Bynum, WHITNEYC [address] [place] [address], [facility], [facility] [address] [place] [address] Appointment Related Social History Tobacco [...] on filedocumented in this encounter Care Teams Bed Laster Relationship Specialty Start Date End Date Sulma Salinas MD [address] [place] [address] PCP - General 06/27/13 documented as of this encounter
--- OUTSIDE RECORDS SUMMARY | 2024-08-27 06:30 | XMS_ITS | Encounter Summary ---
Author Organization [facility] Address [address] [place] [address] Care Team Providers Care Student Loan Counselor Name Role Phone Unknown, Provider Primary Care Provider Unava ilable Reason for Referral * (Routine/Next Available) - Closed Specialty Diagnoses / Procedures Referred By Contac t Referred To Contact Diagnoses Morbid obesity (HCC-CMS) S/P gastric bypass Post-resection malabsorption Procedures VITAMIN D (25,[place]) Hunter Bynum PA-C Phone: tel: fax: Referral ID Status Reason Start Date Expiration Date Visits Re quested Visits Authorized [id number] Closed 07/29/2012 1 1 Reason for Visit * Reason Comments Obesity Post op bypass - 2 y ear follow-up Encounter Details Date Type Department Care Team (Late st Contact Info) Description 07/29/2012 15:30 EST Office Visit [facility] Bariatric Surgery - [place] [address] [place] [address] Hunter Bynum, PA-C 111 [facility], [facility] 5 [place] [phone] Morbid obesity (HCC-CMS); S/P gastric bypass; Post-resection [...] to get . Seen and discussed with Content Strategist at this visit. CLARK Terry 07/29/2012 15:45 [...] Visit Diagnoses Diagnosis Morbid obesity ([facility]) Morbid obesity S/P gastric bypass Bariatric surgery status Post-resection malabsorption Other and unspecified postsurgical nonabsorption documented in this encounter Orders Lab Orders Without Results Count Last Ordered D ate First Ordered Date VITAMIN D (25,[place]) 1 07/29/2012 documented in this encounter Care Teams Student Loan Counselor Relationship Specialty Start Date End Date Unknown, Provider, PCP - General 11/24/11 06/26/13 documented as of this encounter
--- OUTSIDE RECORDS SUMMARY | 2024-08-27 06:30 | XMS_ITS | Encounter Summary ---
Author Organization [facility] Address [address] [place] [address] Care Team Providers Care Livestock Caretaker Name Role Phone Sulma Salinas MD Primary Care Provider [phone] Reason for Visit * Reason Comments Obesity post op Encounter Details Date Type Department Care Team (Late st Contact Info) Description 03/09/2011 14:00 EDT Office Visit [facility] Bariatric Surgery [address] [address] Kasandra Hobbs MD [address] [place] [phone] Obesity (Primary Dx) Social History Tobacco [...] this encounter. 3. F/U with PCP & ORCHESTRA MUSICIAN for contraception method. 4. Again, was advised against for the first 2 year post surgery. Her was present during this conversation. Seen and discussed with Pile Trimmer at this visit. Kasandra Garner MD 03/09/2011 [...] 03/09/2011 added in this encounter Care Teams Livestock Caretaker Relationship Specialty Start Date End Date Sulma Salinas MD [facility] [address] [place] [address] PCP - General 02/13/09 11/23/11 documented as of this encounter
--- OUTSIDE RECORDS SUMMARY | 2024-08-27 06:30 | XMS_ITS | Encounter Summary ---
Author Organization [facility] Address [address] [place] [address] Care Team Providers Care Disease Case Manager Rn Name Role Phone Unknown, Provider MD Primary Care Provider Unava ilable Reason for Visit * Reason Onset Date Comments Other 07/01/2012 Needs labs Encounter Details Date Type Department Care Team (Late st Contact Info) Description 07/01/2012 Orders Only [facility] Bariatric Surgery - [address] [place] [address] Allyn Valenzuela RN Morbid obesity ([facility]); Other and unspecified postsurgical nonabsorption Social History [...] nonabsorption documented in this encounter Care Teams Disease Case Manager Rn Relationship Specialty Start Date End Date Unknown, Provider, PCP - General 11/24/11 06/26/13 documented as of this encounter
--- OUTSIDE RECORDS SUMMARY | 2024-08-27 06:30 | XMS_ITS | Encounter Summary ---
Author Organization [facility] Address [address] [place] [address] Care Team Providers Care Parts Department Manager Name Role Phone Sulma Salinas MD Primary Care Provider [phone] Reason for Visit * Reason Comments Titration Polysomnogram Encounter Details Date Type Department Care Team ([facility] st Contact Info) Description 07/29/2011 21:30 EST Office Visit [facility] [address] [address] Elsy Gaona, DISC SANDER [address] [address] Obstructive sleep apnea (adult) (pediatric) (Primary Dx) [...] is performed and attended by a trained clinical technologist. Monitoring channels include EEG channels F3M2, [...] data is performed according to the 2007 [place] Academy [employer] Manual for the [...] 6 cm H2O will be faxed to [employer] at her request. Patient will follow up [...] Report (Not a Physician Interpretation) Kevin Calderon ([id number]) Polysomnographic Report Recording identification Patient name: Kevin [...] during study: nasal pillows Tech recommended mask (Admissions Gate Attendant, Model, and Size): Resmed Ordonez LT (M [...] 0.3 * Didi Osborne - 07/29/20112119 EST [facility] PSG LABORER DRIVER DOCUMENTATION FORM Acquiring Tech: Didi [place] Patient Name: Kevin Calderon Date of : 1975 Gender: female Date of Service: 07/29/2011 Place of Study: [facility] (Satellite lab) Bed/PC #: 6 Study #: [...] Hasn't had her machine for very long. [employer] choice? [employer] PSG TECHNOLOGIST LOG SHEET (NOT INTERPRETED [...] 0611 6 19 Lights on 2 l [facility] TITRATION STUDY OBSERVATION REPORT Technologist: Didi Osborne [...] during study: nasal pillows Tech recommended mask (Admissions Gate Attendant, Model, and Size): Resmed Ordonez LT (M pillows) Chin Strap needed? No Supplemental O2: O?? was not added Titration Summary: Pt ended on a pressure of 6 cm. Pt was only titrated for comparison. [facility] Casino Games Dealer Preliminary Report Technologist: Didi Osborne STUDY TYPE: [...] 07/30/2011 documented in this encounter Care Teams Parts Department Manager Relationship Specialty Start Date End Date Sulma Salinas MD [facility] [address] [place] [address] PCP - General 02/13/09 11/23/11 documented as of this encounter
--- OUTSIDE RECORDS SUMMARY | 2024-08-27 06:30 | XMS_ITS | Encounter Summary ---
Author Organization [facility] Address [address] [place] [address] Care Team Providers Care Globe Mounter Name Role Phone Sulma Salinas MD Primary Care Provider [phone] Reason for Visit * Reason Onset Date Comments Emesis 08/06/2010 Encounter Details Date Type Department Care Team (Late st Contact Info) Description 08/06/2010 Telephone [facility] Bariatric Surgery - [address] [place] [address] Lorena Garduno RN [address] [place] [address] Emesis Social History Tobacco Use Types Packs/Day [...] on filedocumented in this encounter Care Teams Globe Mounter Relationship Specialty Start Date End Date Sulma Salinas MD [facility] [address] [place] [address] PCP - General 02/13/09 11/23/11 documented as of this encounter
--- OUTSIDE RECORDS SUMMARY | 2024-08-27 06:30 | XMS_ITS | Encounter Summary ---
Author Organization [facility] Address [address] [place] [address] Care Team Providers Care Corrections Lieutenant Name Role Phone Sulma Salinas MD Primary Care Provider Reason for Visit * Reason Comments Infertility pt and here for TSH Encounter Details Date Type Department Care Team (Late st Contact Info) Description 08/01/2013 8:00 EST Nurse Only [facility] Reproductive Medicine & Infertility Center - [facility] [address] [place], [place] [phone] Unknown, Provider, Luz Mccrary MD 111 [facility], [facility] 4 [place] [address] Guillaume James MD [address] [place] [phone] Nurse, ARTUR Bowles Female infertility of [...] urine. Couple informed. They are working with [facility] Mail order specialty to procure Pregnyl by [...] Primary documented in this encounter Care Teams Corrections Lieutenant Relationship Specialty Start Date End Date Sulma Salinas MD [address] [place] [address] PCP - General 06/27/13 documented as of this encounter
--- OUTSIDE RECORDS SUMMARY | 2024-08-27 06:30 | XMS_ITS | Encounter Summary ---
Author Organization [facility] Address [address] [place] [address] Care Team Providers Care Journeyman Electrician Name Role Phone Sulma Salinas MD Primary Care Provider [phone] Reason for Visit * Reason Comments Infertility here to discuss resu lts of TVUS and bloodwork Encounter Details Date Type Department Care Team (Late st Contact Info) Description 07/05/2013 13:45 EST Office Visit [facility] Reproductive Medicine & Infertility Center - [facility] [address] [place] [address] Aleena Singh MD [address] [place], [place] [phone] Female infertility of unspecified origin (Primary Dx) [...] an FERNANDES which indicated decreased motility (at [facility]) If normal, options include: 1. [...] Primary documented in this encounter Care Teams Journeyman Electrician Relationship Specialty Start Date End Date Sulma Salinas MD [address] [place] [address] PCP - General 06/27/13 documented as of this encounter
--- OUTSIDE RECORDS SUMMARY | 2024-08-27 06:30 | XMS_ITS | Encounter Summary ---
Author Organization [facility] Address [address] [place] [address] Care Team Providers Care Dinkey Operator Slate Name Role Phone Sulma Salinas MD Primary Care Provider [phone] Encounter Details Date Type Department Care Team (Late st Contact Info) Description 06/27/2013 Orders Only [facility] Bariatric Surgery [place] [address] [place] [address] Hunter Bynum, NILTON 111 [facility], [address] [place] [address] Morbid obesity (HCC-CMS) (Primary Dx); [...] nonabsorption documented in this encounter Care Teams Dinkey Operator Slate Relationship Specialty Start Date End Date Sulma Salinas MD [address] [place] [address] PCP - General 06/27/13 documented as of this encounter
--- OUTSIDE RECORDS SUMMARY | 2024-08-27 06:30 | XMS_ITS | Encounter Summary ---
Author Organization [facility] Address [address] [place] [address] Care Team Providers Care Forcer Maker Name Role Phone Sulma Salinas MD Primary Care Provider [phone] Reason for Visit * Reason Comments Obesity Post Op Bypass (06/17) Encounter Details Date Type Department Care Team (Late st Contact Info) Description 10/23/2013 14:45 EDT Office Visit [facility] Bariatric Surgery [facility] [address] [place] [address] Hunter Bynum, PA-C [address] [place] [address], [facility] [address] [place] [address] Morbid obesity (HCC-CMS) (Primary Dx); [...] before next visit Seen and discussed with Anodizing Line Operator at this visit. CLARK Culver 10/23/2013 15:12 * [address] - 10/23/2013 5914 EDT Nutrition Post Op Visit: Gastric Bypass [...] before having an occasional dessert at a green party or celebration. Objective: Current Weight: Wt Readings [...] of admission and discharge and reason)? Yes, [facility] for K[facility] Surgery, February 2013 Any surgical operations or procedures performed at an outside hospital (date of admission and discharge and suspected reason for admission) Yes [facility] for knee surgery February 2013 Brooklyn Arias 10/23/2013 14:39 documented in this encounter Plan of Treatment Not on file documented as of this encounter Visit Diagnoses Diagnosis Morbid obesity ([facility])- Primary Morbid obesity S/P gastric bypass Bariatric surgery status Post-resection malabsorption Other and unspecified postsurgical nonabsorption documented in this encounter Care Teams Forcer Maker Relationship Specialty Start Date End Date Sulma Salinas MD [address] [place] [address] PCP - General 06/27/13 documented as of this encounter
--- OUTSIDE RECORDS SUMMARY | 2024-08-27 06:30 | XMS_ITS | Encounter Summary ---
Author Organization [facility] Address [address] [place] [address] Care Team Providers Care Iron Cutter Name Role Phone Sulma Salinas MD Primary Care Provider [phone] Reason for Visit * Reason Comments Infertility Encounter Details Date Type Department Care Team (Late st Contact Info) Description 08/04/2013 10:00 EST Nurse Only [facility] Reproductive Medicine [facility] Infertility Center - [address] [address] Unknown, Provider, Nurse, Wilbur, ARTUR Female infertility [...] documented in this encounter Progress Notes * THREAD DRESSER, DAVION 2 - 08/11/2013 1410 EST * [...] Primary documented in this encounter Care Teams Iron Cutter Relationship Specialty Start Date End Date Sulma Salinas MD [address] [place] [id number] PCP - General 06/27/13 documented as of this encounter
--- OUTSIDE RECORDS SUMMARY | 2024-08-27 06:30 | XMS_ITS | Referral Summary ---
Author Organization [facility] Address [address] [place] [address] Care Team Providers Care Civil Engineer Land Development Name Role Phone Sulma Salinas MD Primary Care Provider [phone] Allergies Active Allergy Reactions Criticality Noted Date [...] 08/07/2010 Vitamin D deficiency 03/26/2010 Morbid obesity ([facility]) Overview (07/08/2010): Lap gastric bypass 07/08/2010 Obstructive [...] Advance Directives For more information, please contact: [phone] * Full Code (Latest Code Status on File) Date Activated Date Inactivated Comments 07/08/2010 14:47 07/11/2010 15:17 * Full Code Date Activated Date Inactivated Comments 07/08/2010 11:11 07/08/2010 14:47 Care Teams Civil Engineer Land Development Relationship Specialty Start Date End Date Sulma Salinas MD [address] [place] [address] PCP - General 06/27/13
--- OUTSIDE RECORDS SUMMARY | 2024-08-27 06:30 | XMS_ITS | Encounter Summary ---
Author Organization [facility] Address [address] [place] [address] Care Team Providers Care Turf Farmer Name Role Phone Sulma Salinas MD Primary Care Provider Encounter Details Date Type Department Care Team (Late st Contact Info) Description 05/18/2022 Lab Requisition [facility] Pathology & Laboratory Medicine - [facility] [address] [place] [address] Sulma Hathaway, SCHOOL GUARD [address] [place] [address] Encounter for other general examination [...] Entry Date Author Yes 07/08/2010 15:01 EST Ealdio Russ, RN documented in this encounter Plan [...] types, PCR Negative Negative 05/22/2022 22:58 EDT [facility] Comment:No E6 or E7 mRNA is detected from HPV types 16,18,31,33,35,39,45,51,52,56,58,59,66, and 68 by curing supervisor mediated amplification. Papanicolaou smear specimen (specimen) CERVIX UTERI STRUCTURE / Unknown 05/18/2022 10:03 EDT 05/20/2022 15:27 EDT us Sulma Hathaway SCHOOL GUARD MICROBIOLOGY - GENERAL ORDERABLE S Final Result Performing Organization Address City/State/[facility] Co de Phone Number [facility] [address] [place] [phone] * PAP TEST (05/18/2022 10:03 EDT) Specimens A. Cervix and/or Endocervix , ThinPrep Imaging System with Manual Evaluation 05/22/2022 22:58 EDT [facility] Specimen Adequacy Satisfactory for Evaluation - transformation zone component absent 05/22/2022 22:58 EDT [facility] General Categorization Negative for intraepithelial lesion or malignancy 05/22/2022 22:58 EDT [facility] Attestation . 05/22/2022 22:58 T [facility] at 2258 Clinical History See below 05/22/20 22 22:58 T [facility] HPV The result for the Human Papillomavirus (HPV) Detection-High Risk Types is Negative. No E6 or E7 mRNA is detected from HPV types 16,18,31,33,35,39 ,45,51,52,56,58,5 9,66, and 68 by curing supervisor mediated amplification.Sonya ting was performed on specimen [id number] and was resulted on 05/22/2022 2233 EDT by JERMAIN, LAB INSTRUMENT RESULTS IN 05/22/2022 22:58 EDT [facility] Performing Lab [facility] 05/22/2022 22:58 EDT [facility] Scanned Images 05/22/2022 22:58 EDT [facility] Papanicolaou smear specimen (specimen) CERVIX UTERI STRUCTURE / Unknown 05/18/2022 10:03 EDT 05/19/2022 9:52 EDT us Sulma Hathaway SCHOOL GUARD PATHOLOGY ORDERABLES Final Resul t [facility] [address] [place] [address] documented in this encounter Visit Diagnoses Diagnosis Encounter for other general examination documented in this encounter Care Teams Turf Farmer Relationship Specialty Start Date End Date Sulma Salinas MD [address] [place] [address] PCP - General 06/27/13 documented as of this encounter
--- OUTSIDE RECORDS SUMMARY | 2024-08-27 06:30 | XMS_ITS | Encounter Summary ---
Author Organization [facility] Address [address] [place] [address] Care Team Providers Care Materials Technician Name Role Phone Sulma Salinas MD Primary Care Provider [phone] Reason for Referral * (Routine/Next Available) - Closed Specialty Diagnoses / Procedures Referred By Contac t Referred To Contact Diagnoses Other and unspecified postsurgical nonabsorption Morbid obesity (HCC-CMS) S/P gastric bypass Procedures VITAMIN D (25,OH) Allyn Valenzuela RN Referral ID Status Reason Start Date Expiration Date Visits Re quested Visits Authorized [id number] Closed 07/19/2013 1 1 * (Routine/Next Available) - Closed Specialty Diagnoses / Procedures Referred By Contac t Referred To Contact Diagnoses Other and unspecified postsurgical nonabsorption Morbid obesity (HCC-CMS) S/P gastric bypass Procedures IRON Allyn Valenzuela RN Referral ID Status Reason Start Date Expiration Date Visits Re quested Visits Authorized [id number] Closed 07/19/2013 1 1 * (Routine/Next Available) - Closed Specialty Diagnoses / Procedures Referred By Contac t Referred To Contact Diagnoses Other and unspecified postsurgical nonabsorption Morbid obesity (HCC-CMS) S/P gastric bypass Procedures PTH INTACT Allyn Valenzuela RN Referral ID Status Reason Start Date Expiration Date Visits Re quested Visits Authorized [id number] Closed 07/19/2013 1 1 * (Routine/Next Available) - Closed Specialty Diagnoses / Procedures Referred By Contac t Referred To Contact Diagnoses Other and unspecified postsurgical nonabsorption Morbid obesity ([facility]) S/P gastric bypass Procedures VITAMIN B12 Allyn Valenzuela RN Referral ID Status Reason Start Date Expiration Date Visits Re quested Visits Authorized [id number] Closed 07/19/2013 1 1 * (Routine/Next Available) - Closed Specialty Diagnoses / Procedures Referred By Contac t Referred To Contact Diagnoses Other and unspecified postsurgical nonabsorption Morbid obesity ([facility]) S/P gastric bypass Procedures CALCIUM Allyn Valenzuela RN Referral ID Status Reason Start Date Expiration Date Visits Re quested Visits Authorized [id number] Closed 07/19/2013 1 1 * (Routine/Next Available) - Closed Specialty Diagnoses / Procedures Referred By Contac t Referred To Contact Diagnoses Other and unspecified postsurgical nonabsorption Morbid obesity ([facility]) S/P gastric bypass Procedures FERRITIN Allyn Valenzuela RN Referral ID Status Reason Start Date Expiration Date Visits Re quested Visits Authorized [id number] Closed 07/19/2013 1 1 * (Routine/Next Available) - Closed Specialty Diagnoses / Procedures Referred By Contac t Referred To Contact Diagnoses Other and unspecified postsurgical nonabsorption Morbid obesity ([facility]) S/P gastric bypass Procedures HEMAGRAM Allyn Valenzuela RN Referral ID Status Reason Start Date Expiration Date Visits Re quested Visits Authorized [id number] Closed 07/19/2013 1 1 * (Routine/Next Available) - Closed Specialty Diagnoses / Procedures Referred By Contac t Referred To Contact Diagnoses Other and unspecified postsurgical nonabsorption Morbid obesity ([facility]) S/P gastric bypass Procedures CREATININE Allyn Valenzuela RN Referral ID Status Reason Start Date Expiration Date Visits Re quested Visits Authorized [id number] Closed 07/19/2013 1 1 * (Routine/Next Available) - Closed Specialty Diagnoses / Procedures Referred By Rossana t Referred To Contact Diagnoses Other and unspecified postsurgical nonabsorption Morbid obesity ([facility]) S/P gastric bypass Procedures THIAMIN (VITAMIN B1), WB Allyn Valenzuela RN Referral ID Status Reason Start Date Expiration Date Visits Re quested Visits Authorized [id number] Closed 07/19/2013 1 1 Reason for Visit * Reason Onset Date Comments Pre-visit Orders 07/18/2013 Needs labs Encounter Details Date Type Department Care Team (Late st Contact Info) Description 07/18/2013 Orders Only [facility] Bariatric Surgery [place] [address] [place] [address] Allyn Valenzuela RN Other and unspecified postsurgical nonabsorption (Primary Dx); Morbid obesity ([facility]); S/P gastric bypass Social History Tobacco Use [...] (09/13/2013) 25OH Vitamin D Tot, External 33.6 [facility] Blood specimen (specimen) 09/13/2013 us Hunter Bergertter-Cressy PA-C CHEMISTRY & BLOOD GA S ORDERABLES Final Result [facility] * IRON (09/13/2013) Iron, External 161 [facility] Blood specimen (specimen) 09/13/2013 us Hunter Bergertter-Bharatsy PA-C CHEMISTRY & BLOOD GA S ORDERABLES Final Result [facility] * PTH INTACT (09/13/2013) PTH, External 24 [facility] Blood specimen (specimen) 09/13/2013 us Hunter A Abtter-Bharatsy PA-C CHEMISTRY & BLOOD GA S ORDERABLES Final Result [facility] * VITAMIN B12 (09/13/2013) Vitamin B-12, External >1,000 [facility] Blood specimen (specimen) 09/13/2013 us Hunter Bergertter-Bharatsy PA-C CHEMISTRY & BLOOD GA S ORDERABLES Final Result [facility] * CALCIUM (09/13/2013) Calcium, External 9.1 [facility] Calculated Calcium, External [facility] Blood specimen (specimen) 09/13/2013 us Hunter Bynum PA-C CHEMISTRY & BLOOD GA S ORDERABLES Final Result [facility] * FERRITIN (09/13/2013) Ferritin, External 383 [facility] Blood specimen (specimen) 09/13/2013 us Hunter Jarrettsy PA-C CHEMISTRY & BLOOD GA S ORDERABLES Final Result [facility] * HEMAGRAM (09/13/2013) HCT, External 42.4 [facility] MCH, External 30.6 [facility] MCV, External 90.8 [facility] MCHC, External 33.7 [facility] Hemoglobin, External 14.3 [facility] WBC, External 6.27 [facility] RBC, External 4.67 [facility] PLT, External 249 [facility] RDW-CV, External 12.6 [facility] Blood specimen (specimen) 09/13/2013 us Hunter Bynum PA-C HEMATOLOGY & PF4 ORD ERABLES Final Result [facility] * CREATININE (09/13/2013) Creatinine, External 0.9 [facility] GFR, Calculated, External [facility] Blood specimen (specimen) 09/13/2013 us Hunter Bynum PA-C CHEMISTRY & BLOOD GA S ORDERABLES Final Result [facility] * THIAMIN (VITAMIN B1), WB (09/13/2013) Thiamine, External 166 [facility] Comment, External [facility] Blood specimen (specimen) 09/13/2013 Hunter Bynum PA-C CHEMISTRY & BLOOD GA S ORDERABLES Final Result [facility] documented in this encounter Visit Diagnoses Diagnosis Other and unspecified postsurgical nonabsorption- Primary Morbid obesity (HCC-CMS) Morbid obesity S/P gastric bypass Bariatric surgery status documented in this encounter Care Teams Materials Technician Relationship Specialty Start Date End Date Sulma Salinas MD [address] [place] [address] PCP - General 06/27/13 documented as of this encounter
--- OUTSIDE RECORDS SUMMARY | 2024-08-27 06:30 | XMS_ITS | Encounter Summary ---
Author Organization [facility] Address [address] [place] [address] Care Team Providers Care Visualization Developer Name Role Phone Sulma Salinas MD Primary Care Provider [phone] Reason for Visit * Reason Onset Date Comments Results 10/02/2013 Encounter Details Date Type Department Care Team (Late st Contact Info) Description 10/02/2013 Orders Only [facility] Bariatric Surgery - [place] [address] [place] [address] Allyn Valenzuela RN Other and unspecified postsurgical nonabsorption; Morbid obesity ([facility]); S/P gastric bypass Social History Tobacco Use [...] Results * HEMAGRAM (09/13/2013) HCT, External 42.4 [facility] MCH, External 30.6 [facility] MCV, External 90.8 [facility] MCHC, External 33.7 [facility] Hemoglobin, External 14.3 [facility] WBC, External 6.27 [facility] RBC, External 4.67 [facility] PLT, External 249 [facility] RDW-CV, External 12.6 [facility] Blood specimen (specimen) 09/13/2013 us Hunter Tena Fletcher PA-C HEMATOLOGY & PF4 ORD ERABLES Final Result [facility] * FERRITIN (09/13/2013) Ferritin, External 383 [facility] Blood specimen (specimen) 09/13/2013 us Hunter Tena Fletcher PA-C CHEMISTRY & BLOOD GA S ORDERABLES Final Result [facility] * THIAMIN (VITAMIN B1), WB (09/13/2013) Thiamine, External 166 [facility] Comment, External [facility] Blood specimen (specimen) 09/13/2013 us Hunter Tena Fletcher PA-C CHEMISTRY & BLOOD GA S ORDERABLES Final Result [facility] * CREATININE (09/13/2013) Creatinine, External 0.9 [facility] GFR, Calculated, External [facility] Blood specimen (specimen) 09/13/2013 us Hunter Tena Fletcher PA-C CHEMISTRY & BLOOD GA S ORDERABLES Final Result [facility] * CALCIUM (09/13/2013) Calcium, External 9.1 [facility] Calculated Calcium, External [facility] Blood specimen (specimen) 09/13/2013 us Hunter Bynum PA-C CHEMISTRY & BLOOD GA S ORDERABLES Final Result [facility] * IRON (09/13/2013) Iron, External 161 [facility] Blood specimen (specimen) 09/13/2013 us Hunter A Abtter-Cressy PA-C CHEMISTRY & BLOOD GA S ORDERABLES Final Result [facility] * VITAMIN D (25,OH) (09/13/2013) 25OH Vitamin D Tot, External 33.6 [facility] Blood specimen (specimen) 09/13/2013 us Hunter Guerreroer-Bharatsy PA-C CHEMISTRY & BLOOD GA S ORDERABLES Final Result [facility] * VITAMIN B12 (09/13/2013) Vitamin B-12, External >1,000 [facility] Blood specimen (specimen) 09/13/2013 us Hunter Guerreroer-Bharatsy PA-C CHEMISTRY & BLOOD GA S ORDERABLES Final Result [facility] * PTH INTACT (09/13/2013) PTH, External 24 [facility] Blood specimen (specimen) 09/13/2013 us Hunter Bergertter-Cressy PA-C CHEMISTRY & BLOOD GA S ORDERABLES Final Result [facility] documented in this encounter Visit Diagnoses Diagnosis Other and unspecified postsurgical nonabsorption Morbid obesity (HCC-CMS) Morbid obesity S/P gastric bypass Bariatric surgery status documented in this encounter Care Teams Visualization Developer Relationship Specialty Start Date End Date Ready, Sulma O, MD [address] [place] [address] PCP - General 06/27/13 documented as of this encounter
--- OUTSIDE RECORDS SUMMARY | 2024-08-27 06:30 | XMS_ITS | Encounter Summary ---
Author Organization [facility] Address [address] [place] [address] Care Team Providers Care Auto Winder Name Role Phone Sulma Salinas MD Primary Care Provider [phone] Reason for Visit * Reason Onset Date Comments Other 08/26/2013 Encounter Details Date Type Department Care Team (Late st Contact Info) Description 08/26/2013 Telephone [facility] Reproductive Medicine & Infertility Center - [address] [address] Queenie Mtz RN Other Social History Tobacco [...] Best contact number today is mobile at [phone]. documented in this encounter Plan of Treatment Not on file documented as of this encounter Visit Diagnoses Not on filedocumented in this encounter Care Teams Auto Winder Relationship Specialty Start Date End Date Sulma Salinas MD [address] [place] [phone] PCP - General 06/27/13 documented as of this encounter
--- OUTSIDE RECORDS SUMMARY | 2024-08-27 06:30 | XMS_ITS | Encounter Summary ---
Author Organization [facility] Address [address] [place] [address] Care Team Providers Care Quotation Checker Name Role Phone Sulma Salinas MD Primary Care Provider [phone] Reason for Referral * ALTITUDE CHAMBER TECHNICIAN (Routine/Next Available) - Closed Specialty Diagnoses / Procedures Referred By Rossana haines Referred To Contact Diagnoses Female infertility of unspecified origin Procedures WEIGHT INSPECTOR US HYSTEROSONOGRAPHY Robert Skelton MD Phone: tel: fax: Referral ID Status Reason Start Date Expiration Date Visits Re quested Visits Authorized [id number] Closed 06/27/2013 1 1 Reason for Visit * Reason Comments Infertility trying x 5 years, hurd ve not used OPK's Encounter Details Date Type Department Care Team (Late st Contact Info) Description 06/27/2013 11:15 EST Office Visit [facility] Rep[facility] Medicine [facility] Infertility Center - [address] [address] Aleena Singh MD [address] [place], [place] [phone] Female infertility of unspecified origin (Primary Dx) [...] gastric bypass surgery 3 years ago at [facility], lost appx.100 pounds. 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 Patient and partner previously seen at [facility] for infertility in 2006. The patient reports [...] laparoscopic gastric bypass 3 years ago at [facility], laparoscopic cholecystectomy Pelvic Pain yes Endometriosis no Hot Flashes no EVANGELINA Exposure no Abnormal Pap no Cervix Cryo/cone no STD no PID no Infertility and Endocrine Studies BBT no Ovulation Predictor Kit no HSG no Laparoscopy yes Hormonal Studies Yes, at [facility] in 2006 Semen analysis Yes, at [facility] in 2006 Other Studies no Meds [...] Maternal Grandmother ??? Heart Disease Maternal Grandmother ND ??? Heart Disease Maternal Grandfather ND ??? 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 Gynecological Ultrasonography: Sonohysterography: Performed by: Dr. Luz Wheeler. Controller Coal Or Ore: Kaykay Weaver. Catheter type: IUI. Fluid used: [...] Report Summary: Overall impression: Ultrasound Performed: Transvaginal sonohysterogram-37589 normal scan combined AFC 17 normal cavity patent tubes bilaterally. Recommendations / therapy: Patient educated to findings. Follow- up: follow up with Dr Singh tomorrow. Procedure Note 07/25/2013 Indication: Infertility: tubal patency. Gynecological Ultrasonography: Sonohysterography: Performed by: Dr. Luz Wheeler. Controller Coal Or Ore: Kaykay Weaver. Catheter type: IUI. Fluid used: [...] Report Summary: Overall impression: Ultrasound Performed: Transvaginal sonohysterogram-50805 normal scan combined AFC 17 normal cavity patent tubes bilaterally. Recommendations / therapy: Patient educated to findings. Follow- up: follow up with Dr Singh tomorrow. us Aleena Singh MD IMG US WEIGHT INSPECTOR ORDERABL ES Final Result * PATHOLOGY - SCANNED (07/04/2013 8:06 EST) 07/04/2013 8:06 EST us Scan 2 Piercing Machine Operator LAB INFO SERVICE AND SUPPOR T & PHONE RESULT Final Result * ANTIMULLERIAN HORMONE ([facility]) [facility] (06/27/2013 13:17 EST) [facility] Result See Pathology Scanned Report in PRISM. [facility] Comment: Assayed at [facility], [place], [place] (Note) Result= 2.95 ng/mL Normal Range= 0.70-3.50 ng/mL Blood specimen (specimen) 06/27/2013 13:17 EST 06/27/2013 13:29 EST Aleena Singh MD CHEMISTRY & BLOOD G ORDERABLES Final Result Performing Organization Address [facility] de Phone Number [facility] [address] [place] [address] * ESTRADIOL, ADULTS (06/27/2013 13:17 EST) Pathologist [facility] Estradiol 42 pg/ml [facility] Comment: By day in cycle relative to LH peak: Follicular Phase (-12 to -4 days): ??20-144 Midcycle (-3 to +2 days): ? 64-357 Luteal Phase (+4 to +12 days): ??56-214 Postmenopausal: ??0 - 32 Blood specimen (specimen) 06/27/2013 13:17 EST 06/27/2013 13:29 EST Aleena Singh MD CHEMISTRY & BLOOD G ORDERABLES Final Result Performing Organization Address [facility] Phone Number [facility] [address] [place] [address] * FSH (06/27/2013 13:17 EST) [facility] FSH 7.7 mIU/ml [facility] Comment: Follicular: 2-11 Mid-Cycle Peak: 3.4-35 Luteal: 1-9 Postmenopausal: 25-120 Blood specimen (specimen) 06/27/2013 13:17 EST 06/27/2013 13:29 EST Aleena Singh MD CHEMISTRY & BLOOD G ORDERABLES Final Result Performing Organization Address [facility] de Phone Number [facility] [address] [place] [address] * CHLAMYDIA/GC AMPLIFIED, URINE (06/27/2013 12:58 EST) [facility] Specimen Description Urine [facility] Chlamydia Result No Chlamydia trachomatis DNA detected by glove cleaner mediated amplification. [facility] GC Result No Neisseria gonorrhoeae DNA detected by glove cleaner mediated amplification. [facility] Specimen of unknown material (specimen) TOPOGRAPHY UNKNOWN / Unknown 06/27/2013 12:58 EST 06/27/2013 13:51 EST Aleena Singh MD MICROBIOLOGY - GENE RAL ORDERABLES Final Result [facility] [address] [place] [address] documented in this encounter Visit Diagnoses Diagnosis [...] daily. added in this encounter Care Teams Quotation Checker Relationship Specialty Start Date End Date Sulma Salinas MD [address] [place] [address] PCP - General 06/27/13 documented as of this encounter
--- OUTSIDE RECORDS SUMMARY | 2024-08-27 06:30 | XMS_ITS | Encounter Summary ---
Author Organization [facility] Address [address] [place] [address] Care Team Providers Care Medical Territory Manager Name Role Phone Sulma Salinas MD Primary Care Provider [phone] Reason for Visit * Reason Onset Date Comments Follow-up 03/10/2011 Encounter Details Date Type Department Care Team (Late st Contact Info) Description 03/10/2011 Orders Only [facility] Bariatric Surgery - [place] [address] [place] [address] Lorena Garduno, RN [address] [place] [address] Unspecified vitamin D deficiency; Morbid obesity (HCC-CMS); [...] nonabsorption documented in this encounter Care Teams Medical Territory Manager Relationship Specialty Start Date End Date Sulma Salinas MD [facility] [address] [place] [address] PCP - General 02/13/09 11/23/11 documented as of this encounter
--- OUTSIDE RECORDS SUMMARY | 2024-08-27 06:30 | XMS_ITS | Encounter Summary ---
Author Organization [facility] Address [address] [place] [address] Care Team Providers Care Air Table Operator Name Role Phone Sulma Salinas MD Primary Care Provider [phone] Reason for Visit * Reason Comments Obesity Encounter Details Date Type Department Care Team (Latest Contact Info) Description 08/25/2010 9:15 EST Office Visit [facility] Bariatric Surgery - [place] [address] [place] [address] Kasandra Hobbs MD [address] [place] [address] Unspecified vitamin D deficiency; Morbid obesity ([facility]); Other and unspecified postsurgical nonabsorption Social [...] Date: 08/25/2011 3. Seen and discussed with Service Center Manager at this visit. Kasandra Garner MD 08/25/2010 [...] Changes-start B12, Ca/ D, Vit D per CLOTH BLEACHING RANGE TENDER, Fe and B complex Education Provided: Other-as above * Suzan Sgeura - 08/25/2010 0921 EST 30-Day Plus Bariatric [...] Diagnosis Unspecified vitamin D deficiency Morbid obesity ([facility]) Morbid obesity Other and unspecified postsurgical nonabsorption [...] documented as of this encounter Care Teams Air Table Operator Relationship Specialty Start Date End Date Sulma Salinas MD [facility] [address] [place] [address] PCP - General 02/13/09 11/23/11 documented as of this encounter
--- OUTSIDE RECORDS SUMMARY | 2024-08-27 06:30 | XMS_ITS | Encounter Summary ---
Author Organization [facility] Address [address] [place] [address] Care Team Providers Care Warranty Coordinator Name Role Phone Sulma Salinas MD Primary Care Provider [phone] Reason for Visit * Reason Comments Infertility pt's had tro uble collecting Encounter Details Date Type Department Care Team (Late st Contact Info) Description 09/01/2013 8:30 EST Nurse Only [facility] Reproductive Medicine & Infertility Center - [facility] [address] [place] [address] Unknown, Provider, Angel Ruvalcaba MD [address] [place], [place] [id number] Nurse, ARTUR Bowles Female infertility of unspecified [...] suite. Daisy Danielson RN 09/20/2013 15:26 * WHEAT FARMER, DAVION 2 - 09/07/2013 1033 EST documented in this encounter Plan of Treatment Not on file documented as of this encounter Procedures Procedure Name Priority Date/Time Associated Diagnosis Comments POCT SPERM WASHING ARTIFICIAL INSEMINATION Routine 09/01/2013 8:00 EST Female infertility of unspecified origin documented in this encounter Results * POCT SPERM WASHING ARTIFICIAL INSEMINATION (09/01/2013 8:00 EST) Pathologist [facility] Media Lot #, POC [id number] POINT OF [...] Primary documented in this encounter Care Teams Warranty Coordinator Relationship Specialty Start Date End Date Sulma Salinas MD [address] [place] [address] PCP - General 06/27/13 documented as of this encounter
--- OUTSIDE RECORDS SUMMARY | 2024-08-27 06:30 | XMS_ITS | Encounter Summary ---
Author Organization [facility] Address [address] [place] [address] Care Team Providers Care Heel Seat Flap Stapler Name Role Phone Unknown, Provider MD Primary Care Provider Unava ilable Reason for Visit * Reason Onset Date Comments Follow-up 03/07/2012 Encounter Details Date Type Department Care Team (Late st Contact Info) Description 03/07/2012 Orders Only [facility] Bariatric Surgery - [place] [address] [place] [address] Lorena Garduno, RN [address] [place] [address] Other and unspecified postsurgical nonabsorption; Morbid obesity ([facility]); Unspecified vitamin D deficiency Social History [...] deficiency documented in this encounter Care Teams Heel Seat Flap Stapler Relationship Specialty Start Date End Date Unknown, Provider, PCP - General 11/24/11 06/26/13 documented as of this encounter
--- OUTSIDE RECORDS SUMMARY | 2024-08-27 06:30 | XMS_ITS | Encounter Summary ---
Author Organization [facility] Address [address] [place] [address] Care Team Providers Care Clinical Esthetician Name Role Phone Unknown, Provider MD Primary Care Provider Unava ilable Reason for Visit * Reason Onset Date Comments Appointment Related 11/16/2011 bumped appoi ntment Encounter Details Date Type Department Care Team (Late st Contact Info) Description 12/04/2011 Telephone [facility] Bariatric Surgery - [address] [address] Kasandra Hobbs MD [address] [place] [phone] Appointment Related (bumped appointment) Social History [...] Telephone Encounter - India Armstrong - 12/04/2011 4982 EDT Kevin Calderon had an appointment schedule [...] on filedocumented in this encounter Care Teams Clinical Esthetician Relationship Specialty Start Date End Date Unknown, Provider, PCP - General 11/24/11 06/26/13 documented as of this encounter
--- OUTSIDE RECORDS SUMMARY | 2024-08-27 06:30 | XMS_ITS | Encounter Summary ---
Author Organization Health system Address [address] [place] [address] Care Team Providers Care Vice President Of Human Resources Name Role Phone Unknown, Provider MD Primary Care Provider Unava ilable Reason for Visit * Reason Comments Obesity Post op bypass - Encounter Details Date Type Department Care Team (Late st Contact Info) Description 03/07/2012 14:45 EDT Office Visit [facility] Bariatric Surgery - [place] [address] [place] [address] Kasandra Hobbs MD [address] [place] [address] Morbid obesity ([facility]); S/P gastric bypass Discharge Disposition: Auto [...] Glcometer was given Seen and discussed with Black Oxide Coating Equipment Tender at this visit. Kasandra Garner MD 03/07/2012 15:22 * [address] - 03/07/2012 4275 EDT Nutrition Post Op Visit: Gastric Bypass Subjective:Patient returns to clinic for post op nutritional counseling following bariatric [id number] months ago. Was on vacation lately and [...] as above * Lorena Garduno. - 03/07/2012 8671 EDT 30-Day Plus Bariatric Surgery Postop Questionnaire [...] this encounter Visit Diagnoses Diagnosis Morbid obesity ([facility]) Morbid obesity S/P gastric bypass Bariatric surgery status documented in this encounter Care Teams Vice President Of Human Resources Relationship Specialty Start Date End Date Unknown, Provider, PCP - General 11/24/11 06/26/13 documented as of this encounter
--- OUTSIDE RECORDS SUMMARY | 2024-08-27 06:30 | XMS_ITS | Encounter Summary ---
Author Organization [facility] Address [address] [place] [address] Care Team Providers Care Sole Cutter Name Role Phone Sulma Salinas MD Primary Care Provider [phone] Encounter Details Date Type Department Care Team (Late st Contact Info) Description 08/18/2010 Orders Only [facility] [address] [place], [place] [address] Jonel Polk MD [address] [place] [address] Dysphagia, unspecified (Primary Dx) Social History Tobacco [...] unspecified documented in this encounter Care Teams Sole Cutter Relationship Specialty Start Date End Date Sulma Salinas MD [address] [place] [address] PCP - General 02/13/09 11/23/11 documented as of this encounter
--- OUTSIDE RECORDS SUMMARY | 2024-08-27 06:30 | XMS_ITS | Encounter Summary ---
Author Organization [facility] Address [address] [place] [address] Care Team Providers Care Field Support Representative Name Role Phone Sulma Salinas MD Primary Care Provider [phone] Reason for Visit * Reason Comments Obesity post op Encounter Details Date Type Department Care Team (Late st Contact Info) Description 10/27/2010 13:30 EDT Office Visit [facility] Bariatric Surgery [facility] [address] [place] [address] Kasandra Hobbs MD [address] [place] [address] Morbid obesity (HCC-CMS) (Primary Dx) [...] this encounter. 3. F/U with PCP & Pipe Fitter Supervisor . Seen and discussed with Student Advisor at this visit. Kasandra Garner MD 10/27/2010 [...] Miscellaneous Notes * Scanned Note-Null - Supervisor [employer]hive Kiln, Scan - 07/24/2011 0716 EST documented in this encounter Plan of Treatment Not on file documented as of this encounter Visit Diagnoses Diagnosis Morbid obesity ([facility])- Primary Morbid obesity documented in this encounter [...] 10/27/2010 added in this encounter Care Teams Field Support Representative Relationship Specialty Start Date End Date Sulma Salinas MD [facility] [address] [place] [address] PCP - General 02/13/09 11/23/11 documented as of this encounter
--- OUTSIDE RECORDS SUMMARY | 2024-08-27 06:30 | XMS_ITS | Encounter Summary ---
Author Organization [facility] Address [address] [place] [address] Care Team Providers Care Plan Manager Name Role Phone Sulma Salinas MD Primary Care Provider [phone] Encounter Details Date Type Department Care Team (Late st Contact Info) Description 06/27/2013 Phlebotomy Only [facility] [address] [place] [address] Generator Repairer, Outpatient Morbid obesity ([facility]); S/P gastric bypass; Post-resection malabsorption; Female infertility [...] this encounter Results * [facility]TIMULLERIAN HORMONE ([facility] (06/27/2013 13:17 EST) [facility] Result See Pathology Scanned Report in [facility]ISM. [facility] Comment: Assayed at [email or web address], [place], [place] (Note) Result= 2.95 ng/mL Normal Range= 0.70-3.50 ng/mL Blood specimen (specimen) 06/27/2013 13:17 EST 06/27/2013 13:29 EST Aleena Singh MD CHEMISTRY & BLOOD G ORDERABLES Final Result Performing Organization Address [facility] Co de Phone Number [facility] [address] [place] [address] * ESTRADIOL, ADULTS (06/27/2013 13:17 EST) Pathologist [...] Final Result Performing Organization Address [facility] Co de Phone Number [facility] [address] [place] [address] * FSH (06/27/2013 13:17 EST) Pathologist [facility] FSH 7.7 mIU/ml [facility] Comment: Follicular: 2-11 Mid-Cycle Peak: 3.4-35 Luteal: 1-9 Postmenopausal: 25-120 Blood specimen (specimen) 06/27/2013 13:17 EST 06/27/2013 13:29 EST Aleena Singh MD CHEMISTRY & BLOOD G ORDERABLES Final Result Performing Organization Address [facility] de Phone Number [facility]AH [facility] [address] [place] [address] * CHLAMYDIA/GC AMPLIFIED, URINE (06/27/2013 12:58 EST) Pathologist [facility] Specimen Description Urine [facility] Chlamydia Result No Chlamydia trachomatis DNA detected by portfolio consultant mediated amplification. [facility] GC Result No Neisseria gonorrhoeae DNA detected by portfolio consultant mediated amplification. [facility] Specimen of unknown material (specimen) TOPOGRAPHY UNKNOWN / Unknown 06/27/2013 12:58 EST 06/27/2013 13:51 EST Aleena Singh MD MICROBIOLOGY - GENE RAL ORDERABLES Final Result Performing Organization Address [facility] de Phone Number [facility] [address] [place] [address] documented in this encounter Visit Diagnoses Diagnosis Morbid obesity ([facility]) Morbid obesity S/P gastric bypass Bariatric surgery status Post-resection malabsorption Other and unspecified postsurgical nonabsorption Female infertility of unspecified origin documented in this encounter Care Teams Plan Manager Relationship Specialty Start Date End Date Sulma Salinas MD [address] [place] [address] PCP - General 06/27/13 documented as of this encounter
--- OUTSIDE RECORDS SUMMARY | 2024-08-27 06:30 | XMS_ITS | Encounter Summary ---
Author Organization [facility] Address [address] [place] [address] Care Team Providers Care Electrotype Finisher Name Role Phone Sulma Salinas MD Primary Care Provider [phone] Encounter Details Date Type Department Care Team ([facility] st Contact Info) Description 10/12/2016 Results Only [facility]- PRISM [phone] Aleena Iglesias, GRAND JURY DEPUTY SHERIFF [address] [place] [address] Social History Tobacco Use Types Packs/Day Years [...] TEST- RESULT ONLY (10/12/2016 0:00 EST) Pathologist [facility] Pathology Report: CYTOPATHOLOGY REPORT Reports generated via electronic interface contain original data; however they are lacking the format of the original report. Caution should be taken when reading/interpreti ng unformatted reports. Name: ? KEVIN CASTANO ? Accession #: ? [id number] ? : ? 1975 (Age: 41) ??F [...] types 16,18,31,33,35, 39,45,51,52,56,58, 59,66, and 68 by staff engineer mediated amplification. Comments Document reviewed and electronically signed by: ? System Interface ? Report date: 10/19/2016 By the signature above, the attending physician certifies that he/she has personally conducted a gross and/or microscopic examination of the described specimens and rendered or confirmed the above diagnosis. End of Report [facility] 10/12/2016 10/13/2016 us Aleena Iglesias GRAND JURY DEPUTY SHERIFF PATHOLOGY ORDERABLES Fin al Result [facility] [address] [place] [address] documented in this encounter Visit Diagnoses Not on filedocumented in this encounter Care Teams Electrotype Finisher Relationship Specialty Start Date End Date Sulma Salinas MD [address] [place] [address] PCP - General 06/27/13 documented as of this encounter
--- OUTSIDE RECORDS SUMMARY | 2024-08-27 06:30 | XMS_ITS | Encounter Summary ---
Author Organization [facility] Address [address] [place] [address] Care Team Providers Care Molder Operator Name Role Phone Sulma Salinas MD Primary Care Provider [phone] Reason for Visit * Reason Onset Date Comments Follow-up 08/12/2010 Encounter Details Date Type Department Care Team (Late st Contact Info) Description 08/12/2010 Telephone [facility] Bariatric Surgery - [address] [place] [address] Lorena Garduno, RN [address] [place] [address] Follow-up Social History Tobacco Use Types Packs/Day [...] Telephone Encounter - Lorena Garduno. - 08/12/2010 6231 EST Patient calls to report status. States, [...] on filedocumented in this encounter Care Teams Molder Operator Relationship Specialty Start Date End Date Sulma Salinas MD [facility] [address] [place] [address] PCP - General 02/13/09 11/23/11 documented as of this encounter
--- OUTSIDE RECORDS SUMMARY | 2024-08-27 06:30 | XMS_ITS | Encounter Summary ---
Author Organization [facility] Address [address] [place] [address] Care Team Providers Care Security Checker Name Role Phone Sulma Salinas MD Primary Care Provider [phone] Encounter Details Date Type Department Care Team (Late st Contact Info) Description 07/04/2013 - 07/04/2013 23:59 EST Hospital Encounter [facility] [place] [address] [place] [address] Aleena Singh MD [address] [place], [place] [id number] Discharge Disposition: Home or Self Care Social [...] Departure Means Destination Home or Self Senior Care documented in this encounter Plan of Treatment Not on file documented as of this encounter Procedures Procedure Name Priority Date/Time Associated Diagnosis Comments HEALTH AND WELLNESS INSTRUCTOR FOLLICULAR 08/30/2013 8:45 EST HEALTH AND WELLNESS INSTRUCTOR FOLLICULAR 08/28/2013 8:33 EST HEALTH AND WELLNESS INSTRUCTOR FOLLICULAR 08/26/2013 8:52 EST HEALTH AND WELLNESS INSTRUCTOR FOLLICULAR 08/01/2013 8:16 EST documented in this encounter Results * HEALTH AND WELLNESS INSTRUCTOR FOLLICULAR (08/30/2013 8:45 EST) Anatomical Region Laterality [...] 15.5 mm Method: transvaginal ultrasound. Ultrasound machine: MC2 e8, view: good. Report Summary: Overall impression: Ultrasound Performed:Limited transvaginal follicular ultrasound-23497 Pt spoke to [place] nurse following U/S. [...] 15.5 mm Method: transvaginal ultrasound. Ultrasound machine: Leyou softwareusAdbongo e8, view: good. Report Summary: Overall impression: Ultrasound Performed:Limited transvaginal follicular ultrasound-41514 Pt spoke to [place] nurse following U/S. us Aleena Singh MD IMG US HEALTH AND WELLNESS INSTRUCTOR ORDERABL ES Final Result * HEALTH AND WELLNESS INSTRUCTOR US FOLLICULAR (08/28/2013 8:33 EST) Anatomical Region [...] 10.0 mm Method: transvaginal ultrasound. Ultrasound machine: MC2 e8, view: good. Report Summary: Overall impression: Ultrasound Performed:Limited transvaginal follicular ultrasound-51955 Pt given HCG brown bag. Procedure Note [...] 10.0 mm Method: transvaginal ultrasound. Ultrasound machine: MC2 e8, view: good. Report Summary: Overall impression: Ultrasound Performed:Limited transvaginal follicular ultrasound-45474 Pt given HCG brown bag. us Aleena Singh MD IMG US HEALTH AND WELLNESS INSTRUCTOR ORDERABL ES Final Result * HEALTH AND WELLNESS INSTRUCTOR US FOLLICULAR (08/26/2013 8:52 EST) Anatomical Region [...] CD#8 Early folliculogenesis. Ultrasound Performed:Limited transvaginal follicular ultrasound-49171. Procedure Note 08/27/2013 Indication: Infertility: follicular monitoring [...] CD#8 Early folliculogenesis. Ultrasound Performed:Limited transvaginal follicular ultrasound-90312. us Guillaume James MD IMG US HEALTH AND WELLNESS INSTRUCTOR ORDERABLES Final Res ult * HEALTH AND WELLNESS INSTRUCTOR US FOLLICULAR (08/01/2013 8:16 EST) Anatomical Region [...] Summary: Overall impression: Ultrasound Performed:Limited transvaginal follicular ultrasound-51353 Growing follicle in the left ovary measuring [...] Summary: Overall impression: Ultrasound Performed:Limited transvaginal follicular ultrasound-74779 Growing follicle in the left ovary measuring 17 mm. us Aleena Singh MD IMG US HEALTH AND WELLNESS INSTRUCTOR ORDERABL ES Final Result documented in this encounter Visit Diagnoses Not on filedocumented in this encounter Care Teams Security Checker Relationship Specialty Start Date End Date Sulma Salinas MD [address] [place] [address] PCP - General 06/27/13 documented as of this encounter
--- OUTSIDE RECORDS SUMMARY | 2024-08-27 06:30 | XMS_ITS | Encounter Summary ---
Author Organization [facility] Address [address] [place] [address] Care Team Providers Care Bench Worker Helper Name Role Phone Robin Troncoso MD Primary Care Provider [phone] Encounter Details Date Type Department Care Team (Late st Contact Info) Description 08/31/2011 Results Only [facility] Laboratory Services - [facility] ([facility]) [address], [place] [address] Robin Troncoso MD [facility] [address] [place], [place] [id number] Social History Tobacco Use Types Packs/Day Years [...] ? KEVIN CASTANO ? Accession #: ? [id number] ? : ? 1975 (Age: 36) ??F [...] Final Resul t [facility] [address] [place] [address] documented in this encounter Visit Diagnoses Not on filedocumented in this encounter Care Teams Bench Worker Helper Relationship Specialty Start Date End Date Robin Troncoso MD [facility] [address] [place], [place] [id number] PCP - General 02/13/09 11/23/11 documented as of this encounter
--- OUTSIDE RECORDS SUMMARY | 2024-08-27 06:31 | XMS_ITS | Encounter Summary ---
Author Organization [facility] Address [address] [place] [address] Care Team Providers Care Soda Clerk Name Role Phone Sulma Troncoso MD Primary Care Provider [phone] Encounter Details Date Type Department Care Team (Latest Contact Info) Description 07/08/2010 5:56 EST - 07/11/2010 13:14 EST Hospital Encounter [facility] General Surgery Unit [address] [place] [address] Kasandra Hobbs MD [address] [place] [phone] Discharge Disposition: Home or Self Care [...] patient with the medical student and the assembler surgical garment blue team. I agree with the findings, [...] drain care All needs addressed Alissa Salas ASSOCIATE SOFTWARE APPLICATION ENGINEER [facility] 5759 * Kasandra Hobbs MD - 07/11/2010 [...] patient with the medical student and the assembler surgical garment blue team. I agree with the findings, [...] Intravenous CONTINUOUS ??? morphine 2 mg/ml (DURAMORPH) STACKER, 30 ml syringe Intravenous STACKER ??? ketorolac (TORADOL) 30 mg/mL (1 mL) injection ??? morphine 2 mg/ml (DURAMORPH) 2 mg/mL STACKER, 30 ml syringe ??? promethazine (PHENERGAN) injection [...] (obstructive sleep apnea) Class: Permanent Severe -Transition STACKER to orals dilaudid. IV for breakthrough -Anti-emesis meds. -OK to shower -Clears -Ambulate/IS use -Cont PPI & DVT ppx. DVT Prophylaxis: Pharmacologic Prophylaxis: Heparin 5000 units SQ Tid, Seqential Compression Deviceand Ambulate Discharge Plan: Home or self care Thierno Drake MD 07/10/2010 7:38 Attestation statement: I saw and examined the patient. Discussed with the assembler surgical garment / blue team. I agree with the [...] in AM * Alissa Salas - 07/09/2010 2666 EST Brief Case Management Assessment Reason for Hospitalization: CM met with pt and today postop day one lap gastric bypass.Pt notes pain is under better control and she has ambulated Current Living Arrangements: They reside in [facility].Both are employed and active with daily [...] will follow for discharge planninng Alissa Salas ASSOCIATE SOFTWARE APPLICATION ENGINEER [facility] 5759 * Toro Brink CRNA - 07/09/2010 [...] Q6H PRN ??? morphine 2 mg/ml (DURAMORPH) STACKER, 30 ml syringe Intravenous STACKER ??? ketorolac (TORADOL) 30 mg/mL (1 mL) injection ??? morphine 2 mg/ml (DURAMORPH) 2 mg/mL STACKER, 30 ml syringe ??? metoCLOPramide (REGLAN) injection [...] UGI this am, if OK will d/c blacno and start 30cc cups Ambulate/IS use Continue STACKER toradol DVT Prophylaxis: Pharmacologic Prophylaxis: Heparin 5000 units SQ Tid, Seqential Compression Deviceand Ambulate Discharge Plan: Home or self care CLARK Terry 07/09/2010 7:07 Attestation statement: I saw and examined the patient. Discussed with the assembler surgical garment / blue team. I agree with the [...] tomorrow - Encourage IS - Pain with STACKER Axel Lawler MD 07/08/2010 16:46 Pager #[phone] * Cyn Drake MD - 07/08/2010 3585 EST Post Anesthesia Evaluation Date of Service: [...] states 8/10 pain, reminded pt to use STACKER and push button for medication administration. * Gracy Sanders RN - 07/08/2010 1247 EST Received report from Kathy Navarro for lunch relief. Pt sleepy, at bedside, VSS.-djp * Camilla Marino RN - 07/08/2010 1155 EST Admitted to pacu, vss, rates pain at a 7, follows commands, NT present, simple mask on, pt with 5 lap sites cdi and 2 jamie's. 1330- Nasal trumpet removed, washed pt's face [...] Consent done previously CLARK Terry Cosigned by Brett Schultz MD at 07/30/2010 7:01 EST * [...] Maternal Grandmother ??? Heart Disease Maternal Grandmother [place] ??? Heart Disease Maternal Grandfather SC ??? Stroke Maternal Grandfather History Social History [...] SERVICE DATE: 07/08/2010 SURGEON: Kasandra Garner MD BLENDER CONVEYOR OPERATOR: Brett Schultz MD (No qualified resident to [...] of the jejunojejunal anastomosis and placing two 19-Haitian Quentin drains via the right side trocar [...] the buttress material, Duet. An Kyler tube, 32-Haitian, was passedby anesthesia to calibrate the pouch [...] was created in both limbs, and a [id number] functional end-to-end jejunojejunostomy was carried out with [...] At the conclusion of the procedure, two 19-Haitian Quentin drains were placed, 1 proximal to [...] SPECIMENS: None. COMPLICATIONS: None. CULTURE: None. DRAINS: 19-Haitian Quentin drains x2. At the end of [...] MD 04 21 PM / ss Confirmation: [id number] Dictation ID: [id number] CC : SULMA TRONCOSO MD, MD * [...] Care - Kathy Coffman RN - 07/10/2010 7888 EST Problem: PAIN Goal: Patient's Pain/Discomfort Is Manageable Outcome: Ongoing Active Multi-Disciplinary problems: PAIN [981718] (07/08/10) ELIMINATION [584046] (07/09/10) Data: Patient with complaints of 6 [...] Assess pain level Active Multi-Disciplinary problems: PAIN [819828] (07/08/10) ELIMINATION [[id number]] (07/09/10) Data: Pt alert and oriented x3. Lap sites on abd C/D/I with derma catalan. No drainage. Using STACKER without any issues. Action: monitored STACKER, VS and po intake. Pt also wears [...] like pains may not be relieved by STACKER but position changes and ambulation will help expel gas which will in turn relieve the pains. See eMAR, patient using STACKER appropriately. N on-pharmacologic interventions include splinting, rest, [...] Manageable Outcome: Ongoing Data: POD 1 using STACKER appropriately. Reports pain 8-9/10 on a 0/10 pain scale. States that toradol has worked best for her. Action: Helped pt change positions worked on breathing techniques. Toradol not due at this time. Will administer when due, refer to MAR. Notified PA. Response: STACKER settings changed per orders see MAR. Pain down to 6/10 after STACKER change. Will continue to monitor. Karlee Dolan RN 07/09/2010 12:36 * Plan of Care - Kathy Coffman RN - 07/08/2010 3845 EST Problem: PAIN Goal: Patient's Pain/Discomfort Is Manageable Outcome: Ongoing PAIN DATA: Patient with complaints of 6 /10 pain, pain located in abdomen at lap sites and at JAMIE site. ACTION: Patient using STACKER appropriately, See eMAR, non-pharmacologic interventions include rest andrepositioning, along with splinting techniques involving pillow at bedside. R eevaluate pain within2 hours after intervention . RESPONSE: Patient notes relief from STACKER and non-pharmacologic interventions, rating pain 5 out [...] ORDERABLES Fi nal Result Performing Organization Address City/[facility] Co de Phone Number [facility] [address] [place] [address] * SMEAR REVIEW (07/09/2010 11:18 EST) Smear scan only: Slide was examined by a technologist to verify the WBC and/or platelet count. [facility] 07/09/2010 11:1 8 EST 07/09/2010 11:40 EST us Kasandra Hobbs MD HEMATOLOGY & PF4 ORDERABLES Fi nal Result Performing Organization Address [facility] Co de Phone Number [facility] [address] [place] [address] * (ABNORMAL) HEMAGRAM (07/09/2010 11:18 EST) WBC 10.30 4.0 - 12.4 K/cmm [facility] RBC 4.41 3.86 - 5.04 M/cmm [facility] Hemoglobin 13.3 11.6 - 15.2 gm/dl [facility] HCT 38.2 34.9 - 44.4 % [facility] MCV 87 81 - 98 fl [facility] MCH 30.2 26.7 - 33.3 pg [facility] MCHC 34.8 32.1 - 35.9 gm/dl [facility] PLT 114(L) 141 - 320 K/cmm [facility] RDW-CV 13.9 11.7 - 14.6 % [facility] Blood specimen (specimen) 07/09/2010 11:18 EST 07/09/2010 11:40 EST us Kasandra Hobbs MD HEMATOLOGY & PF4 ORDERABLES Fi nal Result Performing Organization Address City/[facility] Co de Phone Number [facility] [address] [place] [address] * FL UPPER GI SERIES W/O AIR CONTRAST (07/09/2010 10:38 EST) Anatomical Region Laterality Modality Other 07/09/2010 10:3 8 EST 07/09/2010 15:54 EST Narrative 07/09/2010 15:54 EST [facility] WO/AIR CONTR ??Jul 09, 2010 10:38:00 AM Signs and Symptoms/Comments: ??POD#1 s/p lap gastric bypass; please eval swallow and passage contrast through g-j anastamosis. Comparisons: None. Findings: Cafeteria Attendant KUB demonstrates the patient is status post [...] Procedure Note Chico Lowry MD - 07/09/2010 [facility] Jul 09, 2010 10:38:00 AM Signs and Symptoms/Comments: POD#1 s/p lap gastric bypass; please eval swallow and passage contrast through g-j anastamosis. Comparisons: None. Findings: Cafeteria Attendant KUB demonstrates the patient is status post [...] Visit Diagnoses Diagnosis Morbid obesity ([facility])- Primary Morbid obesity MIGUEL (obstructive sleep apnea) [...] EST 500 mg morphine 2 mg/ml (DURAMORPH) STACKER, 30 ml syringe intravenous, STACKER, Starting on Wed07/08/10 at 1230, Until Wed07/10/10 at 0742, STACKER Dose: 2 mg LOCKOUT Interval: 10 minutes [...] Karlee Dolan, RN) morphine 2 mg/ml (DURAMORPH) STACKER, 30 ml syringe (CANCELED) intravenous, STACKER, Starting on Wed07/08/10 at 1230, Until Yadira 07/10/10 at 0742, STACKER Dose: 2 mg LOCKOUT Interval: 10 minutes [...] 07/11/2010 documented in this encounter Care Teams Soda Clerk Relationship Specialty Start Date End Date Sulma Troncoso MD [facility] [address] [place] [address] PCP - General 02/13/09 11/23/11 documented as of this encounter
--- OUTSIDE RECORDS SUMMARY | 2024-08-27 06:31 | XMS_ITS | Encounter Summary ---
Author Organization [facility] Address [address] [place] [address] Care Team Providers Care Communication Signals Intelligence Name Role Phone Sulma Salinas MD Primary Care Provider [phone] Reason for Visit * Reason Onset Date Comments Other 06/10/2010 Encounter Details Date Type Department Care Team (Late st Contact Info) Description 06/10/2010 Telephone [facility] Bariatric Surgery - [address] [address] Lorena Garduno, RN [address] [place] [address] Other Social History Tobacco Use Types Packs/Day [...] Manda Gaona, New script called to [facility] (pt's insurance will not cover prevacid solutab) Omeprazole 40 mg; take one capsule daily x 90 days; no refills. Patient educated regarding directions after surgery (open capsule and take contents). Pt verbalizedunderstanding. No barriers to learning noted. documented in this encounter Plan of Treatment Not on file documented as of this encounter Visit Diagnoses Not on filedocumented in this encounter Care Teams Communication Signals Intelligence Relationship Specialty Start Date End Date Sulma Salinas MD [facility] [address] [place] [address] PCP - General 02/13/09 11/23/11 documented as of this encounter
--- OUTSIDE RECORDS SUMMARY | 2024-08-27 06:31 | XMS_ITS | Encounter Summary ---
Author Organization [facility] Address [address] [place] [address] Care Team Providers Care Lime Puller Name Role Phone Sulma Salinas MD Primary Care Provider [phone] Encounter Details Date Type Department Care Team (Late st Contact Info) Description 03/26/2010 Orders Only [facility] Bariatric Surgery - [place] [address] [place] [address] Elsy Gaona, CADMIUM BURNER 61 [facility] 4 [facility] [address] [place], [place] [address] Morbid obesity ([facility]); Vitamin D deficiency; Preop testing Social History [...] 13:11 EDT 04/24/2010 13:14 EDT Elsy Gaona CADMIUM BURNER CHEMISTRY & BLOOD GAS ORD ERABLES Final Result Performing Organization Address City/[facility]/ZIP Co de Phone Number [facility] [address] [place] [address] * (ABNORMAL) HEMAGRAM (04/24/2010 13:11 EDT) WBC [...] LAB Comment:Performed at [facility] [place], [place] Blood specimen (specimen) 04/24/2010 13:11 EDT 04/24/2010 13:14 EDT Elsy Gaona CADMIUM BURNER HEMATOLOGY & PF4 ORDERABL ES Final Result Performing Organization Address City/[facility] Co de Phone Number [facility] [address] [place] [address] documented in this encounter Visit Diagnoses Diagnosis Morbid obesity ([facility]) Morbid obesity Vitamin D deficiency Unspecified vitamin D deficiency Preop testing Preoperative examination, unspecified documented in this encounter Care Teams Lime Puller Relationship Specialty Start Date End Date Sulma Salinas MD [facility] [address] [place] [address] PCP - General 02/13/09 11/23/11 documented as of this encounter
--- OUTSIDE RECORDS SUMMARY | 2024-08-27 06:31 | XMS_ITS | Encounter Summary ---
Author Organization [facility] Address [address] [place] [address] Care Team Providers Care Bobbin Drier Name Role Phone Sulma Salinas MD Primary Care Provider Encounter Details Date Type Department Care Team (Late st Contact Info) Description 02/08/2003 Results Only [facility] [address] [place] [address] Tawny Yo NP [address] [facility],[address] [address] Social History Tobacco Use Types [...] ? KEVIN CASTANO ? Accession #: ? [id number] : ? 1975 (Age: 27) ??F ?Collect Date: ? 02/08/2003 Location: ? [facility] ? Receive Date: ? 02/12/2003 Provider: ?TAWNY YO INTER COM SERVICER Copy to: ? Specimen/Source: ?ThinPrep Pap Test, [...] Final R esult [facility] [address] [place] [address] documented in this encounter Visit Diagnoses Not on filedocumented in this encounter Care Teams Bobbin Drier Relationship Specialty Start Date End Date Sulma Salinas MD [facility] [address] [place] [address] PCP - General 02/13/09 11/23/11 documented as of this encounter
--- OUTSIDE RECORDS SUMMARY | 2024-08-27 06:31 | XMS_ITS | Encounter Summary ---
Author Organization [facility] Address [address] [place] [address] Care Team Providers Care Senior Naval Parachutist Name Role Phone Sulma Salinas MD Primary Care Provider [phone] Reason for Visit * Reason Comments Obesity pre op Encounter Details Date Type Department Care Team (Late st Contact Info) Description 02/10/2010 10:00 EDT Office Visit [facility] Bariatric Surgery - [place] [address] [place] [address] Kasandra Hobbs MD [address] [place] [address] Morbid obesity ([facility]) (Primary Dx) Social History Tobacco [...] Miscellaneous Notes * Scanned Note-Null - Nam, Steel Fabricator - 01/22/2011 1048 EDT documented in this encounter Plan of Treatment Not on file documented as of this encounter Visit Diagnoses Diagnosis Morbid obesity ([facility])- Primary Morbid obesity documented in this encounter Historical Medications * This list may reflect changes made after this encounter. ERGOCALCIFEROL (VITAMIN D ORAL) Take 1,000 Units by mouth daily. added in this encounter Care Teams Senior Naval Parachutist Relationship Specialty Start Date End Date Sulma Salinas MD [facility] [address] [place] [address] PCP - General 02/13/09 11/23/11 documented as of this encounter
--- OUTSIDE RECORDS SUMMARY | 2024-08-27 06:31 | XMS_ITS | Encounter Summary ---
Author Organization [facility] Address [address] [place] [address] Care Team Providers Care Fixed Interest Dealer Name Role Phone Sulma Salinas MD Primary Care Provider Encounter Details Date Type Department Care Team (Late st Contact Info) Description 02/06/2010 Abstract [facility] Bariatric Surgery - [place] [address] [place] [address] Elsy Gaona, PRE PRESS MANAGER 61 [facility] 4 [facility] [address] [place], [place] [address] Social History Tobacco Use Types Packs/Day Years [...] on filedocumented in this encounter Care Teams Fixed Interest Dealer Relationship Specialty Start Date End Date Sulma Salinas MD [facility] [address] [place], [place] [address] PCP - General 02/13/09 11/23/11 documented as of this encounter
--- OUTSIDE RECORDS SUMMARY | 2024-08-27 06:31 | XMS_ITS | Encounter Summary ---
Author Organization [facility] Address [address] [place] [address] Care Team Providers Care Shuttle Route Vehicle Operator Name Role Phone Sulma Salinas MD Primary Care Provider Encounter Details Date Type Department Care Team (Late st Contact Info) Description 10/08/2009 Abstract [facility] Bariatric Surgery - [place] [address] [place] [address] Sulma Salinas MD [facility] [address] [place], [place] [address] Social History Tobacco Use Types Packs/Day Years [...] 03/09/2011 added in this encounter Care Teams Shuttle Route Vehicle Operator Relationship Specialty Start Date End Date Sulma Salinas MD [facility] [address] [place], [place] [address] PCP - General 02/13/09 11/23/11 documented as of this encounter
--- OUTSIDE RECORDS SUMMARY | 2024-08-27 06:31 | XMS_ITS | Encounter Summary ---
Author Organization [facility] Address [address] [place] [address] Care Team Providers Care Junior Marketing Associate Name Role Phone Sulma Salinas MD Primary Care Provider [phone] Reason for Visit * Reason Comments Obesity pre op Encounter Details Date Type Department Care Team (Late st Contact Info) Description 04/24/2010 11:45 EDT Office Visit [facility] Bariatric Surgery - [place] [address] [place] [address] Elsy Gaona, MINERAL ECONOMIST [address] [address] Morbid obesity ([facility]); MIGUEL (obstructive sleep apnea); GERD (gastroesophageal reflux [...] hand Meal pattern: 3 Average caloric intake: 8941-6461 but mostly 0566-0049 wanda Meal composition: much improved with more [...] Gaona NP - 04/24/2010 1119 EDT SUBJECTIVE: Kevin returns to our office [...] bypass. Had labs done 3 wks ago [facility] but they can not find them. [facility] has no record of these labs [...] Miscellaneous Notes * Scanned Note-Null - Nam, Manuscripts Curator - 02/02/2011 1659 EDT documented in this encounter Plan of Treatment Not on file documented as of this encounter Results * VITAMIN B12 (04/24/2010 13:11 EDT) Pathologist Edu Vitamin B-12 226 211 - 911 pg/ml [facility] Blood specimen (specimen) 04/24/2010 13:11 EDT 04/24/2010 13:14 EDT Elsy Gaona MINERAL ECONOMIST CHEMISTRY & BLOOD GAS ORD ERABLES Final Result [facility] [address] [place] [address] * HEMOGLOBIN A1C (04/24/2010 13:11 EDT) Hemoglobin [...] ERABLES Final Result [facility] [address] [place] [address] documented in this encounter Visit Diagnoses Diagnosis Morbid obesity ([facility]) Morbid obesity MIGUEL (obstructive sleep apnea) Obstructive [...] 04/24/2010 documented in this encounter Care Teams Junior Marketing Associate Relationship Specialty Start Date End Date Sulma Salinas MD [facility] [address] [place], [place] [address] PCP - General 02/13/09 11/23/11 documented as of this encounter
--- OUTSIDE RECORDS SUMMARY | 2024-08-27 06:31 | XMS_ITS | Encounter Summary ---
Author Organization [facility] Address [address] [place] [address] Care Team Providers Care Visual Merchandising Coordinator Name Role Phone Sulma Salinas MD Primary Care Provider Reason for Visit * Reason Comments Emesis Encounter Details Date Type Department Care Team (Late st Contact Info) Description 07/31/2010 11:00 EST Office Visit [facility] General Surgery - [facility] [address] [place], [place] [address] Kasandra Hobbs MD [address] [place] [phone] Morbid obesity (HCC-CMS) (Primary Dx) Social [...] Notes * Kasandra Hobbs MD - 07/31/2010 1225 EST 07/31/2010 Kevin Calderon is here in [...] CONTRAST Routine 07/31/2010 15:07 EST Morbid obesity ([facility]) documented in this encounter Results * [place] [...] Visit Diagnoses Diagnosis Morbid obesity ([facility])- Primary Morbid obesity documented in this encounter Orders Medications Ordered That Allen ht Not Have Been Administered Count Last Ordered Date First Ordered Date lactated ringers (LR) infusion 1 07/31/2010 documented in this encounter Care Teams Visual Merchandising Coordinator Relationship Specialty Start Date End Date Sulma Salinas MD [facility] [address] [place] [address] PCP - General 02/13/09 11/23/11 documented as of this encounter
--- OUTSIDE RECORDS SUMMARY | 2024-08-27 06:31 | XMS_ITS | Encounter Summary ---
Author Organization [facility] Address [address] [place] [address] Care Team Providers Care Center Director Lead Teacher Name Role Phone Sulma Salinas MD Primary Care Provider [phone] Reason for Visit * Reason Comments Obesity Encounter Details Date Type Department Care Team (Late st Contact Info) Description 06/09/2010 9:00 EDT Office Visit [facility] Bariatric Surgery - [address] [id number] Kasandra Hobbs MD [address] [place] [phone] Morbid obesity ([facility]) (Primary Dx) Social History Tobacco Use [...] MD * Syeda Dixon, RD - 06/09/2010 7956 EDT PRE OP NUTRITION FOLLOW UP NOTE Bariatric Clinic Nutrition Pre-op Visit Visit Number: 13 Desired surgery: Gastric Bypass Subjective: Started period-weight gain from fluid. Has been Moose hunting on weekends-lots of hiking! Food logs: maintained on spreadsheet Meal pattern: 3 Average caloric intake: 7941-8025 wanda, avg >1500 wanda Meal composition: generally [...] food records, Eat more slowly, Calorie goal 6870-5829 wanda and Pre-op liquid diet start date [...] encounter Miscellaneous Notes * Scanned Note-Null - Ultrasonic Solderer, Scan - 06/11/2011 1044 EDT * Scanned Note-Null - Inpatient, Physician - 08/20/2010 1253 EST documented in this encounter Plan of Treatment Not on file documented as of this encounter Visit Diagnoses Diagnosis Morbid obesity (HCC-CMS)- Primary Morbid obesity documented in this encounter Care Teams Center Director Lead Teacher Relationship Specialty Start Date End Date Sumla Salinas MD [facility] [address] [place] [address] PCP - General 02/13/09 11/23/11 documented as of this encounter
--- OUTSIDE RECORDS SUMMARY | 2024-08-27 06:31 | XMS_ITS | Encounter Summary ---
Author Organization [facility] Address [address] [place] [address] Care Team Providers Care Crossing Tender Name Role Phone Sulma Salinas MD Primary Care Provider [phone] Reason for Visit * Reason Comments Obesity Encounter Details Date Type Department Care Team (Late st Contact Info) Description 06/09/2010 8:00 EDT Office Visit [facility] Bariatric Surgery - [place] [address] [place] [address] Elsy Gaona S, HOUSING SPECIALIST 61 [facility] [address] [address] Morbid obesity ([facility]); FAISAL (obstructive sleep apnea); GERD (gastroesophageal reflux disease); [...] Maternal Grandmother ??? Heart Disease Maternal Grandmother [place] ??? Heart Disease Maternal Grandfather [place] ??? Stroke Maternal Grandfather History Social History [...] encounter Miscellaneous Notes * Scanned Note-Null - Vending Machine Repairer, Scan - 06/11/2011 1114 EDT documented in [...] 06/26/2010 added in this encounter Care Teams Crossing Tender Relationship Specialty Start Date End Date Sulma Salinas MD [facility] [address] [place] [address] PCP - General 02/13/09 11/23/11 documented as of this encounter
--- OUTSIDE RECORDS SUMMARY | 2024-08-27 06:31 | XMS_ITS | Encounter Summary ---
Author Organization [facility] Address [address] [place] [address] Care Team Providers Care Environmental Health Specialist Name Role Phone Sulma Salinas MD Primary Care Provider [phone] Reason for Visit * Reason Comments Obesity Encounter Details Date Type Department Care Team (Late st Contact Info) Description 03/26/2010 13:15 EDT Office Visit [facility] Bariatric Surgery - [place] [address] [place] [address] Elsy Gaona S, TURNER MACHINE OPERATOR [address] [address] Morbid obesity ([facility]); GERD (gastroesophageal reflux disease); MIGUEL (obstructive sleep [...] spreadsheet Meal pattern: 3 Average caloric intake: 3019-0472 wanda Meal composition: good protein, mostly good [...] Miscellaneous Notes * Scanned Note-Null - Nam, Personalization Specialist - 01/27/2011 1059 EDT documented in this encounter Plan of Treatment Not on file documented as of this encounter Visit Diagnoses Diagnosis Morbid obesity ([facility]) Morbid obesity GERD (gastroesophageal reflux disease) Esophageal reflux MIGUEL (obstructive sleep apnea) Obstructive sleep apnea (adult) (pediatric) OA (osteoarthritis) of knee Osteoarthrosis, unspecified whether generalized or localized, lower leg PCOS (polycystic ovarian syndrome) Polycystic ovaries documented in this encounter Care Teams Environmental Health Specialist Relationship Specialty Start Date End Date Sulma Salinas MD [facility] [address] [place] [address] PCP - General 02/13/09 11/23/11 documented as of this encounter
--- OUTSIDE RECORDS SUMMARY | 2024-08-27 06:31 | XMS_ITS | Encounter Summary ---
Author Organization [facility] Address [address] [place] [address] Care Team Providers Care Bus Operator Name Role Phone Sulma Salinas MD Primary Care Provider Encounter Details Date Type Department Care Team (Late st Contact Info) Description 07/17/2009 Abstract [facility] OBGYN Services - [facility] [address] [place] [address] Sulma Salinas MD [facility] [address] [place] [id number] Social History Tobacco Use Types Packs/Day Years [...] 06/27/2013 added in this encounter Care Teams Bus Operator Relationship Specialty Start Date End Date Sulma Salinas MD [facility] [address] [place], [place] [address] PCP - General 02/13/09 11/23/11 documented as of this encounter
--- OUTSIDE RECORDS SUMMARY | 2024-08-27 06:31 | XMS_ITS | Encounter Summary ---
Author Organization [facility] Address [address] [place] [address] Care Team Providers Care Grain Origination Specialist Name Role Phone Sulma Salinas MD Primary Care Provider [phone] Reason for Visit * Reason Onset Date Comments Medication Questions 07/04/2010 Encounter Details Date Type Department Care Team (Late st Contact Info) Description 07/04/2010 Telephone [place] Bariatric Surgery - [address] [address] Lorena Garduno, RN [address] [place] [address] Medication Questions Social History Tobacco Use Types [...] filedocumented in this encounter Care Teams Grain Origination Specialist Relationship Specialty Start Date End Date Sulma Salinas MD [facility] [address] [place] [address] PCP - General 02/13/09 11/23/11 documented as of this encounter
--- OUTSIDE RECORDS SUMMARY | 2024-08-27 06:31 | XMS_ITS | Encounter Summary ---
Author Organization [facility] Address [address] [place] [address] Care Team Providers Care Cleat Thrower Name Role Phone Sulma Salinas MD Primary Care Provider [phone] Reason for Visit * Reason Onset Date Comments Advice Only 07/14/2010 Encounter Details Date Type Department Care Team (Late st Contact Info) Description 07/14/2010 Telephone [facility] Bariatric Surgery - [address] Advice Only Social History [...] Encounter - Syeda Dixon RD - 07/14/2010 3899 EST BARIATRIC SURGERY POST-OP CALL NOTE Date [...] on filedocumented in this encounter Care Teams Cleat Thrower Relationship Specialty Start Date End Date Sulma Salinas MD [facility] [address] [place] [address] PCP - General 02/13/09 11/23/11 documented as of this encounter
--- OUTSIDE RECORDS SUMMARY | 2024-08-27 06:31 | XMS_ITS | Encounter Summary ---
Author Organization [facility] Address [address] [place] [address] Care Team Providers Care Registered Dietetic Technician Name Role Phone Sulma Salinas MD Primary Care Provider [phone] Encounter Details Date Type Department Care Team (Late st Contact Info) Description 07/16/2000 Results Only [facility] - [place] conversion [address] [place] [address] Donald Clancy MD [address] [place] [address] Social History Tobacco Use Types Packs/Day Years [...] Name: ? LALITTASHKEVIN ? Accession #: ? [id number] ? : ? 1975 (Age: 25) ??F [...] 0.5 x 0.5 x 0.2 cm. ??Three claims service representative sections of gallbladder wall are submitted as (A1). ??The potential cystic lymph nodes are submitted as (A2). ??(Dr. Marie)/[facility] End of Report [facility] 07/16/2000 07/17/2000 9:2 3 EST us Donald Clancy MD PATHOLOGY ORDERABLES Final Result [facility] [address] [place] [address] documented in this encounter Visit Diagnoses Not on filedocumented in this encounter Care Teams Registered Dietetic Technician Relationship Specialty Start Date End Date Sulma Salinas MD [facility] [address] [place], [place] [address] PCP - General 02/13/09 11/23/11 documented as of this encounter
--- OUTSIDE RECORDS SUMMARY | 2024-08-27 06:31 | XMS_ITS | Encounter Summary ---
Author Organization [facility] Address [address] [place] [address] Care Team Providers Care Guide Rail Cleaner Name Role Phone Sulma Salinas MD Primary Care Provider Encounter Details Date Type Department Care Team (Late st Contact Info) Description 12/27/2001 Results Only [facility] - [place] conversion [address] [place] [address] Tawny Yo NP [address] [facility],[address] [phone] Social History Tobacco Use Types [...] ? KEVIN CASTANO ? Accession #: ? [id number] : ? 1975 (Age: 26) ??F ?Collect [...] Final R esult [facility] [address] [place] [address] documented in this encounter Visit Diagnoses Not on filedocumented in this encounter Care Teams Guide Rail Cleaner Relationship Specialty Start Date End Date Sulma Salinas MD [facility] [address] [place], [place] [address] PCP - General 02/13/09 11/23/11 documented as of this encounter
--- OUTSIDE RECORDS SUMMARY | 2024-08-27 06:31 | XMS_ITS | Encounter Summary ---
Author Organization [facility] Address [address] [place] [address] Care Team Providers Care Embedded Firmware Developer Name Role Phone Sulma Salinas MD Primary Care Provider [phone] Reason for Visit * Reason Comments Abdominal Cramping starts after eatinng or drinking Encounter Details Date Type Department Care Team (Late st Contact Info) Description 07/17/2010 11:00 EST Office Visit [facility] General Surgery - [facility] [address] [place] [address] Unknown, Provider, MD Liu, General Surgery [facility] [place] [address] [place] [address] Kasandra Hobbs MD [address] [place] [phone] Morbid obesity (HCC-CMS) (Primary Dx) Social [...] obesity documented in this encounter Care Teams Embedded Firmware Developer Relationship Specialty Start Date End Date Sulma Salinas MD [facility] [address] [place] [address] PCP - General 02/13/09 11/23/11 documented as of this encounter
--- OUTSIDE RECORDS SUMMARY | 2024-08-27 06:31 | XMS_ITS | Encounter Summary ---
Author Organization [facility] Address [address] [place] [address] Care Team Providers Care Communications Lead Name Role Phone Sulma Salinas MD Primary Care Provider [phone] Reason for Visit * Reason Onset Date Comments Abdominal Cramping 07/16/2010 Encounter Details Date Type Department Care Team (Late st Contact Info) Description 07/16/2010 Telephone [facility] Bariatric Surgery - [place] [address] [place] [address] Lorena Garduno RN [address] [place] [address] Abdominal Cramping Social History Tobacco Use Types [...] on filedocumented in this encounter Care Teams Communications Lead Relationship Specialty Start Date End Date Sulma Salinas MD [facility] [address] [place] [address] PCP - General 02/13/09 11/23/11 documented as of this encounter
--- OUTSIDE RECORDS SUMMARY | 2024-08-27 06:31 | XMS_ITS | Encounter Summary ---
Author Organization [facility] Address [address] [place] [address] Care Team Providers Care Day Haul Youth Supervisor Name Role Phone Sulma Salinas MD Primary Care Provider [phone] Reason for Visit * Reason Comments Obesity pre op Encounter Details Date Type Department Care Team (Late st Contact Info) Description 03/07/2010 14:15 EDT Office Visit [facility] Bariatric Surgery - [place] [address] [place] [address] Kasandra Hobbs MD [address] [place] [phone] Morbid obesity ([facility]) (Primary Dx) Social History Tobacco Use Types [...] Notes * Kasandra Hobbs MD - 03/07/2010 4395 EDT SUBJECTIVE: Kevin returns to our office [...] Miscellaneous Notes * Scanned Note-Null - Nam, Mva Operator - 03/27/2011 1035 EDT documented in this encounter Plan of Treatment Not on file documented as of this encounter Visit Diagnoses Diagnosis Morbid obesity (HCC-CMS)- Primary Morbid obesity documented in this encounter Care Teams Day Haul Youth Supervisor Relationship Specialty Start Date End Date Sulma Salinas MD [facility] [address] [place] [address] PCP - General 02/13/09 11/23/11 documented as of this encounter
--- OUTSIDE RECORDS SUMMARY | 2024-08-27 06:31 | XMS_ITS | Encounter Summary ---
Author Organization [facility] Address [address] [place] [address] Care Team Providers Care Director Cardiovascular Name Role Phone Sulma Salinas MD Primary Care Provider Encounter Details Date Type Department Care Team (Late st Contact Info) Description 11/11/2009 Abstract [facility] Bariatric Surgery - [place] [address] [place] [address] Sulma Salinsa MD [facility] [address] [place], [place] [address] Morbid obesity (HCC-CMS); MIGUEL (obstructive sleep apnea); [...] ovaries documented in this encounter Care Teams Director Cardiovascular Relationship Specialty Start Date End Date Sulma Salinas MD [facility] [address] [place], [place] [address] PCP - General 02/13/09 11/23/11 documented as of this encounter
--- OUTSIDE RECORDS SUMMARY | 2024-08-27 06:31 | XMS_ITS | Encounter Summary ---
Author Organization [facility] Address [address] [place] [address] Care Team Providers Care Hydraulic And Plumbing Installer Name Role Phone Sulma Salinas MD Primary Care Provider Encounter Details Date Type Department Care Team (Late st Contact Info) Description 06/09/2010 Pre-Procedure Orders Encounter [facility] Bariatric Surgery - [place] [address] [place] [address] Elsy Gaona, FENDER FINISHER 61 [facility] 4 [facility] [address] [place], [place] [address] Social History Tobacco Use Types Packs/Day Years [...] on filedocumented in this encounter Care Teams Hydraulic And Plumbing Installer Relationship Specialty Start Date End Date Sulma Salinas MD [facility] [address] [place], [place] [address] PCP - General 02/13/09 11/23/11 documented as of this encounter
--- OUTSIDE RECORDS SUMMARY | 2024-08-27 06:31 | XMS_ITS | Encounter Summary ---
Author Organization [facility] Address [address] [place] [address] Care Team Providers Care Crossing Gateman Name Role Phone Unavailable Primary Care Provider Unavailabl e Encounter Details Date Type Department Care Team (Late st Contact Info) Description 10/23/2008 14:20 EDT Hospital Encounter [facility] [address] [place] [address] Srinivasan Grimes MD PhD Social History Tobacco [...]
--- OUTSIDE RECORDS SUMMARY | 2024-08-27 06:31 | XMS_ITS | Encounter Summary ---
Author Organization [facility] Address [address] [place] [address] Care Team Providers Care Waitress Name Role Phone Sulma Salinas MD Primary Care Provider [phone] Unknown, Jean Paul CABA Primary Care Provider Sulma Campos MD Primary Care Provider [phone] Encounter Details Date Type Department Care Team (Late st Contact Info) Description 11/20/2009 Documentation Visit [facility] Bariatric Surgery - [place] [address] [place] [address] Social History Tobacco Use [...] on filedocumented in this encounter Care Teams Waitress Relationship Specialty Start Date End Date Sulma Salinas MD [facility] [address] [place] [address] PCP - General 02/13/09 11/23/11 Unknown, Provider, PCP - General 11/24/11 06/26/13 Sulma Salinas MD [address] [place] [address] PCP - General 06/27/13 documented as of this encounter
--- OUTSIDE RECORDS SUMMARY | 2024-08-27 06:31 | XMS_ITS | Encounter Summary ---
Author Organization [facility] Address [address] [place] [address] Care Team Providers Care Software Tester Name Role Phone Sulma Salinas MD Primary Care Provider Encounter Details Date Type Department Care Team (Late st Contact Info) Description 03/06/2004 Results Only [facility] - [place] conversion [address] [place] [address] Tawny Yo NP [address] [facility],[address] [phone] Social History Tobacco Use Types [...] ? KEVIN CASTANO ? Accession #: ? [id number] : ? 1975 (Age: 28) ??F ?Collect [...] Final R esult [facility] [address] [place] [address] documented in this encounter Visit Diagnoses Not on filedocumented in this encounter Care Teams Software Tester Relationship Specialty Start Date End Date Sulma Salinas MD [facility] [address] [place], [place] [address] PCP - General 02/13/09 11/23/11 documented as of this encounter
--- OUTSIDE RECORDS SUMMARY | 2024-08-27 06:31 | XMS_ITS | Encounter Summary ---
Author Organization [facility] Address [address] [place] [address] Care Team Providers Care Salary Manager Name Role Phone Sulma Salinas MD Primary Care Provider [phone] Reason for Visit * Reason Comments Post-OP Follow Up drain removal Encounter Details Date Type Department Care Team (Late st Contact Info) Description 07/22/2010 10:00 EST Office Visit [facility] General Surgery - [facility] [address] [place] [address] Unknown, Provider, MD Liu, General Surgery [facility], [place] [address] [place] [address] Kasandra Wynn MD [address] [place] [phone] Morbid obesity (HCC-CMS) (Primary Dx) Discharge [...] obesity documented in this encounter Care Teams Salary Manager Relationship Specialty Start Date End Date Sulma Salinas MD [facility] [address] [place] [address] PCP - General 02/13/09 11/23/11 documented as of this encounter
--- OUTSIDE RECORDS SUMMARY | 2024-08-27 06:31 | XMS_ITS | Encounter Summary ---
Author Organization [facility] Address [address] [place] [address] Care Team Providers Care Stone Lathe Operator Name Role Phone Sulma Salinas MD Primary Care Provider [phone] Encounter Details Date Type Department Care Team (Late st Contact Info) Description 06/09/2001 Results Only [facility] - [place] conversion [address] [place] [address] Kev Cloud MD [address] [address] [place] [address] Social History Tobacco Use Types [...] ? KEVIN CASTANO ? Accession #: ? [id number] : ? 1975 (Age: 26) ??F ?Collect [...] Final Resul t [facility] [address] [place] [address] documented in this encounter Visit Diagnoses Not on filedocumented in this encounter Care Teams Stone Lathe Operator Relationship Specialty Start Date End Date Sulma Salinas MD [facility] [address] [place] [address] PCP - General 02/13/09 11/23/11 documented as of this encounter
--- OUTSIDE RECORDS SUMMARY | 2024-08-27 06:31 | XMS_ITS | Encounter Summary ---
Author Organization [facility] Address [address] [place] [address] Care Team Providers Care Health Care Coordinator Name Role Phone Sulma Salinas MD Primary Care Provider [phone] Reason for Visit * Reason Comments Obesity pre op Encounter Details Date Type Department Care Team (Late st Contact Info) Description 01/06/2010 9:30 EDT Office Visit [facility] Bariatric Surgery - [place] [address] [place] [address] Kasandra Hobbs MD [address] [place] [phone] Morbid obesity ([facility]) (Primary Dx) Social History Tobacco Use [...] 123.7 kg (272 lb 9.6 oz) 01/06/2010 0926 EDT Height 164.2 cm (5' 4.65) 01/06/2010 [...] MD * Kellen Garrison Shanon - 01/06/2010 0958 EDT PRE OP NUTRITION FOLLOW UP NOTE Bariatric Clinic Nutrition Pre-op Visit Visit Number: 8 Desired surgery: Gastric Bypass Subjective: Pt up 4 lbs since last visit 2' water retention during menses. 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 Pt willing to come back to be weighed pre op. Surgery Date not set yet. Food logs: Maintained Meal pattern: 2-3 meals/d (sometimes misses bfast) Average caloric intake: 3703-4646 Meal composition: 70+ grams protein/day Snacking: Appropriate [...] this encounter Visit Diagnoses Diagnosis Morbid obesity ([facility])- Primary Morbid obesity documented in this encounter Care Teams Health Care Coordinator Relationship Specialty Start Date End Date Sulma Salinas MD [facility] [address] [place] [address] PCP - General 02/13/09 11/23/11 documented as of this encounter
--- OUTSIDE RECORDS SUMMARY | 2024-08-27 06:31 | XMS_ITS | Encounter Summary ---
Author Organization [facility] Address [address] [place] [address] Care Team Providers Care Lehr Stripper Name Role Phone Sulma Salinas MD Primary Care Provider [phone] Encounter Details Date Type Department Care Team (Late st Contact Info) Description 11/22/2009 Pre-Procedure Orders Encounter [facility] Bariatric Surgery - [place] [address] [place] [address] Elsy Gaona, PHARMACY TECHNICIAN 61 [facility] 4 [facility] [address] [place], [place] [address] Social History Tobacco Use Types Packs/Day Years [...] on filedocumented in this encounter Care Teams Lehr Stripper Relationship Specialty Start Date End Date Sulma Salinas MD [facility] [address] [place], [place] [address] PCP - General 02/13/09 11/23/11 documented as of this encounter
--- OUTSIDE RECORDS SUMMARY | 2024-08-27 06:31 | XMS_ITS | Encounter Summary ---
Author Organization [facility] Address [address] [place] [address] Care Team Providers Care Camp Head Counselor Name Role Phone Sulma Salinas MD Primary Care Provider [phone] Reason for Visit * Reason Comments Obesity Encounter Details Date Type Department Care Team (Late st Contact Info) Description 07/28/2010 15:00 EST Office Visit [facility] Bariatric Surgery - [address] [place] [address] Kasandra Hobbs MD [address] [place] [address] Morbid obesity ([facility]) (Primary Dx) Social History Tobacco Use Types [...] EST * Syeda Dixon RD - 07/28/2010 7245 EST Nutrition Post Op Visit Subjective: Increasing [...] above * Kasandra Hobbs MD - 07/28/2010 8139 EST 07/28/2010 Kevin Calderon is here in [...] to clear diet. Seen and discussed with Strategic Marketing Manager at this visit. Kasandra Garner MD 07/28/2010 15:41 * Lorena Garduno. - 07/28/2010 1510 EST 30-Day Bariatric Surgery Postop Questionnaire Wound Occurrences Y/N Date Comments Superficial Incisional SSI n Deep Incisional SSI n Organ/Space SSI n Wound Disruption n Respiratory Occurrences Pneumonia n Urinary Tract Occurrences Urinary Tract Infection PRODUCT INSPECTION SUPERVISOR Occurrences Peripheral Nerve Injury n Other Occurrences [...] encounter Miscellaneous Notes * Scanned Note-Null - Integrated Circuit Design Engineer, Scan - 07/01/2011 0842 EST documented in [...] documented as of this encounter Care Teams Camp Head Counselor Relationship Specialty Start Date End Date Sulma Salinas MD [facility] [address] [place] [address] PCP - General 02/13/09 11/23/11 documented as of this encounter
--- OUTSIDE RECORDS SUMMARY | 2024-08-27 06:31 | XMS_ITS | Encounter Summary ---
Author Organization [facility] Address [address] [place] [address] Care Team Providers Care Drop Wire Hanger Name Role Phone Sulma Salinas MD Primary Care Provider [phone] Encounter Details Date Type Department Care Team (Latest Contact Info) Description 04/24/2010 13:05 EDT - 04/24/2010 23:59 EDT Hospital Encounter [facility] [address] [place] [address] Elsy Gaona, RADIO AERIAL INSTALLER 61 [facility] [address] [phone] Morbid obesity ([facility]); Vitamin D deficiency; Preop testing; MIGUEL (obstructive [...] Routine 04/24/2010 13: 11 EDT Morbid obesity ([facility]) Vitamin D deficiency Preop testing COMPLETE BLOOD COUNT Routine 04/24/2010 13:11 EDT Morbid obesity ([facility]) Vitamin D deficiency Preop testing HEMOGLOBIN A1C Routine 04/24/2010 13:11 EDT Morbid obesity ([facility]) MIGUEL (obstructive sleep apnea) GERD (gastroesophageal reflux disease) OA (osteoarthritis) of knee PCOS (polycystic ovarian syndrome) Vitamin D deficiency Preop testing VITAMIN B12 Routine 04/24/2010 13:11 EDT Morbid obesity ([facility]) MIGUEL (obstructive sleep apnea) GERD (gastroesophageal reflux [...] ERABLES Final Result [facility] [address] [place] [address] * HEMOGLOBIN A1C (04/24/2010 13:11 EDT) Pathologist [facility] Hemoglobin A1C 5.9 % [facility] [...] EDT 04/24/2010 13:14 EDT Elsy Pepe Gaona RADIO AERIAL INSTALLER CHEMISTRY & BLOOD GAS ORD ERABLES Final Result Performing Organization Address City/[facility]/ZIP Co de Phone Number [facility] [address] [place] [address] * VITAMIN D (25,OH) (04/24/2010 13:11 EDT) Pathologist [facility] 25OH Vitamin D Tot 31.6 ng/ml [facility] Comment: Reference Range: <10 ng/ml: Deficient 10-30 ng/ml: Insufficient 30-100 ng/ml: Sufficient >100 ng/ml: Toxic Blood specimen (specimen) 04/24/2010 13:11 EDT 04/24/2010 13:14 EDT Elsy Pepe Gaona RADIO AERIAL INSTALLER CHEMISTRY & BLOOD GAS ORD ERABLES Final Result Performing Organization Address City/[facility] Co de Phone Number [facility] [address] [place] [address] * (ABNORMAL) HEMAGRAM (04/24/2010 13:11 EDT) Pathologist [facility] WBC 7.90 4.0 - 12.4 K/cmm [facility] [...] % [facility] Comment:[facility]formed at [facility] [place], [place] Blood specimen (specimen) 04/24/2010 13:11 EDT 04/24/2010 13:14 EDT us Elsy Gaona RADIO AERIAL INSTALLER HEMATOLOGY & PF4 ORDERABL ES Final Result Performing Organization Address City/State/[facility] Co de Phone Number [facility] [address] [place] [address] documented in this encounter Visit Diagnoses Diagnosis Morbid obesity ([facility]) Morbid obesity Vitamin D deficiency Unspecified vitamin [...] 07/08/2010 morphine 2 mg/ml (DURAMORPH) 2 mg/mL HEAD START DIRECTOR, 30 ml syringe 1 07/08/2010 documented in this encounter Care Teams Drop Wire Hanger Relationship Specialty Start Date End Date Sulma Salinas MD [facility] [address] [place], [place] [address] PCP - General 02/13/09 11/23/11 documented as of this encounter
--- OUTSIDE RECORDS SUMMARY | 2024-08-27 06:31 | XMS_ITS | Encounter Summary ---
Author Organization [facility] Address [address] [place] [address] Care Team Providers Care Repairer Finished Metal Name Role Phone Sulma Salinas MD Primary Care Provider [phone] Reason for Visit * Reason Onset Date Comments Emesis 07/31/2010 Encounter Details Date Type Department Care Team (Late st Contact Info) Description 07/31/2010 Telephone [facility] Bariatric Surgery - [address] [place] [address] Lorena Garduno RN [address] [place] [address] Emesis Social History Tobacco Use Types Packs/Day [...] on filedocumented in this encounter Care Teams Repairer Finished Metal Relationship Specialty Start Date End Date Sulma Salinas MD [facility] [address] [place] [address] PCP - General 02/13/09 11/23/11 documented as of this encounter
--- OUTSIDE RECORDS SUMMARY | 2024-08-27 06:31 | XMS_ITS | Encounter Summary ---
Author Organization [facility] Address [address] [place] [address] Care Team Providers Care Reporter Name Role Phone Robin Salinas MD Primary Care Provider [phone] Encounter Details Date Type Department Care Team (Latest Contact Info) Description 08/27/2009 8:39 EST - 08/27/2009 23:59 EST Hospital Encounter [facility] [address] [place] [address] Klaudia Schultz MD [address] [place] [phone] Discharge Disposition: Home or Self Care [...] Code Departure Means Destination Home or Self Nursing Home documented in this encounter Procedure Notes * [...] ORDERABLES Final Result [facility] [address] [place] [address] documented in this encounter Visit Diagnoses Not on filedocumented in this encounter Care Teams Reporter Relationship Specialty Start Date End Date Robin Salinas MD [facility] [address] [place] [address] PCP - General 02/13/09 11/23/11 documented as of this encounter
--- OUTSIDE RECORDS SUMMARY | 2024-08-27 06:31 | XMS_ITS | Encounter Summary ---
Author Organization [facility] Address [address] [place] [address] Care Team Providers Care Horse Trader Name Role Phone Robin Troncoso MD Primary Care Provider Encounter Details Date Type Department Care Team (Late st Contact Info) Description 10/11/2007 Results Only [facility] - Maple conversion [address] [place] [address] Robin Troncoso MD [facility] [address] [place], [place] [address] Social History Tobacco Use Types Packs/Day Years [...] ? LALITTASHKEVIN Tena ? Accession #: ? [id number] : ? 1975 (Age: 32) ??F ?Collect Date: ? 10/11/2007 Location: ? [facility] ? Receive Date: ? 10/12/2007 Provider: ?ROBIN TRONCOSO MD Copy to: ? Specimen/Source: ?ThinPrep Pap Test, Cervix/Endocervix, processed on [employer] ThinPrep Imaging System, with manual evaluation Last [...] Final Resul t [facility] [address] [place] [address] documented in this encounter Visit Diagnoses Not on filedocumented in this encounter Care Teams Horse Trader Relationship Specialty Start Date End Date Robin Troncoso MD [facility] [address] [place], [place] [address] PCP - General 02/13/09 11/23/11 documented as of this encounter
--- OUTSIDE RECORDS SUMMARY | 2024-08-27 06:31 | XMS_ITS | Encounter Summary ---
Author Organization [facility] Address [address] [place] [address] Care Team Providers Care Grievance And Appeals Specialist Name Role Phone Sulma Salinas MD Primary Care Provider Encounter Details Date Type Department Care Team (Late st Contact Info) Description 05/29/2005 Results Only [facility] - Maple conversion [address] [place] [address] Tawny Yo NP [address] [facility],[address] [address] Social History Tobacco Use Types [...] ? KEVIN CASTANO ? Accession #: ? [id number] : ? 1975 (Age: 29) ??F ?Collect Date: ? 05/29/2005 Location: ? [facility] ? Receive Date: ? 06/03/2005 Provider: ?TAWNY YO INTERNAL AUDITOR Copy to: ? Specimen/Source: ?ThinPrep Pap Test, Cervix/Endocervix, processed on [employer] ThinPrep Imaging System, with manual evaluation Last [...] Final R esult [facility] [address] [place] [address] documented in this encounter Visit Diagnoses Not on filedocumented in this encounter Care Teams Grievance And Appeals Specialist Relationship Specialty Start Date End Date Sulma Salinas MD [facility] [address] [place] [address] PCP - General 02/13/09 11/23/11 documented as of this encounter
--- OUTSIDE RECORDS SUMMARY | 2024-08-27 06:31 | XMS_ITS | Encounter Summary ---
Author Organization [facility] Address [address] [place] [address] Care Team Providers Care Mice Raiser Name Role Phone Sulma Salinas MD Primary Care Provider [phone] Encounter Details Date Type Department Care Team (Late st Contact Info) Description 11/22/2009 Orders Only [facility] Bariatric Surgery [facility] [address] [place] [address] Lorena Garduno, RN [address] [place] [address] Obesity, unspecified (Primary Dx); Polycystic ovaries; Other [...] esophagitis documented in this encounter Care Teams Mice Raiser Relationship Specialty Start Date End Date Sulma Salinas MD [facility] [address] [place], [place] [address] PCP - General 02/13/09 11/23/11 documented as of this encounter
--- OUTSIDE RECORDS SUMMARY | 2024-08-27 06:31 | XMS_ITS | Encounter Summary ---
Author Organization [facility] Address [address] [place] [address] Care Team Providers Care Cornetist Name Role Phone Sulma Salinas MD Primary Care Provider [phone] Encounter Details Date Type Department Care Team (Late st Contact Info) Description 11/25/2000 Results Only [facility] - Maple conversion [address] [place] [address] Kev Cloud MD [address] [place] [address] Social History Tobacco Use Types [...] ? KEVIN CASTANO ? Accession #: ? [id number] : ? 1975 (Age: 25) ??F ?Collect [...] Final Resul t [facility] [address] [place] [address] documented in this encounter Visit Diagnoses Not on filedocumented in this encounter Care Teams Cornetist Relationship Specialty Start Date End Date Sulma Salinas MD [facility] [address] [place] [address] PCP - General 02/13/09 11/23/11 documented as of this encounter
--- OUTSIDE RECORDS SUMMARY | 2024-08-27 06:31 | XMS_ITS | Encounter Summary ---
Author Organization [facility] Address [address] [place] [address] Care Team Providers Care Certified Retinal Angiographer Name Role Phone Sulma Salinas MD Primary Care Provider [phone] Encounter Details Date Type Department Care Team (Latest Contact Info) Description 11/21/2009 9:37 EDT - 11/21/2009 23:59 EDT Hospital Encounter [facility] [address] [place] [address] Elsy Gaona, WEARING APPAREL FOLDER [address] [address] MIGUEL (obstructive sleep apnea); Morbid obesity (HCC-CMS); [...] or Self Fci documented in this encounter Plan of Treatment [...] 5.00 uIU/ml [facility] Comment:Performed at [facility], [place], [place] Blood specimen (specimen) 11/21/2009 9:45 EDT 11/21/2009 9:47 EDT Elsy Jimel WEARING APPAREL FOLDER CHEMISTRY & BLOOD GAS ORD ERABLES Final Result Performing Organization Address [facility] Co de Phone Number [facility] [address] [place] [address] * LIPID PROFILE (INCLUDES CHOLESTEROL, TRIGLYCERIDES, HDL, [...] for analysis. Repeat Requested Performed at [facility], [place], [place] [facility] Fasting? Yes [facility] Blood specimen (specimen) 11/21/2009 9:45 EDT 11/21/2009 9:47 EDT Elsy Gaona WEARING APPAREL FOLDER CHEMISTRY & BLOOD GAS ORD ERABLES Final Result Performing Organization Address [facility] Co de Phone Number [facility] [address] [place] [address] * HEMOGLOBIN A1C (11/21/2009 9:45 EDT) Hemoglobin A1C 5.9 % [facility] Comment: Reference Range: <5.7% Normal 5.7-6.4% Increased [...] EDT 11/21/2009 9:47 EDT Elsy S Candelaria WEARING APPAREL FOLDER CHEMISTRY & BLOOD GAS ORD ERABLES Final Result Performing Organization Address City/[facility]/ZIP Co de Phone Number [facility] [address] [place] [address] * VITAMIN D (25,OH) (11/21/2009 9:45 EDT) 25OH Vitamin D Tot Marked hemolysis Specimen unsuitable for analysis. Repeat Requested ng/ml [facility] Comment:Performed at [place], [place] Blood specimen (specimen) 11/21/2009 9:45 EDT 11/21/2009 9:47 EDT Elsy S Candelaria WEARING APPAREL FOLDER CHEMISTRY & BLOOD GAS ORD ERABLES Final Result Performing Organization Address [facility] Co de Phone Number [facility] [address] [place] [address] * LIVER FUNCTION TESTS (11/21/2009 9:45 EDT) [...] Requested mg/dl [facility] Comment:Performed at [place], [place] Blood specimen (specimen) 11/21/2009 9:45 EDT 11/21/2009 9:47 EDT Elsy Gaona APRN CHEMISTRY & BLOOD GAS ORD ERABLES Final Result Performing Organization Address [facility] Co de Phone Number [facility] [address] [place] [address] * (ABNORMAL) HEMAGRAM (11/21/2009 9:45 EDT) WBC [...] ORDERABL ES Final Result Performing Organization Address [facility] de Phone Number [facility] [address] [place] [address] * CREATININE (11/21/2009 9:45 EDT) Creatinine Marked hemolysis Specimen unsuitable for analysis. Repeat Requested 0.7 - 1.5 mg/dl [facility] GFR, Calculated Marked hemolysis Specimen unsuitable for analysis. Repeat Requested ml/min/1. 73m2 [facility] Comment:Performed at [facility], [place], [place] Blood specimen (specimen) 11/21/2009 9:45 EDT 11/21/2009 9:47 EDT us Elsy Gaona WEARING APPAREL FOLDER CHEMISTRY & BLOOD GAS ORD ERABLES Final Result [facility] [address] [place] [address] documented in this encounter Visit Diagnoses Diagnosis MIGUEL (obstructive sleep apnea) Obstructive sleep apnea (adult) (pediatric) Morbid obesity ([facility]) Morbid obesity OA (osteoarthritis) of knee Osteoarthrosis, unspecified whether generalized or localized, lower leg PCOS (polycystic ovarian syndrome) Polycystic ovaries Preoperative testing Preoperative examination, unspecified documented in this encounter Care Teams Certified Retinal Angiographer Relationship Specialty Start Date End Date Sulma Salinas MD [facility] [address] [place], [place] [address] PCP - General 02/13/09 11/23/11 documented as of this encounter
--- OUTSIDE RECORDS SUMMARY | 2024-08-27 06:31 | XMS_ITS | Encounter Summary ---
Author Organization [facility] Address [address] [place] [address] Care Team Providers Care Care Process Manager Name Role Phone Sulma Salinas MD Primary Care Provider Unknown, Provider Primary Care Provider Sulma Campos MD Primary Care Provider [phone] Encounter Details Date Type Department Care Team (Late st Contact Info) Description 02/06/2010 Documentation Visit [facility] Bariatric Surgery - [place] [address] [place] [address] Elsy Gaona, SHIP PURSER [address] [phone] Social History Tobacco Use Types Packs/Day Years [...] on filedocumented in this encounter Care Teams Care Process Manager Relationship Specialty Start Date End Date Sulma Salinas MD [facility] [address] [place], [place] [address] PCP - General 02/13/09 11/23/11 Unknown, MD Jean Paul PCP - General 11/24/11 06/26/13 Sulma Salinas MD [address] [place] [address] PCP - General 06/27/13 documented as of this encounter
--- OUTSIDE RECORDS SUMMARY | 2024-08-27 06:31 | XMS_ITS | Encounter Summary ---
Author Organization [facility] Address [address] [place] [address] Care Team Providers Care Encephalographer Name Role Phone Sulma Salinas MD Primary Care Provider [phone] Reason for Visit * Reason Comments Obesity pre op Encounter Details Date Type Department Care Team (Late st Contact Info) Description 11/21/2009 8:00 EDT Office Visit [facility] Bariatric Surgery [facility] [address] [place] [address] Elsy Gaona S, CREDIT UNION MANAGER 61 [facility] [address] [address] MIGUEL (obstructive sleep apnea); Morbid [...] in Meal pattern: unk Average caloric intake:states 2404-9167 Meal composition: unk Snacking: appropriate Exercise: walking [...] uIU/ml [facility] Comment:[facility]formed at [facility] [place], [place] Blood specimen (specimen) 11/21/2009 9:45 EDT 11/21/2009 9:47 EDT Elsy Gaona APRN CHEMISTRY & BLOOD GAS ORD ERABLES Final Result [facility] [address] [place] [address] * LIPID PROFILE (INCLUDES CHOLESTEROL, TRIGLYCERIDES, HDL, [...] analysis. Repeat Requested Performed at [facility], [place], [place] [facility] Fasting? Yes [facility] Blood specimen (specimen) 11/21/2009 9:45 EDT 11/21/2009 9:47 EDT Elsy Gaona APRN CHEMISTRY & BLOOD GAS ORD ERABLES Final Result Performing Organization Address [facility] de Phone Number [facility] [address] [place] [address] * HEMOGLOBIN A1C (11/21/2009 9:45 EDT) Hemoglobin [...] ORD ERABLES Final Result Performing Organization Address [facility] de Phone Number [facility] [address] [place] [address] * VITAMIN D (25,OH) (11/21/2009 9:45 EDT) 25OH Vitamin D Tot Marked hemolysis Specimen unsuitable for analysis. Repeat Requested ng/ml [facility] Comment:Performed at [facility], [place], [place] Blood specimen (specimen) 11/21/2009 9:45 EDT 11/21/2009 9:47 EDT Elsy S Candelaria CREDIT UNION MANAGER CHEMISTRY & BLOOD GAS ORD ERABLES Final Result Performing Organization Address [facility] Co de Phone Number [facility] [address] [place] [address] * LIVER FUNCTION TESTS (11/21/2009 9:45 EDT) [...] LAB Comment:Performed at [facility], [place], [place] Blood specimen (specimen) 11/21/2009 9:45 EDT 11/21/2009 9:47 EDT Elsy Gaona CREDIT UNION MANAGER CHEMISTRY & BLOOD GAS ORD ERABLES Final Result Performing Organization Address City/[facility]/ZIP Co de Phone Number [facility] [address] [place] [address] * (ABNORMAL) HEMAGRAM (11/21/2009 9:45 EDT) WBC [...] ORDERABL ES Final Result Performing Organization Address [facility] de Phone Number [facility] [address] [place] [address] * CREATININE (11/21/2009 9:45 EDT) Creatinine Marked hemolysis Specimen unsuitable for analysis. Repeat Requested 0.7 - 1.5 mg/dl [facility] GFR, Calculated Marked hemolysis Specimen unsuitable for analysis. Repeat Requested ml/min/1. 73m2 [facility] Comment:Performed at [facility], [place], [place] Blood specimen (specimen) 11/21/2009 9:45 EDT 11/21/2009 9:47 EDT Elsy Gaona APRN CHEMISTRY & BLOOD GAS ORD ERABLES Final Result Performing Organization Address [facility] Co de Phone Number [facility] [address] [place] [address] documented in this encounter Visit Diagnoses Diagnosis MIGUEL (obstructive sleep apnea) Obstructive sleep apnea (adult) (pediatric) Morbid obesity ([facility]) Morbid obesity OA (osteoarthritis) of knee Osteoarthrosis, unspecified whether generalized or localized, lower leg PCOS (polycystic ovarian syndrome) Polycystic ovaries Preoperative testing Preoperative examination, unspecified documented in this encounter Care Teams Encephalographer Relationship Specialty Start Date End Date Sulma Salinas MD [facility] [address] [place], [place] [address] PCP - General 02/13/09 11/23/11 documented as of this encounter
--- OUTSIDE RECORDS SUMMARY | 2024-08-27 06:31 | XMS_ITS | Encounter Summary ---
Author Organization [facility] Address [address] [place] [address] Care Team Providers Care Coater Name Role Phone Sulma Salinas MD Primary Care Provider [phone] Encounter Details Date Type Department Care Team (Latest Contact Info) Description 07/31/2010 13:36 EST - 07/31/2010 17:30 EST Hospital Encounter [facility] Perioperative Services- [facility] [address] [place] [address] Kasandra Hobbs MD [address] [place] [phone] Discharge Disposition: Home or Self Care [...] 07/31/2010 1523 EST 1520 Pt returned from [facility], no complaints, states she is feeling [...] 10 documented in this encounter Care Teams Coater Relationship Specialty Start Date End Date Sulma Salinas MD [facility] [address] [place] [address] PCP - General 02/13/09 11/23/11 documented as of this encounter
[2024-08-27 06:40] VITALS: PULSE 87; RESP 12; O2SAT 96
--- NOTE | 2024-08-27 06:42 | W.ED.GENAD ---
Discharge Plan Disposition Patient Disposition: Home Condition: Good Discharge Details Clinical Impression: Pneumonia, Sinusitis Primary Care Provider: Keyon Cazares ED Provider: Lennox Ramsey Home Meds and New Rx's Prescriptions: New amoxicillin-pot clavulanate 875-125 mg tablet 1 tab PO BID 14 Days Qty: 28 0RF No Action sertraline 25 mg tablet 75 mg PO DAILY multivitamin Tablet 1 tab PO DAILY diphenhydramine HCl [Benadryl] 25 mg capsule 25 mg PO QHS PRN doxylamine succinate 25 mg tablet 25 mg PO QHS PRN epinephrine 0.3 mg/0.3 mL auto-injector 0.3 mg IM ONCE Rx Instructions: as a single dose cholecalciferol (vitamin D3) 25 mcg (1,000 unit) capsule 25 mcg PO DAILY ascorbic acid (vitamin C) 500 mg tablet extended release 1,000 mg PO DAILY mecobalamin (vitamin B12) 1,000 mcg tablet,chewable 1,000 mcg PO Q3D prochlorperazine maleate 10 mg tablet 10 mg PO Q8H PRN (Reason: nausea and vomiting or headache) Qty: 30 3RF fluticasone propionate 50 mcg/actuation spray,suspension 1 spray INTRANASAL DAILY Patient Comments: SHAKE LIQUID AND USE 1 SPRAY IN EACH NOSTRIL TWICE DAILY loratadine [Claritin] 10 mg tablet 10 mg PO DAILY Qty: 14 0RF Discharge Instructions Instructions: Pneumonia in adults, Sinusitis, Adult ED Additional Instructions: At this time you have evidence to suggest the presence of both pneumonia and sinusitis. Please continue to use the [place] pot, daily loratadine, the inhaler every 6 hours, and 2 tablespoons of honey every 4 hours. Please take the antibiotic as directed. There is a chance that this may be an atypical pneumonia in which case she would need a different type of antibiotic. If you do not have any clinical improvement over the next 4 to 5 days please follow-up closely with your family doctor for transition to a additional atypical coverage antibiotic. If you notice any worsening of your symptoms, or any new symptoms such as vomiting, diarrhea, fever, chills, shortness of breath, chest pain, numbness, weakness, or fainting , please return immediately to the emergency department for reevaluation. Please follow up with your primary care provider as soon as possible for reassessment and reevaluation. As always, it was a pleasure participating in your medical care today. Referrals: Keyon Cazares DO [Primary Care Provider] - [facility] General Date/Time Provider Initiated Documentation: 08/27/24 06:24. HPI Narrative: Pleasant 49-year-old female with past medical history of polycystic ovarian syndrome, chronic fatigue syndrome, obstructive sleep apnea, anxiety, bariatric surgery, who presents today for evaluation of cough and nasal congestion. Patient states that for the last 2-1/2 weeks she has had symptoms of runny nose and congestion as well as the eventual presence of cough. She was seen at urgent care on 08/22/2024 and had a negative chest x-ray. She was prescribed albuterol loratadine and Tessalon Perles. Patient states that she has been taking this as directed and has not been getting any better. She states that albuterol makes her symptoms worse. She denies any hemoptysis. Her cough is productive with clear/green sputum. She admits to persistent nasal drainage. She admits to mild frontal headache. She admits to a mild fever around 99. No other complaints at this time. Related Data Home Medications ?Medication ?Instructions ?Recorded ?Confirmed fluticasone propionate 50 1 spray intranasal DAILY 08/18/20 08/27/24 mcg/actuation nasal spray,suspension loratadine 10 mg tablet (Claritin) 10 mg PO DAILY #14 tabs 08/18/20 08/27/24 ascorbic acid (vitamin C) 500 mg 1,000 mg PO DAILY 02/06/21 08/27/24 tablet,extended release cholecalciferol (vitamin D3) 25 25 mcg PO DAILY 02/06/21 08/27/24 mcg (1,000 unit) capsule diphenhydramine HCl 25 mg capsule 25 mg PO QHS PRN 02/06/21 08/27/24 (Benadryl) doxylamine succinate 25 mg tablet 25 mg PO QHS PRN 02/06/21 08/27/24 epinephrine 0.3 mg/0.3 mL 0.3 mg IM ONCE 02/06/21 08/27/24 injection, auto-injector mecobalamin (vitamin B12) 1,000 1,000 mcg PO Q3D 05/14/21 08/27/24 mcg chewable tablet multivitamin 1 tab PO DAILY 08/18/21 08/27/24 prochlorperazine maleate 10 mg 10 mg PO Q8H PRN nausea and 05/04/24 08/27/24 tablet vomiting or headache #30 tabs sertraline 25 mg tablet 75 mg PO DAILY 06/22/24 08/27/24 amoxicillin 875 mg-potassium 1 tab PO BID 14 days #28 tabs 08/27/24 clavulanate 125 mg tablet Previous Rx's ?Medication ?Instructions ?Recorded loratadine 10 mg tablet (Claritin) 10 mg PO DAILY #14 tabs 08/18/20 prochlorperazine maleate 10 mg 10 mg PO Q8H PRN nausea and 05/04/24 tablet vomiting or headache #30 tabs amoxicillin 875 mg-potassium 1 tab PO BID 14 days #28 tabs 08/27/24 clavulanate 125 mg tablet Allergies Allergy/AdvReac Type Severity Reaction Status Date / Time acetaminophen (From Percocet) Allergy Intermediate OTHER Verified 08/27/24 06:31 oxycodone Allergy Intermediate Hives Unverified 08/27/24 06:31 trazodone Allergy Intermediate OTHER Verified 08/27/24 06:31 ENVIRONMENTAL Allergy Intermediate RHINITIS, Uncoded 08/27/24 06:31 ITCHY EYES General Stated Complaint: RespSymp DALE: 3 Exam Narrative Exam Narrative: 1.Const: Well-nourished, Well-developed, appearing stated age 2.Eyes: PERRL, no conjunctival injection, and symmetrical lids. 3.ENT: Atraumatic external nose and ears. Moist MM. Neck: Symmetric, trachea midline, No thyromegaly. 4.CVS: +S1/S2, Peripheral pulses 2+ and equal in all extremities. Brisk capillary refill in all extremities. 5.RESP: Unlabored respiratory effort. Mild crackles and rhonchi scattered throughout. No wheezes. 6.GI: Soft, Nontender/Nondistended, No hepatosplenomegaly. No guarding or rebound. 7.MSK: Normocephalic/Atraumatic, Extremities w/o deformity or ttp No cyanosis or clubbing, Normal movement of all extremities 8.Skin: Warm, Dry. No rashes or lesions. 9.Neuro: sensitometrist II-XII grossly intact. Sensation grossly intact, no focal neurologic deficits. 10.Psych: (AAO) x3. Appropriate mood and affect Course Vital Signs Vital signs: Vital Signs Temperature 36.6 C 08/27/24 06:23 Pulse 84 08/27/24 06:23 Respiratory Rate 16 08/27/24 06:23 Blood Pressure 155/116 H 08/27/24 06:23 Pulse Oximetry 98 08/27/24 06:23 Temperature 36.6 C 08/27/24 06:28 Pulse 84 08/27/24 06:28 Respiratory Rate 16 08/27/24 06:28 Respiratory Effort Normal, Non-Labored 08/27/24 06:28 Respiratory Depth Normal 08/27/24 06:28 Blood Pressure 155/116 H 08/27/24 06:28 Blood Pressure Position Supine 08/27/24 06:28 Pulse Oximetry 98 08/27/24 06:28 Oxygen Delivery Method Room Air 08/27/24 06:28 Oxygen Flow Rate 0 08/27/24 06:23 Pain Level 0 08/27/24 06:28 Medical Decision Making Pleasant 49-year-old female with past medical history of polycystic ovarian syndrome, chronic fatigue syndrome, obstructive sleep apnea, anxiety, bariatric surgery, who presents today for evaluation of cough and nasal congestion. Patient states that for the last 2-1/2 weeks she has had symptoms of runny nose and congestion as well as the eventual presence of cough. She was seen at urgent care on 08/22/2024 and had a negative chest x-ray. She was prescribed albuterol loratadine and Tessalon Perles. Patient states that she has been taking this as directed and has not been getting any better. She states that albuterol makes her symptoms worse. She denies any hemoptysis. Her cough is productive with clear/green sputum. She admits to persistent nasal drainage. She admits to mild frontal headache. She admits to a mild fever around 99. No other complaints at this time. Physical exam demonstrates well-appearing female, oxygenation is normal. No tachycardia fever or hypoxemia. Mild crackles scattered throughout on lung exam. Bedside ultrasound was performed and shows evidence of mild consolidation. She also has frontal tenderness over the frontal and maxillary sinuses. No evidence of otitis media. Suspect mild sinusitis transitioning to a postnasal drip which is now led to a mild pneumonia. Will give Augmentin for treatment of the sinusitis which will also cover typical pneumonia pathogen's. Will give 14-day course. Recommend continued loratadine inhaler [place] pot and Tessalon Perle use. Discussed red flags for which to return. 2 doses of Augmentin will be given here. I have extensively reviewed the treatment plan and discharge instructions with the patient. I have addressed all patient concerns at this time. The patient was made aware of what symptoms to monitor for that would warrant a return to the emergency department. Discussed the plan with the patient, they demonstrate verbal understanding and agreement with our assessment and plan at this time. The documentation in this chart was dictated using [employer] dictation software. Please excuse any dictation errors. RSV did test positive, I did inform the patient of this. Quality:SDOH Health Related Social Needs: No Data to Display PFSH All Active Problems (Updated 08/27/24 @ 06:43 by Lennox Ramsey DO) Sinusitis (Acute) Pneumonia (Acute) Medication overuse headache (Acute) Migraine aura without headache (Acute) Migraine headache without aura (Acute) Disequilibrium (Acute) Paresthesias (Acute) Medical History Polycystic ovaries Allergic disorder Knee pain Obstructive sleep apnea of adult Chronic fatigue syndrome Anxiety Vitamin D deficiency Surgical History S/P knee surgery S/P carpal tunnel release H/O gastric bypass History of cholecystectomy H/O bariatric surgery Family History Father , liver failure No problems noted. 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
[2024-08-27] MEDS: Amox. 875/Clav. 125, 2 TABS/BTL 1 TAB PO (06:48)
[2024-08-27 06:49] VITALS: BP 129/91; PULSE 52; PULSE 87; RESP 21
[2024-08-27 07:07] LABS: COVID-19 PCR Negative (Negative); Influenza A PCR Negative (Negative); Influenza B PCR Negative (Negative)
[2024-08-27 07:09] LABS: RSV PCR Positive (Negative); Source Nasopharynx
== END 2024-08-27 06:54 | disposition home or self-care (01) ==
PROVIDERS: Emergency Provider Student in an Organized Health Care Education/Training Program; PCP Specialist/Technologist Athletic Trainer
DX: J01.40 Acute pansinusitis, unspecified (principal); R05.9 Cough, unspecified; Z98.84 Bariatric surgery status
CPT/HCPCS: 87637; 99284

== ENCOUNTER 2025-02-02 08:24 | Outpatient (REF) | payer BC, SELFPAY ==
--- NOTE | 2025-02-02 08:20 | PAPFT_PTH ---
PATIENT: Kevin Calderon LOC: [facility] U#:[id number] AGE/SX: 49/F ROOM: RE02/02/[address]: Jaleesa Rich DO : 1975 BED: DIS: 02/02/2025 SPEC #: [id number] RECD: 02/02/25 13:14 STATUS: [place] REQ #: [id number] FIONA: 02/02/25 08:[address]: Jaleesa Rich DEPT: [facility] Cytology RECD BY: Azucena Werner Tissues: 1 - CX/ENDOCX FOR PAP SMEARS Procedures: PAP THIN PREP/UVM Screening HPV DNA PROBE Comments: [id number] (HPV 16 & 18/45)
== END 2025-02-02 08:25 | disposition home or self-care (01) ==
LOC: LBN 08:24
PROVIDERS: PCP Specialist/Technologist Athletic Trainer; Visit Provider Obstetrics & Gynecology
DX: Z12.4 Encounter for screening for malignant neoplasm of cervix (principal)
CPT/HCPCS: 88142; 87624

== ENCOUNTER 2025-02-28 08:17 | Outpatient (CLI) | payer BC, SELFPAY ==
[2025-02-28 09:19] LABS: TSH (W/Ref FT4) 1.35 uIU/mL (0.36-3.74)
[2025-02-28 18:28] LABS: FSH 10.6 mIU/mL (See Note)
== END 2025-02-28 08:18 | disposition home or self-care (01) ==
LOC: LBO 08:17
PROVIDERS: PCP Specialist/Technologist Athletic Trainer; Visit Provider Obstetrics & Gynecology
DX: N93.9 Abnormal uterine and vaginal bleeding, unspecified (principal)
CPT/HCPCS: 36415; 82670; 83001; 84443

== ENCOUNTER 2025-03-01 00:20 | Outpatient (CLI) | payer BC, SELFPAY ==
--- NOTE | 2025-02-28 07:30 | DI.US_ITS ---
Exam(s) US PELVIS TRANSVAGINAL EXAM: US PELVIS TRANSVAGINAL CLINICAL HISTORY: anatomy,ABNL UTERINE BLEEDING,N93.9. TECHNIQUE: Transabdominal and transvaginal pelvic ultrasound was performed using standard protocol. COMPARISON: US PELVIS TRANSVAG from 12/08/2017 FINDINGS: UTERUS: Position: Anteverted. Size: 6.8 long by 3.8 AP by 4.0 transverse cm Endometrium: 0.7 cm. Normal for patient's menstrual status. Myometrium: Unremarkable. Cervix: Unremarkable. OVARIES: Right: 3.2 x 2.2 x 1.6 cm Cyst or mass: No suspicious cystic or solid masses. Left: 2.7 x 1.6 x 2.2 cm Cyst or mass: No suspicious cystic or solid masses. DOPPLER: Color: Symmetric and uniform flow to both ovaries. CUL-DE-SAC: Free fluid: None. Other: None. IMPRESSION: 1. Normal-appearing uterus with endometrial stripe within normal limits. 2. Unremarkable bilateral ovaries. DATA REPOSITORY:
--- NOTE | 2025-03-01 13:25 | DI.MAMMO_ITS ---
Exam(s) MAMMO SCREENING EXAM: MAMMO SCREENING CLINICAL HISTORY: screening TECHNIQUE: Bilateral full field digital CC and MLO mammographic images were obtained with 3D tomosynthesis and utilizing computer aided detection (CAD). COMPARISON: Comparison is made with prior examinations. FINDINGS: Masses/Architectural Distortion: No suspicious masses or areas of architectural distortion are present. Microcalcifications: No suspicious pleomorphic-type are seen. Skin Thickening/Nipple Retraction: None. IMPRESSION: 1. No significant interval change with no specific features of malignancy noted. 2. Unless there is more urgent need, screening mammography is recommended, as per [place] [employer] guidelines. BI-RADS Category 1 - Negative Breast Density - Category C - The breast are heterogeneously dense, which may obscure small masses. Breast density Category C or D implies that the patient has dense breast tissue. Dense breast tissue can make it harder to find cancer on a mammogram. Dense breast tissue is also associated with an increased risk of breast cancer. This information about the result of the mammogram report was provided to the patient to raise their awareness. Use this report when you speak with the patient about their risks for breast cancer, which includes their family history. At that time, you may recommend additional screening tests (Ultrasound or MRI) as these tests may add significant information. A negative radiographic report should not delay biopsy if a dominant or clinically suspicious mass is present. Up to ten percent of cancers are not identified on mammography. A negative report may reinforce clinical impression. Adenosis and dense breasts may obscure an underlying neoplasm. False positive reports average 6 to 10%. Patient will receive a letter notifying them of these results.
== END 2025-03-01 00:40 ==
LOC: DI 00:21
PROVIDERS: PCP Specialist/Technologist Athletic Trainer; Visit Provider Obstetrics & Gynecology
DX: Z12.31 Encounter for screening mammogram for malignant neoplasm of breast (principal); N93.9 Abnormal uterine and vaginal bleeding, unspecified; R92.333 Mammographic heterogeneous density, bilateral breasts
CPT/HCPCS: 77063; 77067; 76830; 76856